=== PATIENT | male | born 1985 | race Caucasian/White ===

== ENCOUNTER 2020-12-14 18:51 | Emergency (ER) | payer BC, SELFPAY ==
[2020-12-14 19:10] VITALS: BP 153/94; PULSE 84; RESP 16; TEMP 37.2; O2SAT 99; BMI 26.9
--- NOTE | 2020-12-14 19:23 | CT_ITS ---
PROCEDURE: CT ABDOMEN PELVIS WO CON CLINICAL INDICATION: Left flank pain COMPARISON: No exams were available for comparison TECHNIQUE: Axial images obtained with sagittal and coronal reformats. All CT scans at the facility use one or more dose reduction, viz: automated exposure control, ma/kV adjustment per patient size (including targeted exams where dose is matched to indication, i.e. head), or iterative reconstruction technique. FINDINGS: LOWER THORAX: No acute finding ABDOMEN & PELVIS: The liver, spleen, adrenal glands, pancreas, have an unremarkable appearance. There is a 5 mm calculus in the mid polar region of the right kidney. There is mild dilatation of the left renal collecting system and left ureter the secondary to a 2 mm calculus in the distal aspect of the left ureter just proximal to the ureterovesical junction. No evidence of appendicitis, intestinal obstruction, or free air. No acute bony anomaly. There are few scattered small nodes in the retroperitoneum and peritoneum. IMPRESSION: 1. 2 mm left distal ureteral calculus with mild left hydroureteronephrosis. 2. Right nephrolithiasis. Dictated by: Arnol Trevizo MD 12/15/2020 06:31 Arnol Trevizo MD in [place] 12/15/2020 06:31
[2020-12-14 19:29] LABS: Basophils # 0.1 K/mm3 (0-0.2); Basophils % 0.8 % (0.1-2.0); Eosinophils # 0.2 K/mm3 (0.0-0.4); Eosinophils % 2.1 % (0.1-12.0); Hematocrit 49.8 % (42.0-52.0); Hemoglobin 16.7 g/dL (14.1-18.0); Lymphocytes # 3.1 K/mm3 (0.7-4.5); Lymphocytes % 36.1 % (10-50); Mean Corpuscular HGB Conc 33.7 g/dL (31.8-35.4); Mean Corpuscular Hemoglobin 31.2 pg (27.0-31.2); Mean Corpuscular Volume 92.8 fl (80-94); Mean Platelet Volume 8.3 fl (7.4-10.4); Monocytes # 0.6 K/mm3 (0.1-1.0); Monocytes % 7.2 % (1.7-9.3); Neutrophils # 4.6 K/mm3 (1.8-7.8); Neutrophils % 53.9 % (37.0-80.0); Platelet Count 225 K/mm3 (142-424); Red Blood Count 5.36 M/mm3 (4.60-6.20); Red Cell Distribution Width 13.1 % (11.5-17.5); White Blood Count 8.5 K/mm3 (4.8-10.8)
[2020-12-14 19:29] LABS: Microscopic, Urine URINE MICROSCOPIC (MICROSCOPIC)
[2020-12-14 19:30] LABS: Chloride 103 mmol/L (98-107); Sodium 142 mmol/L (136-145)
[2020-12-14 19:30] LABS: Appearance,Urine SL CLOUDY (Clear); Bilirubin,Urine Negative (Negative); Blood, Urine 3+ (Negative); Color,Urine YELLOW (Yellow); Glucose,Urine (UA) Negative (Negative); Ketones,Urine Negative (Negative); Leukocyte Esterase,Urine Negative (Negative); Nitrate,Urine Negative (Negative); Protein,Urine Negative (Negative); Specific Gravity, Urine >= 1.030 (1.005-1.030); Urobilinogen,Urine 0.2 EU/dl (0.2)
[2020-12-14 19:31] LABS: Potassium 4.2 mmoL/L (3.5-5.1)
[2020-12-14 19:33] LABS: Alanine Aminotransferase 31 U/L (12-78); Alkaline Phosphatase 67 U/L (38-126); Anion Gap 12.2 mEq/L (5-15); Aspartate Amino Transferase 34 U/L (17-59); Bilirubin,Total 0.8 mg/dl (0.2-1.3); Blood Urea Nitrogen 19 mg/dl (9-20); Carbon Dioxide 31 mmol/L (22.0-30.0); Creatinine Clearance Estimated 86 mL/min (50-200); Estimated Glomerular Filt Rate 62 ml/min (>60); GFR (African American) 75 ML/MIN (>60)
[2020-12-14 19:34] LABS: Albumin Level 4.8 g/dl (3.5-5.0); Albumin/Globulin Ratio 1.5 (1.1-1.8); Calcium 9.9 mg/dl (8.4-10.2); Globulin 3.1 g/dL (1.3-3.2); Glucose 96 mg/dl (74-100); Total Protein,Serum 7.9 g/dl (6.3-8.2)
[2020-12-14 19:35] LABS: Ammonia < 9 umol/L (9-30)
[2020-12-14 19:39] LABS: Squamous Epithelial Cell,Urine Occasional #/hpf (0-5); WBC,Urine Occasional #/hpf (0-3)
[2020-12-14 19:51] LABS: C-Reactive Protein < 0.3 mg/L (0-4)
[2020-12-14 20:11] LABS: Erythrocyte Sedimentation Rate 4 mm/hr (0-15)
--- NOTE | 2020-12-14 20:27 | HMH.EDGENADL ---
ED Disposition Clinical Impression: Renal colic on left side Disposition: Home, Self-Care Condition on Discharge: Good Instructions: DI for Kidney Stones Additional Instructions: fluids and use meds and see urology for follow up Prescriptions: Tamsulosin HCl [Flomax 0.4mg capsule] 0.4 mg PO HS #10 cap Transmission Status: Pending to [facility] [id number] Ketorolac Tromethamine [Toradol 10mg tablet] 10 mg PO Q6H 3 Days #12 tab Transmission Status: Pending to [facility] [address] Referrals: Stephany Myles [Primary Care Provider] - Suhas Burgess MD [Staff Physician] - - Critical Care Critical Care Time: No Attestation: On 12/14/20, the high probability of a clinically significant, sudden or life threatening deterioration of the following system(s) required my full and direct attention, intervention and personal management. The time I documented below is in addition to time spent performing reported procedures but includes the following listed in this critical care notation. Medical Decision Making - Medical Records Medical records reviewed: Yes: I reviewed the patient's medical records. - Abdulkadir Inquiry Pt receiving controlled substance: No Vital Signs: 12/14/20 19:10 Temperature 98.9 F Temperature Source Oral Pulse Rate [Right] 84 Respiratory Rate 16 Blood Pressure [Right Arm] 153/94 H Blood Pressure Mean [Right Arm] 113 Blood Pressure Source [Right Arm] Automatic Cuff Blood Pressure Position [Right Arm] Sitting 02 Sat by Pulse Oximetry 99 Oxygen Delivery Method Room Air - Lab Data Lab results reviewed: Yes: I reviewed the patient's lab results. Lab Results 12/14/20 19:05: Urine Color Yellow, Urine Appearance Sl cloudy, Urine pH 6.0, Ur Specific [place] >= 1.030, Urine Protein Negative, Urine Glucose (UA) Negative, Urine Ketones Negative, Urine Blood 3+, Urine Nitrate Negative, Urine Bilirubin Negative, Urine Urobilinogen 0.2, Ur Leukocyte Esterase Negative, Urine RBC 10-20, Urine WBC Occasional, Ur Squamous Epith Cells Occasional, Hyaline Casts 3-5 12/14/20 19:15: WBC 8.5, RBC 5.36, Hgb 16.7, Hct 49.8, MCV 92.8, MCH 31.2, MCHC 33.7, RDW 13.1, Plt Count 225, MPV 8.3, Neut % (Auto) 53.9, Lymph % (Auto) 36.1, [place] % (Auto) 7.2, Eos % (Auto) 2.1, Baso % (Auto) 0.8, Neut # (Auto) 4.6, Lymph # (Auto) 3.1, [place] # (Auto) 0.6, Eos # (Auto) 0.2, Baso # (Auto) 0.1, ESR 4 12/14/20 19:15: Sodium 142, Potassium 4.2, Chloride 103, Carbon Dioxide 31 H, Anion Gap 12.2, BUN 19, Creatinine 1.30 H, Estimated Creat Clear 86, Estimated GFR 62, Est GFR ( Amer) 75, Glucose 96, Calcium 9.9, Total Bilirubin 0.8, AST 34, ALT 31, Alkaline Phosphatase 67, C-Reactive Protein < 0.3, Total Protein 7.9, Albumin 4.8, Globulin 3.1, Albumin/Globulin Ratio 1.5 12/14/20 19:15: Ammonia < 9 L Result diagrams: 12/14/20 19:15 12/14/20 19:15 Orders (Tests/Meds): ED MEDICATIONS Generic Name Dose Route Start Last Admin Trade Name Freq PRN Reason Stop Dose Admin Sodium Chloride 1,000 mls @ 999 mls/hr 12/14/20 19:30 12/14/20 19:35 Sod Chlor 0.9% 1000ml Bag IV 12/14/20 20:30 999 mls/hr .Q1H1M PHI Administration Discontinued Medications Generic Name Dose Route Start Last Admin Trade Name Freq PRN Reason Stop Dose Admin Ketorolac Tromethamine 30 mg 12/14/20 19:22 12/14/20 19:35 Ketorolac 30mg/Ml Vial IV 12/14/20 19:23 30 mg ONCE ONE Administration Ondansetron HCl 4 mg 12/14/20 19:22 12/14/20 19:35 Ondansetron 4mg/2ml Vial IV 12/14/20 19:23 4 mg ONCE ONE Administration ORDERS Category Date Time Status CT abdomen pelvis wo con Stat Cat Scan 12/14/20 19:23 Taken C-Reactive Protein Stat Lab 12/14/20 19:15 Results Comprehensive Metabolic Panel Stat Lab 12/14/20 19:15 Results Procalcitonin Stat Lab 12/14/20 19:15 Results - CT Data CT Scan: Abdomen, Pelvis Time Received: 20:[address] Reviewed: Yes: I have viewed the radiologist's interpretation Preliminary Find
[2020-12-14 20:37] VITALS: BP 155/96; PULSE 85; RESP 16; TEMP 36.8; O2SAT 98
[2020-12-14 20:49] LABS: Procalcitonin 0.036 ng/mL (0.0-2.0)
== END 2020-12-14 20:43 | disposition home or self-care (01) ==
PROVIDERS: Emergency Medicine; Emergency Provider Emergency Medicine; PCP Nurse Practitioner Family
DX: N23 Unspecified renal colic (principal)
CPT/HCPCS: 74176; 80053; 81001; 82140; 84145; 85025; 85651; 86140; 96365; 96375; 99283; J2405

== ENCOUNTER 2023-05-09 18:11 | Emergency (ER) | payer OTHER, SELFPAY ==
[2023-05-09 18:12] VITALS: BP 136/92; PULSE 79; RESP 16; TEMP 36.9; O2SAT 98; BMI 28.0
[2023-05-09 18:29] VITALS: BP 136/92; PULSE 79; O2SAT 98
--- NOTE | 2023-05-09 18:36 | CT_ITS ---
PROCEDURE INFORMATION: Exam: CT Abdomen And Pelvis Without Contrast Exam date and time: 05/09/2023 6:46 PM Age: 37 years old Clinical indication: Abdominal pain; Flank; Right; Additional info: R/O kidney stone TECHNIQUE: Imaging protocol: Computed tomography of the abdomen and pelvis without contrast. Radiation optimization: All CT scans at this facility use at least one of these dose optimization techniques: automated exposure control; mA and/or kV adjustment per patient size (includes targeted exams where dose is matched to clinical indication); or iterative reconstruction. REPORTING DATA: Count of CT and Cardiac NM exams in prior 12 months: This patient has received 0 known CTs and 0 known cardiac nuclear medicine studies in the 12 months prior to the current study. COMPARISON: CT ABDOMEN PELVIS WO CON 12/14/2020 7:40 PM FINDINGS: Lungs: No acute findings in the visualized lower lungs. No consolidation. Minimal subsegmental atelectasis or scarring in the left lingula. Liver: The liver is normal. Gallbladder and bile ducts: The gallbladder is unremarkable. No calcified stones or biliary dilatation. Pancreas: The pancreas is normal. Spleen: The spleen is normal. Mild splenomegaly 13.8 cm long axis. Series 1001, image 34. Adrenal glands: The adrenal glands are normal. Kidneys and ureters: There is [id number] right hydronephrosis and hydroureter. There is an obstructing calcified stone at the right ureterovesical junction. This stone measures approximately 5 x 4 x 3 mm diameter, with HU density of 432, and is visible on the baggage screener topogram. Slight right urothelial thickening, and right perinephric and periureteral soft tissue edema, which could be due to the obstruction versus superimposed infection. There is a tiny nonobstructing right upper pole renal stone series 1001, image 43, and several small faint densities in both kidneys which could be additional poorly calcified stones or hyperdense papillae., e.g. left kidney series 1001, image 43. No hydronephrosis, hydroureter, or obstructing calcified ureteral stone on the left. Stomach and bowel: The stomach is normal. There is no evidence of intestinal perforation or obstruction. Appendix: No findings of appendicitis. Intraperitoneal space: There is no significant free intraperitoneal fluid. There is no free intraperitoneal air. Vasculature: Unremarkable. No abdominal aortic aneurysm. Lymph nodes: No significantly enlarged lymph nodes by short axis criteria. Urinary bladder: The urinary bladder is nearly empty and contracted which likely accounts for slightly thickened appearance. 4 mm right UVJ stone again noted as detailed above. Reproductive: The prostate and seminal vesicles are normal. Bones/joints: There is no evidence of acute fracture. Soft tissues: There are no soft tissue masses or fluid collections. IMPRESSION: 1. A 5 x 4 x 3 mm calcified stone obstructs the right ureterovesical junction, with [id number] right hydronephrosis and hydroureter. Slight perinephric and periureteral edema may be due to the obstruction or superimposed UTI. 2. Additional nonobstructing renal calculi, as above. 3. Additional nonemergency and chronic findings as above. COMMENTS: Consistent with the [employer]'s Incidental Findings Committee white paper (J Am Dano Radiol 2018): Any incidental renal lesion less than 1 cm or classified as too small to characterize, or any incidental cystic renal lesion characterized as simple-appearing, is likely benign. No follow-up imaging is recommended for these lesions per consensus recommendations based on imag
[2023-05-09 18:43] LABS: Microscopic, Urine URINE MICROSCOPIC (MICROSCOPIC)
[2023-05-09 18:45] LABS: Appearance,Urine CLEAR (Clear); Bilirubin,Urine Negative (Negative); Blood, Urine 3+ (Negative); Color,Urine YELLOW (Yellow); Glucose,Urine (UA) Negative (Negative); Ketones,Urine Negative (Negative); Leukocyte Esterase,Urine Negative (Negative); Nitrate,Urine Negative (Negative); Protein,Urine 2+ (Negative)
[2023-05-09 18:48] LABS: Basophils % 0.4 % (0.1-2.0); Chloride 99 mmol/L (98-107); Eosinophils # 0.3 K/mm3 (0.0-0.4); Eosinophils % 2.8 % (0.1-12.0); Hematocrit 47.8 % (42.0-52.0); Hemoglobin 15.9 g/dL (14.1-18.0); Lymphocytes # 1.7 K/mm3 (0.7-4.5); Mean Corpuscular HGB Conc 33.3 g/dL (31.8-35.4); Mean Platelet Volume 8.5 fl (7.4-10.4); Monocytes # 0.6 K/mm3 (0.1-1.0); Monocytes % 7.3 % (1.7-9.3); Neutrophils # 6.2 K/mm3 (1.8-7.8); Neutrophils % 70.5 % (37.0-80.0); Platelet Count 192 K/mm3 (142-424); Red Blood Count 5.49 M/mm3 (4.60-6.20); Red Cell Distribution Width 12.6 % (11.5-17.5); Sodium 140 mmol/L (136-145); White Blood Count 8.8 K/mm3 (4.8-10.8)
[2023-05-09 18:51] LABS: Alanine Aminotransferase 32 U/L (12-78); Alkaline Phosphatase 82 U/L (38-126); Amylase 97 U/L (30-110); Aspartate Amino Transferase 48 U/L (17-59); Bilirubin,Total 1.1 mg/dl (0.2-1.3); Blood Urea Nitrogen 20 mg/dl (9-20); Calcium 9.1 mg/dl (8.4-10.2); Carbon Dioxide 31 mmol/L (22.0-30.0); Creatinine Clearance Estimated 92 mL/min (50-200); Estimated Glomerular Filt Rate 67 ml/min (>60); GFR (African American) 82 ML/MIN (>60); Glucose 96 mg/dl (74-100); Lipase 40 U/L (23-300)
[2023-05-09 18:52] LABS: Albumin Level 4.8 g/dl (3.5-5.0); Albumin/Globulin Ratio 1.6 (1.1-1.8); Total Protein,Serum 7.8 g/dl (6.3-8.2)
[2023-05-09 19:01] VITALS: BP 112/75; PULSE 75; O2SAT 97
[2023-05-09 19:15] LABS: RBC,Urine 20-50 #/hpf (0-3); WBC,Urine Occasional #/hpf (0-3)
[2023-05-09 19:30] VITALS: BP 129/84; PULSE 67; O2SAT 98
--- NOTE | 2023-05-09 19:41 | PC.NURSE ---
Called [facility] for possible transfer. Advised they would call back. Face sheet faxed.
--- NOTE | 2023-05-09 19:54 | PC.NURSE ---
pt updated on wait time and questions about visitors
--- NOTE | 2023-05-09 19:58 | PC.NURSE ---
[facility] access center report that [facility] has Urology services and will accept.
--- NOTE | 2023-05-09 19:58 | PC.NURSE ---
Russ from transfer center called back to advise that [facility] has no urology coverage. Advised [facility] did and they would call back once they checked bed status.
[2023-05-09 20:00] VITALS: BP 136/82; PULSE 86; O2SAT 99
--- NOTE | 2023-05-09 20:10 | HMH.EDGENADL ---
Discharge Plan Disposition Patient Disposition: Xfer Intermediate Care Fac Condition: Good Prescriptions Prescriptions: No Action tamsulosin 0.4 MG capsule 0.4 mg PO HS Qty: 10 0RF ketorolac 10 MG tablet 10 mg PO Q6H 3 Days Qty: 12 0RF Referrals Follow up/Referrals: Stephany Myles [Primary Care Provider] - See instructions Clinical Impressions Clinical Impression: Acquired ureterovesical junction (UVJ) obstruction, Right nephrolithiasis Stand Alone Forms Stand Alone Forms: Transfer Record - ED Discharge ED Provider: [facility] General Adult HPI General Chief complaint: PAIN Stated complaint: abd pain Time Seen by Provider: 05/09/23 18:20 Mode of Arrival: Ambulatory Source of Information: Patient Limitations: No Limitations Description of Symptoms (Recalled from ER Triage Doc. by RN): c/o lower back, bilateral groin and tip of his penis pain that started 5 days ago. Feels like he need to stay on the toilet and is unable to get only small amounts of urine out, states that the tip of his penis has started tingling more today. History of Present Illness HPI narrative: This is a 37-year-old male with history of kidney stones presenting with right flank pain. Patient states that started about 5 days ago. Associated with dysuria. Patient states that he is also been constipated. Feels similar to his previous kidney stones. Denies fevers, chills, nausea, vomiting, hematuria, vomiting. Flank pain is moderate in intensity, stabbing, radiates from right flank into right lower abdomen. Not made better with Tylenol or Motrin. Related Data Previous Rx's Medication Instructions Recorded ketorolac 10 mg tablet 10 mg PO Q6H 3 days #12 tabs 12/14/20 tamsulosin 0.4 mg capsule 0.4 mg PO HS #10 caps 12/14/20 Allergies Allergy/AdvReac Type Severity Reaction Status Date / Time No Known Allergies Allergy Verified 12/14/20 19:21 [facility] Disclaimer: The information contained in this section may have been updated after the patient was seen, as this information can be updated by other users. Social History Smoking Status: Current every day smoker tobacco type: cigarettes packs per day: 1 alcohol intake: never current occupational status: employed Travel in the last 8 weeks: None ROS Obtained: Yes All systems reviewed & no additional complaints except as documented Physical Exam General General appearance: alert and in no apparent distress Head Head exam: atraumatic, normocephalic and normal inspection Eye Eye exam: Present normal appearance, PERRL and EOMI ENT ENT exam: Present normal exam, normal oropharynx, mucous membranes moist, TM's normal bilaterally and normal external ear exam Neck Neck exam: Present normal inspection, full ROM and trachea midline; Absent meningismus or lymphadenopathy Chest Chest inspection: Present normal inspection and symmetric chest wall rise; Absent tenderness Respiratory Respiratory exam: Present normal lung sounds bilaterally; Absent respiratory distress Cardiovascular Cardiovascular exam: Present regular rate and normal rhythm; Absent JVD Abdominal Exam Abdominal exam: Present soft and normal bowel sounds; Absent distention, tenderness or guarding Extremities Exam Extremities exam: Present normal inspection, full ROM and normal capillary refill; Absent calf tenderness Back Exam Back exam: Present normal inspection; Absent tenderness Neurological Exam Neurological exam: Present alert and oriented X3 Psychiatric Psychiatric exam: Present normal affect and normal mood Skin Skin exam: Present warm, dry, intact and normal color Lymphatic Lymphatic Findings: no adenopathy Medical Decision Making Medical Records Medical records reviewed: Yes I reviewed the patient's medical records. Abdulkadir Inquiry Pt receiving controlled substance: No Abdulkadir was queried for this patient: No Vital Signs: 05/09/23 18:12 05/09/23 18:29 05/09/23 19:01 [place]
--- NOTE | 2023-05-09 20:18 | PC.NURSE ---
ROUNDED ON PT NEEDED NOTHING, GAVE PT A BLANKET
--- NOTE | 2023-05-09 20:29 | PC.NURSE ---
Waiting for Call back from [facility] at this time
[2023-05-09 20:48] VITALS: BP 136/87; PULSE 84; RESP 16; TEMP 36.8; O2SAT 99
== END 2023-05-09 20:49 ==
PROVIDERS: Emergency Provider Emergency Medicine; PCP Nurse Practitioner Family
DX: R10.31 Right lower quadrant pain (principal); N13.0 Hydronephrosis with ureteropelvic junction obstruction; N13.4 Hydroureter; N20.0 Calculus of kidney; F17.210 Nicotine dependence, cigarettes, uncomplicated
CPT/HCPCS: 74176; 80053; 81001; 82150; 83690; 85025; 96361; 96374; 96375; 99285; J2405

== ENCOUNTER 2024-10-24 18:35 | Emergency (ER) | payer OTHER, SELFPAY ==
[2024-10-24 18:37] VITALS: BP 134/88; PULSE 85; RESP 20; TEMP 36.8; O2SAT 97; BMI 26.6
[2024-10-24 19:00] VITALS: BP 142/99; PULSE 89; O2SAT 97
[2024-10-24] MEDS: ONDANSETRON 4MG/2ML VIAL 4 MG IV (19:02)
--- NOTE | 2024-10-24 19:06 | CT_ITS ---
PROCEDURE INFORMATION: Exam: CT Abdomen And Pelvis With Contrast Exam date and time: 10/24/2024 7:19 PM Age: 39 years old Clinical indication: Abdominal pain; Additional info: Abdominal pain, diarrhea, nausea vomiting TECHNIQUE: Imaging protocol: Computed tomography of the abdomen and pelvis with contrast. Radiation optimization: All CT scans at this facility use at least one of these dose optimization techniques: automated exposure control; mA and/or kV adjustment per patient size (includes targeted exams where dose is matched to clinical indication); or iterative reconstruction. Contrast material: ISOVUE; Contrast volume: 75 ml; Contrast route: IV; COMPARISON: CT ABDOMEN PELVIS WO CON 05/09/2023 6:46 PM FINDINGS: Lungs: Bilateral dependent pulmonary atelectasis is demonstrated within the lungs. Diaphragm: Small hiatal hernia is demonstrated within the lower mediastinum. Liver: Unremarkable. No mass. Gallbladder and biliary ducts: Unremarkable. No calcified stones. No ductal dilation. Pancreas: Unremarkable. Spleen: Unremarkable. No splenomegaly. Adrenal glands: Normal. No mass. Kidneys and ureters: Right nephrolithiasis is demonstrated. Calculus measurement: Upper pole 2 mm right renal calculus on coronal image 47. The visualized kidneys appear otherwise unremarkable. No visualized renal hydronephrosis. No visualized obstructing ureteral calculus. Stomach and bowel: Prominent fluid identified within the bowel, colon and rectum, compatible with diarrheal state. Findings are compatible with infectious or inflammatory gastroenteritis. No visualized evidence for bowel obstruction or ileus. Wall thickening and enhancement most prominent in the proximal to mid small bowel. The bowel appears otherwise unremarkable. Appendix: The visualized appendix appears unremarkable. Intraperitoneal space: No free air. No significant fluid collection. Vasculature: Unremarkable. No abdominal aortic aneurysm. Lymph nodes: No enlarged lymph nodes. Urinary bladder: Unremarkable as visualized. Reproductive: Unremarkable as visualized. Bones/joints: No acute bony abnormality. No significant degenerative changes. Soft tissues: Unremarkable. IMPRESSION: 1. Findings compatible with diarrheal state, infectious or inflammatory gastroenteritis. 2. Right nonobstructing nephrolithiasis. 3. Small sized hiatal hernia.
--- NOTE | 2024-10-24 19:08 | ED_ITS ---
Discharge Plan Disposition Patient Disposition: Home, Self-Care Condition: Good Prescriptions Prescriptions: New ondansetron 4 mg tablet,disintegrating 4 mg PO Q6H PRN (Reason: nausea and vomiting) Qty: 10 0RF No Action tamsulosin 0.4 MG capsule 0.4 mg PO HS Qty: 10 0RF ketorolac 10 MG tablet 10 mg PO Q6H 3 Days Qty: 12 0RF Referrals Follow up/Referrals: Stephany Myles [Primary Care Provider] - See instructions Activity Restrictions/Add. Instructions Additional Instructions/Restrictions: Follow-up with PCP, good fluid intake, take Zofran as prescribed return to the emergency department any worsening signs or symptoms. Monitoring for any worsening abdominal pain, blood in your stool. Symptoms should improve within 24 to 72 hours. Return to the emergency department if unable to tolerate oral intake. Clinical Impressions Clinical Impression: Gastroenteritis Instructions Patient Instructions: DI for Viral Gastroenteritis -- Adult, DI for Diarrhea and Traveler's Diarrhea -- Adult, DI for Nausea -- Adult Print Language Print Language: Japanese Discharge ED Provider: Pool Hawkins General Adult HPI <RINA Reyes - Last Filed: 10/24/24 20:39> General Chief complaint: Nausea/Vomiting/Diarrhea Stated complaint: Vomiting,hot & cold sweats,diarrhea Time Seen by Provider: 10/24/24 18:52 Mode of Arrival: Ambulatory Source of Information: Patient Limitations: No Limitations Description of Symptoms (Recalled from ER Triage Doc. by RN): pt is here for n/v/d that started today, kids have recently been sick History of Present Illness HPI narrative: 39-year-old male presents to the emergency department with some nausea vomiting and abdominal cramping with diarrhea that started yesterday, sick contacts are the kids in the household with similar symptoms, patient denies any real fever chills chest pain shortness of breath denies urinary type symptomatology, denies melena hematochezia or hematemesis. He has past medical history consistent with current Subutex use, he is a current everyday smoker denies any alcohol use, prior history of hepatitis C, denies any other drug use. Onset (ago): day(s) Related Data Previous Rx's ?Medication ?Instructions ?Recorded ketorolac 10 mg tablet 10 mg PO Q6H 3 days #12 tabs 12/14/20 tamsulosin 0.4 mg capsule 0.4 mg PO HS #10 caps 12/14/20 ondansetron 4 mg disintegrating 4 mg PO Q6H PRN nausea and 10/24/24 tablet vomiting #10 tabs Allergies Allergy/AdvReac Type Severity Reaction Status Date / Time No Known Allergies Allergy Verified 12/14/20 19:21 PFS <RINA Reyes - Last Filed: 10/24/24 20:39> [facility] Disclaimer: The information contained in this section may have been updated after the patient was seen, as this information can be updated by other users. Social History Smoking Status: Current every day smoker tobacco type: cigarettes packs per day: 1 alcohol intake: never current occupational status: employed Travel in the last 8 weeks: None Other Medical History Have you received the Flu Vaccine for this season: No Have you received the Pneumonia Vaccine: No <RINA Reyes - Last Filed: 10/24/24 20:39> ROS Obtained: Yes All systems reviewed & no additional complaints except as documented Physical Exam <RINA Reyes - Last Filed: 10/24/24 20:39> General General appearance: alert and in no apparent distress Head Head exam: atraumatic and normocephalic Eye Eye exam: Present PERRL and EOMI ENT ENT exam: Present mucous membranes moist Neck Neck exam: Present normal inspection Chest Chest inspection: Present normal inspection and symmetric chest wall rise Respiratory Respiratory exam: Present wheezes and other (Mild wheezing throughout bilateral lung cline.); Absent respiratory distress Cardiovascular Cardiovascular exam: Present regular rate and normal rhythm Abdominal Exam Abdominal exam: Present soft; Absent tenderness, guarding, rebound or rigidity Extremities Exam Extremities exam: Present normal inspection Neurological Exam Neurological exam: Present alert and oriented X3 Psychiatric Psychiatric exam: Present normal affect Skin Skin exam: Present warm and dry Medical Decision Making <RINA Reyes - Last Filed: 10/24/24 20:39> Medical Records Medical records reviewed: Yes I reviewed the patient's medical records. Screening: Per USPSTF and CDC recommendations, given the prevalence of disease in our region, it is our hospital?s policy to screen for HIV and viral Hepatitis for all patients aged 18 and over and those with ongoing risk factors. Abdulkadir Inquiry Pt receiving controlled substance: No Abdulkadir was queried for this patient: No Vital Signs: 10/24/24 18:37 10/24/24 19:00 10/24/24 20:41 Temperature 98.2 F 0 F L Temperature Source Oral Pulse Rate 89 71 Pulse Rate [Right Radial] 85 Respiratory Rate 20 20 Blood Pressure 142/99 H 137/84 Blood Pressure [Right Arm] 134/88 Blood Pressure Mean [Right Arm] 103 02 Sat by Pulse Oximetry 97 97 Oxygen Delivery Method Room Air Room Air Lab Data Lab Results 10/24/24 19:00: WBC 8.3, RBC 5.46, Hgb 16.3, Hct 47.1, MCV 86.3, MCH 29.9, MCHC 34.7, RDW 12.9, Plt Count 263, MPV 8.2, Neut % (Auto) 63.0, Lymph % (Auto) 25.3, [place] % (Auto) 7.6, Eos % (Auto) 3.0, Baso % (Auto) 1.2, Neut # (Auto) 5.2, Lymph # (Auto) 2.1, [place] # (Auto) 0.6, Eos # (Auto) 0.2, Baso # (Auto) 0.1, Sodium 142, Potassium 4.0, Chloride 104, Carbon Dioxide 31 H, Anion Gap 11.0, BUN 13, Creatinine 1.20, Estimated Creat Clear 91, Estimated GFR 67, Est GFR ( Amer) 81, Glucose 97, Calcium 9.5, Magnesium 2.1, Total Bilirubin 0.8, AST 48, ALT 28, Alkaline Phosphatase 69, Total Protein 8.0, Albumin 5.0, Globulin 3.0, Albumin/Globulin Ratio 1.7, Lipase 46 10/24/24 19:39: Urine Color Yellow, Urine Appearance Clear, Urine pH 8.0, Ur Specific [place] 1.015, Urine Protein Negative, Urine Glucose (UA) Negative, Urine Ketones Negative, Urine Blood Negative, Urine Nitrate Negative, Urine Bilirubin Negative, Urine Urobilinogen 1.0, Ur Leukocyte Esterase Negative, Urine RBC None, Urine WBC Occasional, Ur Squamous Epith Cells Occasional, Urine Bacteria 2+ 10/24/24 19:00 10/24/24 19:00 Orders (Tests/Meds): ED MEDICATIONS Discontinued Medications Generic Name Dose Route Start Last Admin Trade Name Freq PRN Reason Stop Dose Admin Iopamidol 75 ml 10/24/24 19:24 10/24/24 19:25 Iopamidol-370 (76%);100ml Bottle IV 10/24/24 19:25 75 ml ONCE ONE Administration Ondansetron HCl 4 mg 10/24/24 19:01 10/24/24 19:02 Ondansetron 4mg/2ml Vial IV 10/24/24 19:02 4 mg ONCE ONE Administration Sodium Chloride 10 ml 10/24/24 19:24 10/24/24 19:25 Sodium Chloride 0.9% 10ml Syr (Rad Only) IV 11/23/24 19:23 10 ml NEEDED PRN Administration Maintain IV Site ORDERS Category Date Time Status CT abdomen pelvis w con Stat Cat Scan 10/24/24 19:06 Completed Complete Blood Count Auto Diff Stat Lab 10/24/24 19:00 Completed Comprehensive Metabolic Panel Stat Lab 10/24/24 19:00 Completed Lipase Stat Lab 10/24/24 19:00 Completed Magnesium Stat Lab 10/24/24 19:00 Completed Urinalysis and Microscopic Stat Lab 10/24/24 19:39 Completed Urine Culture Stat Micro 10/24/24 19:39 Received Medical Decision Narrative: 39-year-old male presents to the emergency department for abdominal cramping nausea vomiting diarrhea started yesterday, differential diagnose include but limited to, colitis, mobile obstruction, cholelithiasis, cholecystitis, choledocholithiasis, viral gastroenteritis, pancreatitis. I discussed this patient's case with the attending physician Dr. Hawkins Obtain basic laboratory studies will obtain lipase CT ab pelvis with contrast, magnesium level, will give Zofran 4 mg IV for nausea, and obtain urinalysis. CBC unremarkable. CMP unremarkable, lipase within normal limits I reviewed the patient's CT abdomen pelvis with contrast along the corresponding radiologic report findings compatible with diarrheal state infectious or inflammatory gastroenteritis, right nonobstructing nephrolithiasis small size hiatal hernia. Urine is unremarkable. I discussed the results with the patient family bedside patient has viral gastroenteritis most consistent with other family recent household, shown on CT abdomen, laboratory studies are unremarkable. Patient will follow-up with primary care provider, good p.o. intake with fluids, I will prescribe patient p.o. Zofran for nausea as needed. Patient family voiced understanding of current treatment plan/discharge plan, strict return precaution given. <Pool Hawkins MD - Last Filed: 10/24/24 22:35> Vital Signs: 10/24/24 18:37 10/24/24 19:00 10/24/24 20:41 Temperature 98.2 F 0 F L Temperature Source Oral Pulse Rate 89 71 Pulse Rate [Right Radial] 85 Respiratory Rate 20 20 Blood Pressure 142/99 H 137/84 Blood Pressure [Right Arm] 134/88 Blood Pressure Mean [Right Arm] 103 02 Sat by Pulse Oximetry 97 97 Oxygen Delivery Method Room Air Room Air Lab Data Lab Results 10/24/24 19:00: WBC 8.3, RBC 5.46, Hgb 16.3, Hct 47.1, MCV 86.3, MCH 29.9, MCHC 34.7, RDW 12.9, Plt Count 263, MPV 8.2, Neut % (Auto) 63.0, Lymph % (Auto) 25.3, [place] % (Auto) 7.6, Eos % (Auto) 3.0, Baso % (Auto) 1.2, Neut # (Auto) 5.2, Lymph # (Auto) 2.1, [place] # (Auto) 0.6, Eos # (Auto) 0.2, Baso # (Auto) 0.1, Sodium 142, Potassium 4.0, Chloride 104, Carbon Dioxide 31 H, Anion Gap 11.0, BUN 13, Creatinine 1.20, Estimated Creat Clear 91, Estimated GFR 67, Est GFR ( Amer) 81, Glucose 97, Calcium 9.5, Magnesium 2.1, Total Bilirubin 0.8, AST 48, ALT 28, Alkaline Phosphatase 69, Total Protein 8.0, Albumin 5.0, Globulin 3.0, Albumin/Globulin Ratio 1.7, Lipase 46 10/24/24 19:39: Urine Color Yellow, Urine Appearance Clear, Urine pH 8.0, Ur Specific [place] 1.015, Urine Protein Negative, Urine Glucose (UA) Negative, Urine Ketones Negative, Urine Blood Negative, Urine Nitrate Negative, Urine Bilirubin Negative, Urine Urobilinogen 1.0, Ur Leukocyte Esterase Negative, Urine RBC None, Urine WBC Occasional, Ur Squamous Epith Cells Occasional, Urine Bacteria 2+ Orders (Tests/Meds): ED MEDICATIONS Discontinued Medications Generic Name Dose Route Start Last Admin Trade Name Freq PRN Reason Stop Dose Admin Iopamidol 75 ml 10/24/24 19:24 10/24/24 19:25 Iopamidol-370 (76%);100ml Bottle IV 10/24/24 19:25 75 ml ONCE ONE Administration Ondansetron HCl 4 mg 10/24/24 19:01 10/24/24 19:02 Ondansetron 4mg/2ml Vial IV 10/24/24 19:02 4 mg ONCE ONE Administration Sodium Chloride 10 ml 10/24/24 19:24 10/24/24 19:25 Sodium Chloride 0.9% 10ml Syr (Rad Only) IV 11/23/24 19:23 10 ml NEEDED PRN Administration Maintain IV Site ORDERS Category Date Time Status CT abdomen pelvis w con Stat Cat Scan 10/24/24 19:06 Completed Complete Blood Count Auto Diff Stat Lab 10/24/24 19:00 Completed Comprehensive Metabolic Panel Stat Lab 10/24/24 19:00 Completed Lipase Stat Lab 10/24/24 19:00 Completed Magnesium Stat Lab 10/24/24 19:00 Completed Urinalysis and Microscopic Stat Lab 10/24/24 19:39 Completed Urine Culture Stat Micro 10/24/24 19:39 Received Medical Decision Narrative: 39-year-old male presents to the emergency department for abdominal cramping nausea vomiting diarrhea started yesterday, differential diagnose include but limited to, colitis, mobile obstruction, cholelithiasis, cholecystitis, choledocholithiasis, viral gastroenteritis, pancreatitis. I discussed this patient's case with the attending physician Dr. Hawkins Obtain basic laboratory studies will obtain lipase CT ab pelvis with contrast, magnesium level, will give Zofran 4 mg IV for nausea, and obtain urinalysis. CBC unremarkable. CMP unremarkable, lipase within normal limits I reviewed the patient's CT abdomen pelvis with contrast along the corresponding radiologic report findings compatible with diarrheal state infectious or inflammatory gastroenteritis, right nonobstructing nephrolithiasis small size hiatal hernia. Urine is unremarkable. I discussed the results with the patient family bedside patient has viral gastroenteritis most consistent with other family recent household, shown on CT abdomen, laboratory studies are unremarkable. Patient will follow-up with primary care provider, good p.o. intake with fluids, I will prescribe patient p.o. Zofran for nausea as needed. Patient family voiced understanding of current treatment plan/discharge plan, strict return precaution given. I was consulted by the TITUS, and we discussed the complexity of the problems being addressed. I approved the treatment and management plan for this patient's care in the Emergency Department, thus performing a substantive portion of the medical decision making. Pool Hawkins MD Critical Care <RINA Reyes - Last Filed: 10/24/24 20:39> Critical Care Time Critical Care Time: No
[2024-10-24 19:15] LABS: Basophils # 0.1 K/mm3 (0-0.2); Basophils % 1.2 % (0.1-2.0); Eosinophils # 0.2 K/mm3 (0.0-0.4); Hematocrit 47.1 % (42.0-52.0); Hemoglobin 16.3 g/dL (14.1-18.0); Lymphocytes # 2.1 K/mm3 (0.7-4.5); Lymphocytes % 25.3 % (10-50); Mean Corpuscular HGB Conc 34.7 g/dL (31.8-35.4); Mean Corpuscular Hemoglobin 29.9 pg (27.0-31.2); Mean Corpuscular Volume 86.3 fl (80-94); Mean Platelet Volume 8.2 fl (7.4-10.4); Monocytes # 0.6 K/mm3 (0.1-1.0); Monocytes % 7.6 % (1.7-9.3); Neutrophils # 5.2 K/mm3 (1.8-7.8); Platelet Count 263 K/mm3 (142-424); Red Blood Count 5.46 M/mm3 (4.60-6.20); Red Cell Distribution Width 12.9 % (11.5-17.5); White Blood Count 8.3 K/mm3 (4.8-10.8)
[2024-10-24] MEDS: SODIUM CHLORIDE 0.9% 10ML SYR (RAD ONLY) 10 ML IV (19:25)
[2024-10-24] MEDS: IOPAMIDOL-370 (76%);100ML BOTTLE 75 ML IV (19:25)
[2024-10-24 19:31] LABS: Alanine Aminotransferase 28 U/L (12-78); Albumin/Globulin Ratio 1.7 (1.1-1.8); Alkaline Phosphatase 69 U/L (38-126); Aspartate Amino Transferase 48 U/L (17-59); Bilirubin,Total 0.8 mg/dl (0.2-1.3); Blood Urea Nitrogen 13 mg/dl (9-20); Calcium 9.5 mg/dl (8.4-10.2); Carbon Dioxide 31 mmol/L (22.0-30.0); Chloride 104 mmol/L (98-107); Creatinine Clearance Estimated 91 mL/min (50-200); Estimated Glomerular Filt Rate 67 ml/min (>60); GFR (African American) 81 ML/MIN (>60); Glucose 97 mg/dl (74-100); Lipase 46 U/L (23-300); Magnesium 2.1 mg/dl (1.6-2.3); Sodium 142 mmol/L (136-145)
[2024-10-24 19:44] LABS: Microscopic, Urine URINE MICROSCOPIC (MICROSCOPIC)
[2024-10-24 20:15] LABS: Appearance,Urine CLEAR (Clear); Bilirubin,Urine Negative (Negative); Blood, Urine Negative (Negative); Color,Urine YELLOW (Yellow); Glucose,Urine (UA) Negative (Negative); Ketones,Urine Negative (Negative); Leukocyte Esterase,Urine Negative (Negative); Nitrate,Urine Negative (Negative); Protein,Urine Negative (Negative); Specific Gravity, Urine 1.015 (1.005-1.030)
[2024-10-24 20:41] VITALS: BP 137/84; PULSE 71; RESP 20; TEMP -17.7; TEMP 0
[2024-10-24 21:00] LABS: Bacteria,Urine 2+ /lpf; Squamous Epithelial Cell,Urine Occasional #/hpf (0-5); WBC,Urine Occasional #/hpf (0-3)
--- OUTSIDE RECORDS SUMMARY | 2024-10-25 22:32 | XMS_ITS | Encounter Summary ---
Author Organization [place] [address] Care Team Providers Care Cath Laboratory Technician Name Role Phone Stephany Myles APRN Primary Care Provider [phone] Reason for Visit * Reason Comments Cough Congestion Encounter Details Date Type Department Care Team (Late st Contact Info) Description 09/29/2023 3:45 PM EST Office Visit [facility] [address] [place] [phone] Rochelle Eng MD Cough, unspecified type (Primary Dx) Social History Tobacco Use Types Packs/Day Years Used Date Smoking Tobacco: Every Day Cigarettes 1 24.9 Started: 11/16/1999 Smokeless Tobacco: Never Alcohol Use Standard Drinks/Week Comments No 0 (1 standard drink = 0.6 oz pur e alcohol) Overall Financial Resource Strain (CARDIA) Answe r Date Recorded Difficulty of Paying Living Expenses Not hard at all 05/31/2020 PHQ-2 Answer Date Recorded PHQ-2 Total Score 2 12/04/2020 Hunger Vital Sign Answer Date Recorded Worried About Running Out of Food in the Last Ye ar Never true 05/31/2020 Ran Out of Food in the Last Year Never true 05/31/2020 PRAPARE - Transportation Answer Date Re corded Lack of Transportation (Medical) No 05/31/2020 Lack of Transportation (Non-Medical) No 05/31/2020 Sexually Active Control Partners Comments Yes Female Sex and Gender Information Value Date Recorded Sex Assigned at Not on file Legal Sex Male 4:41 AM EDT Gender Identity Not on file Sexual Orientation Not on file 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 Answer Date of Assessment Author No 12/04/2020 9:01 AM Babita Thomas RMA * Is the person blind or does he/she have serious difficulty seeing even when wearing glasses? Answer Date of Assessment Author No 12/04/2020 9:01 AM Babita Thomas RMA * Does this person have serious difficulty walking or climbing stairs? Answer Date of Assessment Author No 12/04/2020 9:01 AM Babita Thomas RMA * Does this person have difficulty dressing or bathing? Answer Date of Assessment Author No 12/04/2020 9:01 AM Babita Thomas RMA * Because of a physical, mental or emotional condition, does this person have difficulty doing errands alone such as visiting a doctor's office or shopping? Answer Date of Assessment Author No 12/04/2020 9:01 AM Babita Thomas RMIman documented as of this encounter Mental Status * Because of a physical, mental or emotional condition, does this person have serious difficulty concentrating, remembering or making decisions? Answer Entry Date Author No 12/04/2020 9:01 AM Babita Thomas RMA documented in this encounter Progress Notes * Rochelle Eng MD - 09/29/2023 3:45 PM EST Vitals: 09/29/23 1557 BP: 134/82 Pulse: 82 Resp: 16 Temp: 97.3 ??F (36.3 ??C) TempSrc: Temporal SpO2: 98% Weight: 169 lb (76.7 kg) SUBJECTIVE: Chief Complaint Patient presents with ??? Cough ??? Congestion HPI: Patient presents with cough, sinus congestion and pressure for 4 days. Review of Systems Constitutional: Positive for chills and fatigue. Negative for fever. HENT: Positive for congestion, sinus pressure and sinus pain. Negative for voice change. Eyes: Negative for redness. Respiratory: Positive for cough. Cardiovascular: Negative for chest pain. Gastrointestinal: Negative for abdominal pain. Musculoskeletal: Negative for back pain. Skin: Negative for rash. Neurological: Negative for dizziness and headaches. OBJECTIVE: Physical Exam Vitals reviewed. HENT: Right Ear: Tympanic membrane normal. Left Ear: Tympanic membrane normal. Mouth/Throat: Mouth: Mucous membranes are moist. Pharynx: No posterior oropharyngeal erythema. Cardiovascular: Rate and Rhythm: Normal rate and regular rhythm. Pulmonary: Effort: Pulmonary effort is normal. Lymphadenopathy: Cervical: No cervical adenopathy. Assessment Diagnoses and all orders for this visit: Cough, unspecified type Comments: discusse sx tx with OTC products Orders: - POCT LILIAN SARS ANTIGEN - POCT LILIAN INFLUENZA A/B documented in this encounter Plan of Treatment Not on file documented as of this encounter Goals Goal Patient Goal Type Associated Problems Recent Progress Patient-Stated? Author Maintain a healthy diet, exercise regularly and maintain an ideal body weight General No Babita Bermudez RMA Stay Tobacco Free Lifestyle No Babita Bermudez RMA documented as of this encounter Procedures Procedure Name Priority Date/Time Associated Diagnosis Comments POCT LILIAN INFLUENZA A/B Routine 09/29/2023 5:17 PM EST Cough, unspecified type POCT LILIAN SARS ANTIGEN Routine 09/29/2023 4:02 PM EST Cough, unspecified type documented in this encounter Results * POCT LILIAN INFLUENZA A/B (09/29/2023 5:17 PM EST) Influenza A Antigen Negative Negative 09/29/2023 4:21 PM EST [facility] Influenza B Antigen Negative Negative 09/29/2023 4:21 PM EST [facility] Swab SPECIMEN FROM NASOPHARYNGEAL STRUCTURE / Unknown 09/29/2023 5:17 PM EST 09/29/2023 4:21 PM EST Rochelle Eng MD POINT OF CARE TEST ORDERABL ES Final Result [facility] [address] [facility] [place] [phone] * POCT LILIAN SARS ANTIGEN (09/29/2023 4:02 PM EST) SARS Antigen Negative Negative SEP OFFICE Lot Number SEP OFFICE Expiration Date SEP OFFICE SeriAl # SEP OFFICE Control Line Yes YES/NO SEP OFFICE 09/29/2023 4:02 PM EST Rochelle Eng MD POINT OF CARE TEST ORDERABL ES Final Result Performing Organization Address City/[facility] Co de Phone Number SEP OFFICE documented in this encounter Visit Diagnoses Diagnosis Cough, unspecified type- Primary documented in this encounter Discontinued Medications Medication Sig Discontinue Reason Start Date End Da te predniSONE (DELTASONE) 10 mg Oral TabletIndications:Poison juno dermatitis 3 times a day x 4 days, 2 times a day x 4 days, once a day x 4 days Cancelled by 06/29/2023 09/29/2023 nicotine (NICODERM CQ) 21 mg/24 hr TD Patch 24 hrIndications:Personal history of nicotine dependence Place 1 Patch onto the skin every 24 hours. Cancelled by 05/26/2023 09/29/2023 documented as of this encounter Additional Health Concerns Assessment Noted Time PHQ-9 Depression Total Score: 2 12/04/19 21 9:02 AM EST PHQ-2 Depression Total Score: 2 12/04/19 21 9:02 AM EST documented as of this encounter Care Teams Cath Laboratory Technician Relationship Specialty Start Date End Date Stephany Myles APRN [address] [place], [place] [id number] PCP - General Nurse Practitioner-Family 05/17/20 documented as of this encounter
--- OUTSIDE RECORDS SUMMARY | 2024-10-25 22:32 | XMS_ITS | Encounter Summary ---
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 No / Unsure 12/18/2022 10:21 AM EST documented as of this encounter Functional Status * Is the person deaf or does he/she have serious difficulty hearing? Answer Date of Assessment Author No 12/04/2020 9:01 AM JULIÁN Babita Bermudez RMIman * Is the person blind or does he/she have serious difficulty seeing even when wearing glasses? Answer Date of Assessment Author No 12/04/2020 9:01 AM Babita Thomas RMIman * Does this person have serious difficulty walking or climbing stairs? Answer Date of Assessment Author No 12/04/2020 9:01 AM Babita Thomas RMA * Does this person have difficulty dressing or bathing? Answer Date of Assessment Author No 12/04/2020 9:01 AM Babita Thomas RMIman * Because of a physical, mental or [...] 12/04/2020 9:01 AM Babita Thomas RMIman documented in this encounter Plan of Treatment Not on file documented as of this encounter Goals Goal Patient Goal Type Associated Problems Recent Progress Patient-Stated? Author Maintain a healthy diet, exercise regularly and maintain an ideal body weight General No Babita Bermudez RMA Stay Tobacco Free Lifestyle No Babita Bermudez RMA documented as of this encounter Visit Diagnoses Not on filedocumented in this encounter Additional Health Concerns Assessment Noted Time PHQ-9 Depression Total Score: 2 12/04/19 9:02 AM EST PHQ-2 Depression Total Score: 2 12/04/19 9:02 AM EST documented as of this encounter Care Teams Customer Quality Engineer Relationship Specialty Start Date End Date Stephany Myles [place] [address] [place] [phone] PCP - General Nurse Practitioner-Family 05/17/20 documented as of this encounter
--- OUTSIDE RECORDS SUMMARY | 2024-10-25 22:32 | XMS_ITS | Encounter Summary ---
Author Organization 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 Not on file Not on file documented as of this encounter Last Filed Vital Signs Vital Sign Reading Time Taken Comments Blood Pressure 110/82 10/16/2023 1:27 PM EST Pulse 76 10/16/2023 1:27 PM EST Temperature 38.9 ??C (102 ??F) 10/16/2023 1:27 PM EST Respiratory Rate 16 10/16/2023 1:27 PM EST Oxygen Saturation 98% 10/16/2023 1:27 PM EST Inhaled Oxygen Concentration - - Weight 76.7 kg (169 lb) 10/16/2023 1:27 PM EST Height - - Body Mass [...] 12/04/2020 9:01 AM Babita Thomas RMA documented as of this encounter Mental Status * Because of a physical, mental or emotional condition, does this person have serious difficulty concentrating, remembering or making decisions? Answer Entry Date Author No 12/04/2020 9:01 AM Babita Thomas RMA documented in this encounter Ordered Prescriptions Prescription Sig Dispense Quantity Refills Last Filled Start Date End Date levoFLOXacin (LEVAQUIN) 500 mg Oral TabletIndications: Cough, unspecified type Take 1 Tablet by mouth daily for 10 days. 10 Tablet 10/16/2023 10/26/2023 documented in this encounter Progress Notes * Rochelle Eng MD - 10/16/2023 1:15 PM EST Vitals: 10/16/23 1327 BP: 110/82 Pulse: 76 Resp: 16 Temp: (!) 102 ??F (38.9 ??C) TempSrc: Temporal SpO2: 98% Weight: 169 lb (76.7 kg) Body mass index is 25.7 kg/m??. SUBJECTIVE: Chief Complaint Patient presents with Cough Congestion Fatigue Fever HPI: Patient presents with productive cough with green mucus and head congestion for 2 weeks. Home test negative for Covid. Review of Systems Constitutional: Positive for fatigue and fever. HENT: Positive for congestion. Negative for voice change. Eyes: Negative for redness. Respiratory: Positive for cough. Cardiovascular: Negative for chest pain. Gastrointestinal: Negative for abdominal pain. Musculoskeletal: Negative for back pain. Skin: Negative for rash. Neurological: Positive for headaches. Negative for dizziness. OBJECTIVE: Physical Exam Vitals reviewed. Constitutional: Appearance: He is ill-appearing. HENT: Mouth/Throat: Mouth: Mucous membranes are moist. Pharynx: No posterior oropharyngeal erythema. Cardiovascular: Rate and Rhythm: Normal rate and regular rhythm. Pulmonary: Effort: Pulmonary effort is normal. Breath sounds: Rales present. Assessment Diagnoses and all orders for this visit: Cough, unspecified type - POCT LILIAN INFLUENZA A/B - POCT LILIAN SARS ANTIGEN - XR CHEST PA AND LATERAL; Future - levoFLOXacin (LEVAQUIN) 500 mg Oral Tablet; Take 1 Tablet by mouth daily for 10 days. Dispense: 10 Tablet; Refill: 0 CXR did show pneumonia-sending Levaquin. Instructed he needs another CXR in a month. Told to call then for the order. documented in this encounter Miscellaneous Notes * Addendum Note - Rochelle Eng MD - 10/16/2023 1:15 PM ESTAddended by: ROCHELLE COSTA on: 10/16/2023 03:08 PM Modules accepted: Orders, Level of Service documented in this encounter Plan of Treatment [...] Diagnosis Comments POCT LILIAN INFLUENZA A/B Routine 10/16/2023 3:02 PM EST Cough, unspecified type POCT LILIAN SARS ANTIGEN Routine 10/16/2023 1:48 PM EST Cough, unspecified type documented in this encounter Results * POCT LILIAN INFLUENZA A/B (10/16/2023 3:02 PM EST) Pathologist [facility] Influenza A Antigen Negative Negative 10/16/2023 2:07 PM EST [facility] Influenza B Antigen Negative Negative 10/16/2023 2:07 PM EST [facility] Swab SPECIMEN FROM NASOPHARYNGEAL STRUCTURE / Unknown 10/16/2023 3:02 PM EST 10/16/2023 2:07 PM EST us Rochelle Eng MD POINT OF CARE TEST ORDERABL ES Final Result [facility] [place] [id number] * XR CHEST PA AND LATERAL (10/16/2023 2:30 PM EST) Anatomical Region Laterality Modality Chest Radiographic Meghan ging 10/16/2023 2:30 PM EST Impressions 10/16/2023 2:54 PM EST Left mid and lower lung opacities, suggestive of pneumonia. Follow-up to resolution is advised. Narrative 10/16/2023 2:54 PM EST PA AND LATERAL CHEST X-RAY, ??10/16/2023 2:30 PM CLINICAL HISTORY: ??R05.9-Cough, [id number] COMPARISON: ??None. PROCEDURE COMMENTS: ??Frontal and lateral views of the chest. FINDINGS: There is a confluent opacity in the lingula and patchy opacities in the left lower lobe. The right lung is clear. No pneumothorax or pleural effusion is present. The heart is normal in size. Procedure Note Bucky Tubbs MD - 10/16/2023 PA AND LATERAL CHEST X-RAY, 10/16/2023 2:30 PM CLINICAL HISTORY: R05.9-Cough, [id number] COMPARISON: None. PROCEDURE COMMENTS: Frontal and lateral views of the chest. FINDINGS: There is a confluent opacity in the lingula and patchy opacities in theleft lower lobe. The right lung is clear. No pneumothorax or pleural effusionis present. The heart is normal in size. IMPRESSION: Left mid and lower lung opacities, suggestive of pneumonia. Follow-up to resolution is advised. Rochelle Eng MD [facility] [place] [place] [facility] Final Result * POCT LILIAN SARS ANTIGEN (10/16/2023 1:48 PM EST) SARS Antigen Negative Negative SEP OFFICE Lot Number SEP OFFICE Expiration Date SEP OFFICE SeriAl # SEP OFFICE Control Line Yes YES/NO SEP OFFICE 10/16/2023 1:48 PM EST us Rochelle Eng MD POINT OF CARE TEST ORDERABL ES Final Result [facility] documented in this encounter Visit Diagnoses Diagnosis Cough, unspecified type- Primary Cough, unspecified type documented in this encounter Additional Health Concerns Assessment Noted Time PHQ-9 Depression Total Score: 2 12/04/19 21 9:02 AM EST PHQ-2 Depression Total Score: 2 12/04/19 21 9:02 AM EST documented as of this encounter Care Teams Manager Progressive Care Relationship Specialty Start Date End Date Stephany Myles APRN [address] [place] [phone] PCP - General Nurse Practitioner-Family 05/17/20 documented as of this encounter
--- OUTSIDE RECORDS SUMMARY | 2024-10-25 22:32 | XMS_ITS | Encounter Summary ---
Author Organization [place] Address [facility] [place] [address] Care Team Providers Care Natural History Collections Curator Name Role Phone Stephany Myles APRN Primary Care Provider [phone] Encounter Details Date Type Department Care Team (Latest Contact Info) Description 05/03/2024 2:20 PM EDT - 05/03/2024 11:59 PM EDT Hospital Encounter [facility] [address] [place] [address] Opioid type dependence, continuous (HCC) (Primary Dx) Discharge Disposition: Home or Self Care Social History Tobacco Use Types Packs/Day Years Used Date Smoking Tobacco: Every Day Cigarettes 1 24.9 Started: 11/16/1999 Smokeless Tobacco: Never Alcohol Use Standard Drinks/Week Comments No 0 (1 standard drink = 0.6 oz pur e alcohol) Overall Financial Resource Strain (CARDIA) Answe r Date Recorded Difficulty of Paying Living Expenses Not hard at all 05/31/2020 PHQ-2 Answer Date Recorded PHQ-2 Total Score 0 01/14/2024 Hunger Vital Sign Answer Date Recorded Worried [...] 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 Answer Date of Assessment Author No 01/14/2024 9:22 AM Iman García MA * Is the person blind or does he/she have serious difficulty seeing even when wearing glasses? Answer Date of Assessment Author No 01/14/2024 9:22 AM Iman García MA * Does this person have serious difficulty walking or climbing stairs? Answer Date of Assessment Author No 01/14/2024 9:22 AM Iman García MA * Does this person have difficulty dressing or bathing? Answer Date of Assessment Author No 01/14/2024 9:22 AM Iman García MA * Because of a physical, mental or emotional condition, does this person have difficulty doing errands alone such as visiting a doctor's office or shopping? Answer Date of Assessment Author No 01/14/2024 9:22 AM Iman García MA documented as of this encounter Mental Status * Because of a physical, mental or emotional condition, does this person have serious difficulty concentrating, remembering or making decisions? Answer Entry Date Author No 01/14/2024 9:22 AM Iman García MA documented in this encounter Medications at Time of Discharge Buprenorphine (SUBUTEX) 8 mg SL tablet DISSOLVE 2 AND 1/2 TABLETS UNDER TONGUE ONE TIME A DAY. 10/24/2022 buPROPion (WELLBUTRIN XL) 150 mg Oral Tablet Sustained Release 24 hrIndications:Gen eralized anxiety disorder Take 1 Tablet by mouth every morning. 90 Tablet 3 01/14/2024 documented as of this encounter Discharge Disposition Disposition Code Departure Means Destination Home or Self Care documented in this encounter Plan of Treatment [...] Procedure Name Priority Date/Time Associated Diagnosis Comments HEPATIC FUNCTION PANEL Routine 05/03/2024 2:27 PM EDT Opioid type dependence, continuous (HCC) documented in this encounter Results * HEPATIC FUNCTION PANEL (05/03/2024 2:27 PM EDT) Total Protein 6.8 6.4 - 8.3 gm/dL 05/03/2024 7:54 PM EDT [facility] Albumin 4.6 3.5 - 5.2 gm/dL 05/03/2024 7:54 PM EDT [facility] Bili Direct <0.2 0.0 - 0.3 mg/dL 05/03/2024 7:54 PM EDT [facility] Bili Total 0.5 0.2 - 1.4 mg/dL 05/03/2024 7:54 PM EDT [facility] AST 23 <=40 U/L 05/03/2024 7:54 PM EDT [facility] ALT 16 <=41 U/L 05/03/2024 7:54 PM EDT [facility] Alk Phos 70 40 - 129 U/L 05/03/2024 7:54 PM EDT [facility] Blood VENOUS BLOOD / Unknown Venipuncture / Unknown 05/03/2024 2:27 PM EDT 05/03/2024 2:27 PM EDT [facility] Clarita Huber SECOND CHEF CHEMISTRY ORDERABLES Fin al Result [facility] [address] [facility] [address] [place] [address] documented in this encounter Visit Diagnoses Diagnosis Opioid type dependence, continuous (HCC)- Primary Opioid type dependence, continuous documented in this encounter Care Teams Natural History Collections Curator Relationship Specialty Start Date End Date Stephany Myles APRN [address] [place] [id number] PCP - General Nurse Practitioner-Family 05/17/20 documented as of this encounter
--- OUTSIDE RECORDS SUMMARY | 2024-10-25 22:32 | XMS_ITS | Encounter Summary ---
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 10/24/2022 ondansetron (ZOFRAN-ODT) 4 mg Oral Tablet, Rapid Dissolve Take 1 Tablet by mouth every 6 hours as needed for Nausea for up to 30 days. 10 Tablet 12/06/2022 01/05/2023 documented as of this encounter Discharge Disposition Disposition Code Departure Means Destination Home or Self Care documented in this encounter Plan of Treatment Not on file documented as of this encounter Goals Goal Patient Goal Type Associated Problems Recent Progress Patient-Stated? Author Maintain a healthy diet, exercise regularly and maintain an ideal body weight General No AidanWinniecarlie Aranda SAJAN Stay Tobacco Free Lifestyle No Aidan, Babita L, SAJAN documented as of this encounter Procedures Procedure Name Priority Date/Time Associated Diagnosis Comments HIV AG/AB Routine 12/18/2022 10:27 AM EST Opioid type dependence, episodic (HCC) HEPATITIS B CORE AB TOTAL Routine 12/18/2022 10:27 AM EST Opioid type dependence, episodic (HCC) HCV RNA QUANT PCR Routine 12/18/2022 10: 27 AM EST Opioid type dependence, episodic (HCC) Screening for lipid disorders SYPHILIS SCREEN WITH REFLEX RPR QUANT Routine 12/18/2022 10:27 AM EST Opioid type dependence, episodic (HCC) LIPID PANEL REFLEX Routine 12/18/2022 10 :27 AM EST Screening for lipid disorders HIGH RISK HCV ANTIBODY REFLEX Routine 12/18/2022 10:27 AM EST Opioid type dependence, episodic (HCC) Screening for lipid disorders HEPATITIS B SURFACE ANTIGEN Routine 12/18/2022 10:27 AM EST Opioid type dependence, episodic (HCC) documented in this encounter Results * HCV RNA QUANT PCR (12/18/2022 10:27 AM EST) HCV Quant (IU/mL) Not Detected IU/mL 12/22/2022 2:17 PM EST [facility] HCV Quant (log IU/mL) Not Detected log IU/mL 12/22/2022 2:17 PM EST [facility] HCV Quant Interp Not Detected Not Detected 12/22/2022 2:17 PM EST [facility] Comment:A result of Not Det ected does not rule out the presence of inhibitors in the patient specimen or hepatitis C virus RNA concentrations below the level of detection of the test. Care should be taken when interpreting any single viral load determination. Blood VENOUS BLOOD / Unknown Venipuncture / Unknown 12/18/2022 10:27 AM EST 12/18/2022 10:29 AM EST Narrative [employer] [facility] - 12/22/2022 2:17 PM EST The quantification range of this assay is 15 to 100,000,000 IU/mL (1.18 log to 8.00 log IU/mL). Testing was performed using the jose HCV test ([employer] with the jose [id number] System. [employer] IMMUNOLOGY ORDERABLES Casie l Result Performing Organization Address [facility] de Phone Number [employer] [facility] [address] [place] [address] , [place] [address] * (ABNORMAL) HIGH RISK HCV ANTIBODY REFLEX (12/18/2022 10:27 AM EST) [facility] Hep C Ab Reactive(A) Non-Reacti ve 12/19/2022 9:15 PM EST [employer] Blood VENOUS BLOOD / Unknown Venipuncture / Unknown 12/18/2022 10:27 AM EST 12/18/2022 10:29 AM EST Narrative [employer] - 12/19/2022 9:15 PM EST Antibodies to HCV detected. HCV RNA QUANT will be performed. [employer] IMMUNOLOGY ORDERABLES Casie l Result Performing Organization Address [facility] Phone Number [employer] [address] [place] [address] , [place] [address] * (ABNORMAL) LIPID PANEL REFLEX (12/18/2022 10:27 AM EST) [facility] Cholesterol 100 <200 mg/dL 12/19/2022 8:04 PM EST [facility] [facility] Comment: < 200 ?Desirable 200 - 239 ? Borderline High >= 240 ?High Triglyceride 142 <150 mg/dL 12/19/2022 8:04 PM EST [facility] Comment: < 150 ? Normal 150 - 199 ?Borderline High 200 - 499 ?High ??>= 500 ? Very High HDL 33(L) >=40 mg/dL 12/19/2022 8:04 PM EST [facility] Comment: ??> 60 ?Optimal 40 - 60 ?Acceptable ?? < 40 ?Low LDL Calculated 42 <100 mg/dL 12/19/2022 8:04 PM EST [facility] Non-HDL-C Calculated 67 <=129 mg/dL 12/19/2022 8:04 PM EST [facility] Comment: <130 ?Desirable 130-159 Above Desirable 160-189 Borderline High 190-219 High >= 220 ??Very High Fasting Specimen? 023 8:04 PM EST [facility] Blood VENOUS BLOOD / Unknown Venipuncture / Unknown 12/18/2022 10:27 AM EST 12/18/2022 10:29 AM EST Yajaira Holloway APRN CHEMISTRY ORDERABLES Final Result Performing Organization Address [facility] Co de Phone Number [facility] [address] [facility] , [place] [address] * HEPATITIS B CORE AB TOTAL (12/18/2022 10:27 AM EST) Hep B Core Total Non-Reacti ve Non-Reacti ve 12/18/2022 4:43 PM EST [facility] Blood VENOUS BLOOD / Unknown Venipuncture / Unknown 12/18/2022 10:27 AM EST 12/18/2022 10:29 AM EST Kanu Greene IMMUNOLOGY ORDERABLES Final Result Performing Organization Address [facility] de Phone Number [facility], [facility] [address] [facility] , [place] [address] * SYPHILIS SCREEN WITH REFLEX RPR QUANT (12/18/2022 10:27 AM EST) Trep Ab Index 0.04 <=0.99 Index Value 12/18/2022 4:44 PM EST [facility] [facility] Comment: < 1.00 - Non-Reactive ?? >=1.00 - Reactive NOTE: ??All reactive results will be reflexed to Quantitative Non-Treponemal(RPR)test. ?? Blood VENOUS BLOOD / Unknown Venipuncture / Unknown 12/18/2022 10:27 AM EST 12/18/2022 10:29 AM EST Kanu Greene CHEMISTRY ORDERABLES Final R esult Performing Organization Address [facility] Co de Phone Number [facility] [facility] [address] [facility] , [place] [address] * HEPATITIS B SURFACE ANTIGEN (12/18/2022 10:27 AM EST) Hep Bs Ag Non-Reactiv e Non-Reacti ve 12/18/2022 4:44 PM EST [facility] Blood VENOUS BLOOD / Unknown Venipuncture / Unknown 12/18/2022 10:27 AM EST 12/18/2022 10:29 AM EST Kanu Greene CHEMISTRY ORDERABLES Final R esult Performing Organization Address [facility] Co de Phone Number [facility] [employer] [facility] [address] [facility] , [place] [address] * HIV AG/AB (12/18/2022 10:27 AM EST) HIV Ag/AB Non-Reactiv e Non-Reacti ve 12/18/2022 4:45 PM EST [employer] [facility] Blood VENOUS BLOOD / Unknown Venipuncture / Unknown 12/18/2022 10:27 AM EST 12/18/2022 10:29 AM EST Kanu Greene IMMUNOLOGY ORDERABLES Final Result [facility] [address] [facility] , [place] [address] documented in this encounter Visit Diagnoses Diagnosis Opioid type dependence, episodic (HCC)- Primary Opioid type dependence, episodic Screening for lipid disorders documented in this encounter Additional Health Concerns Assessment Noted Time PHQ-9 Depression Total Score: 2 12/04/19 21 9:02 AM EST PHQ-2 Depression Total Score: 2 12/04/19 21 9:02 AM EST documented as of this encounter Care Teams Production Operations Engineer Relationship Specialty Start Date End Date Stephany Myles APRN [address] [place] [phone] PCP - General Nurse Practitioner-Family 05/17/20 documented as of this encounter
--- OUTSIDE RECORDS SUMMARY | 2024-10-25 22:32 | XMS_ITS | Encounter Summary ---
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 Not on file Not [...] ideal body weight General No Babita Bermudez Rosi, RMA Stay Tobacco Free Lifestyle No Babita Bermudez RMIman documented as of this encounter Visit Diagnoses Not on filedocumented in this encounter Additional Health Concerns Assessment Noted Time PHQ-9 Depression Total Score: 2 12/04/19 21 9:02 AM EST PHQ-2 Depression Total Score: 2 12/04/19 21 9:02 AM EST documented as of this encounter Care Teams Herbicide Service Sales Representative Relationship Specialty Start Date End Date Stephany Myles APRN [address] [place] [place] [id number] PCP - General Nurse Practitioner-Family 05/17/20 documented as of this encounter
--- OUTSIDE RECORDS SUMMARY | 2024-10-25 22:32 | XMS_ITS | Encounter Summary ---
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 10/24/2022 levoFLOXacin (LEVAQUIN) 500 mg Oral TabletIndications :Cough, unspecified type Take 1 Tablet by mouth daily for 10 days. 10 Tablet 10/16/2023 3 documented as of this encounter Discharge Disposition Disposition Code Departure Means Destination Home or Self Care documented in this encounter Plan of Treatment Not on file documented as of this encounter Goals Goal Patient Goal Type Associated Problems Recent Progress Patient-Stated? Author Maintain a healthy diet, exercise regularly and maintain an ideal body weight General No Aidan, Babita L, RMA Stay Tobacco Free Lifestyle No Babita Bermudez RMA documented as of this encounter Procedures Procedure Name Priority Date/Time Associated Diagnosis Comments XR CHEST PA AND LATERAL STAT 10/16/2023 2:30 PM EST Cough, unspecified type documented in this encounter Results * XR CHEST PA AND LATERAL (10/16/2023 2:30 PM EST) Anatomical Region Laterality Modality Chest Radiographic Meghan ging 10/16/2023 2:30 PM EST Impressions 10/16/2023 2:54 PM EST Left mid and lower lung opacities, suggestive of pneumonia. Follow-up to resolution is advised. Narrative 10/16/2023 2:54 PM EST PA AND LATERAL CHEST X-RAY, ??10/16/2023 2:30 PM CLINICAL HISTORY: ??R05.9-Cough, [id number] COMPARISON: ??None. PROCEDURE COMMENTS: ??Frontal and lateral [...] X-RAY, 10/16/2023 2:30 PM CLINICAL HISTORY: R05.9-Cough, [id number] COMPARISON: None. PROCEDURE COMMENTS: Frontal and lateral views of the chest. FINDINGS: There is a confluent opacity in the lingula and patchy opacities in theleft lower lobe. The right lung is clear. No pneumothorax or pleural effusionis present. The heart is normal in size. IMPRESSION: Left mid and lower lung opacities, suggestive of pneumonia. Follow-up to resolution is advised. us Rochelle Eng MD [facility] Final Result documented in this encounter Visit Diagnoses Diagnosis Cough, unspecified type documented in this encounter Additional Health Concerns Assessment Noted Time PHQ-9 Depression Total Score: 2 12/04/19 21 9:02 AM EST PHQ-2 Depression Total Score: 2 12/04/19 21 9:02 AM EST documented as of this encounter Care Teams Teradata Solution Architect Relationship Specialty Start Date End Date Stephany Myles APRN [address] [place] [phone] PCP - General Nurse Practitioner-Family 05/17/20 documented as of this encounter
--- OUTSIDE RECORDS SUMMARY | 2024-10-25 22:32 | XMS_ITS | Encounter Summary ---
Author Organization [place] [address] Care Team Providers Care Network Admin Name Role Phone Stephany Myles APRN Primary Care Provider [phone] Reason for Visit * Reason Comments Insect Bite Left foot, top, swel ling, x 4 days Encounter Details Date Type Department Care Team (Late st Contact Info) Description 11/26/2022 8:45 AM EST Office Visit [facility] [address] [place] [id number] Robbie Llanos MD [address] [place] [address] Cellulitis of left foot (Primary Dx) Social History Tobacco Use Types Packs/Day Years Used Date Smoking Tobacco: Every Day Cigarettes 1 24.9 Started: 11/16/1999 Smokeless Tobacco: Never Tobacco Cessation:Ready to Q uit: No; Counseling Given: Yes Alcohol Use Standard Drinks/Week Comments No 0 [...] 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 Not on file Not on file documented as of this encounter Last Filed Vital Signs Vital Sign Reading Time Taken Comments Blood Pressure 136/80 11/26/2022 8:42 AM EST Pulse 77 11/26/2022 8:42 AM EST Temperature 37.3 ??C (99.2 ??F) 11/26/2022 8:42 AM ES T Respiratory Rate 18 11/26/2022 8:42 AM EST Oxygen Saturation 97% 11/26/2022 8:42 AM EST Inhaled Oxygen Concentration - - Weight 83 kg (183 lb) 11/26/2022 8:42 AM EST Height 167.6 cm (5' 6 ) 11/26/2022 8:42 AM EST Body Mass Index 29.54 11/26/2022 8:42 AM EST documented in this encounter Functional Status * [...] Entry Date Author No 12/04/2020 9:01 AM EST Babita Bermudez RMA documented in this encounter Ordered Prescriptions Prescription Sig Dispense Quantity Refills Last Filled Start Date End Date sulfamethoxazole-t rimethoprim (BACTRIM DS) 800-160 mg Oral TabletIndications: Cellulitis of left foot Take 1 Tablet by mouth every 12 hours for 5 days. 10 Tablet 11/26/2022 12/01/2022 documented in this encounter Progress Notes * Robbie Llanos MD - 11/26/2022 8:45 AM EST Vitals: 11/26/22 0842 BP: 136/80 BP Location: Left arm Patient Position: Sitting Pulse: 77 Resp: 18 Temp: 99.2 ??F (37.3 ??C) TempSrc: Temporal SpO2: 97% Weight: 183 lb (83 kg) Height: 5' 6 (1.676 m) SUBJECTIVE: Chief Complaint Patient presents with ??? Insect Bite Left foot, top, swelling, x 4 days HPI: Patient is here with C/O possible spider bite ?? X 4 days ?? Top of left foot ?? Red, swelling, painful ?? Has 3 spots that are showing signs of ulceration on the dorsum of his foot. 2 just proximal to the great toe and one proximal to the fifth toe. ?? Has had intermittent swelling and redness, typically after he finishes work. No fever or chills. ?? Has been applying topical Neosporin and trying to cover the area. Review of Systems Constitutional: Negative for appetite change, chills, fatigue and fever. Respiratory: Negative for shortness of breath. Cardiovascular: Negative for chest pain. Gastrointestinal: Negative for nausea and vomiting. Skin: Positive for color change. Neurological: Negative for light-headedness and headaches. All other systems reviewed and are negative. OBJECTIVE: Physical Exam Vitals and nursing note reviewed. Constitutional: General: He is not in acute distress. Appearance: He is well-developed. He is not diaphoretic. HENT: Head: Normocephalic and atraumatic. Right Ear: External ear normal. Left Ear: External ear normal. Mouth/Throat: Pharynx: No oropharyngeal exudate. Eyes: Conjunctiva/sclera: Conjunctivae normal. Pupils: Pupils are equal, round, and reactive to light. Neck: Thyroid: No thyromegaly. Cardiovascular: Rate and Rhythm: Normal rate and regular rhythm. Heart sounds: Normal heart sounds. No murmur heard. Pulmonary: Effort: Pulmonary effort is normal. No respiratory distress. Breath sounds: Normal breath sounds. Abdominal: General: Bowel sounds are normal. There is no distension. Palpations: Abdomen is soft. There is no mass. Tenderness: There is no abdominal tenderness. There is no guarding or rebound. Musculoskeletal: General: No tenderness. Normal range of motion. Cervical back: Normal range of motion and neck supple. Lymphadenopathy: Cervical: No cervical adenopathy. Skin: General: Skin is warm and dry. Findings: Lesion (3 scabbed lesions on the dorsum of the left foot. To proximal to the great toe, approximately 1 cm in size central crater/ulceration with a well demarcated right rib border. Similarlesion proximal to the fifth toe approximately 4 mm) present. No rash. Neurological: Mental Status: He is alert and oriented to person, place, and time. Cranial Nerves: No cranial nerve deficit. Motor: No abnormal muscle tone. Coordination: Coordination normal. Deep Tendon Reflexes: Reflexes are normal and symmetric. Psychiatric: Behavior: Behavior normal. Thought Content: Thought content normal. Judgment: Judgment normal. Assessment Diagnoses and all orders for this visit: Cellulitis of left foot - sulfamethoxazole-trimethoprim (BACTRIM DS) 800-160 mg Oral Tablet; Take 1 Tablet by mouth every 12 hours for 5 days. Dispense: 10 Tablet; Refill: 0 documented in this encounter Miscellaneous Notes * Patient Instructions - Batool Soriano CCMA - 11/26/2022 8:45 AM EST You may be contacted by mail or e-mail to participate in a patient satisfaction survey regarding your office visit today. We value your opinion and depend on your feedback to make improvements and provide you with the best possible experience while receiving high quality medical treatment. Your time in completing this survey is greatly appreciated. documented in this encounter Plan of Treatment Not on file documented as of this encounter Goals Goal Patient Goal Type Associated Problems Recent Progress Patient-Stated? Author Maintain a healthy diet, exercise regularly and maintain an ideal body weight General No Babita Bermudez RMA Stay Tobacco Free Lifestyle No Babita Bermudez RMA documented as of this encounter Visit Diagnoses Diagnosis Cellulitis of left foot- Primary Cellulitis and abscess of foot, except toes documented in this encounter Additional Health Concerns Assessment Noted Time PHQ-9 Depression Total Score: 2 12/04/19 21 9:02 AM EST PHQ-2 Depression Total Score: 2 12/04/19 21 9:02 AM EST documented as of this encounter Care Teams Network Admin Relationship Specialty Start Date End Date Stephany Myles APRN [address] [place] [address] PCP - General Nurse Practitioner-Family 05/17/20 documented as of this encounter
--- OUTSIDE RECORDS SUMMARY | 2024-10-25 22:32 | XMS_ITS | Encounter Summary ---
Author Organization [place] [address] Care Team Providers Care Mental Health Aides Teacher Name Role Phone Stephany Myles APRN Primary Care Provider [phone] Reason for Visit * Reason Comments Nephrolithiasis Pt stated that he pa ssed the stone and not having any issues right now, pt stated he wants to est care. Pt stated that he has had kidney stones 6 to 7 times in the pass 8 years. * Consultation (Routine) - Closed Specialty Diagnoses / Procedures Referred By Tameka t Referred To Contact Urology Diagnoses Nephrolithiasis Stephany Myles APRN [address] [place] [address] Phone: tel: fax: [facility] [address] [place] [address] Phone: tel: fax: Referral ID Status Reason Start Date Expiration Date Visits Re quested Visits Authorized [id number] Closed 05/26/2023 05/25/2024 99 99 Encounter Details Date Type Department Care Team (Late st Contact Info) Description 06/22/2023 2:40 PM EDT Office Visit [facility] [address] [place] [address] Iris Mercado PA-C Kidney stones (Primary Dx) Social History Tobacco Use Types Packs/Day Years Used Date Smoking Tobacco: Every Day Cigarettes 1 24.9 Started: 11/16/1999 Smokeless Tobacco: Never Tobacco Cessation:Ready to Q uit: Not Asked; Counseling Given: Not Answered Alcohol Use Standard Drinks/Week Comments No 0 [...] 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 file Not on file documented as of this encounter Last Filed Vital Signs Vital Sign Reading Time Taken Comments Blood Pressure 120/74 06/22/2023 1:48 PM EDT Pulse 83 06/22/2023 1:48 PM EDT Temperature 36.6 ??C (97.8 ??F) 06/22/2023 1:48 PM ED T Respiratory Rate - - Oxygen Saturation 97% 06/22/2023 1:48 PM EDT Inhaled Oxygen Concentration - - Weight 78.3 kg (172 lb 9.9 oz) 06/22/2023 1:48 P M EDT Height 172.7 cm (5' 8 ) 06/22/2023 1:48 PM EDT Body Mass Index 26.25 06/22/2023 1:48 PM EDT documented in this encounter Functional [...] documented in this encounter Progress Notes * Iris Mercado PA-C - 06/22/2023 2:40 PM EDT Images from the original note were not included. [facility] Subjective: Patient ID: Brandon Yo is a 37 y.o. male. Chief Complaint Patient presents with Nephrolithiasis Pt stated that he passed the stone and not having any issues right now, pt stated he wants to est care. Pt stated that he has had kidney stones 6 to 7 times in the pass 8 years. HPI: Brandon is a new patient here for nephrolithiasis. He was recently in [place] diagnosed with a kidney stone. He passed this. He caught it but left it at home. Imaging unable to be reviewed through care everywhere. Patient says he has passed about 6 stones in the past few years. He had a CT scan in 2018 that showed small bilateral nephrolithiasis. He is asymptomatic today. He has never had stone surgery, has always spontaneously passed them. Past Medical History: Diagnosis Date Hepatitis 12/2020 hx hep C-F1. completed 12 wk course of epclusa Dec 2020 with undetected VL 12 wks following completion of therapy Kidney stone 2019 Family History Problem Relation Age of Onset Heart Disease Mother Drug Abuse Mother Drug Abuse Father History reviewed. No pertinent surgical history. 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 went [place] drug court. No Known Allergies Current Outpatient Medications on File Prior to Visit Medication Sig Dispense Refill Buprenorphine (SUBUTEX) 8 mg SL tablet DISSOLVE 2 AND 1/2 TABLETS UNDER TONGUE ONE TIME A DAY. nicotine (NICODERM CQ) 21 mg/24 hr TD Patch [address] 1 Patch onto the skin every 24 hours. (Patient not taking: Reported on 06/22/2023) 72 Patch 1 No current facility-administered medications on file prior to visit. Objective: Vitals: 06/22/23 1348 BP: 120/74 BP Location: Right arm Patient Position: Sitting Pulse: 83 Temp: 97.8 ??F (36.6 ??C) SpO2: 97% Weight: 172 lb 9.9 oz (78.3 kg) Height: 5' 8 (1.727 m) Body mass index is 26.25 kg/m??. Physical Exam Constitutional: Appearance: He is well-developed. HENT: Head: Normocephalic and atraumatic. Eyes: Conjunctiva/sclera: Conjunctivae normal. Cardiovascular: Rate and Rhythm: Normal rate. Pulmonary: Effort: Pulmonary effort is normal. Abdominal: Palpations: Abdomen is soft. Tenderness: There is no abdominal tenderness. Musculoskeletal: General: Normal range of motion. Cervical back: Normal range of motion. Skin: General: Skin is warm and dry. Neurological: Mental Status: He is alert and oriented to person, place, and time. Results for orders placed or performed in visit on 06/22/23 [facility] URINALYSIS POC Result Value Ref Range UA Color POC Yellow Color UA Appear POC Clear Clear UA Gluc POC Negative Negative mg/dL UA Bili POC Negative Negative UA Ketones POC Negative Negative mg/dL UA SG POC 1.020 1.001 - 1.035 no units UA Blood POC Small (A) Negative UA pH POC 7.5 5.0 - 8.0 pH UA Protein POC 30 (A) Negative mg/dL UA Urobilinogen POC 0.2 0.2, 1.0 UA Nitrite POC Negative Negative UA Leuk Est POC Negative Negative Assessment and Plan: Diagnoses and all orders for this visit: Kidney stones - SE[facility] URINALYSIS POC - CALCULI (STONE) ANALYSIS - REF LAB; Future - XR ABDOMEN AP; Future Increase fluid (water is best) intake; ideally need to drink enough fluids to produce at least 2.5 liters of urine/day! Besides water, other ideal fluids are those with high citrate content such as fresh lemonade, orange juice or some of the lemon-inaja sodas. Decrease sodium (salt) in the diet. Limit animal proteins including cheese. Moderate calcium intake (1,000 - 1,200 mg/day).Avoid high dosesof vitamin C and D which are found in some [id number] supplements and drinks (i.e. Emergen-C). KUB for baseline. Follow up yearly or sooner for problems. Iris Mercado PA-C [facility] documented in this encounter Miscellaneous Notes * Patient Instructions - Iris Mercado PA-C - 06/22/2023 2:40 PM EDT Dietary Recommendations for Prevention of Kidney Stones: Increase fluid (water is best) intake; ideally need to drink enough fluids to produce at least 2.5 liters of urine/day! Besides water, other ideal fluids are those with high citrate content such as fresh lemonade, orange juice or some of the lemon-inaja sodas Limit carbonated drinks that contain phosphoric acid (i.e. dark hang) Decrease sodium (salt) in the diet; should be <100 meq/day or <2,300 mg/day Most sodium consumed in the diet is hidden in food that has previously been prepared/packaged Limit animal proteins including cheese [place] daily intake is less than 0.8-1.0 grams of protein per kg; i.e. average adult male is 75-80 kg therefore intake should be less than 75-80 g/day Increase fruits and veggies in the diet Some stone formers do need to limit the amount of oxalate in their diet which is high in foods suchas spinach, kale, rhubarb, chocolate, tea High fiber intake may also help prevent stones; another bonus of eating lots of fruits and vegetables! Moderate calcium intake (1,000 - 1,200 mg/day) Even in patients with calcium stones, a diet too low in calcium can actually increase the risk of stones Avoid high doses of vitamin C and D which are found in some [id number] supplements and drinks(i.e. Emergen-C) Weight loss - obesity increases the risk of forming stones documented in this encounter Plan of Treatment Scheduled Orders Name Type Priority Associated Diagnoses Orde r Schedule CALCULI (STONE) ANALYSIS - REF LAB Microbiology Routine Kidney stones 1 Occurrences starting 06/22/2023 until 06/22/2024 XR ABDOMEN AP Imaging Routine Kidney stones 1 Occurrences starting 06/22/2023 until 06/22/2024 documented as of this encounter Goals Goal Patient Goal Type Associated Problems Recent Progress Patient-Stated? Author Maintain a healthy diet, exercise regularly and maintain an ideal body weight General No Babita Bermudez RMA Stay Tobacco Free Lifestyle No Babita Bermudez RMA documented as of this encounter Procedures Procedure Name Priority Date/Time Associated Diagnosis Comments SEP URINALYSIS POC Routine 06/22/2023 1: 51 PM EDT Kidney stones documented in this encounter Results * (ABNORMAL) SE[facility] URINALYSIS POC (06/22/2023 1:51 PM EDT) UA Color POC Yellow Color 06/22/2023 1:54 PM EDT [facility] UA Appear POC Clear Clear 06/22/2023 1:54 PM EDT [facility] UA Gluc POC Negative Negative mg/dL 06/22/2023 1:54 PM EDT [facility] UA Bili POC Negative Negative 06/22/2023 1:54 PM EDT [facility] UA Ketones POC Negative Negative mg/dL 06/22/2023 1:54 PM EDT [facility] UA SG POC 1.020 1.001 - 1.035 no units 06/22/2023 1:54 PM EDT [facility] UA Blood POC Small(A) Negative 06/22/2023 1:54 PM EDT [facility] UA pH POC 7.5 5.0 - 8.0 pH 06/22/2023 1:54 PM EDT [facility] UA Protein POC 30(A) Negative mg/dL 06/22/2023 1:54 PM EDT [facility] UA Urobilinogen POC 0.2 0.2, 1.0 06/22/2023 1:54 PM EDT [facility] UA Nitrite POC Negative Negative 06/22/2023 1:54 PM EDT [facility] UA Leuk Est POC Negative Negative 1:54 PM EDT [facility] Urine URINE SPECIMEN COLLECTION / Unknown 06/22/2023 1:51 PM EDT 06/22/2023 1:54 PM EDT Iris Mercado PA-C POINT OF CARE TEST ORDERAB LES Final Result [facility] [address] [place] [address] documented in this encounter Visit Diagnoses Diagnosis Kidney stones- Primary Calculus of kidney documented in this encounter Additional Health Concerns Assessment Noted Time PHQ-9 Depression Total Score: 2 12/04/19 21 9:02 AM EST PHQ-2 Depression Total Score: 2 12/04/19 21 9:02 AM EST documented as of this encounter Care Teams Mental Health Aides Teacher Relationship Specialty Start Date End Date Stephany Myles APRN [address] [place] [id number] PCP - General Nurse Practitioner-Family 05/17/20 documented as of this encounter
--- OUTSIDE RECORDS SUMMARY | 2024-10-25 22:32 | XMS_ITS | Encounter Summary ---
Author Organization [facility] Address [facility] [address] Care Team Providers Care Master [employer] Name Role Phone Stephany Myles APRN Primary Care Provider [phone] Reason for Visit * Reason Comments Annual Exam Encounter Details Date Type Department Care Team (Late st Contact Info) Description 01/14/2024 9:15 AM EST Office Visit [facility] [address] [email or web address] [address] Robbie Llanos MD [address] [place] [address] Annual physical exam (Primary Dx); Screening for metabolic disorder; Screening for deficiency anemia; Screening for thyroid disorder; Screening for cholesterol level; Generalized anxiety disorder Social History Tobacco Use Types Packs/Day Years [...] 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 Not on file Not on file documented as of this encounter Last Filed Vital Signs Vital Sign Reading Time Taken Comments Blood Pressure 117/76 01/14/2024 9:23 AM EST Pulse 78 01/14/2024 9:23 AM EST Temperature 36.8 ??C (98.2 ??F) 01/14/2024 9:23 AM ES T Respiratory Rate - - Oxygen Saturation 99% 01/14/2024 9:23 AM EST Inhaled Oxygen Concentration - - Weight 81.6 kg (180 lb) 01/14/2024 9:23 AM EST Height 172.7 cm (5' 8 ) 01/14/2024 9:23 AM EST Body Mass Index 27.37 01/14/2024 9:23 AM EST documented in this encounter Functional [...] Entry Date Author No 01/14/2024 9:22 AM EST Iman Crump MA documented in this encounter Ordered Prescriptions Prescription Sig Dispense Quantity Refills Last Filled Start Date End Date buPROPion (WELLBUTRIN XL) 150 mg Oral Tablet Sustained Release 24 hrIndications:Gener alized anxiety disorder Take 1 Tablet by mouth every morning. 90 Tablet 3 01/14/2024 documented in this encounter Progress Notes * Robbie Llanos MD - 01/14/2024 9:15 AM EST Vitals: 01/14/24 0923 BP: 117/76 Pulse: 78 Temp: 98.2 ??F (36.8 ??C) SpO2: 99% Weight: 180 lb (81.6 kg) Height: 5' 8 (1.727 m) Body mass index is 27.37 kg/m??. SUBJECTIVE: Chief Complaint Patient presents with Annual Exam HPI: Well Adult: Subjective Mr. Yo is a 38 y.o. male here for an annual wellness visit. Pt is fasting for BW Diet: could be improved Exercise: none Activities of Daily Living: Functional Level: Self-care ADL Limitations: none Social Interaction Screen: Do you have concerns about issues that may impact social interaction such as developmental or behavioral/mental health conditions? no Health Maintenance Due Topic Date Due Annual Wellness Exam Never done Pneumococcal Vaccine 0-64 (1 of 2 - PCV) Never done Hepatitis B Vaccine (1 of 3 - 19+ 3-dose series) Never done Influenza Vaccine (1) 07/17/2023 COVID-19 Vaccine ( - season) Never done Health Maintenance Topic Date Due Annual Wellness Exam Never done Pneumococcal Vaccine 0-64 (1 of 2 - PCV) Never done Hepatitis B Vaccine (1 of 3 - 19+ 3-dose series) Never done Influenza Vaccine (1) 07/17/2023 COVID-19 Vaccine ( - season) Never done DTaP/TDaP/Td (3 - Td or Tdap) 08/27/2032 Immunization History Administered Date(s) Administered Influenza Seasonal Injectable PF 12/25/2015 Influenza Vaccine Quadrivalent PF 12/25/2015 Tdap 12/17/2016, 08/27/2022 Patient Active Problem List Diagnosis Hx of hepatitis C Generalized anxiety disorder 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 completed 12 wk course of epclusa Dec 2020 with undetected VL 12 wks following completion of therapy Kidney stone 2019 History reviewed. No pertinent surgical history. No Known Allergies Current Outpatient Medications on File Prior to Visit Medication Sig Dispense Refill Buprenorphine (SUBUTEX) 8 mg SL tablet DISSOLVE 2 AND 1/2 TABLETS UNDER TONGUE ONE TIME A DAY. No current facility-administered medications on file prior to visit. 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 went through drug court. Sexual activity: Yes Partners: Female Social Determinants of Health Financial Resource Strain: Low Risk (05/31/2020) Overall Financial Resource Strain (CARDIA) Difficulty of Paying Living Expenses: Not hard at all Food Insecurity: No Food Insecurity (05/31/2020) Hunger Vital Sign Worried About Running Out of Food in the Last Year: Never true Ran Out of Food in the Last Year: Never true Transportation Needs: No Transportation Needs (05/31/2020) PRAPARE - Transportation Lack of Transportation (Medical): No Lack of Transportation (Non-Medical): No Family History Problem Relation Age of Onset Heart Disease Mother Drug Abuse Mother Drug Abuse Father No results found. No results found for this visit on 01/14/24. Patient Care Team: Stephany Myles APRN as PCP - General (Nurse Practitioner-Family) Lab Results Component Value Date WBC 5.0 08/28/2020 HGB 15.7 08/28/2020 HCT 46.2 08/28/2020 PLT 189 08/28/2020 CHOLESTEROL 100 12/18/2022 TRIG 142 12/18/2022 HDL 33 (L) 12/18/2022 LDLCALC 42 12/18/2022 ALT 12 12/23/2021 AST 21 12/23/2021 NA 142 04/03/2021 K 4.5 04/03/2021 CL 104 04/03/2021 CREATININE 1.38 (H) 04/03/2021 BUN 19 04/03/2021 CO2 29 04/03/2021 INR 1.06 08/28/2020 GLU 92 04/03/2021 Additional issues addressed today: Review of Systems Constitutional: Negative for activity change, appetite change, chills, fatigue and fever. HENT: Negative for congestion, hearing loss and rhinorrhea. Eyes: Negative for visual disturbance. Respiratory: Negative for cough and shortness of breath. Cardiovascular: Negative for chest pain, palpitations and leg swelling. Gastrointestinal: Negative for abdominal pain, constipation, diarrhea, nausea and vomiting. Genitourinary: Negative for decreased urine volume and difficulty urinating. Musculoskeletal: Negative for arthralgias and myalgias. Skin: Negative for rash. Neurological: Negative for dizziness, weakness, light-headedness and headaches. Hematological: Negative for adenopathy. Does not bruise/bleed easily. Psychiatric/Behavioral: Negative for dysphoric mood. The patient is not nervous/anxious. OBJECTIVE: Physical Exam Vitals and nursing note reviewed. Constitutional: General: He is not in acute distress. Appearance: Normal appearance. HENT: Right Ear: Ear canal normal. There is no impacted cerumen. Left Ear: Ear canal normal. There is no impacted cerumen. Nose: Nose normal. No congestion. Mouth/Throat: Mouth: Mucous membranes are moist. Pharynx: Oropharynx is clear. No oropharyngeal exudate. Eyes: Extraocular Movements: Extraocular movements intact. Conjunctiva/sclera: Conjunctivae normal. Pupils: Pupils are equal, round, and reactive to light. Cardiovascular: Rate and Rhythm: Normal rate and regular rhythm. Pulses: Normal pulses. Heart sounds: Normal heart sounds. No murmur heard. Pulmonary: Effort: Pulmonary effort is normal. No respiratory distress. Breath sounds: Normal breath sounds. No wheezing. Abdominal: General: Bowel sounds are normal. There is no distension. Palpations: Abdomen is soft. Tenderness: There is no abdominal tenderness. There is no rebound. Musculoskeletal: General: No tenderness. Normal range of motion. Skin: General: Skin is warm and dry. Capillary Refill: Capillary refill takes less than 2 seconds. Findings: No rash. Neurological: Mental Status: He is alert and oriented to person, place, and time. Mental status is at baseline. Psychiatric: Mood and Affect: Mood normal. Judgment: Judgment normal. Assessment Diagnoses and all orders for this visit: Annual physical exam - HCV RNA QUANT PCR; Future Screening for metabolic disorder - COMPREHENSIVE METABOLIC PANEL; Future Screening for deficiency anemia - CBC WITH DIFF; Future Screening for thyroid disorder - TSH REFLEX; Future Screening for cholesterol level - LIPID PANEL REFLEX; Future Generalized anxiety disorder - buPROPion (WELLBUTRIN XL) 150 mg Oral Tablet Sustained Release 24 hr; Take 1 Tablet by mouth every morning. Dispense: 90 Tablet; Refill: 3 documented in this encounter Plan of Treatment [...] Procedure Name Priority Date/Time Associated Diagnosis Comments HCV RNA QUANT PCR Routine 01/14/2024 9:4 7 AM EST Annual physical exam LIPID PANEL REFLEX Routine 01/14/2024 9: 47 AM EST Screening for cholesterol level TSH REFLEX Routine 01/14/2024 9:47 AM EST Screening for thyroid disorder CBC WITH DIFF Routine 01/14/2024 9:47 AM EST Screening for deficiency anemia COMPREHENSIVE METABOLIC PANEL Routine 01/14/2024 9:47 AM EST Screening for metabolic disorder documented in this encounter Results * HCV RNA QUANT PCR (01/14/2024 9:47 AM EST) HCV Quant (IU/mL) Not Detected IU/mL 01/15/2024 1:15 PM EST [facility] HCV Quant (log IU/mL) Not Detected log IU/mL 01/15/2024 1:15 PM EST [facility] HCV Quant Interp Not Detected Not Detected 01/15/2024 1:15 PM EST [facility] Comment:A result of Not Det ected does not rule out the presence of inhibitors in the patient specimen or hepatitis C virus RNA concentrations below the level of detection of the test. Care should be taken when interpreting any single viral load determination. Blood VENOUS BLOOD / Unknown Venipuncture / Unknown 01/14/2024 9:47 AM EST 01/14/2024 9:47 AM EST Narrative [facility] - 01/15/2024 1:15 PM EST The quantification range of this assay is 15 to 100,000,000 IU/mL (1.18 log to 8.00 log IU/mL). Testing was performed using the jose HCV test ([employer] with the jose [id number] System. us Robbie Llanos MD IMMUNOLOGY ORDERABLES Final Result [facility] [address] [facility] , [place] [address] * (ABNORMAL) LIPID PANEL REFLEX (01/14/2024 9:47 AM EST) [facility] Cholesterol 115 <200 mg/dL 01/14/2024 4:31 PM EST [facility] Comment: < 200 ?Desirable 200 - 239 ? Borderline High >= 240 ?High Triglyceride 192(H) <150 mg/dL 01/14/2024 4:31 PM EST [facility] Comment: < 150 ? Normal 150 - 199 ?Borderline High 200 - 499 ?High ??>= 500 ? Very High HDL 33(L) >=40 mg/dL 01/14/2024 4:31 PM EST [facility] Comment: ??> 60 ?Optimal 40 - 60 ?Acceptable ?? < 40 ?Low LDL Calculated 50 <100 mg/dL 01/14/2024 4:31 PM EST [facility] Non-HDL-C Calculated 82 <=129 mg/dL 01/14/2024 4:31 PM EST [facility] Comment: <130 ?Desirable 130-159 Above Desirable 160-189 Borderline High 190-219 High >= 220 ??Very High Fasting Specimen? Yes None 024 4:31 PM EST [facility] Blood VENOUS BLOOD / Unknown Venipuncture / Unknown 01/14/2024 9:47 AM EST 01/14/2024 9:47 AM EST Robbie Llanos MD CHEMISTRY ORDERABLES Final R ult Performing Organization Address [facility] de Phone Number [facility] [place] [address] [facility] [address] [place] [address] * TSH REFLEX (01/14/2024 9:47 AM EST) TSH Reflex 2.740 0.270 - 4.200 mcIU/mL 01/14/2024 4:31 PM EST [facility] Blood VENOUS BLOOD / Unknown Venipuncture / Unknown 01/14/2024 9:47 AM EST 01/14/2024 9:47 AM EST Narrative [facility] - 01/14/2024 4:31 PM EST Ingestion of miguel angel doses of biotin (>5 mg/day) taken within 8 hours of drawing blood sample can interfere with this immunoassay test. us Robbie Llanos MD CHEMISTRY ORDERABLES Final R esult Performing Organization Address [facility] Co de Phone Number [facility] [employer] [address] , [place] [address] * CBC WITH DIFF (01/14/2024 9:47 AM EST) WBC 6.1 3.7 - 10.3 x10(3)/mcL 01/14/2024 3:25 PM EST [facility] RBC 5.36 4.60 - 6.10 x10(6)/mcL 01/14/2024 3:25 PM EST [facility] Hgb 15.8 13.7 - 17.5 g/dL 01/14/2024 3:25 PM EST [facility] Hct 47.2 40.0 - 51.0 % 01/14/2024 3:25 PM EST [facility] MCV 88.1 80.0 - 100.0 fL 01/14/2024 3:25 PM EST [facility] MCH 29.5 26.0 - 34.0 pg 01/14/2024 3:25 PM EST [facility] MCHC 33.5 30.7 - 35.5 g/dL 01/14/2024 3:25 PM EST [facility] RDW 12.4 <=14.9 % 01/14/2024 3:25 PM EST [facility] Platelet 212 155 - 369 x10(3)/mcL 01/14/2024 3:25 PM EST [facility] MPV 11.3 8.8 - 12.5 fL 01/14/2024 3:25 PM EST [facility] Neut Percent 52.1 % 01/14/2024 3:25 PM EST [facility] Comment:Neutrophils equals s egs plus bands Imm Gran% 0.3 % 01/14/2024 3:25 PM EST [facility] Comment:Automated count of m etamyelocytes, myelocytes and promyelocytes. Lymph Percent 34.2 % 01/14/2024 3:25 PM EST [facility] [place] Percent 9.5 % 01/14/2024 3:25 PM EST [facility] Eos Percent 3.1 % 01/14/2024 3:25 PM EST [facility] Baso Percent 0.8 % 01/14/2024 3:25 PM EST [facility] Neut # 3.2 1.6 - 6.1 x10(3)/mcL 01/14/2024 3:25 PM EST [facility] Comment:Neutrophils equals s egs plus bands IMMGRAN# 0.0 0.0 - 0.1 x10(3)/mcL 01/14/2024 3:25 PM EST [facility] Comment:Automated count of m etamyelocytes, myelocytes and promyelocytes. An absolute IG <0.1 is reported as 0.0. Lymph # 2.1 1.2 - 3.9 x10(3)/[facility] 01/14/2024 3:25 PM EST [facility] [place] # 0.6 0.3 - 0.9 x10(3)/[facility] 01/14/2024 3:25 PM EST [facility] Eos# 0.2 0.0 - 0.5 x10(3)/[facility] 01/14/2024 3:25 PM EST [facility] Baso # 0.1 0.0 - 0.1 x10(3)/[facility] 01/14/2024 3:25 PM EST [facility] Blood VENOUS BLOOD / Unknown Venipuncture / Unknown 01/14/2024 9:47 AM EST 01/14/2024 9:47 AM EST us Robbie Llanos MD HEMATOLOGY ORDERABLES Final Result [facility] [address] [facility] , [place] [address] * (ABNORMAL) COMPREHENSIVE METABOLIC PANEL (01/14/2024 9:47 AM EST) Sodium 138 136 - 145 mmol/L 01/14/2024 4:31 PM EST [facility] Potassium 4.5 3.5 - 5.0 mmol/L 01/14/2024 4:31 PM EST [facility] Chloride 101 98 - 107 mmol/L 01/14/2024 4:31 PM EST [facility] Total CO2 29 22 - 29 mmol/L 01/14/2024 4:31 PM EST [facility] Anion Gap 8 7 - 16 mmol/L 01/14/2024 4:31 PM EST [facility] Calcium 9.4 8.6 - 10.4 mg/dL 01/14/2024 4:31 PM EST [facility] Glucose Lvl 101(H) 70 - 99 mg/dL 01/14/2024 4:31 PM EST [facility] BUN 15 6 - 20 mg/dL 01/14/2024 4:31 PM EST [facility] Creatinine 1.08 0.67 - 1.30 mg/dL 01/14/2024 4:31 PM EST [facility] Albumin 4.6 3.5 - 5.2 gm/dL 01/14/2024 4:31 PM EST [facility] Total Protein 7.1 6.4 - 8.3 gm/dL 01/14/2024 4:31 PM EST [facility] Bili Total 0.5 0.2 - 1.4 mg/dL 01/14/2024 4:31 PM EST [facility] ALT 22 <=41 U/L 01/14/2024 4:31 PM EST [facility] AST 27 <=40 U/L 01/14/2024 4:31 PM EST [facility] Alk Phos 76 40 - 129 U/L 01/14/2024 4:31 PM EST [facility] eGFR (CKD-EPIcr 2020) 89 >=60 mL/min/1.7 3 m2 01/14/2024 4:31 PM EST [facility] Comment:Estimated GFR was ca lculated using the CKD-EPIcr (2020) equation refit without race. The equation is recommended by the National Kidney Foundation - [place] Society of Nephrology Task Force. Blood VENOUS BLOOD / Unknown Venipuncture / Unknown 01/14/2024 9:47 AM EST 01/14/2024 9:47 AM EST us Robbie Llanos MD CHEMISTRY ORDERABLES Final R esult [facility] [address] [facility] , [place] [address] [facility] [address] [place] [address] documented in this encounter Visit Diagnoses Diagnosis Annual physical exam- Primary Routine general medical examination at a health care facility Screening for metabolic disorder Screening for deficiency anemia Screening for other and unspecified deficiency anemia Screening for thyroid disorder Screening for cholesterol level Screening for lipoid disorders Generalized anxiety disorder documented in this encounter Care Teams Master [employer] Relationship Specialty Start Date End Date Stephany Myles APRN [address] [place] [id number] PCP - General Nurse Practitioner-Family 05/17/20 documented as of this encounter
--- OUTSIDE RECORDS SUMMARY | 2024-10-25 22:32 | XMS_ITS | Referral Summary ---
Author Organization [facility] Address [address] [place] [address] Phone Care Team Providers Care Stamping Bench Die Maker Name Role Phone Stephany Myles ANGEL Primary Care Provider [phone] Allergies No known active allergies Medications * This document contains information received from the source organization and may not represent a complete record from that organization. Buprenorphine (SUBUTEX) 8 mg SL tablet DISSOLVE 2 AND 1/2 TABLETS UNDER TONGUE ONE TIME A DAY. 10/24/2022 Active buPROPion (WELLBUTRIN XL) 150 mg Oral Tablet Sustained Release 24 hrIndications:G eneralized anxiety disorder Take 1 Tablet by mouth every morning. 90 Tablet 3 01/14/2024 Active Active Problems Problem Noted Date Diagnosed Date Renal colic on left side 09/29/2023 Generalized anxiety disorder 05/17/2020 History of intravenous drug use in remission 12/2019 Overview (05/17/2020): Clean 2015- heroin Hx of hepatitis C 05/13/2016 Overview (04/08/2021): F1. 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 Answer Date of Assessment Author No 01/14/2024 9:22 AM EST Iman Crump MA * Is the person blind or [...] No 01/14/2024 9:22 AM Iman García MA Mental Status * Because of a physical, mental or emotional condition, does this person have serious difficulty concentrating, remembering or making decisions? Answer Entry Date Author No 01/14/2024 9:22 AM Iman García MA Plan of Treatment Not on file Goals Goal Patient Goal Type Associated Problems Recent Progress Patient-Stated? Author Maintain a healthy diet, exercise regularly and maintain an ideal body weight General No Babita Bermudez RMA Stay Tobacco Free Lifestyle No Babita Bermudez RMA Insurance [facility] CHOICE PLUS [facility] CHOICE PLUS Care Teams Stamping Bench Die Maker Relationship Specialty Start Date End Date Stephany Myles APRN [address] [place], [place] [phone] PCP - General Nurse Practitioner-Family 05/17/20
--- OUTSIDE RECORDS SUMMARY | 2024-10-25 22:32 | XMS_ITS | Encounter Summary ---
Author Organization 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 advised to call md Thursday for notes documented in this encounter Plan of Treatment [...] documented as of this encounter Care Teams Lab Intern Relationship Specialty Start Date End Date Stephany Myles APRN [address] [place] [id number] PCP - General Nurse Practitioner-Family 05/17/20 documented as of this encounter
--- OUTSIDE RECORDS SUMMARY | 2024-10-25 22:32 | XMS_ITS | Clinical Summary ---
Author Organization [facility] Address [address] [place] [address] Phone Care Team Providers Care Racker Octave Board Name Role Phone Stephany Myles ANGEL Primary Care Provider [phone] [phone] Allergies No known active allergies Medications * [...] Influenza Vaccine Quadrivalent PF 12/25/2015 Tdap 08/27/2022,12/17/2016 Medical History Medical History Date Comments Kidney stone 2019 Hepatitis 12/2020 hx hep C-F1. 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 Author Maintain a healthy diet, exercise regularly and maintain an ideal body weight General No Babita Bermudez RMA Stay Tobacco Free Lifestyle No Babita Bermudez RMA Insurance [facility] CHOICE PLUS [facility] CHO[facility] PLUS Care Teams Racker Octave Board Relationship Specialty Start Date End Date Stephany Myles APRN [address] [place] [phone] PCP - General Nurse Practitioner-Family 05/17/20
--- OUTSIDE RECORDS SUMMARY | 2024-10-25 22:32 | XMS_ITS | Encounter Summary ---
Author Organization [place] [address] Care Team Providers Care Carpenter Assistant Name Role Phone Stephany Myles APRN Primary Care Provider [phone] Reason for Referral * Consultation (Routine) - Closed Specialty Diagnoses / Procedures Referred By Tameka carbajal Referred To Contact Addiction Medicine Diagnoses History of drug abuse in remission (HCC) Stephany Myles APRN [address] [place] [address] Phone: tel: fax: [facility] [address] [place] [address] Phone: tel: Referral ID Status Reason Start Date Expiration Date Visits Re quested Visits Authorized [id number] Closed 05/26/2023 05/25/2024 99 99 * Consultation (Routine) - Closed Specialty Diagnoses / Procedures Referred By Tameka carbajal Referred To Contact Urology Diagnoses Nephrolithiasis Stephany Myles APRN [address] [place] [address] Phone: tel: fax: [facility] [address] [place] [address] Phone: tel: fax: Referral ID Status Reason Start Date Expiration Date Visits Re quested Visits Authorized [id number] Closed 05/26/2023 05/25/2024 99 99 Reason for Visit * Reason Comments Other Referral Encounter Details Date Type Department Care Team (Late st Contact Info) Description 05/26/2023 1:30 PM EDT Office Visit [facility] [address] [employer] [place] [phone] Stephany Myles APRN [address] [place] [address] Nephrolithiasis (Primary Dx); History of drug abuse in remission (HCC); Personal history of nicotine dependence Social History Tobacco Use Types Packs/Day Years [...] 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 Not on file Not on file documented as of this encounter Last Filed Vital Signs Vital Sign Reading Time Taken Comments Blood Pressure 118/79 05/26/2023 1:31 PM EDT Pulse 78 05/26/2023 1:31 PM EDT Temperature 36.8 ??C (98.2 ??F) 05/26/2023 1:31 PM ED T Respiratory Rate - - Oxygen Saturation 98% 05/26/2023 1:31 PM EDT Inhaled Oxygen Concentration - - Weight 79.8 kg (176 lb) 05/26/2023 1:31 PM EDT Height 172.7 cm (5' 8 ) 05/26/2023 1:31 PM EDT Body Mass Index 26.76 05/26/2023 1:31 PM EDT documented in this encounter Functional [...] Refills Last Filled Start Date End Date nicotine (NICODERM CQ) 21 mg/24 hr TD Patch 24 hrIndications:Perso nal history of nicotine dependence Place 1 Patch onto the skin every 24 hours. 72 Patch 1 05/26/2023 09/29/2023 documented in this encounter Progress Notes * Stephany Myles APRN - 05/26/2023 1:30 PM EDT Vitals: 05/26/23 1331 BP: 118/79 Pulse: 78 Temp: 98.2 ??F (36.8 ??C) TempSrc: Temporal SpO2: 98% Weight: 176 lb (79.8 kg) Height: 5' 8 (1.727 m) SUBJECTIVE: Chief Complaint Patient presents with Other Referral HPI: Brandon Yo, 37 year old male is being seen today for ED follow up for Kidney Stone in April.Patient was discharged same day with plan of passing the stone at home, which he reports he did a few days later. He was prescribed Zofran, Cefadroxil, Tamsulosin, Toradol, and Percocet, however patient reports never receiving or taking Cefadroxil. Patient reports flank pain and all other symptoms resolved after passing the stone. Patient would like referral to Urology due to frequent Kidney Stones, reports 3 occurences in the past 2 years and 6 in the past 7 years. He was referred to Urology of at his ED visit but would like to a referral to a [facility] group to be closer to home. A dmits to very poor diet and very large caffeine intake Brandon is also eager to attempt to stop smoking. He has smoked roughly 2 packs per day since he was 14 years old and states he has never tried to quit. Patient is curious what options he may have to aid him in quitting smoking. Patient would like to explore options to get of the Buprenorphine. States he has been on Buprenorphine for almost 3 years and has never tried to wean dosage. He reports feeling tired and less motivated to do activities after taking it and would like to try to eventually get off it completely. Review of Systems Constitutional: Positive for fatigue. Negative for activity change, appetite change and fever. Reports occasional fatigue after taking Buprenorphine HENT: Negative. Eyes: Negative. Respiratory: Positive for cough. Negative for chest tightness, shortness of breath and wheezing. Reports occasional non-productive cough Cardiovascular: Negative for chest pain, palpitations and leg swelling. Gastrointestinal: Negative. Endocrine: Negative. Genitourinary: Negative for difficulty urinating, dysuria, flank pain, frequency and urgency. Reports Flank Pain and difficulty urinating resolved a couple days after passing kidney stone. Musculoskeletal: Negative. Skin: Negative. Allergic/Immunologic: Negative. Neurological: Negative. Hematological: Negative. Psychiatric/Behavioral: Negative. OBJECTIVE: Physical Exam Constitutional: General: He is not in acute distress. Appearance: Normal appearance. He is normal weight. HENT: Head: Normocephalic and atraumatic. Cardiovascular: Rate and Rhythm: Normal rate and regular rhythm. Pulses: Normal pulses. Heart sounds: Normal heart sounds. Pulmonary: Effort: Pulmonary effort is normal. Breath sounds: Wheezing present. Comments: Expiratory wheezing appreciated in RUL Abdominal: General: Abdomen is flat. Bowel sounds are normal. Palpations: Abdomen is soft. Musculoskeletal: General: Normal range of motion. Skin: General: Skin is warm and dry. Capillary Refill: Capillary refill takes less than 2 seconds. Coloration: Skin is not jaundiced. Findings: No lesion or rash. Neurological: General: No focal deficit present. Mental Status: He is alert and oriented to person, place, and time. Mental status is at baseline. Psychiatric: Comments: Slightly flat affect Assessment Diagnoses and all orders for this visit: Nephrolithiasis Comments: Nutritional aspects discussed Orders: - AMB REFERRAL TO UROLOGY History of drug abuse in remission (HCC) (Chronic) Comments: Patient to follow-up with his Subutex provider and recovery program for direction on weaning Orders: - AMB REFERRAL TO ADDICTION MEDICINE Personal history of nicotine dependence Comments: Follow-up in 2 to 4 weeks Orders: - nicotine (NICODERM CQ) 21 mg/24 hr TD Patch 24 hr; Place 1 Patch onto the skin every 24 hours. Dispense: 72 Patch; Refill: 1 documented in this encounter Miscellaneous Notes * Patient Instructions - Kellie Robbins MA - 05/26/2023 1:30 PM EDT You may be contacted by mail or e-mail to participate in a patient satisfaction survey regarding your office visit today. We value your opinion and depend on your feedback to make improvements and provide you with the best possible experience while receiving high quality medical treatment. Your time in completing this survey is greatly appreciated. documented in this encounter Plan of Treatment Scheduled Referrals Name Type Priority Associated Diagnoses Orde r Schedule AMB REFERRAL TO UROLOGY Outpatient Referral Routine Nephrolithiasis Ordered: 05/26/2023 AMB REFERRAL TO ADDICTION MEDICINE Outpatient Referral Routine History of drug abuse in remission (HCC) Ordered: 05/26/2023 documented as of this encounter Goals Goal Patient Goal Type Associated Problems Recent Progress Patient-Stated? Author Maintain a healthy diet, exercise regularly and maintain an ideal body weight General No Babita Bermudez RMA Stay Tobacco Free Lifestyle No Babita Bermudez RMA documented as of this encounter Visit Diagnoses Diagnosis Nephrolithiasis- Primary Calculus of kidney History of drug abuse in remission (HCC) Other, mixed, or unspecified nondependent drug abuse, in remission Personal history of nicotine dependence Personal history of tobacco use, presenting hazards to health documented in this encounter Additional Health Concerns Assessment Noted Time PHQ-9 Depression Total Score: 2 12/04/19 21 9:02 AM EST PHQ-2 Depression Total Score: 2 12/04/19 21 9:02 AM EST documented as of this encounter Care Teams Carpenter Assistant Relationship Specialty Start Date End Date Stephany Myles APRN [employer] [place] [id number] PCP - General Nurse Practitioner-Family 05/17/20 documented as of this encounter
--- OUTSIDE RECORDS SUMMARY | 2024-10-25 22:32 | XMS_ITS | Encounter Summary ---
Author Organization 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 Not on file Not on file documented as of this encounter Last Filed Vital Signs Vital Sign Reading Time Taken Comments Blood Pressure 121/79 06/29/2023 2:05 PM EDT Pulse 75 06/29/2023 2:05 PM EDT Temperature 36.8 ??C (98.2 ??F) 06/29/2023 2:05 PM ED T Respiratory Rate - - Oxygen Saturation 96% 06/29/2023 2:05 PM EDT Inhaled Oxygen Concentration - - Weight 78.5 kg (173 lb) 06/29/2023 2:05 PM EDT Height 172.7 cm (5' 8 ) 06/29/2023 2:05 PM EDT Body Mass Index 26.3 06/29/2023 2:05 PM EDT documented in this [...] Entry Date Author No 12/04/2020 9:01 AM JULIÁN Aidan , Babita L, RMA documented in this encounter Patient Instructions * Attachments The following attachments cannot be sent through Care Everywhere. * Poison Juno (Ethiopian) documented in this encounter Ordered Prescriptions Prescription Sig Dispense Quantity Refills Last Filled Start Date End Date predniSONE (DELTASONE) 10 mg Oral TabletIndications:P oison juno dermatitis 3 times a day x 4 days, 2 times a day x 4 days, once a day x 4 days 24 Tablet 06/29/2023 09/29/2023 documented in this encounter Progress Notes * Myles Stephany, ANGEL - 06/29/2023 2:00 PM EDT Vitals: 06/29/23 1405 BP: 121/79 Pulse: 75 Temp: 98.2 ??F (36.8 ??C) TempSrc: Temporal SpO2: 96% Weight: 173 lb (78.5 kg) Height: 5' 8 (1.727 m) SUBJECTIVE: Chief Complaint Patient presents with ??? Poison Juno HPI: Patient c/o possible poison juno on the arms and legs x4 days ago he was doing yard work and has been itching, has put calcimine lotion and itch relief cream. Has not taken any antihistamines foritching. Review of Systems Denies: fever, chills, nausea, emesis, diarrhea, chest pain, sob, dark or bloody stools, urinary symptoms, neuro symptoms. OBJECTIVE: Physical Exam Constitutional: Appearance: Normal appearance. HENT: Head: Normocephalic and atraumatic. Cardiovascular: Rate and Rhythm: Normal rate and regular rhythm. Pulses: Normal pulses. Heart sounds: Normal heart sounds. Pulmonary: Effort: Pulmonary effort is normal. Breath sounds: Normal breath sounds. Skin: General: Skin is warm and dry. Findings: Rash (erythematous vesicular rash on arms, hands, legs,) present. Neurological: Mental Status: He is alert and oriented to person, place, and time. Psychiatric: Mood and Affect: Mood normal. Assessment Diagnoses and all orders for this visit: Poison juno dermatitis - predniSONE (DELTASONE) 10 mg Oral Tablet; 3 times a day x 4 days, 2 times a day x 4 days, once a day x 4 days Dispense: 24 Tablet; Refill: 0 - methylPREDNISolone acetate (DEPO-Medrol) injection 80 mg documented in this encounter Miscellaneous Notes * Patient Instructions - Stephany Myles APRN - 06/29/2023 2:00 PM EDT You may be contacted by mail or e-mail to participate in a patient satisfaction survey regarding your office visit today. We value your opinion and depend on your feedback to make improvements and provide you with the best possible experience while receiving high quality medical treatment. Your time in completing this survey is greatly appreciated. Take Benadryl otc at night for itching. Claritin or salazar in the morning for itching documented in this encounter Plan of Treatment Not on file documented as of this encounter Goals Goal Patient Goal Type Associated Problems Recent Progress Patient-Stated? Author Maintain a healthy diet, exercise regularly and maintain an ideal body weight General No Babita Bermudez RMA Stay Tobacco Free Lifestyle No Babita Bermudez RMA documented as of this encounter Visit Diagnoses Diagnosis Poison juno dermatitis- Primary Contact dermatitis and other eczema due to plants (except food) documented in this encounter Administered Medications Inactive Administered Medications - up to 1 most recent administrations Medication Order MAR Action Action Date Dose Rate Site methylPREDNISolone acetate (DEPO-Medrol) injection 80 mg 80 mg, Intramuscular, ONCE, 1 dose, On 06/29/23 at 1430, Dx: 1. Poison juno dermatitisIndications:Po paris juno dermatitis Given 06/29/2023 2:38 PM EDT 80 mg Left upper gluteus documented in this encounter Additional Health Concerns Assessment Noted Time PHQ-9 Depression Total Score: 2 12/04/19 21 9:02 AM EST PHQ-2 Depression Total Score: 2 12/04/19 21 9:02 AM EST documented as of this encounter Care Teams Personal Counselor Relationship Specialty Start Date End Date Stephany Myles APRN [address] [place], [place] [phone] PCP - General Nurse Practitioner-Family 05/17/20 documented as of this encounter
--- OUTSIDE RECORDS SUMMARY | 2024-10-25 22:32 | XMS_ITS | Encounter Summary ---
Author Organization [place] [address] Care Team Providers Care Top Frame Fitter Name Role Phone Stephany Myles APRN Primary Care Provider [phone] Reason for Visit * Reason Comments Illness Began with N/V/D thi s morning. -F Encounter Details Date Type Department Care Team (Late st Contact Info) Description 12/06/2022 7:16 AM EST - 12/06/2022 8:27 AM EST Emergency . [facility] [address] 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 Not on file documented as of this encounter Last Filed Vital Signs Vital Sign Reading Time Taken Comments Blood Pressure 140/91 12/06/2022 7:05 AM EST Pulse 73 12/06/2022 7:05 AM EST Temperature 36.5 ??C (97.7 ??F) 12/06/2022 7:05 AM ES T Respiratory Rate 16 12/06/2022 7:05 AM EST Oxygen Saturation 100% 12/06/2022 7:05 AM EST Inhaled Oxygen Concentration - - Weight 80.7 kg (178 lb) 12/06/2022 7:05 AM EST Height 172.7 cm (5' 8 ) 12/06/2022 7:05 AM EST Body Mass Index 27.06 12/06/2022 7:05 AM EST documented in this encounter Functional [...] Babita Bermudez RMA documented in this encounter Discharge Instructions * Attachments The following attachments cannot be sent through Care Everywhere. * Viral Gastroenteritis in Adults (Albanian) documented in this encounter Medications at Time of Discharge Buprenorphine (SUBUTEX) 8 mg SL tablet DISSOLVE 2 AND 1/2 TABLETS UNDER TONGUE ONE TIME A DAY. 10/24/2022 ondansetron (ZOFRAN-ODT) 4 mg Oral Tablet, Rapid Dissolve Take 1 Tablet by mouth every 6 hours as needed for Nausea for up to 30 days. 10 Tablet 12/06/2022 01/05/2023 documented as of this encounter Ordered Prescriptions Prescription Sig Dispense Quantity Refills Last Filled Start Date End Date ondansetron (ZOFRAN-ODT) 4 mg Oral Tablet, Rapid Dissolve Take 1 Tablet by mouth every 6 hours as needed for Nausea for up to 30 days. 10 Tablet 12/06/2022 01/05/2023 documented in this encounter Discharge Disposition Disposition Code Departure Means Destination Comment s Home or Self Correction documented in this encounter ED Notes * Evelyn Marc MD - 12/06/2022 6:47 AM EST CHIEF COMPLAINT Chief Complaint Patient presents with ??? Illness Began with N/V/D this morning. -F HPI Brandon Yo is a 37 y.o. male who presents with a chief complaint of vomiting and diarrhea. Patient presents with his entire family including his significant other and 2 children with similar symptoms. One of the children started several days ago with GI symptoms. His significant other then began having symptoms yesterday. The patient symptoms began overnight while he was at work. He notes vomiting x4-5 and 1 loose stool. No fever. Continues to feel nauseous. Other family members with similar GI symptoms. Denies cough or congestion although one of the children has had a cough. No rash. Nohematemesis. No blood per rectum. No recent travel out of the country. REVIEW OF SYSTEMS See HPI for further details. Review of systems otherwise negative. PAST MEDICAL HISTORY Past Medical History: Diagnosis Date ??? Hepatitis 12/2020 hx hep C-F1. completed 12 wk course of epclusa Dec 2020 with undetected VL 12 wks following completion of therapy ??? Kidney stone 2019 FAMILY HISTORY Family History Problem Relation Age of Onset ??? Heart Disease Mother ??? Drug Abuse Mother ??? Drug Abuse Father SOCIAL HISTORY Social History Socioeconomic History ??? Marital status: Significant Other Spouse name: None ??? Number of children: 4 ??? Years of education: 10th grade ??? Highest education level: None Occupational History ??? 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 Smoking status: Every Day Packs/day: 1.00 Years: 20.00 Pack years: 20.00 Types: Cigarettes Start date: 11/16/1999 ??? Smokeless tobacco: Never Vaping Use ??? Vaping Use: Never used Substance and Sexual Activity ??? Alcohol use: No Alcohol/week: 0.0 oz ??? 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 went [place] drug court. ??? Sexual activity: Yes Partners: Female SURGICAL HISTORY No past surgical history on file. CURRENT MEDICATIONS No current facility-administered medications for this encounter. Current Outpatient Medications: ??? Buprenorphine (SUBUTEX) 8 mg SL tablet, DISSOLVE 2 AND 1/2 TABLETS UNDER TONGUE ONE TIME A DAY., Disp: , Rfl: ALLERGIES No Known Allergies PHYSICAL EXAM VITAL SIGNS: ED Triage Vitals [12/06/22 0705] Temp 97.7 ??F (36.5 ??C) Pulse 73 Resp 16 BP 140/91 SpO2 100 % Height 5' 8 (1.727 m) Weight 178 lb (80.7 kg) Constitutional: Nontoxic male patient, holding a emesis bag, pale HENT: Normocephalic, Atraumatic, Mucous membranes moist and pink Cardiovascular: Regular rate and rhythm, no murmurs, rubs or gallops Thorax & Lungs: Normal breath sounds bilaterally, equal air movment bilaterally Abdomen: Soft, bowel sounds present, nontender Skin: Warm, Dry, pale Back: No CVA tenderness, Extremities: Intact distal pulses, No edema, No tenderness Neurologic: Awake and alert, independently ambulatory, answers questions appropriately, follows commands LABS/RADIOLOGY/PROCEDURES Labs Reviewed [id number] A/B - Normal Narrative: This test is a real-time RT-PCR test that simultaneously detects and differentiates nucleic acids from SARS-CoV-2, influenza A and influenza B in individuals suspected of a respiratory viral infection. Not Detected results do not preclude COVID-19 or influenza virus infection or other respiratory viruses and should not be used as the sole basis for treatment or other patient management decisions. Test is performed on the [employer] ALPA platform under the FDA's Emergency Use Authorization (EUA). ALPA Fact Sheet for Providers and Patients: ALPA Fact Sheet for Providers: https://www.fda.gov/media/926649/download ALPA Fact Sheet for Patients: https://www.fda.gov/media/667412/download COURSE & MEDICAL DECISION MAKING Pertinent Labs & Imaging studies reviewed. (See chart for details) Nontoxic male patient that presents with nausea vomiting and diarrhea. No fever. Multiple family members with similar. History and exam findings which is just viral versus foodborne etiology. Patienthas a benign exam. Symptoms started within the last 12 hours. Plan is for discharged home. Symptomatic care. Warning signs discussed return precautions given. FINAL IMPRESSION 1. Nausea vomiting and diarrhea Discharged in stable condition This chart was completed using voice recognition technology and may contain unintended errors Evelyn aMrc MD 12/06/22825 documented in this encounter Plan of Treatment [...] Procedure Name Priority Date/Time Associated Diagnosis Comments [id number] A/B Routine 12/06/2022 7:4 2 AM EST documented in this encounter Results * [id number] A/B (12/06/2022 7:42 AM EST) CORONAVIRUS [id number] Not Detected Not Detected 12/06/2022 8:11 AM EST [facility] Influenza A DNA Not Detected Not Detected 12/06/2022 8:11 AM EST [facility] Influenza B DNA Not Detected Not Detected 12/06/2022 8:11 AM EST [facility] Swab BOTH ANTERIOR NARES / Unknown 12/06/2022 7:42 AM EST 12/06/2022 7:47 AM EST Narrative [facility] - 12/06/2022 8:11 AM EST This test is a real-time RT-PCR test that simultaneously detects and differentiates nucleic acids from SARS-CoV-2, influenza A and influenza B in individuals suspected of a respiratory viral infection. Not Detected results do not preclude COVID-19 or influenza virus infection or other respiratory viruses and should not be used as the sole basis for treatment or other patient management decisions. Test is performed on the [employer] ALPA platform under the FDA's Emergency Use Authorization (EUA). ALPA Fact Sheet for Providers and Patients: LAPA Fact Sheet for Providers: https://www.fda.gov/media/279408/download ALPA Fact Sheet for Patients: https://www.fda.gov/media/553430/download Evelyn Marc MD MICROBIOLOGY - GENERAL ORDERAB LES Final Result [facility] [address] [place] [address] documented in this encounter Visit Diagnoses Diagnosis Nausea vomiting and diarrhea- Primary Nausea with vomiting documented in this encounter Administered Medications Inactive Administered Medications - up to 1 most recent administrations Medication Order MAR Action Action Date Dose Rate Site ondansetron (ZOFRAN) injection 8 mg 8 mg, Intramuscular, ONCE, 1 dose, On 12/06/22 at 0730, Given 12/06/2022 7:43 AM EST 8 mg Right Deltoid documented in this encounter Active and Recently Administered Medications Times are shown in EST. Scheduled Medication Order 12/04/2022 12/05/2022 12/06/2022 ondansetron (ZOFRAN) injection 8 mg (COMPLETED) 8 mg, Intramuscular, ONCE, 1 dose, On 12/06/22 at 0730, 0743 (Given - Provid er: Tessy M Naheed, RN) documented in this encounter Additional Health Concerns Infection Onset Date Last Indicated Resolved Time R/O COVID-19 12/06/2022 12/06/2022 12/06/2022 8:11 AM EST Assessment Noted Time PHQ-9 Depression Total Score: 2 12/04/19 9:02 AM EST PHQ-2 Depression Total Score: 2 12/04/19 9:02 AM EST documented as of this encounter Care Teams Top Frame Fitter Relationship Specialty Start Date End Date Stephany Myles APRN [address] [place], [place] [phone] PCP - General Nurse Practitioner-Family 05/17/20 documented as of this encounter
--- OUTSIDE RECORDS SUMMARY | 2024-10-25 22:32 | XMS_ITS | Encounter Summary ---
Author Organization [facility] Address [facility] [place] [address] Care Team Providers Care Underwriting Service Representative Name Role Phone Stephany Myles APRN Primary Care Provider [phone] Reason for Visit * Reason Comments Sore Throat Encounter Details Date Type Department Care Team (Late st Contact Info) Description 11/05/2022 10:45 AM EST Office Visit [facility] [address] [place] [phone] AmieBasilio AUTOMATIC I THREADING MACHINE FEEDER [address] [employer] [place] [address] Screening for thyroid disorder (Primary Dx); Screening for lipid disorders; Exposure to strep throat; Strep throat Social History Tobacco Use Types Packs/Day Years [...] 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 on file Not on file documented as of this encounter Last Filed Vital Signs Vital Sign Reading Time Taken Comments Blood Pressure 119/73 11/05/2022 10:57 AM EST Pulse 88 11/05/2022 10:57 AM EST Temperature 36.8 ??C (98.2 ??F) 11/05/2022 10:[address] Respiratory Rate - - Oxygen Saturation 98% 11/05/2022 10:57 AM EST Inhaled Oxygen Concentration - - Weight 81.2 kg (179 lb) 11/05/2022 10:57 AM EST Height - - Body Mass Index 28.89 02/13/2022 8:33 PM EDT documented in this encounter Functional [...] Refills Last Filled Start Date End Date amoxicillin (AMOXIL) 500 mg Oral CapsuleIndications :Exposure to strep throat,Strep throat Take 1 Capsule by mouth 2 times daily for 10 days. 20 Capsule 11/05/2022 2 documented in this encounter Progress Notes * Basilio Holloway APRN - 11/05/2022 10:45 AM EST Vitals: 11/05/22 1057 BP: 119/73 Pulse: 88 Temp: 98.2 ??F (36.8 ??C) SpO2: 98% Weight: 179 lb (81.2 kg) SUBJECTIVE: Chief Complaint Patient presents with ??? Sore Throat HPI: Sore throat: Brandon Yo is a 37 y.o. male complaining of moderate sore throat for 3-4 days 5 year old son with strep Denies fever or chills Pain with swallowing Other sx's: no, no nasal congestion, swollen glands, fever or cough. Nausea or vomiting: no Improvement with otc medications: no, has not tried Recent exposure to someone with proven streptococcal pharyngitis: yes. Exposure to mono: no. On Subutex from Clinic in [facility] Review of Systems HENT: Positive for sore throat. Respiratory: Negative. Cardiovascular: Negative. Gastrointestinal: Negative. All other systems reviewed and are negative. OBJECTIVE: Physical Exam Constitutional: Appearance: Normal appearance. HENT: Head: Normocephalic and atraumatic. Right Ear: Tympanic membrane normal. Left Ear: Tympanic membrane normal. Mouth/Throat: Pharynx: Posterior oropharyngeal erythema present. Eyes: Conjunctiva/sclera: Conjunctivae normal. Pupils: Pupils are equal, round, and reactive to light. Cardiovascular: Rate and Rhythm: Normal rate and regular rhythm. Pulses: Normal pulses. Heart sounds: Normal heart sounds. Pulmonary: Effort: Pulmonary effort is normal. Breath sounds: Normal breath sounds. Abdominal: General: Bowel sounds are normal. Lymphadenopathy: Cervical: Cervical adenopathy present. Neurological: Mental Status: He is alert. Assessment Diagnoses and all orders for this visit: Screening for thyroid disorder - CBC WITH DIFF; Future - TSH REFLEX; Future Screening for lipid disorders - COMPREHENSIVE METABOLIC PANEL; Future - LIPID PANEL REFLEX; Future Exposure to strep throat - amoxicillin (AMOXIL) 500 mg Oral Capsule; Take 1 Capsule by mouth 2 times daily for 10 days. Dispense: 20 Capsule; Refill: 0 Strep throat - amoxicillin (AMOXIL) 500 mg Oral Capsule; Take 1 Capsule by mouth 2 times daily for 10 days. Dispense: 20 Capsule; Refill: 0 - POCT RAPID STREP A documented in this encounter Miscellaneous Notes * Addendum Note - Basilio Holloway APRN - 11/05/2022 10:45 AM ESTAddended by: BASILIO HOLLOWAY on: 11/05/2022 11:14 AM Modules accepted: Orders documented in this encounter Plan of Treatment Scheduled Orders Name Type Priority Associated Diagnoses Orde r Schedule CBC WITH DIFF Lab Routine Screening for thyroid disorder 1 Occurrences starting 11/05/2022 until 11/05/2023 COMPREHENSIVE METABOLIC PANEL Lab Routine Screening for lipid disorders 1 Occurrences starting 11/05/2022 until 11/05/2023 TSH REFLEX Lab Routine Screening for thyroid disorder 1 Occurrences starting 11/05/2022 until 11/05/2023 documented as of this encounter Goals Goal Patient Goal Type Associated Problems Recent Progress Patient-Stated? Author Maintain a healthy diet, exercise regularly and maintain an ideal body weight General No Babita Bermudez RMA Stay Tobacco Free Lifestyle No Babita Bermudez RMA documented as of this encounter Procedures Procedure Name Priority Date/Time Associated Diagnosis Comments POCT RAPID STREP A Routine 11/05/2022 11 :14 AM EST Strep throat documented in this encounter Results * (ABNORMAL) LIPID PANEL REFLEX (12/18/2022 10:27 AM EST) Pathologist [facility] [place] Cholesterol 100 <200 mg/dL 12/19/2022 8:04 PM EST [facility] Comment: < 200 ?Desirable 200 - 239 ? Borderline High >= 240 ?High Triglyceride 142 <150 mg/dL 12/19/2022 8:04 PM EST [facility] Comment: < 150 ? Normal 150 - 199 ?Borderline High 200 - 499 ?High ??>= 500 ? Very High HDL 33(L) >=40 mg/dL 12/19/2022 8:04 PM EST [facility] Comment: ??> 60 ?Optimal 40 - 60 ?Acceptable ?? < 40 ?Low LDL Calculated 42 <100 mg/dL 12/19/2022 8:04 PM EST [facility] Non-HDL-C Calculated 67 <=129 mg/dL 12/19/2022 8:04 PM EST [facility] Comment: <130 ?Desirable 130-159 Above Desirable 160-189 Borderline High 190-219 High >= 220 ??Very High Fasting Specimen? 023 8:04 PM EST [facility] Blood VENOUS BLOOD / Unknown Venipuncture / Unknown 12/18/2022 10:27 AM EST 12/18/2022 10:29 AM EST Basilio Gastright AUTOMATIC I THREADING MACHINE FEEDER CHEMISTRY ORDERABLES Final Result Performing Organization Address City/[facility]/ZIP Co de Phone Number [facility] [address] , [place] [address] * (ABNORMAL) POCT RAPID STREP A (11/05/2022 11:14 AM EST) Strep A Ag Positive( A) None Detected Pos/Neg SEP OFFICE Lot Number SEP OFFICE Expiration Date SEP OFFICE SeriAl # SEP OFFICE Control Line Yes YES/NO SEP OFFICE 11/05/2022 11:1 4 AM EST Basilio Gastright AUTOMATIC I THREADING MACHINE FEEDER POINT OF CARE TEST ORDERAB LES Final Result SEP OFFICE documented in this encounter Visit Diagnoses Diagnosis Screening for thyroid disorder- Primary Screening for lipid disorders Exposure to strep throat Contact with or exposure to other communicable diseases Strep throat Streptococcal sore throat documented in this encounter Discontinued Medications Medication Sig Discontinue Reason Start Date End Da te vilazodone 10 mg (7)- 20 mg (23) Oral Tablets, Dose PackIndications:General ized anxiety disorder Take 1 Tab by mouth daily. Take with food DELETE-Therapy completed 12/04/2020 11/05/2022 documented as of this encounter Historical Medications * This list may reflect changes made after this encounter. Buprenorphine (SUBUTEX) 8 mg SL tablet DISSOLVE 2 AND 1/2 TABLETS UNDER TONGUE ONE TIME A DAY. 10/24/2022 added in this encounter Additional Health Concerns Assessment Noted Time PHQ-9 Depression Total Score: 2 12/04/19 9:02 AM EST PHQ-2 Depression Total Score: 2 12/04/19 9:02 AM EST documented as of this encounter Care Teams Underwriting Service Representative Relationship Specialty Start Date End Date Stephany Myles APRN [address] [place], [place] [phone] PCP - General Nurse Practitioner-Family 05/17/20 documented as of this encounter
--- OUTSIDE RECORDS SUMMARY | 2024-10-25 22:33 | XMS_ITS | Encounter Summary ---
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 No / Unsure 12/04/2020 8:51 AM EST documented as of this encounter [...] documented as of this encounter Care Teams Rehab Rn Relationship Specialty Start Date End Date Stephany Myles [place] [address] [place] [address] PCP - General Nurse Practitioner-Family 05/17/20 documented as of this encounter
--- OUTSIDE RECORDS SUMMARY | 2024-10-25 22:33 | XMS_ITS | Encounter Summary ---
Author Organization [facility] [place] [address] Care Team Providers Care Piano Mover Name Role Phone Stephany Myles APRN Primary Care Provider [phone] Casi Cole MANAGER CODING Unavailable Unavail able Encounter Details Date Type Department Care Team (Latest Contact Info) Description 11/13/2020 Travel Social History Tobacco Use Types Packs/Day Years Used Date Smoking Tobacco: Every Day Cigarettes 1.5 24.9 Started: 11/16/1999 Smokeless Tobacco: Never Alcohol Use Standard Drinks/Week Comments No 0 (1 standard drink = 0.6 oz pur e alcohol) Overall Financial Resource Strain (CARDIA) Answe r Date Recorded Difficulty of Paying Living Expenses Not hard at all 05/31/2020 PHQ-2 Answer Date Recorded PHQ-2 Score 0 06/14/2020 Hunger Vital Sign Answer Date Recorded Worried [...] 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 No / Unsure 11/13/2020 11:34 AM EST documented as of this encounter Functional Status * Is the person deaf or does he/she have serious difficulty hearing? Answer Date of Assessment Author No 06/14/2020 10:19 AM Homer Sanders MA * Is the person blind or does he/she have serious difficulty seeing even when wearing glasses? Answer Date of Assessment Author No 06/14/2020 10:19 AM Homer Sanders MA * Does this person have serious difficulty walking or climbing stairs? Answer Date of Assessment Author No 06/14/2020 10:19 AM Homer Sanders MA * Does this person have difficulty dressing or bathing? Answer Date of Assessment Author No 06/14/2020 10:19 AM Homer Sanders MA * Because of a physical, mental or emotional condition, does this person have difficulty doing errands alone such as visiting a doctor's office or shopping? Answer Date of Assessment Author No 06/14/2020 10:19 AM Homer Sanders MA documented as of this encounter Mental Status * Because of a physical, mental or emotional condition, does this person have serious difficulty concentrating, remembering or making decisions? Answer Entry Date Author No 06/14/2020 10:19 AM Homer Sanders MA documented in this encounter Plan of Treatment [...] Diagnoses Not on filedocumented in this encounter Care Teams Piano Mover Relationship Specialty Start Date End Date Stephany Myles APRN [address] [place], [place] [phone] PCP - General Nurse Practitioner-Family 05/17/20 Casi Cole, MANAGER CODING Tank Car Loader 06/27/20 documented as of this encounter
--- OUTSIDE RECORDS SUMMARY | 2024-10-25 22:33 | XMS_ITS | Encounter Summary ---
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 No / Unsure 04/03/2021 1:00 PM EDT documented as of this encounter Functional Status [...] Babita Thomas RMA documented in this encounter Discharge Disposition Disposition [...] Name Priority Date/Time Associated Diagnosis Comments HCV QUANT NAAT Routine 04/03/2021 1:07 PM EDT Chronic hepatitis C without hepatic coma (HCC) COMPREHENSIVE METABOLIC PANEL Routine 04/03/2021 1:07 PM EDT Chronic hepatitis C without hepatic coma (HCC) documented in this encounter Results * (ABNORMAL) COMPREHENSIVE METABOLIC PANEL (04/03/2021 1:07 PM EDT) Sodium 142 136 - 145 mmol/L 04/03/2021 4:55 PM EDT [facility] Potassium 4.5 3.5 - 5.0 mmol/L 04/03/2021 4:55 PM EDT [facility] Chloride 104 98 - 107 mmol/L 04/03/2021 4:55 PM EDT [facility] Total CO2 29 22 - 29 mmol/L 04/03/2021 4:55 PM EDT [facility] Anion Gap 9 7 - 16 mmol/L 04/03/2021 4:55 PM EDT [facility] Calcium 9.6 8.6 - 10.4 mg/dL 04/03/2021 4:55 PM EDT [facility] Glucose Lvl 92 74 - 100 mg/dL 04/03/2021 4:55 PM EDT [facility] BUN 19 6 - 20 mg/dL 04/03/2021 4:55 PM EDT [facility] Creatinine 1.38(H) 0.67 - 1.30 mg/dL 04/03/2021 4:55 PM EDT [facility] Albumin 4.8 3.5 - 5.2 gm/dL 04/03/2021 4:55 PM EDT [facility] Total Protein 7.2 6.4 - 8.3 gm/dL 04/03/2021 4:55 PM EDT [facility] Bili Total 0.9 0.1 - 1.4 mg/dL 04/03/2021 4:55 PM EDT [facility] ALT 16 <=41 U/L 04/03/2021 4:55 PM EDT [facility] AST 23 <=40 U/L 04/03/2021 4:55 PM EDT [facility] Alk Phos 68 40 - 129 U/L 04/03/2021 4:55 PM EDT [facility] [facility] GFR Afr Am 75 >=60 mL/min/1.7 3 m2 04/03/2021 4:55 PM EDT [facility] GFR Non Afr Am 65 >=60 mL/min/1.7 3 m2 04/03/2021 4:55 PM EDT [facility] Comment: This estimated GFR was calculated using CKD-EPI equation which is modified based on ethnicity for Non Americans and Americans. Both results are reported since it is not always possible to determine the patient's ethnicity. This equation should only be used for individuals 18 and older. It has not been validated for use with the elderly (>70 years), women, or in some racial or ethnic subgroups, such as Hispanics. The equation will be less accurate in people with differences in nutritional status or muscle mass. Blood VENOUS BLOOD / Unknown Venipuncture / Unknown 04/03/2021 1:07 PM EDT 04/03/2021 1:07 PM EDT us Trini Jaramillo NURSING HOME PHYSICIAN CHEMISTRY ORDERABLES Final R esult [facility] [employer] [facility] [address] [place] [id number] [facility] [address] [place], [place] [id number] * HCV QUANT NAAT (04/03/2021 1:07 PM EDT) HCV Qnt by NAAT (IU/mL) Not Detected IU/mL 04/05/2021 10:13 PM EDT [facility] HCV Qnt by NAAT (log IU/mL) Not Detected log IU/mL 04/05/2021 10:13 PM EDT [facility] HCV Qnt by NAAT Interp Not Detected Not Detected 04/05/2021 10:13 PM EDT [facility] Comment: INTERPRETIVE INFORMATION: HCV by Quantitative NAAT Normal range for this assay is Not Detected . The quantitative range of this assay is 10 - 100,000,000 IU/mL (1.0 - 8.0 log IU/mL). Lower limit of quantitation (LLoQ): 10 IU/mL (1.0 log IU/mL) LLoQ values do not apply to diluted specimens. A result of Not Detected does not rule out the presence of inhibitors in the patient specimen or hepatitis C virus RNA concentrations below the level of detection of the test. Care should be taken when interpreting any single viral load determination. This test should not be used for blood donor screening, associated re-entry protocols, or for screening Human Cell, Tissues and Cellular Tissue-Based Products (HCT/P). Performed by [facility], [address] [place] [address] [email or web address], Nicole Sanchez MD, Lab. Director Blood VENOUS BLOOD / Unknown Venipuncture / Unknown 04/03/2021 1:07 PM EDT 04/03/2021 1:07 PM EDT us Trini Jaramillo APRN IMMUNOLOGY ORDERABLES Final Result [facility] [address] [place] [address] documented in this encounter Visit Diagnoses Diagnosis Chronic hepatitis C without hepatic coma (HCC) documented in this encounter Additional Health Concerns Assessment Noted Time PHQ-9 Depression Total Score: 2 12/04/19 21 9:02 AM EST PHQ-2 Depression Total Score: 2 12/04/19 21 9:02 AM EST documented as of this encounter Care Teams Repair Supervisor Relationship Specialty Start Date End Date Stephany Myles APRN [address] [place] [phone] PCP - General Nurse Practitioner-Family 05/17/20 documented as of this encounter
--- OUTSIDE RECORDS SUMMARY | 2024-10-25 22:33 | XMS_ITS | Encounter Summary ---
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 No / Unsure 02/13/2022 8:31 PM EDT documented as of this encounter Functional Status * Is the person deaf or does he/she have serious difficulty hearing? Answer Date of Assessment Author No 12/04/2020 9:01 AM JULIÁN Aidan Babita L, SAJAN * Is the person blind or does he/she have serious difficulty seeing even when wearing glasses? Answer Date of Assessment Author No 12/04/2020 9:01 AM JULIÁN Babita Bermudez RMA * Does this person have serious difficulty walking or climbing stairs? Answer Date of Assessment Author No 12/04/2020 9:01 AM JULIÁN Babita Bermudez RMA * Does this person have difficulty dressing or bathing? Answer Date of Assessment Author No 12/04/2020 9:01 AM JULIÁN Babita Bermudez RMA * Because of a physical, mental or emotional condition, does this person have difficulty doing errands alone such as visiting a doctor's office or shopping? Answer Date of Assessment Author No 12/04/2020 9:01 AM JULIÁN Babita Bermudez RMIman documented as of this encounter Mental Status * Because of a physical, mental or emotional condition, does this person have serious difficulty concentrating, remembering or making decisions? Answer Entry Date Author No 12/04/2020 9:01 AM Baibta Thomas RMIman documented in this encounter Plan of Treatment Not on file documented as of this encounter Goals Goal Patient Goal Type Associated Problems Recent Progress Patient-Stated? Author Maintain a healthy diet, exercise regularly and maintain an ideal body weight General Babita Carvalho RMA Stay Tobacco Free Lifestyle No Babita Bermudez RMA documented as of this encounter Visit Diagnoses Not on filedocumented in this encounter Additional Health Concerns Assessment Noted Time PHQ-9 Depression Total Score: 2 12/04/19 9:02 AM EST PHQ-2 Depression Total Score: 2 12/04/19 9:02 AM EST documented as of this encounter Care Teams Water Rights Specialist Relationship Specialty Start Date End Date Stephany Myles [place] [place] [phone] PCP - General Nurse Practitioner-Family 05/17/20 documented as of this encounter
--- OUTSIDE RECORDS SUMMARY | 2024-10-25 22:33 | XMS_ITS | Encounter Summary ---
Author Organization [place] [address] Care Team Providers Care Residential Finish Carpenter Name Role Phone Stephany Myles APRN Primary Care Provider [phone] Casi Cole MIDDLE SCHOOL MUSIC TEACHER Unavailable Unavail able Reason for Visit * Reason Comments Pre-Visit Encounter [facility] Encounter Details Date Type Department Care Team (Latest Contact Info) Description 09/04/2020 Specialty Pharmacy [facility] [address] [place] [address] Jocelyn Stewart, [facility] Pre-Visit Encounter ([facility]) Social History Tobacco Use Types Packs/Day Years [...] 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 No / Unsure 09/05/2020 9:46 AM EDT documented as of this encounter Functional Status * Is the person deaf or does he/she have serious difficulty hearing? Answer Date of Assessment Author No 06/14/2020 10:19 AM EDT Homer Caldwell MA * Is the person blind or does he/she have serious difficulty seeing even when wearing glasses? Answer Date of Assessment Author No 06/14/2020 10:19 AM EDT Homer Caldwell MA * Does this person have serious difficulty walking or climbing stairs? Answer Date of Assessment Author No 06/14/2020 10:19 AM EDT Homer Caldwell MA * Does this person have difficulty dressing or bathing? Answer Date of Assessment Author No 06/14/2020 10:19 AM EDT Homer Caldwell MA * Because of a physical, mental or emotional condition, does this person have difficulty doing errands alone such as visiting a doctor's office or shopping? Answer Date of Assessment Author No 06/14/2020 10:19 AM EDT Homer Caldwell MA documented as of this encounter Mental Status * Because of a physical, mental or emotional condition, does this person have serious difficulty concentrating, remembering or making decisions? Answer Entry Date Author No 06/14/2020 10:19 AM Homer Sanders MA documented in this encounter Progress Notes * GILBERTO CHÁVEZ - 09/04/2020 2:34 PM EDT Encounter opened for patient prep. documented in this encounter Plan of Treatment Not on file documented as of this encounter Goals Goal Patient Goal Type Associated Problems Recent Progress Patient-Stated? Author Maintain a healthy diet, exercise regularly and maintain an ideal body weight General No Babita Bermudez RMA Stay Tobacco Free Lifestyle No Aidan, Babita L, RMA documented as of this encounter Visit Diagnoses Not on filedocumented in this encounter Care Teams Residential Finish Carpenter Relationship Specialty Start Date End Date Stephany Myles APRN [address] [place], [place] [phone] PCP - General Nurse Practitioner-Family 05/17/20 Casi Cole, GRACE Yarn Skeins Examiner 06/27/20 documented as of this encounter
--- OUTSIDE RECORDS SUMMARY | 2024-10-25 22:33 | XMS_ITS | Encounter Summary ---
Author Organization 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 Answer Date of Assessment Author No 12/04/2020 9:01 AM EST Babita Bermudez, RMA * Does this person have serious difficulty walking or climbing stairs? Answer Date of Assessment Author No 12/04/2020 9:01 AM EST Babita Bermudez L, RMA * Does this person have difficulty dressing or bathing? Answer Date of Assessment Author No 12/04/2020 9:01 AM EST Babita Bermudez L, RMA * Because of a physical, mental or emotional condition, does this person have difficulty doing errands alone such as visiting a doctor's office or shopping? Answer Date of Assessment Author No 12/04/2020 9:01 AM EST Winnie Bermudeze Rosi, RMA documented as of this encounter Mental Status * Because of a physical, mental or emotional condition, does this person have serious difficulty concentrating, remembering or making decisions? Answer Entry Date Author No 12/04/2020 9:01 AM EST Babita Bermudez, RMA documented in this encounter Progress Notes * Celso Dias BA, COS - 12/04/2020 9:54 AM EST Referral received from: Stephany Myles ARNP Referral note: Counseling Assigned to: ??? Disposal Plant Operator Team documented in this encounter Plan of Treatment [...] documented as of this encounter Care Teams Wash Rack Operator Relationship Specialty Start Date End Date Stephany Myles APRN [address] [place] [id number] PCP - General Nurse Practitioner-Family 05/17/20 documented as of this encounter
--- OUTSIDE RECORDS SUMMARY | 2024-10-25 22:33 | XMS_ITS | Encounter Summary ---
Author Organization [facility] [place] [address] Care Team Providers Care Jewish History Professor Name Role Phone Stephany Myles APRN Primary Care Provider [phone] [phone] Casi Cole APPLICATION SYSTEMS ENGINEER Unavailable Unavail able Encounter Details Date Type Department Care Team (Late st Contact Info) Description 10/02/2020 Orders Only [facility] [address] 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 Answer Date of Assessment Author No 06/14/2020 10:19 AM GILT Homer Caldwell MA * Does this person have serious difficulty walking or climbing stairs? Answer Date of Assessment Author No 06/14/2020 10:19 AM EDHomer Raymond MA * Does this person have difficulty [...] as of this encounter Visit Diagnoses Diagnosis Generalized anxiety disorder- Primary documented in this encounter Care Teams Jewish History Professor Relationship Specialty Start Date End Date Stephany Myles [place] [place] [phone] PCP - General Nurse Practitioner-Family 05/17/20 Casi Cole, APPLICATION SYSTEMS ENGINEER Programmer Engineering [employer] 06/27/20 documented as of this encounter
--- OUTSIDE RECORDS SUMMARY | 2024-10-25 22:33 | XMS_ITS | Encounter Summary ---
Author Organization 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 Please call to arrange 12-week follow-up approximately 03/27/2021. ??Thanks! documented in this encounter Plan of Treatment [...] on filedocumented in this encounter Care Teams Cutting Inspector Relationship Specialty Start Date End Date Stephany Myles APRN [address] [place] [address] PCP - General Nurse Practitioner-Family 05/17/20 documented as of this encounter
--- OUTSIDE RECORDS SUMMARY | 2024-10-25 22:33 | XMS_ITS | Encounter Summary ---
Author Organization 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 Answer Date of Assessment Author No 12/04/2020 9:01 AM Babita Thomas RMIman * Is the person blind or does he/she have serious difficulty seeing even when wearing glasses? Answer Date of Assessment Author No 12/04/2020 9:01 AM Babiat Thomas RMA * Does this person have [...] documented in this encounter Progress Notes * Ida Norwood RPH - 01/24/2021 9:15 AM EST Hepatitis [facility] Medication Management [facility] Patient has completed HCV therapy. Referral has been closed and patient has been disenrolled from specialty pharmacy. Thank you! Ida Norwood, PharmD, BCACP documented in this encounter Plan of Treatment [...] documented as of this encounter Care Teams Formation Fracturing Operator Relationship Specialty Start Date End Date Stephany Myles APRN [address] [place] [address] PCP - General Nurse Practitioner-Family 05/17/20 documented as of this encounter
--- OUTSIDE RECORDS SUMMARY | 2024-10-25 22:33 | XMS_ITS | Encounter Summary ---
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 No / Unsure 04/01/2021 12:35 PM EDT documented as of this encounter [...] documented as of this encounter Care Teams Band Saw Runner Relationship Specialty Start Date End Date tSephany Myles [place] [place] [address] PCP - General Nurse Practitioner-Family 05/17/20 documented as of this encounter
--- OUTSIDE RECORDS SUMMARY | 2024-10-25 22:33 | XMS_ITS | Encounter Summary ---
Author Organization [facility] [place] [address] Care Team Providers Care Director Network Development Name Role Phone Stephany Myles ANGEL Primary Care Provider [phone] [phone] Reason for Visit * Reason Comments Hepatitis C Encounter Details Date Type Department Care Team (Late st Contact Info) Description 04/08/2021 2:30 PM EDT Office Visit SEP G[facility] [address] [facility] [address] [place] [address] CouchTrini APRN 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 No / Unsure 04/08/2021 1:34 PM EDT documented as of this encounter Last Filed Vital Signs Vital Sign Reading Time Taken Comments Blood Pressure 120/72 04/08/2021 1:45 PM EDT Pulse - - Temperature 36.3 ??C (97.3 ??F) 04/08/2021 1:45 PM ED T Respiratory Rate - - Oxygen Saturation - - Inhaled Oxygen Concentration - - Weight 78.6 kg (173 lb 3.2 oz) 04/08/2021 1:45 P M EDT Height 167.6 cm (5' 6 ) 04/08/2021 1:45 PM EDT Body Mass Index 27.96 04/08/2021 1:45 PM EDT documented in this encounter Functional [...] documented in this encounter Progress Notes * Trini Jaramillo, GUEST EXPERIENCE MANAGER - 04/08/2021 2:30 PM EDT [facility] Gastroenterology Office Visit CHIEF COMPLAINT: Chief Complaint Patient presents with ??? Hepatitis C SUBJECTIVE: Brandon Yo is a 35 y.o. male who comes in today for hep C follow-up. Patient with a history of hepatitis C, initially seen in the office July,, presents the office today for follow-up. He had a fibrosis score of F1. Right upper quadrant ultrasound negative. His LFTs have normalized. He completed a 12-week course of Epclusa approximately 12/28/2020. He had some fatigue while on therapy with some improvement since completion of therapy. Denies any missed doses. He does have hx kidney stones and reports he has passed one since completing Epclusa. ROS: Constitutional: Negative for fever, chills, diaphoresis and weight loss. HENT: Negative for hearing loss. Eyes: Negative for visual disturbance. Respiratory: Negative for shortness of breath. Cardiovascular: Negative for chest pain and leg swelling. Genitourinary: Negative for urgency, frequency and hematuria. Musculoskeletal: Negative for joint swelling and arthralgias. Skin: Negative for rash. Neurological: Negative for dizziness, seizures and headaches. Hematological: Does not bruise/bleed easily. All other review of systems negative, except for those noted. MEDICATIONS: Current Outpatient Medications Medication Sig Dispense Refill ??? vilazodone 10 mg (7)- 20 mg (23) Oral Tablets, Dose Pack Take 1 Tab by mouth daily. Take with food (Patient not taking: Reported on 04/08/2021) 30 Tab 0 No current facility-administered medications for this visit. ALLERGIES: No Known Allergies PHYSICAL EXAMINATION: BP 120/72 Temp 97.3 ??F (36.3 ??C) Ht 5' 6 (1.676 m) Wt 173 lb 3.2 oz (78.6 kg) BMI 27.96 kg/m? General: alert, well developed, well nourished, in no acute distress ?? HEENT: Not pale, anicteric, normal, mucous membranes moist ?? Neck: supple and no LAD ?? Lungs: Good air movement clear to auscultation bilaterally ?? Cardiac: RRR. S1 S2 normal. ?? Abdomen: Normal bowel sounds. Soft, nontender, nondistended. No guarding. No ascites. ?? Ext: No cyanosis, clubbing or edema ?? Neurological: No focal deficits. No asterixis ?? Skin No rashes. No spider angiomata, palmar erythema. positive tattoes LABORATORY: creatinine slowly increasing past 3 years, most recent 1.38 with normal LFTs and undetected VL Lab Results Component Value Date WBC 5.0 08/28/2020 HGB 15.7 08/28/2020 HCT 46.2 08/28/2020 MCV 90.5 08/28/2020 PLT 189 08/28/2020 Lab Results Component Value Date ALT 16 04/03/2021 AST 23 04/03/2021 ALKPHOS 68 04/03/2021 BILIDIR 0.4 (H) 08/28/2020 PROT 7.2 04/03/2021 INR 1.06 08/28/2020 LIPASE 34 02/22/2018 Lab Results Component Value Date CREATININE 1.38 (H) 04/03/2021 BUN 19 04/03/2021 NA 142 04/03/2021 K 4.5 04/03/2021 CL 104 04/03/2021 CO2 29 04/03/2021 Lab Results Component Value Date INR 1.06 08/28/2020 INR 0.99 07/26/2020 INR 0.94 02/22/2018 IMAGING: No results found for this or any previous visit. No results found for this or any previous visit. PROBLEM LIST Patient Active Problem List Diagnosis ??? Hx of hepatitis C ??? Generalized anxiety disorder ??? History of intravenous drug use in remission ??? History of drug abuse in remission (HCC) VISIT ORDERS Orders Placed This Encounter Procedures ??? Basic Metabolic Panel Standing Status: Future Standing Expiration Date: 04/08/2022 DISCHARGE MEDS Outpatient Encounter Medications as of 04/08/2021 Medication Sig Dispense Refill ??? vilazodone 10 mg (7)- 20 mg (23) Oral Tablets, Dose Pack Take 1 Tab by mouth daily. Take with food (Patient not taking: Reported on 04/08/2021) 30 Tab 0 No facility-administered encounter medications on file as of 04/08/2021. ASSESSMENT Brandon was seen today for hepatitis c. Diagnoses and all orders for this visit: Hx of hepatitis C Elevated serum creatinine - BASIC METABOLIC PANEL; Future Assessment: 1. History of hepatitis C with fibrosis score F1-completed a 12-week course of Epclusa approximately 12/28/2020. His LFTs have normalized and his VL remains undetected 12 wks following completion of therapy 2. Elevated creatinine PLAN 1. Continue to minimize risk exposure to hepatitis C 2. We discussed treatment for hepatitis C does not provide immunity to hepatitis C. 3. Recommend repeating BMP in about 4 weeks but also recommend he schedule f/u with PCP regarding renal function-note sent to his PCP. All of the above discussed in detail. 4. Follow-up as needed Return if symptoms worsen or fail to improve. 1. The patient indicates understanding of these issues and agrees with the plan. 2. I reviewed the patient's medical information and medical history. 3. I have reviewed the past medical, family, and social history sections including the medications and allergies listed in the above medical record. 4. Recommend yearly exam with PCP Electronically signed by: Trini Jaramillo APRN, 04/08/2021 2:41 PM documented in this encounter Miscellaneous Notes * Patient Instructions - Margarita Espinal MA - 04/08/2021 2:30 PM EDT You may be contacted by [...] Type Priority Associated Diagnoses Orde r Schedule BASIC METABOLIC PANEL Lab Routine Elevated serum creatinine Expected: 05/09/2021, Expires: 04/08/2022 documented as of this encounter Goals Goal Patient Goal Type Associated Problems Recent Progress Patient-Stated? Author Maintain a healthy diet, exercise regularly and maintain an ideal body weight General No Babita Bermudez RMA Stay Tobacco Free Lifestyle No Babita Bermudez RMA documented as of this encounter Visit Diagnoses Diagnosis Hx of hepatitis C- Primary Personal history of other infectious and parasitic disease Elevated serum creatinine Other nonspecific findings on examination of blood documented in this encounter Additional Health Concerns Assessment Noted Time PHQ-9 Depression Total Score: 2 12/04/19 21 9:02 AM EST PHQ-2 Depression Total Score: 2 12/04/19 21 9:02 AM EST documented as of this encounter Care Teams Director Network Development Relationship Specialty Start Date End Date Stephany Myles APRN [address] [place] [address] PCP - General Nurse Practitioner-Family 05/17/20 documented as of this encounter
--- OUTSIDE RECORDS SUMMARY | 2024-10-25 22:33 | XMS_ITS | Encounter Summary ---
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
--- OUTSIDE RECORDS SUMMARY | 2024-10-25 22:33 | XMS_ITS | Encounter Summary ---
Author Organization 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 documented in this encounter Plan of Treatment Not on file documented as of this encounter Goals Goal Patient Goal Type Associated Problems Recent Progress Patient-Stated? Author Maintain a healthy diet, exercise regularly and maintain an ideal body weight General No Babita Bermudez, SAJAN Stay Tobacco Free Lifestyle No Babita Bermudez RosiSAJAN documented as of this encounter Visit Diagnoses Not on filedocumented in this encounter Additional Health Concerns Assessment Noted Time PHQ-9 Depression Total Score: 2 12/04/19 21 9:02 AM EST PHQ-2 Depression Total Score: 2 12/04/19 21 9:02 AM EST documented as of this encounter Care Teams Inside Contractor Sales Relationship Specialty Start Date End Date Stephany Myles APRN [address] [place] [address] PCP - General Nurse Practitioner-Family 05/17/20 documented as of this encounter
--- OUTSIDE RECORDS SUMMARY | 2024-10-25 22:33 | XMS_ITS | Encounter Summary ---
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
--- OUTSIDE RECORDS SUMMARY | 2024-10-25 22:33 | XMS_ITS | Encounter Summary ---
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 28 Tab 2 09/24/2020 12/17/2020 documented as of this encounter Discharge Disposition [...] Associated Diagnosis Comments HCV QUANT NAAT Routine 11/13/2020 11:43 AM EST Chronic hepatitis C without hepatic coma (HCC) COMPREHENSIVE METABOLIC PANEL Routine 11/13/2020 11:43 AM EST Chronic hepatitis C without hepatic coma (HCC) documented in this encounter Results * (ABNORMAL) COMPREHENSIVE METABOLIC PANEL (11/13/2020 11:43 AM EST) Sodium 142 136 - 145 mmol/L 11/13/2020 9:06 PM EST [facility] Potassium 3.9 3.5 - 5.0 mmol/L 11/13/2020 9:06 PM EST [facility] Chloride 101 98 - 107 mmol/L 11/13/2020 9:06 PM EST [facility] Total CO2 28 22 - 29 mmol/L 11/13/2020 9:06 PM EST [facility] Anion Gap 13 7 - 16 mmol/L 11/13/2020 9:06 PM EST [facility] Calcium 9.7 8.6 - 10.4 mg/dL 11/13/2020 9:06 PM EST [facility] Glucose Lvl 104(H) 74 - 100 mg/dL 11/13/2020 9:06 PM EST [facility] BUN 18 6 - 20 mg/dL 11/13/2020 9:06 PM EST [facility] Creatinine 1.27 0.67 - 1.30 mg/dL 11/13/2020 9:06 PM EST [facility] Albumin 5.0 3.5 - 5.2 gm/dL 11/13/2020 9:06 PM EST [facility] Total Protein 7.5 6.4 - 8.3 gm/dL 11/13/2020 9:06 PM EST [facility] Bili Total 1.2 0.1 - 1.4 mg/dL 11/13/2020 9:06 PM EST [facility] ALT 23 <=41 U/L 11/13/2020 9:06 PM EST [facility] AST 23 <=40 U/L 11/13/2020 9:06 PM EST [facility] Alk Phos 59 40 - 129 U/L 11/13/2020 9:[address] [facility] GFR Afr Am 83 >=60 mL/min/1.7 3 m2 11/13/2020 9:06 PM EST [facility] GFR Non Afr Am 72 >=60 mL/min/1.7 3 m2 11/13/2020 9:06 PM EST [facility] Comment: This estimated GFR was calculated [...] VENOUS BLOOD / Unknown Venipuncture / Unknown 11/13/2020 11:43 AM EST 11/13/2020 11:43 AM EST us Trini Jaramillo SALES TRADER CHEMISTRY ORDERABLES Final R esult [facility] [address], [address] [place] [id number] [facility] [address] [place], [place] [id number] * HCV QUANT NAAT (11/13/2020 11:43 AM EST) HCV Qnt by NAAT (IU/mL) Not Detected IU/mL 11/15/2020 6:28 PM EST [facility] HCV Qnt by NAAT (log IU/mL) Not Detected log IU/mL 11/15/2020 6:28 PM EST [facility] HCV Qnt by NAAT Interp Not Detected Not Detected 11/15/2020 6:28 PM EST [facility] Comment: INTERPRETIVE INFORMATION: HCV by [...] and Cellular Tissue-Based Products (HCT/P). Performed by [facility], [address] [place] [address] [email or web address], Nicole Sanchez MD, Lab. Director Blood VENOUS BLOOD / Unknown Venipuncture / Unknown 11/13/2020 11:43 AM EST 11/13/2020 11:43 AM EST us Trini Jaramillo APRN IMMUNOLOGY ORDERABLES Final Result [facility] [address] [place] [address] documented in this encounter Visit Diagnoses Diagnosis Chronic hepatitis C without hepatic coma (HCC) documented in this encounter Care Teams Machine Heel Seat Laster Relationship Specialty Start Date End Date Stephany Myles APRN [address] [place] [id number] PCP - General Nurse Practitioner-Family 05/17/20 Casi Cole LCSW Sole Leveler 06/27/20 documented as of this encounter
--- OUTSIDE RECORDS SUMMARY | 2024-10-25 22:33 | XMS_ITS | Encounter Summary ---
Author Organization 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 Prescription requires prior authorization. Prior auth will be submitted via [facility] Follow up 09/10 * Gavino Segovia CPhT - 09/07/2020 3:59 PM EDT [facility] Per CMM, patients insurance requires a call to Aptible at to initiate prior auth Per [employer] can not find active coverage for the patient so prior auth is not able to be submitted. Called Prescription benefits number on the back of the card, BS Pankaj @ to verify coverage. No coverage found. Spoke with patient. He will call and investigate why his coverage is coming back terminated. Patient was advised to get Bin, PCN, group and ID number if patient has active coverage. Follow up 09/12 * Liza Christie CPhT - 09/07/2020 3:59 PM EDT [facility] Received phone call from patient confirming his benefits are active. Confirmed bin is [id number] and his ID is [id number]. Put his information in CMM. Per insurance [facility]: [phone]), PA needs to be submitted via their online portal ([email or web address]). PA submitted online, clinical notes faxed. Once approved, the patient will need to fill at a contracted specialty pharmacy ([facility]). * Liza Christie CPhT - 09/07/2020 3:59 PM EDT [facility] Checked status on PA since portal showed cancelled. PA was received twice so one was cancelled. PerBS [place], it is currently under review. Please allow 5 business days for a determination * Liza Christie CPhT - 09/07/2020 3:59 PM EDT [facility] Received fax from [facility] MS that further clarification was needed. Faxed that information back. Will check for determination on 09/21. * Liza Christie CPhT - 09/07/2020 3:59 PM EDT [facility] Per [facility] RINA JEFFERSON for Epclusa is approved from 09/19/2020 to 01/17/2021 (PA Ref #[id number]). Patient must fill at a preferred specialty pharmacy. Will transfer to [facility]. Called patient, left voicemail to call [phone]. * Cornelio Muller [facility] - 09/07/2020 3:59 PM EDT Please reorder script to [facility]. * Ida Norwood RPH - 09/07/2020 3:59 PM EDT [facility] Sent order for Epclusa to [facility] within initial visit encounter from 09/05/20. Sent electronically, receipt confirmed. Thank you! Ida Norwood, PharmD, BCACP * Gavino Segovia CPhT - 09/07/2020 3:59 PM EDT Hepatitis C Medication Management Calling patient to follow up on Rx sent to [facility]. No answer, left voicemail to call [phone]. * Lisa Wong CPhT - 09/07/2020 3:59 PM EDT Hepatitis C Medication Management Calling patient to follow up on prescription from [facility]. Spoke with patient. He did speak to [facility] and they are supposed to call him back later this week toset up delivery. Will f/u 10/04 * Bhavana Gross CPhT - 09/07/2020 3:59 PM EDT [facility] called to verify if med should be mailed to provider's office or pt's home. Verified to send to his home, they are overnight shipping for delivery on 10/03. * Celena Riojas RPH - 09/07/2020 3:59 PM EDT Hepatitis C Medication Management Calling patient to schedule 4 week follow up appointment. Patient started sofosbuvir/velpatasvir (Epclusa) on 10/05/2020. 4 week follow up appointment scheduled for 11/02/2020 @ 10:30am. Will route to clinical pharmacists to enter follow up labs. Spoke with patient. * Florin Malave RPH - 09/07/2020 3:59 PM EDT [facility] Entered in in HCV viral load and CMP for 4-week follow-up labs. Florin Malave PharmD * Tasha Mae RPH - 09/07/2020 3:59 PM EDT Hepatitis C Medication Management Patient missed apt on 11/02 for hep c f/u. Called pt to reschedule him for 11/15. He said he will get lab work today * Tasha Mae RPH - 09/07/2020 3:59 PM EDT Hepatitis C Medication Management Called pt and rescheduled f/u to 11/21 at 9 am documented in this encounter Miscellaneous Notes * Addendum Note - Florin Malave RPH - 09/07/2020 3:59 PM EDTAddended by: FLORIN MALAVE on: 10/10/2020 10:50 AM Modules accepted: Orders documented in this encounter Plan of Treatment Not on file documented as of this encounter Goals Goal Patient Goal Type Associated Problems Recent Progress Patient-Stated? Author Maintain a healthy diet, exercise regularly and maintain an ideal body weight General No Babita Bermudez RMA Stay Tobacco Free Lifestyle No Babita Bermudez RMA documented as of this encounter Results * (ABNORMAL) COMPREHENSIVE METABOLIC [...] - 1.30 mg/dL 11/13/2020 9:06 PM EST [facility], [facility] Albumin 5.0 3.5 - 5.2 gm/dL 11/13/2020 9:06 PM EST [facility] Total Protein 7.5 6.4 - 8.3 gm/dL 11/13/2020 9:06 PM EST [facility] Bili Total 1.2 0.1 - 1.4 mg/dL 11/13/2020 9:06 PM EST [facility] ALT 23 <=41 U/L 11/13/2020 9:06 PM EST [facility] AST 23 <=40 U/L 11/13/2020 9:06 PM EST [facility] Alk Phos 59 40 - 129 U/L 11/13/2020 9:06 PM EST [facility], [facility] GFR Afr Am 83 >=60 mL/min/1.7 3 m2 11/13/2020 9:06 PM EST [facility] GFR Non Afr Am 72 >=60 mL/min/1.7 3 m2 11/13/2020 9:06 PM EST [facility] Comment: This estimated GFR was calculated using [...] 11/13/2020 11:43 AM EST us Trini Jaramillo [employer] PART[employer] COUNTER PERSON CHEMISTRY ORDERABLES Final R esult [facility], [facility] [address] [facility], [address] [place] [address] [facility] [address] [place], [place] [id number] * HCV QUANT NAAT (11/13/2020 11:43 AM EST) HCV Qnt by NAAT (IU/mL) Not Detected IU/mL 11/15/2020 6:28 PM EST [facility] HCV Qnt by NAAT (log IU/mL) Not Detected log IU/mL 11/15/2020 6:28 PM EST [email or web address] HCV Qnt by NAAT Interp Not Detected Not Detected 11/15/2020 6:28 PM EST [facility] Comment: INTERPRETIVE INFORMATION: HCV by [...] and Cellular Tissue-Based Products (HCT/P). Performed by [facility], [address] [place], [place] [id number] [email or web address], Nicole Sanchez MD, Lab. Director Blood VENOUS BLOOD / Unknown Venipuncture / Unknown 11/13/2020 11:43 AM EST 11/13/2020 11:43 AM EST us Trini Jaramillo [employer] COUNTER PERSON IMMUNOLOGY ORDERABLES Final Result [facility] [address] [place], [place] [id number] documented in this encounter Visit Diagnoses Diagnosis Chronic hepatitis C without hepatic coma (HCC)- Primary documented in this encounter Care Teams Neonatologist Relationship Specialty Start Date End Date Stephany Myles APRN [address] [place], [place] [id number] PCP - General Nurse Practitioner-Family 05/17/20 Casi Cole, TOBACCO DRUMMER Cabinet Installer 06/27/20 documented as of this encounter
--- OUTSIDE RECORDS SUMMARY | 2024-10-25 22:33 | XMS_ITS | Encounter Summary ---
Author Organization [facility] [place] [address] Care Team Providers Care Yard Goods Salesperson Name Role Phone Stephany Myles APRN Primary Care Provider [phone] Reason for Visit * Reason Comments Hand Injury Dicing tomatoes, cut thumb x30 mins ago Encounter Details Date Type Department Care Team (Late st Contact Info) Description 02/13/2022 8:42 PM EDT - 02/13/2022 9:[address] [facility] Emergency [address] 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 No / Unsure 02/13/2022 8:31 PM EDT documented as of this encounter Last Filed Vital Signs Vital Sign Reading Time Taken Comments Blood Pressure 127/73 02/13/2022 8:33 PM EDT Pulse 78 02/13/2022 8:33 PM EDT Temperature 36.7 ??C (98.1 ??F) 02/13/2022 8:42 PM ED T Respiratory Rate 16 02/13/2022 8:33 PM EDT Oxygen Saturation 96% 02/13/2022 8:33 PM EDT Inhaled Oxygen Concentration - - Weight 72.6 kg (160 lb) 02/13/2022 8:33 PM EDT Height 167.6 cm (5' 6 ) 02/13/2022 8:33 PM EDT Body Mass Index 25.82 02/13/2022 8:33 PM EDT documented in this [...] Thomas RMA documented in this encounter Discharge Instructions * Discharge Instructions* Teena Tanner PA-C - 02/13/2022 9:23 PM EDT Keep wound clean. Do not soak. Follow-up with primary care provider in 7 to 10 days for suture removal and recheck. Return to emergency department for any concerning symptoms. documented in this encounter Discharge Disposition Disposition Code Departure Means Destination Home or Self Jail documented in this encounter ED Notes * Teena Tanner PA-C - 02/13/2022 8:29 PM EDT CHIEF COMPLAINT Chief Complaint Patient presents with ??? Hand Injury Dicing tomatoes, cut thumb x30 mins ago HPI Patient is seen for Dr. Rhoades. Brandon Yo is a 36 y.o. male. Presents emergency department today for evaluation. Dicing tomatoes 30 minutes prior to arrival. [id number]. Sustained laceration to left distal thumb. No numbness or tingling. Minimal pain. Bleeding controlled. Tetanus up-to-date. No further pertinent medical or surgical history. See below for complete medical and surgical history. REVIEW OF SYSTEMS See HPI for further details. Constitutional: Negative for activity change, chills, diaphoresis, fatigue, fever and unexpected weight change. HENT: Negative for congestion, dental problem, ear pain, facial swelling, nosebleeds, postnasal drip, rhinorrhea, sore throat, trouble swallowing and voice change. Eyes: Negative for photophobia, pain, discharge, redness, itching and visual disturbance. Respiratory: Negative for cough, chest tightness, shortness of breath, wheezing and stridor. Cardiovascular: Negative for chest pain, palpitations and leg swelling. Gastrointestinal: Negative for nausea , vomiting, and diarrhea. Negative for abdominal pain. Genitourinary: No urinary symptoms or pelvic discomfort. Musculoskeletal: See history of present illness. Skin: See history of present illness.. Neurological: Negative for dizziness, tremors, seizures, syncope, facial asymmetry, speech difficulty, weakness, light-headedness, numbness and headaches. Hematological: Negative for adenopathy. Does not bruise/bleed easily. Psychiatric/Behavioral: No confusion. All remaining systems reviewed and are negative. PAST MEDICAL HISTORY Past Medical History: [...] education level: None Occupational History ??? 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 Smoking status: Current Every Day Smoker Packs/day: 1.00 Years: 20.00 Pack years: 20.00 Types: Cigarettes Start date: 11/16/1999 ??? Smokeless tobacco: Never Used Vaping Use ??? Vaping Use: Never used Substance and Sexual Activity ??? Alcohol use: No Alcohol/week: 0.0 oz ??? 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 went [place] drug court. ??? Sexual activity: Yes Partners: Female SURGICAL HISTORY History reviewed. No pertinent surgical history. CURRENT MEDICATIONS No current facility-administered medications on file prior to encounter. Current Outpatient Medications on File Prior to Encounter Medication Sig Dispense Refill ??? vilazodone 10 mg (7)- 20 mg (23) Oral Tablets, Dose Pack Take 1 Tab by mouth daily. Take with food (Patient not taking: Reported on 04/08/2021) 30 Tab 0 ALLERGIES No Known Allergies PHYSICAL EXAM VITAL SIGNS: ED Triage Vitals Temp 02/13/222 98.1 ??F (36.7 ??C) Pulse 02/13/222032 78 Resp 02/13/222032 16 BP 02/13/222032 127/73 SpO2 02/13/222032 96 % Height 02/13/222032 5' 6 (1.676 m) Weight 02/13/222032 160 lb (72.6 kg) Constitutional: Oriented to person, place, and time. Appears well-developed and well-nourished. No distress. HENT: Head: Normocephalic and atraumatic. Right Ear: External ear normal. Left Ear: External ear normal. Nose: Nose normal. Mouth/Throat: Not applicable. Eyes: Conjunctivae and EOM are normal. Pupils are equal, round, and reactive to light. Right eye exhibits no discharge. Left eye exhibits no discharge. No scleral icterus. Neck: Normal range of motion. Neck supple. No JVD present. No tracheal deviation present. Cardiovascular: Normal rate, regular rhythm. Normal capillary refill to all extremities. Pulmonary/Chest: Effort normal. No stridor. No respiratory distress. Abdominal: Not applicable. Genitourinary: Not applicable. Musculoskeletal: There is a crescent-shaped laceration to the distal left thumb not involving the nail bed. Measures about 1.5 cm. Full range of motion of each isolated joint of the thumb and all digits. Lymphadenopathy: Not applicable. Neurological: Alert and oriented to person, place, and time. No cranial nerve deficit. Exhibits normal muscle tone. Coordination normal. Skin: See the musculoskeletal section. Psychiatric: Normal mood and affect. Behavior is normal. Judgment and thought content normal. Nursing note and vitals reviewed. LABS/RADIOLOGY No results found for this visit on 02/13/22. PROCEDURES Laceration Repair Procedure Note Indication: Laceration of left thumb Timeout performed per policy and procedure. Procedure: The patient was placed in the appropriate position and anesthesia around the laceration was obtained with a full digital block of the left thumb using 0.5% Bupivacaine without epinephrine.The area was then cleansed with Shur- Clens and draped in a sterile fashion. The laceration was closed with 5-0 Prolene using interrupted sutures. There were no additional lacerations requiring repair. The wound area was then dressed with an aluminum finger splint and dressing. Total repaired wound length: 2 cm. Other Items: Suture count: 6 The patient tolerated the procedure well. Complications: None. Wound care instructions provided. COURSE & MEDICAL DECISION MAKING Pertinent Labs & Imaging studies reviewed. (See chart for details) Patient presents with a laceration. This is repaired without difficulty. The patient tolerated the procedure well. There were no complications. Do not suspect any open fracture. Wound care instructions were provided. The patient remains neurovascularly intact. Tetanus status is up-to-date. Patient is instructed to followup with primary care. The patient remained stable in the department. Vital signs remained stable. All questions were answered and the patient agrees with the treatment plan. Criteria for returning to the Emergency Department was discussed and the patient verbalized an understanding. The patient is being discharged in stable condition. FINAL IMPRESSION 1. Laceration of left thumb without foreign body without damage to nail, initial encounter Condition at Discharge/Transfer from Department: Stable This chart was completed using voice recognition technology and may contain unintended errors Teena Tanner PA-C 02/13/222123 Cosigned by Jonas Rhoades DO at 02/13/2022 10:03 PM EDT Associated attestation - Jonas Rhoades DO - 02/13/2022 10:03 PM EDT This chart was completed using voice recognition technology and may contain unintended errors documented in this encounter Plan of Treatment Not on file documented as of this encounter Goals Goal Patient Goal Type Associated Problems Recent Progress Patient-Stated? Author Maintain a healthy diet, exercise regularly and maintain an ideal body weight General No Babita Bermudez RMA Stay Tobacco Free Lifestyle No Babita Bermudez RMA documented as of this encounter Visit Diagnoses Diagnosis Laceration of left thumb without foreign body without damage to nail, initial encounter- Primary documented in this encounter Administered Medications Inactive Administered Medications - up to 1 most recent administrations Medication Order MAR Action Action Date Dose Rate Site bupivacaine (MARCAINE) 0.5 % (5 mg/mL) injection 15 mg 15 mg (3 mL), Infiltration, ONCE, 1 dose, On Ginger 02/13/22 at 2044 Given by Other 02/13/2022 9:31 PM EDT 15 mg documented in this encounter Active and Recently Administered Medications Times are shown in EDT. Scheduled Medication Order 02/11/2022 02/12/2022 02/13/2022 bupivacaine (MARCAINE) 0.5 % (5 mg/mL) injection 15 mg (COMPLETED) 15 mg (3 mL), Infiltration, ONCE, 1 dose, On Ginger 02/13/22 at 2044 2130 (Given by Other - Provider: Donna Hamlin, ROSE MARY - Comment: teena nair) documented in this encounter Orders Nursing Count Last Ordered Date First Orde red Date CLEANSE WOUND 1 02/13/2022 ED DME FINGER SPLINT 1 02/13/2022 documented in this encounter Additional Health Concerns Assessment Noted Time PHQ-9 Depression Total Score: 2 12/04/19 21 9:02 AM EST PHQ-2 Depression Total Score: 2 12/04/19 21 9:02 AM EST documented as of this encounter Care Teams Yard Goods Salesperson Relationship Specialty Start Date End Date Stephany Myles APRN [address] [place] [id number] PCP - General Nurse Practitioner-Family 05/17/20 documented as of this encounter
--- OUTSIDE RECORDS SUMMARY | 2024-10-25 22:33 | XMS_ITS | Encounter Summary ---
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
--- OUTSIDE RECORDS SUMMARY | 2024-10-25 22:33 | XMS_ITS | Encounter Summary ---
Author Organization [place] [address] Care Team Providers Care Wood Engraver Name Role Phone Stephany Myles ANGEL Primary Care Provider [phone] Casi Cole SUPERVISOR BEET END Unavailable Unavail able Reason for Referral * Consultation (Routine) - Closed Specialty Diagnoses / Procedures Referred By Contact Referred To Contact Pharmacist - Pharmacotherapy Diagnoses Chronic hepatitis C without hepatic coma (HCC) Trini Jaramillo APRN Phone: tel: fax: Referral ID Status Reason Start Date Expiration Date V isits Requested Visits Authorized [id number] Closed Specialty Services Required 08/31/2020 08/31/2021 99 99 Question Answer Services Collaborative Care Management Disease Protocol Managment Reason Hep C Level of Medication Management All Levels Reason for Visit * Reason Onset Date Comments Orders 08/31/2020 referral Encounter Details Date Type Department Care Team (Late st Contact Info) Description 08/31/2020 Telephone SEP Gastro [facility] [address] [facility] [address] [place] [address] Trini Jaramillo APRN [address] [place] [address] Orders (referral) Social History Tobacco Use Types Packs/Day Years [...] 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 No / Unsure 08/28/2020 9:54 AM EDT documented as of this encounter [...] Entry Date Author No 06/14/2020 10:19 AM EDT Homer Caldwell MA documented in this encounter Miscellaneous Notes * Telephone Encounter - Margarita Espinal MA - 08/31/2020 10:48 AM EDT Pt aware of results, referral sent to pharm. * Telephone Encounter - Margarita Espinal MA - 08/31/2020 10:48 AM EDT ----- Message from Trini Jaramillo APRN sent at 08/31/2020 7:44 AM EDT ----- Please let patient know his LFTs remain mildly elevated. Fibrosis score F1 consistent with mild amount of scarring on the liver. Okay to refer to specialty pharmacy for hep C treatment and follow-up 3 months following completion of therapy to evaluate for sustained viral response. Thanks! documented in this encounter Plan of Treatment Scheduled Referrals Name Type Priority Associated Diagnoses Order Schedule AMB REFERRAL TO PHARMACY/MEDICATION MANAGEMENT Outpatient Referral Routine Chronic hepatitis C without hepatic coma (HCC) Ordered: 08/31/2020 documented as of this encounter Goals Goal Patient Goal Type Associated Problems Recent Progress Patient-Stated? Author Maintain a healthy diet, exercise regularly and maintain an ideal body weight General No Babita Bermudez RMA Stay Tobacco Free Lifestyle No Babita Bermudez RMA documented as of this encounter Visit Diagnoses Diagnosis Chronic hepatitis C without hepatic coma (HCC)- Primary documented in this encounter Care Teams Wood Engraver Relationship Specialty Start Date End Date Stephany Myles APRN [address] [place] [id number] PCP - General Nurse Practitioner-Family 05/17/20 Casi Cole LCSW Junior Project Coordinator 06/27/20 documented as of this encounter
--- OUTSIDE RECORDS SUMMARY | 2024-10-25 22:33 | XMS_ITS | Encounter Summary ---
Author Organization [place] Address [facility] [address] Care Team Providers Care Break Off Worker Name Role Phone Stephany Myles JOB SUPERINTENDENT Primary Care Provider [phone] [phone] Encounter Details Date Type Department Care Team (Latest Contact Info) Description 12/23/2021 9:20 AM EST - 12/23/2021 11:59 PM EST Hospital Encounter [facility] [address] 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 No / Unsure 12/23/2021 9:17 AM EST documented as of this encounter Functional Status * Is the person deaf or does he/she have serious difficulty hearing? Answer Date of Assessment Author No 12/04/2020 9:01 AM EST Babita Bermudez RMA * Is the person blind or does he/she have serious difficulty seeing even when wearing glasses? Answer Date of Assessment Author No 12/04/2020 9:01 AM EST Babita Bermudez RMA * Does this person have serious difficulty walking or climbing stairs? Answer Date of Assessment Author No 12/04/2020 9:01 AM EST Babita Bermudez RMA * Does this person have difficulty dressing or bathing? Answer Date of Assessment Author No 12/04/2020 9:01 AM EST Babita Bermudez RMA * Because of a physical, mental or emotional condition, does this person have difficulty doing errands alone such as visiting a doctor's office or shopping? Answer Date of Assessment Author No 12/04/2020 9:01 AM EST Babita Bermudez RMIman documented as of this encounter Mental Status * Because of a physical, mental or emotional condition, does this person have serious difficulty concentrating, remembering or making decisions? Answer Entry Date Author No 12/04/2020 9:01 AM EST Babita Bermudez RMIman documented in this encounter Discharge Disposition Disposition [...] Priority Date/Time Associated Diagnosis Comments HIV AG/AB Callback 12/23/2021 9:39 AM EST Opioid type dependence, continuous (HCC) SYPHILIS SCREEN WITH REFLEX RPR QUANT Callback 12/23/2021 9:39 AM EST Opioid type dependence, continuous (HCC) HEPATITIS C ANTIBODY IGM + IGG Callback 12/23/2021 9:39 AM EST Opioid type dependence, continuous (HCC) HEPATITIS B SURFACE ANTIGEN Callback 12/23/2021 9:39 AM EST Opioid type dependence, continuous (HCC) HEPATIC FUNCTION PANEL Callback 12/23/2021 9:39 AM EST Opioid type dependence, continuous (HCC) documented in this encounter Results * HEPATIC FUNCTION PANEL (12/23/2021 9:39 AM EST) Total Protein 7.0 6.4 - 8.3 gm/dL 12/23/2021 3:27 PM EST [facility] Albumin 4.8 3.5 - 5.2 gm/dL 12/23/2021 3:27 PM EST [facility] Bili Direct 0.2 0.0 - 0.3 mg/dL 12/23/2021 3:27 PM EST [facility] Bili Total 0.6 0.1 - 1.4 mg/dL 12/23/2021 3:27 PM EST [facility] AST 21 <=40 U/L 12/23/2021 3:27 PM EST [facility] ALT 12 <=41 U/L 12/23/2021 3:27 PM EST [facility] Alk Phos 70 40 - 129 U/L 12/23/2021 3:27 PM EST [facility] Blood VENOUS BLOOD / Unknown Venipuncture / Unknown 12/23/2021 9:39 AM EST 12/23/2021 9:49 AM EST [facility] Clarita Hubre NP CHEMISTRY ORDERABLES Fin al Result [facility] [address] [facility] , [place] [address] * SYPHILIS SCREEN WITH REFLEX RPR QUANT (12/23/2021 9:39 AM EST) Pathologist [facility] Trep Ab Index 0.04 <=0.99 Index Value 12/23/2021 3:58 PM EST [facility] [employer] Comment: < 1.00 - Non-Reactive ?? >=1.00 - Reactive NOTE: ??All reactive results will be reflexed to Quantitative Non-Treponemal(RPR)test. ?? Blood VENOUS BLOOD / Unknown Venipuncture / Unknown 12/23/2021 9:39 AM EST 12/23/2021 9:49 AM EST [facility] Clarita Huber NP CHEMISTRY ORDERABLES Fin al Result Performing Organization Address [facility] Co de Phone Number [facility] [employer] [address] , [place] [address] * (ABNORMAL) HEPATITIS C ANTIBODY IGM + IGG (12/23/2021 9:39 AM EST) Pathologist [facility] Hep C Ab Reactive(A ) Non-Reacti ve 12/23/2021 4:02 PM EST [employer] Comment:Reactive. Antibodies to HCV detected. >97% of specimens with high signal cutoff confirm as reactive. HCV QUANT W/RFLX TO GENOTYPE -REF LAB is suggested for newly diagnosed HCV. Blood VENOUS BLOOD / Unknown Venipuncture / Unknown 12/23/2021 9:39 AM EST 12/23/2021 9:49 AM EST [facility] Clairta Huber NP IMMUNOLOGY ORDERABLES Fi nal Result Performing Organization Address [facility]/ZIP Co de Phone Number [facility] [employer] [facility] [address] [facility] , [facility] [place] [address] * HEPATITIS B SURFACE ANTIGEN (12/23/2021 9:39 AM EST) Hep Bs Ag Non-Reactiv e Non-Reacti ve 12/23/2021 3:59 PM EST [facility] [employer] [facility] Blood VENOUS BLOOD / Unknown Venipuncture / Unknown 12/23/2021 9:39 AM EST 12/23/2021 9:49 AM EST [facility] Clarita Huber SPANISH TEACHER CHEMISTRY ORDERABLES Fin al Result Performing Organization Address [facility] Co de Phone Number [facility] [address] [place] [address] , [place] [address] * HIV AG/AB (12/23/2021 9:39 AM EST) HIV Ag/AB Non-Reactiv e Non-Reacti ve 12/23/2021 3:59 PM EST [facility] Blood VENOUS BLOOD / Unknown Venipuncture / Unknown 12/23/2021 9:39 AM EST 12/23/2021 9:49 AM EST [facility] Clarita Huber NP IMMUNOLOGY ORDERABLES Fi nal Result Performing Organization Address [facility] de Phone Number [employer] [facility] [address] [place] [address] , [place] [address] documented in this encounter Visit Diagnoses Diagnosis Opioid type dependence, continuous (HCC)- Primary Opioid type dependence, continuous documented in this encounter Additional Health Concerns Assessment Noted Time PHQ-9 Depression Total Score: 2 12/04/19 21 9:02 AM EST PHQ-2 Depression Total Score: 2 12/04/19 21 9:02 AM EST documented as of this encounter Care Teams Break Off Worker Relationship Specialty Start Date End Date Stephany Myles APRN [address] [place] [address] PCP - General Nurse Practitioner-Family 05/17/20 documented as of this encounter
--- OUTSIDE RECORDS SUMMARY | 2024-10-25 22:33 | XMS_ITS | Encounter Summary ---
Author Organization [place] Address [facility] [place] [address] Care Team Providers Care Tobacco Shaker Name Role Phone Stephany Myles APRN Primary Care Provider [phone] Casi Cole TRANSPLANT COORDINATOR Unavailable Unavail able Reason for Visit * Reason Onset Date Comments Medication Refill 09/27/2020 Encounter Details Date Type Department Care Team (Late st Contact Info) Description 09/27/2020 Refill [facility] [address] 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
--- OUTSIDE RECORDS SUMMARY | 2024-10-25 22:33 | XMS_ITS | Encounter Summary ---
Author Organization [place] [address] Care Team Providers Care Psychology Lecturer Name Role Phone Stephany Myles APRN Primary Care Provider [phone] [phone] Reason for Referral * Consultation (Routine) - Closed Specialty Diagnoses / Procedures Referred By Tameka carbajal Referred To Contact Psychologist-Cognitive & Behavioral Diagnoses Generalized anxiety disorder Stephany Myles APRN [address] [place] [address] Phone: tel: fax: Referral ID Status Reason Start Date Expiration Date V isits Requested Visits Authorized [id number] Closed Specialty Services Required 12/04/2020 12/04/2021 99 99 Question Answer Service Requested Counseling Reason for Visit * Reason Comments Annual Exam Anxiety Pt sts that he has n ot been taking wellbutrin, pt sts that he felt like it was not doing anything for him Encounter Details Date Type Department Care Team (Late st Contact Info) Description 12/04/2020 9:00 AM EST Office Visit [facility] [address] [place] [address] Stephany Myles APRN [address] [place] [address] Annual physical exam (Primary Dx); Generalized anxiety disorder Social History Tobacco Use [...] 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 No / Unsure 12/04/2020 8:51 AM EST documented as of this encounter Last Filed Vital Signs Vital Sign Reading Time Taken Comments Blood Pressure 124/70 12/04/2020 9:04 AM EST Pulse 74 12/04/2020 9:04 AM EST Temperature 36.4 ??C (97.6 ??F) 12/04/2020 9:04 AM ES T Respiratory Rate 18 12/04/2020 9:04 AM EST Oxygen Saturation 98% 12/04/2020 9:04 AM EST Inhaled Oxygen Concentration - - Weight 78 kg (172 lb) 12/04/2020 9:04 AM EST Height 167.6 cm (5' 6 ) 12/04/2020 9:04 AM EST Body Mass Index 27.76 12/04/2020 9:04 AM EST documented in this encounter Functional [...] Refills Last Filled Start Date End Date vilazodone 10 mg (7)- 20 mg (23) Oral Tablets, Dose PackIndications:Gen eralized anxiety disorder Take 1 Tab by mouth daily. Take with food 30 Tab 12/04/2020 11/05/2022 documented in this encounter Progress Notes * Stephany Myles ARNP - 12/04/2020 9:00 AM EST Assessment Diagnoses and all orders for this visit: Annual physical exam Comments: Patient doing well other than uncontrolled anxiety which was addressed today. Discussed importance of getting Hep A & B vaccine and testicular checks. Generalized anxiety disorder Comments: Patient had S/E Prozac & Celexa, Wellbutrin ineffective. Start taper of vilazondone and f/u in 3 wks. low side effect profile and quick acting viibryd Orders: - vilazodone 10 mg (7)- 20 mg (23) Oral Tablets, Dose Pack; Take 1 Tab by mouth daily. Take with food Dispense: 30 Tab; Refill: 0 - AMB REFERRAL TO SOCIAL WORK Patient will call customer service with [facility] site to research the cost for him to have a genetic DNA test for assit with medication selection if Viibryd not effective with multiple failures. Progress Note: Vitals: 12/04/20 0904 BP: 124/70 Pulse: 74 Resp: 18 Temp: 97.6 ??F (36.4 ??C) TempSrc: Temporal SpO2: 98% Weight: 172 lb (78 kg) Height: 5' 6 (1.676 m) SUBJECTIVE: Chief Complaint Patient presents with ??? Annual Exam ??? Anxiety Pt sts that he has not been taking wellbutrin, pt sts that he felt like it was not doing anything for him HPI: Well Adult: Subjective Mr. Yo is a 35 y.o. male here for an annual wellness visit. Diet: regular Exercise: Activity with work Activities of Daily Living: Functional Level: Self-care ADL Limitations: none Social Interaction Screen: Do you have concerns about issues that may impact social interaction such as developmental or behavioral/mental health conditions? Yes Health Maintenance Due Topic Date Due ??? Hepatitis A Vaccine (1 of 2 - Risk 2-dose series) 1984 ??? Annual Wellness Exam 1985 ??? Pneumococcal Vaccine 0-64 (1 of 1 - PPSV23) 1989 ??? Hepatitis B Vaccine (1 of 3 - Risk 3-dose series) 2002 ??? Influenza Vaccine (1) 07/17/2020 Health Maintenance Topic Date Due ??? Hepatitis A Vaccine (1 of 2 - Risk 2-dose series) 1984 ??? Annual Wellness Exam 1985 ??? Pneumococcal Vaccine 0-64 (1 of 1 - PPSV23) 1989 ??? Hepatitis B Vaccine (1 of 3 - Risk 3-dose series) 2002 ??? Influenza Vaccine (1) 07/17/2020 Immunization History Administered Date(s) Administered ??? Influenza Seasonal Injectable PF 12/25/2015 ??? Tdap 12/17/2016 Patient Active Problem List Diagnosis ??? Chronic hepatitis C without hepatic coma (HCC) ??? Generalized anxiety disorder ??? History of intravenous drug use in remission ??? History of drug abuse in remission (HCC) Past Medical History: Diagnosis Date ??? Hepatitis hep C No past surgical history on file. No Known Allergies Current Outpatient Medications on File Prior to Visit Medication Sig Dispense Refill ??? sofosbuvir-velpatasvir (EPCLUSA) 400-100 mg Oral Tablet Take 1 Tab by mouth daily for 84 days. 28 Tab 2 No current facility-administered medications on file prior to visit. Social History Socioeconomic History ??? Marital status: Significant Other Spouse name: None ??? Number of children: 4 ??? Years of education: 10th grade ??? Highest education level: None Occupational History ??? 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 Financial resource strain: Not hard at all ??? Food insecurity Worry: Never true Inability: Never true ??? Transportation needs Medical: No Non-medical: No Tobacco Use ??? Smoking status: Current Every Day Smoker Packs/day: 1.50 Years: 20.00 Pack years: 30.00 Types: Cigarettes Start date: 11/16/1999 ??? Smokeless tobacco: Never Used Substance and Sexual Activity ??? Alcohol use: No Alcohol/week: 0.0 oz ??? 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 went through drug court. ??? Sexual activity: Yes Partners: Female Family History Problem Relation Age of Onset ??? Heart Disease Mother ??? Drug Abuse Mother ??? Drug Abuse Father No exam data present No results found for this visit on 12/04/20. Patient Care Team: Stephany Myles ARNP as PCP - General (Nurse Practitioner-Family) Lab Results Component Value Date WBC 5.0 08/28/2020 HGB 15.7 08/28/2020 HCT 46.2 08/28/2020 PLT 189 08/28/2020 ALT 23 11/13/2020 AST 23 11/13/2020 NA 142 11/13/2020 K 3.9 11/13/2020 CL 101 11/13/2020 CREATININE 1.27 11/13/2020 BUN 18 11/13/2020 CO2 28 11/13/2020 INR 1.06 08/28/2020 GLU 104 (H) 11/13/2020 Additional issues addressed today: Anxiety. 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 He starts the day worrying about work and feels he has trouble leaving his problems at work when coming home. He states he is not as active in his home life as he had been in the past and it is causing issues with his relationship with his girlfriend. He has spoke with SW in the past and felt it did help some and is open to counseling. He has tried Prozac, Celexa which both had given him side effects,and the Wellbutrin he did not feel was effective. He had one phone conversation with our social media marketing specialist but has not been able to follow-up for coping techniques. Her current social media marketing specialist was off on maternity leave. Denies any thoughts of SI or HI. Hepatitis c. GI is following and patient is almost 6 weeks into taking his 12 course of Epclusa. Hehas lab work ordered and will follow up with GI after his course is completed. He is looking into getting his hepatitis A and B vaccinations Review of Systems Constitutional: Negative. HENT: Negative. Eyes: Negative. Respiratory: Negative for chest tightness and shortness of breath. Cardiovascular: Positive for palpitations. Negative for chest pain. At times when he gets upset at work Gastrointestinal: Negative. Endocrine: Negative. Genitourinary: Negative. Musculoskeletal: Negative. Skin: Negative. Neurological: Positive for headaches. Negative for dizziness. Psychiatric/Behavioral: Positive for agitation, behavioral problems and sleep disturbance. Negativefor suicidal ideas. The patient is nervous/anxious. OBJECTIVE: Physical Exam Constitutional: Appearance: Normal appearance. HENT: Head: Normocephalic. Nose: Nose normal. Mouth/Throat: Mouth: Mucous membranes are moist. Eyes: Conjunctiva/sclera: Conjunctivae normal. Neck: Musculoskeletal: Normal range of motion. Cardiovascular: Rate and Rhythm: Normal rate and regular rhythm. Heart sounds: No murmur. No friction rub. No gallop. Pulmonary: Effort: Pulmonary effort is normal. Breath sounds: Normal breath sounds. Neurological: Mental Status: He is alert and oriented to person, place, and time. Psychiatric: Comments: Patient quiet and expresses feelings of worry and anxiety. documented in this encounter Plan of Treatment Scheduled Referrals Name Type Priority Associated Diagnoses Orde r Schedule AMB REFERRAL TO SOCIAL WORK Outpatient Referral Routine Generalized anxiety disorder Ordered: 12/04/2020 documented as of this encounter Goals Goal Patient Goal Type Associated Problems Recent Progress Patient-Stated? Author Maintain a healthy diet, exercise regularly and maintain an ideal body weight General No AidanBabita esqueda RMIman Stay Tobacco Free Lifestyle No AidanBabita esqueda RMA documented as of this encounter Visit Diagnoses Diagnosis Annual physical exam- Primary Routine general medical examination at a health care facility Generalized anxiety disorder documented in this encounter Discontinued Medications Medication Sig Discontinue Reason Start Date End Da te buPROPion (WELLBUTRIN XL) 150 mg Oral Tablet Sustained Release 24 hrIndications:Generalized anxiety disorder Take 1 Tab by mouth every morning. Alternate therapy 08/01/2020 12/04/2020 documented as of this encounter Additional Health Concerns Assessment Noted Time PHQ-9 Depression Total Score: 2 12/04/19 21 9:02 AM EST PHQ-2 Depression Total Score: 2 12/04/19 21 9:02 AM EST documented as of this encounter Care Teams Psychology Lecturer Relationship Specialty Start Date End Date Stephany Myles APRN [address] [place] [address] PCP - General Nurse Practitioner-Family 05/17/20 documented as of this encounter
--- OUTSIDE RECORDS SUMMARY | 2024-10-25 22:33 | XMS_ITS | Encounter Summary ---
Author Organization [place] [address] Care Team Providers Care Underground Drill Operator Name Role Phone Stephany Myles APRN Primary Care Provider [phone] Casi Cole FILTERING MACHINE TENDER Unavailable Unavail able Reason for Visit * Reason Comments Pharmacy Hep C Management Encounter Details Date Type Department Care Team (Latest Contact Info) Description 09/04/2020 Specialty Pharmacy [facility] [address] [place] [address] Jocelyn Stewart, [facility] Pharmacy Hep C Management Social History Tobacco [...] 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 Calling patient to schedule appointment. 09/04/2020@1:31 PM: Patient scheduled for 09/05/2020 documented in this encounter Plan of Treatment [...] on filedocumented in this encounter Care Teams Underground Drill Operator Relationship Specialty Start Date End Date Stephany Myles APRN [address] [place], [place] [id number] PCP - General Nurse Practitioner-Family 05/17/20 Casi Cole LCSW Sales And Marketing Representative 06/27/20 documented as of this encounter
--- OUTSIDE RECORDS SUMMARY | 2024-10-25 22:33 | XMS_ITS | Encounter Summary ---
Author Organization [place] [address] Care Team Providers Care Cable Rigger Name Role Phone Stephany Myles APRN Primary Care Provider [phone] Reason for Visit * Reason Onset Date Comments CM- Telephonic Outreach 12/04/2020 Encounter Details Date Type Department Care Team (Late st Contact Info) Description 12/04/2020 Patient Outreach [facility] [address] 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 Answer Date of Assessment Author No 12/04/2020 9:01 AM EST Winnie Bermudeze L, RMA * Because of a physical, mental or emotional condition, does this person have difficulty doing errands alone such as visiting a doctor's office or shopping? Answer Date of Assessment Author No 12/04/2020 9:01 AM EST Babita Bermudez L, RMA documented as of this encounter Mental Status * Because of a physical, mental or emotional condition, does this person have serious difficulty concentrating, remembering or making decisions? Answer Entry Date Author No 12/04/2020 9:01 AM EST Winnie Bermudeze L, RMA documented in this encounter Progress Notes * Casi Cole CSW - 12/11/2020 9:15 AM EST REHABILITATION CENTER MANAGER called and spoke with pt this date to introduce counseling services and to schedule initial appt. Appt scheduled for 12/18/20 @ 9:00am. documented in this encounter Plan of Treatment [...] documented as of this encounter Care Teams Cable Rigger Relationship Specialty Start Date End Date Stephany Myles APRN [address] [place], [place] [address] PCP - General Nurse Practitioner-Family 05/17/20 documented as of this encounter
--- OUTSIDE RECORDS SUMMARY | 2024-10-25 22:33 | XMS_ITS | Encounter Summary ---
Author Organization [facility] [address] Care Team Providers Care Specialist Physicians Name Role Phone Stephany Myles APRN Primary Care Provider [phone] Reason for Visit * Reason Comments Pharmacy Hep C Management Pharmacy Reassessment Encounter Details Date Type Department Care Team (Latest Contact Info) Description 11/21/2020 8:45 AM EST - 11/21/2020 11:59 PM [facility] Hospital Encounter [facility] [address] [facility] [address] [place] [address] Tuan Malave RPH Chronic hepatitis C without hepatic coma (HCC) (Primary Dx) Discharge Disposition: Home or [...] 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 No / Unsure 11/21/2020 8:45 AM EST documented as of this encounter [...] or Self Care documented in this encounter Progress Notes * Tuan Malave RPH - 11/21/2020 9:00 AM EST Specialty Pharmacy - Hepatitis C Return Subjective Brandon Yo is a 35 y.o. male, who is here for his 4-week follow by with the hepatitis C pharmacist. he started sofosbuvir/velpatasvir (Epclusa) on 10/05/2020. Treatment duration: 12 weeks Current treatment week: 6 Medication Adherence What concerns does the patient have in regards to their medications: When starting on medication, started to feel fatigue and headache but has started to subside after a few weeks, now patient does not report any side effects. Patient reported X missed doses in the last month: 0 Any gaps in refill history greater than 2 weeks in the last 3 months: no Demonstrates understanding of importance of adherence: yes Reliability of informant: reliable Provider-estimated medication adherence level: 90-100% Reasons for non-adherence: no problems identified Other adherence tool: Takes it first thing in the morning Confirmed plan for next specialty medication refill: delivery by pharmacy Refills needed for supportive medications: not needed Adverse Effects *All other systems reviewed and are negative Objective Hepatitis C dorothy/subtype: 1 (unknown subtype) Fibrosis score: F1 F0 - no fibrosis F1 - portal fibrosis without septa F2 - portal fibrosis with few septa F3 - numerous septa without cirrhosis F4 - cirrhosis Source of fibrosis score: Liver Fibrosis Blood Test 08/28/2020 Lab Results Component Value Date HCVGENOTYPE 1a or 1b 07/26/2020 HCVQNTIU Not Detected 11/13/2020 HCVQNTLOGIU Not Detected 11/13/2020 HCVQNTINTERP Not Detected 11/13/2020 Lab Results Component Value Date ALT 23 11/13/2020 AST 23 11/13/2020 BUN 18 11/13/2020 CREATININE 1.27 11/13/2020 Current Outpatient Medications Medication ??? sofosbuvir-velpatasvir (EPCLUSA) 400-100 mg Oral Tablet ??? buPROPion (WELLBUTRIN XL) 150 mg Oral Tablet Sustained Release 24 hr No current facility-administered medications for this encounter. Assessment 1. Hepatitis C: Patient reports a few manageable side effects. Viral load is undetectable with hepatic /renal fxn WNL. Will plan to continue sofosbuvir/velpatasvir (Epclusa) for a total of 12 weeks. Drug Interactions Drug interactions evaluated: no Clinically relevant drug interactions identified: no Provided the patient with educational material regarding drug interactions: not applicable 2. Immunizations: Hep A, Hep B, and annual flu vaccinations needed, our clinic did not cover and patient has not gone to receive yet due to work schedule Plan: 1. Patient to complete hep c ART therapy ~12/28/20 2. Patient to obtain Hep A and Hep B vaccine at local pharmacy 3. Follow-up: 12 week(s) after completing therapy with GI provider, Trini Jaramillo Patient instructed to get the following labs: CMP and HCV viral load 12 weeks after completing therapy Tuan Malave RPH Specialty Pharmacist documented in this encounter Plan of Treatment Not on file documented as of this encounter Goals Goal Patient Goal Type Associated Problems Recent Progress Patient-Stated? Author Maintain a healthy diet, exercise regularly and maintain an ideal body weight General No Babita Bermudez RMA Stay Tobacco Free Lifestyle Babita Carvalho RMA documented as of this encounter Results [...] 04/03/2021 4:55 PM EDT [facility] Total Protein 7.2 6.4 - 8.3 gm/dL 04/03/2021 4:55 PM EDT [facility] Bili Total 0.9 0.1 - 1.4 mg/dL 04/03/2021 4:55 PM EDT [facility] ALT 16 <=41 U/L 04/03/2021 4:55 PM EDT [facility] AST 23 <=40 U/L 04/03/2021 4:55 PM EDT [facility] Alk Phos 68 40 - 129 U/L 04/03/2021 4:55 PM EDT [facility], [facility] GFR Afr Am 75 >=60 mL/min/1.7 3 m2 04/03/2021 4:55 PM EDT [facility] GFR Non Afr Am 65 >=60 mL/min/1.7 3 m2 04/03/2021 4:55 PM EDT [facility] Comment: This estimated GFR was [...] 1:07 PM EDT us Trini Jaramillo APRN CHEMISTRY ORDERABLES Final R esult [facility], [address] , [address] [place] [id number] [facility] [address] [place], [place] [id number] * HCV QUANT NAAT (04/03/2021 1:07 PM EDT) HCV Qnt by NAAT (IU/mL) Not Detected IU/mL 04/05/2021 10:13 PM EDT [facility] HCV Qnt by NAAT (log IU/mL) Not Detected log IU/mL 04/05/2021 10:13 PM EDT [facility] HCV Qnt by NAAT Interp Not Detected Not Detected 04/05/2021 10:13 PM EDT [facility] Comment: INTERPRETIVE INFORMATION: HCV by [...] and Cellular Tissue-Based Products (HCT/P). Performed by [facility], [address] [place] [address] [id number] [email or web address], Nicole Sanchez MD, Lab. Director Blood VENOUS BLOOD / Unknown Venipuncture / Unknown 04/03/2021 1:07 PM EDT 04/03/2021 1:07 PM EDT us Trini Jaramillo APRN IMMUNOLOGY ORDERABLES Final Result [email or web address] [address] [place], [place] [id number] documented in this encounter Visit Diagnoses Diagnosis Chronic hepatitis C without hepatic coma (HCC)- Primary Chronic hepatitis C without hepatic coma (HCC) documented in this encounter Care Teams Specialist Physicians Relationship Specialty Start Date End Date Stephany Myles APRN [address] [place] [address] PCP - General Nurse Practitioner-Family 05/17/20 documented as of this encounter
--- OUTSIDE RECORDS SUMMARY | 2024-10-25 22:33 | XMS_ITS | Encounter Summary ---
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
--- OUTSIDE RECORDS SUMMARY | 2024-10-25 22:33 | XMS_ITS | Encounter Summary ---
Author Organization [place] [address] Care Team Providers Care Corporate Planning Manager Name Role Phone Stephany Myles APRN Primary Care Provider [phone] Casi Cole WIRE TURNING MACHINE OPERATOR Unavailable Unavail able Reason for Visit * Reason Comments Pharmacy Hep C Management Pharmacy Initial Assessment Encounter Details Date Type Department Care Team (Latest Contact Info) Description 09/05/2020 9:46 AM EDT - 09/05/2020 11:59 PM EDT Hospital Encounter [facility] [address] [facility] [address] [place] [address] Jocelyn Stewart, [facility] Discharge Disposition: Home or Self Care Social [...] 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 28 Tab 2 09/24/2020 12/17/2020 sofosbuvir-velpatas vir (EPCLUSA) 400-100 mg Oral Tablet Take 1 Tab by mouth daily for 84 days. 28 Tab 2 09/05/2020 09/24/2020 documented in this encounter Discharge Disposition Disposition Code Departure Means Destination Home or Self Care documented in this encounter Progress Notes * GILBERTO CHÁVEZ - 09/05/2020 10:00 AM EDT Medication Management Clinic - Hepatitis C Initial Subjective Brandon Yo is a 35 y.o. male, who is being seen in the medication management clinic for evaluation of hepatitis C treatment plan. Referral placed by Trini Jaramillo. Patient reports being [id number] years ago. 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 Illicit drug and alcohol free for last 6 months: Yes Objective Hepatitis C dorothy/subtype: 1 (unknown subtype) 01/11/2016 09:41 02/22/2018 10:12 07/26/2020 11:48 HCV Genotype 1a or 1b 1a or 1b HCV Quantitative Interpretation Detected (A) Hep C Ab Positive (A) Reactive (A) Hepatitis C RNA 6.6 EER HCV RNA Quant RT-PCR See Note HCV IU 4,400,000 HCV RNA Interpretation Detected (A) HCV Qnt by NAAT (IU/mL) 31,042,860 HCV Qnt by NAAT (log IU/mL) 7.49 08/28/2020 10:15 Alanine Aminotransferase, Fibrometer 53 (H) [id number], Fibrometer 206 Aspartate Aminotransferase, Fibrometer 40 Cirrhometer Patient Score 0.01 EER Fibrometer Report See Note Fibrometer Interpretation See Report Fibrometer Patient Score 0.3 Fibrometer Platelet Count 189 Fibrometer Prothrombin Index 100 Fibrosis Metavir Classification F1[F1-F2] Gamma Glutamyl Transferase, Fibrometer 88 (H) Inflameter Metavir Classification A1/A2 Inflameter Patient Score 0.35 Urea Nitrogen, Fibrometer 18 08/28/2020 10:15 INR 1.06 Fibrosis score: F1 F0 - no fibrosis F1 - portal fibrosis without septa F2 - portal fibrosis with few septa F3 - numerous septa without cirrhosis F4 - cirrhosis Source of fibrosis score: Liver Fibrosis Blood Test 08/28/2020 08/28/2020 Ultrasound: Unremarkable right upper quadrant ultrasound. Cirrhosis: No Extrahepatic manifestations:none 08/28/2020 10:15 ALT 46 (H) AST 37 Bili Direct 0.4 (H) Bili Total 1.3 Albumin 4.6 Alk Phos 53 Total Protein 6.8 Lab Results Component Value Date BUN 19 02/22/2018 CREATININE 1.15 02/22/2018 05/21/2016 13:38 02/22/2018 10:12 07/26/2020 11:48 Hep A IgM Negative Non-Reactive Hep A Ab Negative 05/21/2016 13:38 02/22/2018 10:12 07/26/2020 11:48 Hep B Core IgM Negative Non-Reactive Hep Bs Ag Negative Negative Non-Reactive 07/26/2020 11:48 HIV Ag/AB Non-Reactive 08/28/2020 10:15 Alcohol Medical <10 08/28/2020 11:19 6 AM (Heroin) Absent Amphetamines Absent Barbiturates Absent Benzodiazepines Absent Buprenorphine Absent Cannabinoid Metabolite Absent Cocaine Metabolite Absent Fentanyl Lvl Absent Methadone and Metabolite Absent Opiate 300 Absent Oxycodone Lvl Absent Current Outpatient Medications Medication ??? buPROPion (WELLBUTRIN XL) 150 mg Oral Tablet Sustained Release 24 hr ??? hepatitis A virus vaccine (HAVRIX) 1,440 GORDON unit/mL IM Syringe ??? sofosbuvir-velpatasvir (EPCLUSA) 400-100 mg Oral Tablet No current facility-administered medications for this encounter. Assessment 1. Hepatitis C: Patient is treatment naive presenting with GT 1 and positive Hepatitis C PCR. Patient denies ETOH/drugs within last 6 months with a negative toxicology screening. Proposed treatment: Zepatier (50/100 mg) daily x 12 weeks Mavyret (300/120 mg) daily x 8 weeks Harvoni (90/400 mg) daily x 12 weeks Epclusa (400/100 mg) daily x 12 weeks Zepatier would require resistance testing which could delay treatment, would not recommend using. Due to FDA alert regarding protease inhibitors causing worseing liver damage, we prefer not to use Zepatier or Mavyret. If we have to use either treatment, we will get LFTs every 2 weeks. ?? Medications interactions requiring action: none ?? Patient preference: Epclusa ?? Preferred treatment per insurance: 2. Immunizations: Hep A, Hep B, Annual Flu vaccinations needed Plan: Treatment plan: Sofosbuvir 400 mg/velpatasvir 100 mg orally once daily for 12 weeks 1. Labs needed prior to submission: none 2. Immunizations: Patient's insurance did not recognize the clinic as in- network, referred patient to get appropriate vaccines (Hep A, Hep B, Annual Flu) at a covered pharmacy. 3. Action items requiring follow-up: ?? Initiate Prior Authorization 4. Follow-up: 4 week(s) after DAA treatment is initiated with labs at 4 weeks into treatment and 12weeks post treatment completion Patient is aware to call the pharmacy clinic when he receives his hepatitis C treatment medication. Patient Counseling Counseled the patient on the following: doses and administration discussed, safe handling, storage,and disposal discussed, possible adverse effects and management discussed, possible drug and prescription drug interactions discussed, possible drug and OTC drug and food interactions discussed, lab m onitoring and follow-up discussed, therapeutic rationale discussed, cost of medications and cost implications discussed, adherence and missed doses discussed, pharmacy contact information discussed GILBERTO CHÁVEZ PharmD Candidate 2020 After all this medication education was given to Brandon Yo, medication compliance was again reinforced. The patient understood the medication regimen and how to take them if he were to begin therapy. The patient will call if any issues arise during therapy before stopping the medication. Counseling was completed by asking the patient if they had any additional questions. The patient was provided/will be provided a Welcome Packet with information on pharmacy services, their rights and responsibilities, and the Notice of Privacy Practices. This information was reviewedwith the patient and he/she understands to contact the pharmacy with any questions or concerns theymay have after reviewing the material. Cosigned by Jocelyn Stewart RPH at 09/07/2020 1:39 PM EDT Associated attestation - Jocelyn Stewart RPH - 09/07/2020 1:39 PM EDT To my knowledge this information is accurate as of 09/07/2020 1:39 PM. Jocelyn Stewart RPH 09/07/2020 1:39 PM * Ida Norwood RPH - 09/05/2020 10:00 AM EDT Hepatitis C Medication Management Clinic Prescription for Epclusa sent to [facility] due to insurance lockout. Thank you! Ida Norwood, PharmD, BCACP documented in this encounter Miscellaneous Notes * Patient Instructions - GILBERTO CHÁVEZ - 09/05/2020 10:00 AM EDT Patient Education - Treatment with Epclusa (Sofosbuvir and Velpatasvir) What is Epclusa? ?? Epclusa is a combination of two medications sofosbuvir and velpatasvir ?? It works by blocking two different proteins that the hepatitis C virus needs to grow How is Epclusa given? ?? Epclusa is a pill taken by mouth once daily that contains 400 mg of sofosbuvir and 100 mg of velpatasvir ?? Epclusa can be taken with or without food but should be taken around the same time each day It is recommended to avoid acid reducing/heartburn medications during treatment if possible. Pleasediscuss with your family doctor prior to stopping. ?? Swallow pills whole; do not crush, break, cut, or dissolve ?? It is important not to miss a dose of this medicine. If you do miss a dose, do not take a doubledose (two doses together) to make up for a forgotten dose. Let your doctor know if you miss multiple doses in a row. What can I expect? ?? You and your partner need to use two forms of control (i.e. condom for men and control pills or diaphragm for women) ?? Please let us know about all the medicines you take, including any prescription and non-prescription drugs, vitamins, minerals, natural and herbal supplements or alternative medicines. ?? There is the potential that Epclusa could interact with one of your other medications. Current medications should be screened prior to starting therapy and all new medications should be reviewed while undergoing treatment. ?? Some of the common reported side effects include: ?? Fatigue- napping and physical activity can help fight fatigue ?? Naps: Limit to one hour. Avoid late afternoon naps. This helps avoid problems with nighttime sleeping ?? Physical activity: 30 minutes of moderate activity (e.g. walking) on most days is recommended for all people. ?? Headaches- May use [id number] pain relievers ?? Recommend avoiding use of NSAIDs (ibuprofen, naproxen) ?? Acetaminophen (Tylenol) can be used by most patients. Do not exceed 2,000 mg (2 grams) per day if you have cirrhosis. Storage ?? Room Temperature ?? Dry Environment ?? Keep out of reach of children For more information of treatment, diagnosis, and support for patients with Hepatitis C visit hepc.liverfoundation.org Patient Education - Treatment with Mavyret (glecaprevir and pibrentasvir) What is Mavyret? Mavyret is a combination of two medications glecaprevir and pibrentasvir ??? It works by blocking the virus from being able to replicate (grow) How is Mavyret given? Mavyret should be taken as 3 pills once daily with food ??? Swallow pills whole; do not crush, break, cut, or dissolve ?? It is important not to miss a dose of this medicine. If you do miss a dose, do not take a doubledose (two doses together) to make up for a forgotten dose. Let your doctor know if you miss multiple doses in a row. What can I expect? You and your partner need to use two forms of control (i.e. condom for men and control pills or diaphragm for women). control pills containing ethinyl estradiol should be stopped and not used while taking Mavyret. Talk to your doctor about using non-hormonal methods or progestin only contraception while on Mavyret. ??? Please let us know about all the medicines you take, including any prescription and non-prescription drugs, vitamins, minerals, natural and herbal supplements or alternative medicines. o There is the potential that Mavyret could interact with one of your other medications. Current medications should be screened prior to starting therapy and all new medications should be reviewed while undergoing treatment. ??? Some of the common reported side effects include: o Fatigue- napping and physical activity can help fight fatigue - Naps: Limit to one hour. Avoid late afternoon naps. This helps avoid problems with nighttime sleeping - Physical activity: 30 minutes of moderate activity (e.g. walking) on most days is recommended forall people. o Headaches- May use [id number] pain relievers - Recommend avoiding use of NSAIDs (ibuprofen, naproxen) - Acetaminophen (Tylenol) can be used by most patients. Do not exceed 2,000 mg (2 grams) per day. o Nausea - avoid taking with spicy or greasy foods Storage ??? DO NOT take the pills out of the original blister package and store in another container such as a pill box. ??? Keep out of reach of children For more information of treatment, diagnosis, and support for patients with Hepatitis C visit hepc.liverfoundation.org * Addendum Note - Ida Norwood RPH - 09/05/2020 10:00 AM EDTEncounter addended by: Ida Norwood RPH on: 09/24/2020 1:20 PM Actions taken: Pharmacy for encounter modified, Order list changed, Clinical Note Signed documented in this encounter Plan of Treatment [...] Diagnoses Not on filedocumented in this encounter Discontinued Medications Medication Sig Discontinue Reason Start Date End Da te sofosbuvir-velpatasvir (EPCLUSA) 400-100 mg Oral Tablet Take 1 Tab by mouth daily for 84 days. Reorder 09/05/2020 09/24/2020 documented as of this encounter Care Teams Corporate Planning Manager Relationship Specialty Start Date End Date Stephany Myles APRN [address] [id number] PCP - General Nurse Practitioner-Family 05/17/20 Casi Cole, WIRE TURNING MACHINE OPERATOR Bullet Slugs Inspector 06/27/20 documented as of this encounter
--- OUTSIDE RECORDS SUMMARY | 2024-10-25 22:33 | XMS_ITS | Encounter Summary ---
Author Organization 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
--- OUTSIDE RECORDS SUMMARY | 2024-10-25 22:33 | XMS_ITS | Encounter Summary ---
Author Organization [facility] [place] [address] Care Team Providers Care Police Shift Commander Name Role Phone Stephany Myles APRN Primary Care Provider [phone] Casi Cole SUPERVISOR COOK ROOM Unavailable Unavail able Encounter Details Date Type Department Care Team (Late st Contact Info) Description 10/02/2020 Orders Only [facility] [address] 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 Answer Entry Date Author No 06/14/2020 10:19 AM EDHomer Raymond MA documented in this encounter Progress Notes * Stephany Myles ARNP - 10/02/2020 1:19 PM EST Please call patient We got a refill request on Prozac I have on his chart that it was stopped in May and he was changed to Wellbutrin Please verify he is not taking this, It appears the Wellbutrin was stopped by a pharmacy employee from the speciality pharmacy * Babita Cuevas RMA - 10/02/2020 1:19 PM EST Mixed up on pt information is for Pt son that is by the same name . documented in this encounter Plan of Treatment [...] Primary documented in this encounter Care Teams Police Shift Commander Relationship Specialty Start Date End Date Stephany Myles APRN [address] [place] [id number] PCP - General Nurse Practitioner-Family 05/17/20 Casi Cole LCSW [employer] Commod[employer] Sales Deliverer 06/27/20 documented as of this encounter
--- OUTSIDE RECORDS SUMMARY | 2024-10-25 22:33 | XMS_ITS | Encounter Summary ---
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
--- OUTSIDE RECORDS SUMMARY | 2024-10-25 22:34 | XMS_ITS | Encounter Summary ---
Author Organization 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 Name Role Phone Unavailable Primary Care Provider Unavailabl e Reason for Visit * Reason Comments Flank Pain right lower denies i njury dark urine for 3 days but severe back pain last night Encounter Details Date Type Department Care Team (Latest Contact Info) Description 02/22/2018 9:43 AM EDT - 02/22/2018 12:39 PM EDT Emergency [facility] [address] [place] [id number] Denys Ordonez MD [address] [place] [id number] Ureterolithiasis (Primary Dx) Discharge Disposition: Home or Self Care Social History Tobacco Use Types Packs/Day Years Used Date Smoking Tobacco: Every Day Cigarettes Smokeless Tobacco: Never Alcohol Use Standard Drinks/Week Comments No 0 (1 standard drink = 0.6 oz pur e alcohol) Sex and Gender Information Value Date Recorded Sex Assigned at Not on file Legal Sex Male 4:41 AM EDT Gender Identity Not on file Sexual Orientation Not on file documented as of this encounter Last Filed Vital Signs Vital Sign Reading Time Taken Comments Blood Pressure 152/73 02/22/2018 9:44 AM EDT Pulse 75 02/22/2018 9:44 AM EDT Temperature 36.7 ??C (98 ??F) 02/22/2018 9:44 AM EDT Respiratory Rate 18 02/22/2018 9:44 AM EDT Oxygen Saturation 100% 02/22/2018 9:44 AM EDT Inhaled Oxygen Concentration - - Weight 74.8 kg (165 lb) 02/22/2018 9:44 AM EDT Height 170.2 cm (5' 7 ) 02/22/2018 9:44 AM EDT Body Mass Index 25.84 02/22/2018 9:44 AM EDT documented in this encounter Discharge Instructions * Discharge Instructions* Denys Ordonez MD - 02/22/2018 12:22 PM EDT Use Flomax as prescribed. Return for fever, vomiting, or pain that is not controlled with medication. Follow-up with urology as needed for any persistence or recurrence of symptoms. * Attachments The following attachments cannot be sent through Care Everywhere. * KIDNEY STONES (TELUGU) documented in this encounter Medications at Time of Discharge ketorolac (TORADOL) 10 mg Oral Tablet Take 1 Tab by mouth every 8 hours as needed for Pain for up to 5 days. 15 Tab 02/22/2018 02/27/2018 tamsulosin (FLOMAX) 0.4 mg Oral Capsule, Sust. Release 24 hr Take 1 Cap by mouth daily for 7 days. 7 Cap 02/22/2018 03/01/2018 documented as of this encounter Ordered Prescriptions Prescription Sig Dispense Quantity Refills Last Filled Start Date End Date tamsulosin (FLOMAX) 0.4 mg Oral Capsule, Sust. Release 24 hr Take 1 Cap by mouth daily for 7 days. 7 Cap 02/22/2018 03/01/2018 ketorolac (TORADOL) 10 mg Oral Tablet Take 1 Tab by mouth every 8 hours as needed for Pain for up to 5 days. 15 Tab 02/22/2018 02/27/2018 documented in this encounter Discharge Disposition Disposition Code Departure Means Destination Home or Self [facility] documented in this encounter ED Notes * Denys Ordonez MD - 02/22/2018 9:35 AM EDT CHIEF COMPLAINT Chief Complaint Patient presents with ??? Flank Pain right lower denies injury dark urine for 3 days but severe back pain last night HPI Brandon Yo is a 32 y.o. male who presents Stating that he woke up yesterday after her nap and was having pain in the right lower back as well as in the right upper abdomen. States had difficulty standing upright without pain. States the pain has now subsided. Denies any injury or trauma. Pain did seem to be related to movement or position change while ongoing. Patient states over the last few days, he's noticed that his urine is dark in color. Denies any discomfort with urination. Denies any fever or chills. Denies any nausea, vomiting. Patient does state that he's had diarrhea over the last 2- 3 weeks. States when he wakes up in the morning and has coffee, little have 1 or 2 loose watery stools. Denies any melena. Denies any steatorrhea symptoms. Denies any bloody diarrhea. Denies any known exposures. Patient denies alcohol use. States he has prior history of IV drug abuse. Was using heroin up to 3 years ago. States he's been sober for the last 3 years without any use. REVIEW OF SYSTEMS See HPI for further details. Review of systems otherwise negative. PAST MEDICAL HISTORY History reviewed. No pertinent past medical history. FAMILY HISTORY Family History Problem Relation Age of Onset ??? Family history unknown: Yes SOCIAL HISTORY Social History Social History ??? Marital status: Single Spouse name: N/A ??? Number of children: N/A ??? Years of education: N/A Social History Main Topics ??? Smoking status: Current Every Day Smoker Packs/day: 1.50 Types: Cigarettes ??? Smokeless tobacco: Never Used ??? Alcohol use No ??? Drug use: No ??? Sexual activity: Not Asked Other Topics Concern ??? None Social History Narrative ??? None SURGICAL HISTORY History reviewed. No pertinent surgical history. CURRENT MEDICATIONS No current facility-administered medications for this encounter. Current Outpatient Prescriptions: ??? Amoxicillin 500 mg Oral Tablet, Take 500 mg by mouth every 12 hours., Disp: , Rfl: ??? FLUoxetine (PROZAC) 10 mg Oral Capsule, Take by mouth daily. Indications: Anxiety with Depression, Disp: , Rfl: ALLERGIES No Known Allergies PHYSICAL EXAM VITAL SIGNS: BP 152/73 Pulse 75 Temp 98 ??F (36.7 ??C) Resp 18 Ht 5' 7 (1.702 m) Wt 165 lb (74.8 kg) SpO2 100% BMI 25.84 kg/m?? Constitutional: Well developed, Well nourished, No acute distress, Non-toxic appearance. HENT: Normocephalic, Atraumatic, Bilateral external ears normal, Oropharynx moist, No oral exudates, Nose normal. Eyes: PERRLA, EOMI, Conjunctiva normal, No discharge. No icterus. Neck: Normal range of motion, No tenderness, Supple, No stridor. Lymphatic: No lymphadenopathy noted. Cardiovascular: Normal heart rate, Normal rhythm, No murmurs, No rubs, No gallops. Thorax & Lungs: Normal breath sounds, No respiratory distress, No wheezing, No chest tenderness. Abdomen: Soft, normal bowel sounds, nontender, no masses Skin: Warm, Dry, No erythema, No rash. Back: No tenderness, No CVA tenderness. There is some mild increased tension in the right paraspinal musculature. No tenderness or discomfort in the back with palpation or with position change. Extremities: Intact distal pulses, No edema, No tenderness, No cyanosis, No clubbing. Neurologic: Alert & oriented x 3, Normal motor function, Normal sensory function, No focal deficits noted. RADIOLOGY/PROCEDURES Results for orders placed or performed during the hospital encounter of 02/22/18 CT ABDOMEN PELVIS WO ORAL OR IV CONTRAST Narrative CT ABDOMEN AND PELVIS WITHOUT IV OR ORAL CONTRAST, 02/22/2018 11:39 AM CLINICAL HISTORY: -flank pain and hematuria COMPARISON: None. PROCEDURE COMMENTS: Noncontrast multidetector CT examination of the abdomen and pelvis without IV or oral contrast per protocol. Multiplanar reconstructions. Automated exposure control for dose reduction was used. CTDIvol: 4.5 mGy. DLP: 204 mGy-cm. FINDINGS: Lower thorax: Lung bases unremarkable. Abdomen: Liver, spleen, pancreas, and adrenal glands are unremarkable. There are small nonobstructing stones, one in each kidney. There is mild right hydronephrosis and hydroureter, with dilatation of the right ureter down to a 2 mm diameter x 3.5 mm long stone in the distal right ureter, 1 cm above the urinary bladder. Left kidney and ureter nondilated. No bowel obstruction or inflammatory process. Unremarkable biliary system. Pelvis: No free fluid or adenopathy. No evidence of appendicitis. No acute spine fracture or malalignment. Impression 2 x 3.5 mm distal right ureteral stone, 1 cm above the urinary bladder, resulting in mild right hydronephrosis and hydroureter. Small nonobstructing stones are incidentally noted, one in each kidney. No acute abnormality of the unenhanced abdomen or pelvis. URINALYSIS Result Value Ref Range UA Color Red UA Appear Cloudy (A) Clear UA Glucose Negative Negative mg/dL UA Ketones Negative Negative mg/dL UA Blood Large (A) Negative UA pH 8.0 5.0 - 8.0 pH UA Protein 30 (A) Negative mg/dL UA Urobilinogen 0.2 <=1 E.U./dL UA Nitrite Negative Negative UA Leuk Est Negative Negative UA Spec Grav 1.025 1.001 - 1.035 no units UA RBC >100 (H) 0 - 3 /HPF UA Bacteria 1+ (A) Negative /HPF CBC WITH DIFF Result Value Ref Range WBC 5.9 4.0 - 11.0 x10(3)/mcL RBC 5.04 4.30 - 5.81 x10(6)/mcL Hgb 16.0 13.5 - 17.1 gm/dL Hct 45.7 38.9 - 51.6 % MCV 90.7 82.5 - 99.8 fL MCH 31.7 27.0 - 34.3 pg MCHC 35.0 32.1 - 35.3 gm/dL RDW 12.8 11.5 - 15.0 % Platelet 175 144 - 423 x10(3)/mcL MPV 9.2 6.8 - 10.8 fL Neut Percent 59.3 % Lymph Percent 30.1 % Arthur Percent 8.7 % Eos Percent 1.1 % Baso Percent 0.8 % Neut # 3.5 1.8 - 7.7 x10(3)/mcL Lymph # 1.8 0.6 - 4.8 x10(3)/mcL Arthur # 0.5 0.0 - 1.3 x10(3)/mcL Eos# 0.1 0.0 - 0.5 x10(3)/mcL Baso # 0.0 0.0 - 0.2 x10(3)/mcL BASIC METABOLIC PANEL Result Value Ref Range Sodium 139 136 - 145 mmol/L Potassium 4.3 3.5 - 5.0 mmol/L Chloride 101 98 - 107 mmol/L Total CO2 28 22 - 29 mmol/L Anion Gap 10 7 - 16 mmol/L Calcium 9.7 8.6 - 10.2 mg/dL Glucose Lvl 122 (H) 74 - 100 mg/dL BUN 19 6 - 20 mg/dL Creatinine 1.15 0.67 - 1.30 mg/dL GFR Afr Am 95 mL/min/1.73 m2 GFR Non Afr Am 83 mL/min/1.73 m2 HEPATIC FUNCTION PANEL Result Value Ref Range Total Protein 7.1 6.4 - 8.3 gm/dL Albumin 4.6 3.5 - 5.2 gm/dL Bili Direct 0.2 0.0 - 0.3 mg/dL Bili Total 1.1 0.1 - 1.4 mg/dL AST 33 <=40 IU/L ALT 38 <=41 IU/L Alk Phos 61 40 - 129 IU/L LIPASE LEVEL Result Value Ref Range Lipase Lvl 34 13 - 60 IU/L PT / INR Result Value Ref Range PT 10.9 9.8 - 12.6 second(s) INR 0.94 0.84 - 1.09 no units CREATINE KINASE Result Value Ref Range CK 167 39 - 308 IU/L COURSE & MEDICAL DECISION MAKING Pertinent Labs & Imaging studies reviewed. (See chart for details) Patient presents as per above. Currently asymptomatic. Does have gross hematuria. Urine actually had more T-colored appearance initially. With history of hepatitis C, abdominal labs initially ordered. These studies are unremarkable however. Patient without any abdominal pain, nausea or vomiting, fever currently. Has been having some waxing and waning hematuria symptoms last 3 days. We'll go ahead and obtain CTimaging to assess for stone. CT imaging does show evidence of ureterolithiasis. Patient currently asymptomatic. Started on Flomax. Given prior history of opiate abuse, patient requesting non-opiate medication. Given prescriptionfor ketorolac orally. Given precautions. FINAL IMPRESSION Hematuria Flank pain, resolved History of hepatitis C Ureterolithiasis This chart was completed using voice recognition technology and may contain unintended errors Denys Ordonez MD 02/22/18 1221 documented in this encounter Plan of Treatment Not on file documented as of this encounter Procedures Procedure Name Priority Date/Time Associated Diagnosis Comments CT ABDOMEN PELVIS WO ORAL OR IV CONTRAST STAT 02/22/2018 11:39 AM EDT ACUTE HEPATITIS PANEL STAT 02/22/2018 10:12 AM EDT PT / INR STAT 02/22/2018 10:12 AM EDT CBC WITH DIFF STAT 02/22/2018 10:12 AM EDT LIPASE LEVEL STAT 02/22/2018 10:12 AM EDT CREATINE KINASE STAT 02/22/2018 10:12 AM EDT HEPATIC FUNCTION PANEL STAT 02/22/2018 10:12 AM EDT BASIC METABOLIC PANEL STAT 02/22/2018 10:12 AM EDT EXTRA PEARCE URINE CX STAT 02/22/2018 9 :54 AM EDT URINALYSIS STAT 02/22/2018 9:54 AM EDT documented in this encounter Results * CT ABDOMEN PELVIS WO ORAL OR IV CONTRAST (02/22/2018 11:39 AM EDT) Anatomical Region Laterality Modality Abdomen, Pelvis Computed Tomogra phy 02/22/2018 11:3 9 AM EDT Impressions 02/22/2018 12:06 PM EDT 2 x 3.5 mm distal right ureteral stone, 1 cm above the urinary bladder, resulting in mild right hydronephrosis and hydroureter. Small nonobstructing stones are incidentally noted, one in each kidney. No acute abnormality of the unenhanced abdomen or pelvis. Narrative 02/22/2018 12:[address] ABDOMEN AND PELVIS WITHOUT IV OR ORAL CONTRAST, ??02/22/2018 11:39 AM CLINICAL HISTORY: ??-flank pain and hematuria COMPARISON: ??None. PROCEDURE COMMENTS: Noncontrast multidetector CT examination of the abdomen and pelvis without IV or oral contrast per protocol. Multiplanar reconstructions. Automated exposure control for dose reduction was used. CTDIvol: 4.5 mGy. DLP: 204 mGy-cm. FINDINGS: ?? Lower thorax: ??Lung bases unremarkable. Abdomen: ??Liver, spleen, pancreas, and adrenal glands are unremarkable. There are small nonobstructing stones, one in each kidney. There is mild right hydronephrosis and hydroureter, with dilatation of the right ureter down to a 2 mm diameter x 3.5 mm long stone in the distal right ureter, 1 cm above the urinary bladder. Left kidney and ureter nondilated. No bowel obstruction or inflammatory process. ??Unremarkable biliary system. Pelvis: ??No free fluid or adenopathy. ??No evidence of appendicitis. ??No acute spine fracture or malalignment. Procedure Note Gurpreet Washington MD - 02/22/2018 CT ABDOMEN AND PELVIS WITHOUT IV OR ORAL CONTRAST, 02/22/2018 11:39 AM CLINICAL HISTORY: -flank pain and hematuria COMPARISON: None. PROCEDURE COMMENTS: Noncontrast multidetector CT examination of theabdomen and pelvis without IV or oral contrast per protocol. Multiplanarreconstructions. Automated exposure control for dose reduction was used. CTDIvol: 4.5 mGy.DLP: 204 mGy-cm. FINDINGS: Lower thorax: Lung bases unremarkable. Abdomen: Liver, spleen, pancreas, and adrenal glands are unremarkable.There are small nonobstructing stones, one in each kidney. There is mild right hydronephrosis and hydroureter, with dilatation of the right ureter downto a 2 mm diameter x 3.5 mm long stone in the distal right ureter, 1 cm abovethe urinary bladder. Left kidney and ureter nondilated. No bowel obstructionor inflammatory process. Unremarkable biliary system. Pelvis: No free fluid or adenopathy. No evidence of appendicitis. Noacute spine fracture or malalignment. IMPRESSION: 2 x 3.5 mm distal right ureteral stone, 1 cm above the urinary bladder, resulting in mild right hydronephrosis and hydroureter. Small nonobstructing stones are incidentally noted, one in each kidney. No acute abnormality of the unenhanced abdomen or pelvis. us Denys Ordonez MD IMG CT ORDERABLES Final Res ult * CREATINE KINASE (02/22/2018 10:12 AM EDT) CK 167 39 - 308 IU/L 02/22/2018 10:46 AM EDT [facility] Blood VENOUS BLOOD / Unknown Venipuncture / Unknown 02/22/2018 10:12 AM EDT 02/22/2018 10:27 AM EDT us Denys Ordonez MD CHEMISTRY ORDERABLES Final Result Performing Organization Address City/[facility] de Phone Number [facility] [address] [place] [address] * (ABNORMAL) ACUTE HEPATITIS PANEL (02/22/2018 10:12 AM EDT) [facility] Hep Bs Ag Negative Negative 02/22/2018 3:53 PM EDT [facility] Hep B Core IgM Negative Negative 02/22/2018 3:53 PM EDT [facility] Hep A IgM Negative Negative 02/22/2018 3:53 PM EDT [facility] Hep C Ab Positive(A) Negative 02/22/2018 3:53 PM EDT [facility] Blood VENOUS BLOOD / Unknown Venipuncture / Unknown 02/22/2018 10:12 AM EDT 02/22/2018 11:14 AM EDT us Denys Ordonez MD CHEMISTRY ORDERABLES Final Result Performing Organization Address City/[facility] de Phone Number [facility] [address] [place] [address] * PT / INR (02/22/2018 10:12 AM EDT) [facility] PT 10.9 9.8 - 12.6 second(s) 02/22/2018 10:32 AM EDT [facility] INR 0.94 0.84 - 1.09 no units 02/22/2018 10:32 AM EDT [facility] Comment: Level of Therapy ? Indications ?Target INR Range Standard Dose Treatment and prophylaxis of venous ? 2.0 - 3.0 ? thrombosis, pulmonary embolism High Dose ? High risk patients with mechanical ? 2.5 - 3.5 ? heart valves Blood VENOUS BLOOD / Unknown Venipuncture / Unknown 02/22/2018 10:12 AM EDT 02/22/2018 10:27 AM EDT Denys Ordonez MD HEMATOLOGY ORDERABLES Final Result Performing Organization Address [facility] Co de Phone Number [facility] [address] [place] [address] * LIPASE LEVEL (02/22/2018 10:12 AM EDT) Lipase Lvl 34 13 - 60 IU/L 02/22/2018 10:46 AM EDT [facility] Blood VENOUS BLOOD / Unknown Venipuncture / Unknown 02/22/2018 10:12 AM EDT 02/22/2018 10:27 AM EDT Denys Ordonez MD CHEMISTRY ORDERABLES Final Result Performing Organization Address [facility] de Phone Number [facility] [address] [place] [address] * HEPATIC FUNCTION PANEL (02/22/2018 10:12 AM EDT) Total Protein 7.1 6.4 - 8.3 gm/dL 02/22/2018 10:46 AM EDT [facility] Albumin 4.6 3.5 - 5.2 gm/dL 02/22/2018 10:46 AM EDT [facility] Bili Direct 0.2 0.0 - 0.3 mg/dL 02/22/2018 10:46 AM EDT [facility] Bili Total 1.1 0.1 - 1.4 mg/dL 02/22/2018 10:46 AM EDT [facility] AST 33 <=40 IU/L 02/22/2018 10:46 AM EDT [facility] ALT 38 <=41 IU/L 02/22/2018 10:46 AM EDT [facility] Alk Phos 61 40 - 129 IU/L 02/22/2018 10:46 AM EDT [facility] Blood VENOUS BLOOD / Unknown Venipuncture / Unknown 02/22/2018 10:12 AM EDT 02/22/2018 10:27 AM EDT Denys Ordonez MD CHEMISTRY ORDERABLES Final Result [facility] [address] [place] [address] * (ABNORMAL) BASIC METABOLIC PANEL (02/22/2018 10:12 AM EDT) Sodium 139 136 - 145 mmol/L 02/22/2018 10:46 AM EDT [facility] Potassium 4.3 3.5 - 5.0 mmol/L 02/22/2018 10:46 AM EDT [facility] Chloride 101 98 - 107 mmol/L 02/22/2018 10:46 AM EDT [facility] Total CO2 28 22 - 29 mmol/L 02/22/2018 10:46 AM EDT [facility] Anion Gap 10 7 - 16 mmol/L 02/22/2018 10:46 AM EDT [facility] Calcium 9.7 8.6 - 10.2 mg/dL 02/22/2018 10:46 AM EDT [facility] Glucose Lvl 122(H) 74 - 100 mg/dL 02/22/2018 10:46 AM EDT [facility] BUN 19 6 - 20 mg/dL 02/22/2018 10:46 AM EDT [facility] Creatinine 1.15 0.67 - 1.30 mg/dL 02/22/2018 10:46 AM EDT [facility] GFR Afr Am 95 mL/min/1.7 3 m2 02/22/2018 10:46 AM EDT [facility] GFR Non Afr Am 83 mL/min/1.7 3 m2 02/22/2018 10:46 AM EDT [facility] Comment: GFR Afr Am and GFR Non Afr Am calculated using CKD-EPI equation. ?? GFR Category ?GFR(mL/min/1.73 m??) ? Kidney Function G1 ?>=90 ?Normal or high G2 ?60-89 ? Mildly decreased G3a ? 45-59 ? Mildly to moderately decreased G3b ? 30-44 ? Moderately to severely decreased G4 ?15-29 ? Severely decreased G5 ?<15 ? Kidney Failure Blood VENOUS BLOOD / Unknown Venipuncture / Unknown 02/22/2018 10:12 AM EDT 02/22/2018 10:27 AM EDT us Denys Ordonez MD CHEMISTRY ORDERABLES Final Result [facility] [address] [place] [id number] * CBC WITH DIFF (02/22/2018 10:12 AM EDT) WBC 5.9 4.0 - 11.0 x10(3)/mcL 02/22/2018 10:23 AM EDT [facility] RBC 5.04 4.30 - 5.81 x10(6)/mcL 02/22/2018 10:23 AM EDT [facility] Hgb 16.0 13.5 - 17.1 gm/dL 02/22/2018 10:23 AM EDT [facility] Hct 45.7 38.9 - 51.6 % 02/22/2018 10:23 AM EDT [facility] MCV 90.7 82.5 - 99.8 fL 02/22/2018 10:23 AM EDT [facility] MCH 31.7 27.0 - 34.3 pg 02/22/2018 10:23 AM EDT [facility] MCHC 35.0 32.1 - 35.3 gm/dL 02/22/2018 10:23 AM EDT [facility] RDW 12.8 11.5 - 15.0 % 02/22/2018 10:23 AM EDT [facility] Platelet 175 144 - 423 x10(3)/[facility] 02/22/2018 10:23 AM EDT [facility] MPV 9.2 6.8 - 10.8 fL 02/22/2018 10:23 AM EDT [facility] Neut Percent 59.3 % 02/22/2018 10:23 AM EDT [facility] Lymph Percent 30.1 % 02/22/2018 10:23 AM EDT [facility] Arthur Percent 8.7 % 02/22/2018 10:23 AM EDT [facility] Eos Percent 1.1 % 02/22/2018 10:23 AM EDT [facility] Baso Percent 0.8 % 02/22/2018 10:23 AM EDT [facility] Neut # 3.5 1.8 - 7.7 x10(3)/[facility] 02/22/2018 10:23 AM EDT [facility] Lymph # 1.8 0.6 - 4.8 x10(3)/[facility] 02/22/2018 10:23 AM EDT [facility] Arthur # 0.5 0.0 - 1.3 x10(3)/[facility] 02/22/2018 10:23 AM EDT [facility] Eos# 0.1 0.0 - 0.5 x10(3)/[facility] 02/22/2018 10:23 AM EDT [facility] Baso # 0.0 0.0 - 0.2 x10(3)/mcL 02/22/2018 10:23 AM EDT [facility] Blood VENOUS BLOOD / Unknown Venipuncture / Unknown 02/22/2018 10:12 AM EDT 02/22/2018 10:21 AM EDT us Denys Ordonez MD HEMATOLOGY ORDERABLES Final Result Performing Organization Address [facility] de Phone Number [facility] [address] [place] [address] * EXTRA PEARCE URINE CX (02/22/2018 9:54 AM EDT) Urine URINE SPECIMEN COLLECTION, CLEAN CATCH / Unknown 02/22/2018 9:54 AM EDT 02/22/2018 9:58 AM EDT us Denys Ordonez MD MICROBIOLOGY - GENERAL ORDE RABLES Final Result Performing Organization Address [facility] de Phone Number [facility] [address] [place] [address] * (ABNORMAL) URINALYSIS (02/22/2018 9:54 AM EDT) UA Color Red 02/22/2018 10:10 AM EDT [facility] UA Appear Cloudy(A) Clear 02/22/2018 10:10 AM EDT [facility] UA Glucose Negative Negative mg/dL 02/22/2018 10:10 AM EDT [facility] UA Ketones Negative Negative mg/dL 02/22/2018 10:10 AM EDT [facility] UA Blood Large(A) Negative 02/22/2018 10:10 AM EDT [facility] UA pH 8.0 5.0 - 8.0 pH 02/22/2018 10:10 AM EDT [facility] UA Protein 30(A) Negative mg/dL 02/22/2018 10:10 AM EDT [facility] UA Urobilinogen 0.2 <=1 E.U./dL 02/23/20 18 10:10 AM EDT [facility] UA Nitrite Negative Negative 02/22/2018 10:10 AM EDT [facility] UA Leuk Est Negative Negative 02/22/2018 10:10 AM EDT [facility] UA Spec Grav 1.025 1.001 - 1.035 no units 02/22/2018 10:10 AM EDT [facility] Comment: Reference range valid for random specimens only. UA RBC >100(H) 0 - 3 /HPF 02/22/2018 10:10 AM EDT [facility] UA Bacteria 1+(A) Negative /HPF 02/22/2018 10:10 AM EDT [facility] Urine URINE SPECIMEN COLLECTION, CLEAN CATCH / Unknown 02/22/2018 9:54 AM EDT 02/22/2018 9:58 AM EDT us Denys Ordonez MD URINE ORDERABLES Final Resu lt [facility] [address] [place] [address] documented in this encounter Visit Diagnoses Diagnosis Ureterolithiasis- Primary Calculus of ureter documented in this encounter
--- OUTSIDE RECORDS SUMMARY | 2024-10-25 22:34 | XMS_ITS | Encounter Summary ---
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 No / Unsure 07/26/2020 11:30 AM EDT documented as of this encounter [...] on filedocumented in this encounter Care Teams Technical Assistance Consultant Relationship Specialty Start Date End Date Stephany Myles APRN [address] [place], [place] [address] PCP - General Nurse Practitioner-Family 05/17/20 Casi Cole, MANAGER LEGAL Band Tier 06/27/20 documented as of this encounter
--- OUTSIDE RECORDS SUMMARY | 2024-10-25 22:34 | XMS_ITS | Encounter Summary ---
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 Not on file Not [...] Assessment Author No 06/14/2020 10:19 AM Homer Sanedrs MA * Does this person have difficulty [...] Homer Sanders MA documented in this encounter Discharge Disposition Disposition [...] Date/Time Associated Diagnosis Comments HIV AG/AB Routine 07/26/2020 11:48 AM EDT Chronic hepatitis C without hepatic coma (HCC) HCV QUANT NAAT Routine 07/26/2020 11:48 AM EDT Chronic hepatitis C without hepatic coma (HCC) CBC Routine 07/26/2020 11:48 AM EDT Chronic hepatitis C without hepatic coma (HCC) ACUTE HEPATITIS PANEL Routine 07/26/2020 11:48 AM EDT Chronic hepatitis C without hepatic coma (HCC) HCV GENOTYPE BY PCR AND SEQUENCING -REF LAB Routine 07/26/2020 11:48 AM EDT Chronic hepatitis C without hepatic coma (HCC) PT / INR Routine 07/26/2020 11:48 AM EDT Chronic hepatitis C without hepatic coma (HCC) HEPATIC FUNCTION PANEL Routine 07/26/2020 11:48 AM EDT Chronic hepatitis C without hepatic coma (HCC) documented in this encounter Results * CBC (07/26/2020 11:48 AM EDT) WBC 5.1 3.7 - 10.3 x10(3)/mcL 07/26/2020 3:13 PM EDT [facility] RBC 5.22 4.60 - 6.10 x10(6)/mcL 07/26/2020 3:13 PM EDT [facility] Hgb 16.5 13.7 - 17.5 g/dL 07/26/2020 3:13 PM EDT [facility] Hct 46.8 40.0 - 51.0 % 07/26/2020 3:13 PM EDT [facility] MCV 89.7 80.0 - 100.0 fL 07/26/2020 3:13 PM EDT [facility] MCH 31.6 26.0 - 34.0 pg 07/26/2020 3:13 PM EDT [facility] MCHC 35.3 30.7 - 35.5 g/dL 07/26/2020 3:13 PM EDT [facility] RDW 11.9 <=14.9 % 07/26/2020 3:13 PM EDT [facility] Platelet 205 155 - 369 x10(3)/mcL 07/26/2020 3:13 PM EDT [facility], [facility] MPV 11.5 8.8 - 12.5 fL 07/26/2020 3:13 PM EDT [facility], [facility] Blood VENOUS BLOOD / Unknown Venipuncture / Unknown 07/26/2020 11:48 AM EDT 07/26/2020 11:48 AM EDT Oc Zepeda MD HEMATOLOGY ORDERABLES Final Result Performing Organization Address [facility] Co de Phone Number [facility], [address] , [place] [address] * (ABNORMAL) ACUTE HEPATITIS PANEL (07/26/2020 11:48 AM EDT) Pathologist [facility] Hep Bs Ag Non-Reacti ve Non-Reacti ve 07/26/2020 6:42 PM EDT [facility], [facility] Hep B Core IgM Non-Reacti ve Non-Reacti ve 07/26/2020 6:42 PM EDT [facility], [facility] Hep A IgM Non-Reacti ve Non-Reacti ve 07/26/2020 6:42 PM EDT [facility], [facility] Hep C Ab Reactive(A ) Non-Reacti ve 07/26/2020 6:42 PM EDT [facility], [facility] Comment:Reactive. Antibodies to HCV detected. >97% of specimens with high signal cutoff confirm as reactive. HCV QUANT W/RFLX TO GENOTYPE -REF LAB is suggested for newly diagnosed HCV. Blood VENOUS BLOOD / Unknown Venipuncture / Unknown 07/26/2020 11:48 AM EDT 07/26/2020 11:48 AM EDT Oc Zepeda MD CHEMISTRY ORDERABLES Final Result Performing Organization Address [facility] Co de Phone Number [facility], [address] , [place] [address] * (ABNORMAL) HEPATIC FUNCTION PANEL (07/26/2020 11:48 AM EDT) Pathologist [facility] Total Protein 7.4 6.4 - 8.3 gm/dL 07/26/2020 3:54 PM EDT [facility], [facility] Albumin 4.9 3.5 - 5.2 gm/dL 07/26/2020 3:54 PM EDT [facility], [facility] Bili Direct 0.2 0.0 - 0.3 mg/dL 07/26/2020 3:54 PM EDT [facility], [facility] Bili Total 0.8 0.1 - 1.4 mg/dL 07/26/2020 3:54 PM EDT [facility] AST 29 <=40 U/L 07/26/2020 3:54 PM EDT [facility], [facility] ALT 42(H) <=41 U/L 07/26/2020 3:54 PM EDT [facility], [facility] Alk Phos 66 40 - 129 U/L 07/26/2020 3:54 PM EDT [facility], [facility] Blood VENOUS BLOOD / Unknown Venipuncture / Unknown 07/26/2020 11:48 AM EDT 07/26/2020 11:48 AM EDT Oc Zepeda MD CHEMISTRY ORDERABLES Final Result Performing Organization Address City/[facility]/ZIP Co de Phone Number [facility], [address] , [place] [address] * HIV AG/AB (07/26/2020 11:48 AM EDT) [facility] HIV Ag/AB Non-Reactiv e Non-Reacti ve 07/26/2020 6:04 PM EDT [facility], [facility] Blood VENOUS BLOOD / Unknown Venipuncture / Unknown 07/26/2020 11:48 AM EDT 07/26/2020 11:48 AM EDT Oc Zepeda MD IMMUNOLOGY ORDERABLES Final Result Performing Organization Address City/[facility]/ZIP Co de Phone Number [facility], [facility] [address] [facility] , [address] [place] [id number] * HCV GENOTYPE BY PCR AND SEQUENCING -REF LAB (07/26/2020 11:48 AM EDT) HCV Genotyping by PCR & Sequen 1a or 1b 07/30/2020 9:06 AM EDT [facility] Comment: Cannot be further subtyped into Type 1a or Type 1b due to high conservation of the 5' untranslated region of the HCV genome. In addition, Type 6 virus may be misclassified as Type 1 in some cases. The Hepatitis C Virus High-Resolution Genotype by Sequencing test ([employer] test code [id number]) provides a higher level of subtype resolution. INTERPRETIVE INFORMATION: ??Hepatitis C Genotyping Hepatitis C Viral RNA is tested using reverse automotive assembler polymerase chain reaction (RT-PCR) to amplify a specific portion of the 5' untranslated region (5' UTR) of the viral genome. The amplified nucleic acid is sequenced bi-directionally using dye-terminator chemistry ([employer]). Sequencing data is compared to a database of characterized sequences. Isolates of hepatitis C virus are grouped into six major genotypes (1-6). These genotypes are subtyped according to sequence characteristics. Due to high conservation of the 5' un-translated region of the HCV genome, this test has limitations in differentiating subtype 1a from 1b. Therefore, these subtypes will be reported as 1a or 1b. In rare instances, Type 6 virus may be misclassified as Type 1. Test developed and characteristics determined by [facility]. See Compliance Statement B: [employer]/CS Performed By: [facility] [address] [place] [id number] It Applications Manager: Nicole Sanchez MD Blood VENOUS BLOOD / Unknown Venipuncture / Unknown 07/26/2020 11:48 AM EDT 07/26/2020 11:48 AM EDT Oc Zepeda MD IMMUNOLOGY ORDERABLES Final Result [email or web address] [address] [place] [address] * (ABNORMAL) HCV QUANT NAAT (07/26/2020 11:48 AM EDT) HCV Qnt by NAAT (IU/mL) 31,042,86 0 07/27/2020 5:24 PM EDT [employer] HCV Qnt by NAAT (log IU/mL) 7.49 log IU/mL 07/27/2020 5:24 PM EDT [facility] HCV Qnt by NAAT Interp Detected( A) Not Detected 07/27/2020 5:24 PM EDT [facility] , [employer]. Comment: INTERPRETIVE INFORMATION: HCV by Quantitative NAAT [...] and Cellular Tissue-Based Products (HCT/P). Performed by [facility], [address] [place], [place] [id number] [email or web address], Nicole Sanchez MD, Lab. Director Blood VENOUS BLOOD / Unknown Venipuncture / Unknown 07/26/2020 11:48 AM EDT 07/26/2020 11:48 AM EDT Oc Zepeda MD IMMUNOLOGY ORDERABLES Final Result [email or web address] [address] [place] [address] * PT / INR (07/26/2020 11:48 AM EDT) PT 11.6 9.8 - 12.6 second(s) 07/26/2020 1:18 PM EDT [facility] INR 0.99 0.84 - 1.09 no units 07/26/2020 1:18 PM EDT [facility] Comment: Level of Therapy ? Indications ?Target INR Range Standard Dose Treatment and prophylaxis of venous ? 2.0 - 3.0 ? thrombosis, pulmonary embolism High Dose ? High risk patients with mechanical ? 2.5 - 3.5 ? heart valves Blood VENOUS BLOOD / Unknown Venipuncture / Unknown 07/26/2020 11:48 AM EDT 07/26/2020 11:48 AM EDT us Oc Zepeda MD HEMATOLOGY ORDERABLES Final Result Performing Organization Address City/State/[facility] Co de Phone Number [facility] [address] [place] [address] documented in this encounter Visit Diagnoses Diagnosis Chronic hepatitis C without hepatic coma (HCC) documented in this encounter Care Teams Review Engineer Relationship Specialty Start Date End Date Stephany Myles APRN [address] [place] [address] PCP - General Nurse Practitioner-Family 05/17/20 Casi Cole, SAND POLISHER Employment Supervisor 06/27/20 documented as of this encounter
--- OUTSIDE RECORDS SUMMARY | 2024-10-25 22:34 | XMS_ITS | Encounter Summary ---
Author Organization [facility] [place] [address] Care Team Providers Care Veneer Redrier Name Role Phone Stephany Myles APRN Primary Care Provider [phone] Encounter Details Date Type Department Care Team (Latest Contact Info) Description 05/17/2020 Travel Social History Tobacco Use Types Packs/Day Years Used Date Smoking Tobacco: Every Day Cigarettes 1.5 24.9 Started: 11/16/1999 Smokeless Tobacco: Never Alcohol Use Standard Drinks/Week Comments No 0 (1 standard drink = 0.6 oz pur e alcohol) Sexually Active Control Partners Comments Yes Female Sex and Gender Information Value Date Recorded Sex Assigned at Not on file Legal Sex Male 4:41 AM EDT Gender Identity Not on file Sexual Orientation Not on file COVID-19 Exposure Response Date Recorded In the last month, have you been in contact with someone who was confirmed or suspected to have Coronavirus / COVID-19? No / Unsure 05/17/2020 3:12 PM EDT documented as of this encounter Plan of Treatment Not on [...] on filedocumented in this encounter Care Teams Veneer Redrier Relationship Specialty Start Date End Date Stephany Myles [place] [place] [address] PCP - General Nurse Practitioner-Family 05/17/20 documented as of this encounter
--- OUTSIDE RECORDS SUMMARY | 2024-10-25 22:34 | XMS_ITS | Encounter Summary ---
Author Organization [place] [address] Care Team Providers Care Dag Coater Name Role Phone Sandra Alvarez Primary Care Provider [phone] Encounter Details Date Type Department Care Team (Latest Contact Info) Description 05/21/2016 1:30 PM EDT - 05/21/2016 11:59 PM EDT Hospital Encounter [facility] [address] [place] [address] Chronic hepatitis C without hepatic coma (HCC) [...] on file documented as of this encounter Discharge Disposition Disposition Code Departure Means Destination Home or Self Care documented in this encounter Plan of Treatment Scheduled Orders Name Type Priority Associated Diagnoses Orde r Schedule OP VENIPUNCTURE CHARGE Lab Timed Chronic hepatitis C without hepatic coma (HCC) One Time for 1 Occurrences starting 05/21/2016 until 05/21/2016 documented as of this encounter Procedures Procedure Name Priority Date/Time Associated Diagnosis Comments HIV AG/AB Routine 05/21/2016 1:38 PM EDT Chronic hepatitis C without hepatic coma (HCC) CBC Routine 05/21/2016 1:38 PM EDT Chronic hepatitis C without hepatic coma (HCC) HEPATITIS A VIRUS ANTIBODIES, TOTAL -REF LAB Routine 05/21/2016 1:38 PM EDT Chronic hepatitis C without hepatic coma (HCC) HEPATITIS B SURFACE ANTIGEN Routine 05/21/2016 1:38 PM EDT Chronic hepatitis C without hepatic coma (HCC) HEPATIC FUNCTION PANEL Routine 05/21/2016 1:38 PM EDT Chronic hepatitis C without hepatic coma (HCC) BASIC METABOLIC PANEL Routine 05/21/2016 1:38 PM EDT Chronic hepatitis C without hepatic coma (HCC) documented in this encounter Results * HEPATITIS A VIRUS ANTIBODIES, TOTAL -REF LAB (05/21/2016 1:38 PM EDT) Hep A Ab Negative Negative [facility] Blood specimen (specimen) UPPER LIMB STRUCTURE / Unknown 05/21/2016 1:38 PM EDT 05/21/2016 8:30 PM EDT us Oc Zepeda MD IMMUNOLOGY ORDERABLES Final Result [facility] [address] [place] [address] * HIV AG/AB (05/21/2016 1:38 PM EDT) HIV Ag/AB Non-Reacti ve [facility] Blood specimen (specimen) 05/21/2016 1:38 PM EDT 05/21/2016 5:27 PM EDT Oc Zepeda MD IMMUNOLOGY ORDERABLES Final Result [facility] [address] [place] [address] * HEPATITIS B SURFACE ANTIGEN (05/21/2016 1:38 PM EDT) Hep Bs Ag Negative Negative [facility] Blood specimen (specimen) UPPER LIMB STRUCTURE / Unknown 05/21/2016 1:38 PM EDT 05/21/2016 5:27 PM EDT Oc Zepeda MD CHEMISTRY ORDERABLES Final Result Performing Organization Address [facility] [place] [address] * (ABNORMAL) HEPATIC FUNCTION PANEL (05/21/2016 1:38 PM EDT) Pathologist [facility] Total Protein 7.3 6.4 - 8.3 gm/dL [facility] Albumin 4.6 3.5 - 5.2 gm/dL [facility] Bili Direct <0.2 0.0 - 0.3 mg/dL [facility] Bili Total 0.5 0.1 - 1.4 mg/dL [facility] AST 41(H) <=40 IU/L [facility] ALT 37 <=41 IU/L [facility] Alk Phos 64 40 - 129 IU/L [facility] Blood specimen (specimen) UPPER LIMB STRUCTURE / Unknown 05/21/2016 1:38 PM EDT 05/21/2016 5:27 PM EDT Oc Zepeda MD CHEMISTRY ORDERABLES Final Result Performing Organization Address [facility] [place] [address] * CBC (05/21/2016 1:38 PM EDT) WBC 6.9 4.0 - 11.0 x10(3)/mcL [facility] RBC 4.98 4.30 - 5.81 x10(6)/mcL [facility] Hgb 15.6 13.5 - 17.1 gm/dL [facility] Hct 46.1 38.9 - 51.6 % [facility] MCV 92.5 82.5 - 99.8 fL [facility] MCH 31.4 27.0 - 34.3 pg [facility] MCHC 33.9 32.1 - 35.3 gm/dL [facility] RDW 13.1 11.5 - 15.0 % [facility] Platelet 210 144 - 423 x10(3)/mcL [facility] MPV 9.2 6.8 - 10.8 fL [facility] Blood specimen (specimen) UPPER LIMB STRUCTURE / Unknown 05/21/2016 1:38 PM EDT 05/21/2016 5:26 PM EDT Oc Zepeda MD HEMATOLOGY ORDERABLES Final Result Performing Organization Address [facility] [place] [address] * BASIC METABOLIC PANEL (05/21/2016 1:38 PM EDT) Sodium 139 136 - 145 mmol/L [facility] Potassium 4.1 3.5 - 5.0 mmol/L [facility] Chloride 99 98 - 107 mmol/L [facility] Total CO2 25 22 - 29 mmol/L [facility] Anion Gap 15 7 - 16 mmol/L [facility] Calcium 9.6 8.6 - 10.2 mg/dL [facility] Glucose Lvl 81 74 - 100 mg/dL [facility] BUN 15 6 - 20 mg/dL [facility] Creatinine 1.28 0.67 - 1.30 mg/dL [facility] GFR Afr Am >60 [facility] GFR Non Afr Am >60 [facility] Blood specimen (specimen) UPPER LIMB STRUCTURE / Unknown 05/21/2016 1:38 PM EDT 05/21/2016 5:27 PM EDT Oc Zepeda MD CHEMISTRY ORDERABLES Edited Result - Final Performing Organization Address [facility]/ZIP Co de Phone Number [facility] [address] [place] [address] documented in this encounter Visit Diagnoses Diagnosis Chronic hepatitis C without hepatic coma (HCC) documented in this encounter Care Teams Dag Coater Relationship Specialty Start Date End Date Sandra Alvarez: [phone] [address] [place], [place] [address] PCP - General Clinic/Center - [facility] 03/07/16 02/21/18 documented as of this encounter
--- OUTSIDE RECORDS SUMMARY | 2024-10-25 22:34 | XMS_ITS | Encounter Summary ---
Author Organization [place] [address] Care Team Providers Care Mine Engineer Name Role Phone Stephany Myles ANGEL Primary Care Provider [phone] Casi Cole FRYLINE ATTENDANT Unavailable Unavail able Reason for Referral * Ultrasound (Routine) - Closed Specialty Diagnoses / Procedures Referred By Tameka t Referred To Contact Radiology Diagnoses Chronic hepatitis C without hepatic coma (HCC) Immunization deficiency Procedures US RIGHT UPPER QUADRANT Trini Jaramillo APRN Phone: tel: fax: Referral ID Status Reason Start Date Expiration Date Visits Re quested Visits Authorized [id number] Closed 08/15/2020 08/15/2021 1 1 Reason for Visit * Ultrasound (Routine) - Closed Specialty Diagnoses / Procedures Referred By Tameka carbajal Referred To Contact Radiology Diagnoses Chronic hepatitis C without hepatic coma (HCC) Immunization deficiency Procedures US RIGHT UPPER QUADRANT Trini Jaramillo APRN Phone: tel: fax: Referral ID Status Reason Start Date Expiration Date Visits Re quested Visits Authorized [id number] Closed 08/15/2020 08/15/2021 1 1 Encounter Details Date Type Department Care Team (Latest Contact Info) Description 08/28/2020 9:55 AM EDT - 08/28/2020 9:57 AM EDT Hospital Encounter [facility] [address] [place] [address] Trini Jaramillo APRN [address] [place] [address] Chronic hepatitis C without hepatic coma (HCC); Immunization deficiency Discharge Disposition: Home or Self Care Social [...] 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 ?? - - Narrative 08/28/2020 10:13 AM EDT US RIGHT UPPER QUADRANT, ??08/28/2020 10:10 AM CLINICAL HISTORY: ??B18.2-Chronic viral hepatitis C-ICD-10-CM Z28.3-Underimmunization [id number]. COMPARISON: ??Ultrasound 06/18/[address] 02/22/2018 PROCEDURE COMMENTS: Ultrasound examination of the right upper quadrant performed by the technologist. Sent to PACS along with tech notes for radiologist review. ? FINDINGS: ?? Gallbladder: Normal. Live's sign: ??Negative. Liver: Normal echogenicity. No mass. Common bile duct: Measures 4.1 mm. (Normal is 6mm or less. If there has been cholecystectomy, normal is 10mm or less.) Pancreas: ??Visualized portions are normal. Other: ??Right kidney non-hydronephrotic. Procedure Note Yazan Contreras MD - 08/28/2020 US RIGHT UPPER QUADRANT, 08/28/2020 10:10 AM CLINICAL HISTORY: B18.2-Chronic viral hepatitis C-ICD-10-CM Z28.3-Underimmunization [id number]. COMPARISON: Ultrasound 06/18/[address] 02/22/2018 PROCEDURE COMMENTS: Ultrasound examination of the right upper quadrantperformed by the technologist. Sent to PACS along with tech notes for radiologistreview. FINDINGS: Gallbladder: Normal. Live's sign: Negative. Liver: Normal echogenicity. No mass. Common bile duct: Measures 4.1 mm. (Normal is 6mm or less. If there hasbeen cholecystectomy, normal is 10mm or less.) Pancreas: Visualized portions are normal. Other: Right kidney non-hydronephrotic. IMPRESSION: Unremarkable right upper quadrant ultrasound. - - us Trini Jaramillo APRN IMG US ORDERABLES Final Resu lt documented in this encounter Visit Diagnoses Diagnosis Chronic hepatitis C without hepatic coma (HCC) Immunization deficiency Personal history of underimmunization status documented in this encounter Care Teams Mine Engineer Relationship Specialty Start Date End Date Stephany Mylse APRN [address] [place], [place] [id number] PCP - General Nurse Practitioner-Family 05/17/20 Casi Cole LCSW Supervisor [employer] 06/27/20 documented as of this encounter
--- OUTSIDE RECORDS SUMMARY | 2024-10-25 22:34 | XMS_ITS | Encounter Summary ---
Author [place] [address] Care Team Providers Care Board Writer Name Role Phone MariiaNadiya xiongue Primary Care Provider [phone] Reason for Referral * Ultrasound (Routine) - Closed Specialty Diagnoses / Procedures Referred By Contac t Referred To Contact Radiology Diagnoses Chronic hepatitis C without hepatic coma (HCC) Procedures US RIGHT UPPER QUADRANT Oc Zepeda MD Phone: tel: fax: [facility] [address] [place] [address] Phone: tel: Referral ID Status Reason Start Date Expiration Date Visits Re quested Visits Authorized [id number] Closed 05/13/2016 05/13/2017 1 1 Reason for Visit * Ultrasound (Routine) - Closed Specialty Diagnoses / Procedures Referred By Contac t Referred To Contact Radiology Diagnoses Chronic hepatitis C without hepatic coma (HCC) Procedures US RIGHT UPPER QUADRANT Oc Zepeda MD Phone: tel: fax: [facility] [address] [place] [address] Phone: tel: Referral ID Status Reason Start Date Expiration Date Visits Re quested Visits Authorized [id number] Closed 05/13/2016 05/13/2017 1 1 Encounter Details Date Type Department Care Team (Latest Contact Info) Description 06/18/2016 7:55 AM EDT - 06/18/2016 11:59 PM EDT Hospital Encounter [facility] [address] [place] [address] Oc Zepeda MD [address] [place] [address] Chronic hepatitis C without hepatic coma (HCC) [...] Diagnosis Comments US RIGHT UPPER QUADRANT Routine 06/18/2016 8:11 AM EDT Chronic hepatitis C without hepatic coma (HCC) documented in this encounter Results * US RIGHT UPPER QUADRANT (06/18/2016 8:11 AM EDT) Anatomical Region Laterality Modality Abdomen Ultrasound 06/18/2016 8:11 AM EDT Impressions 06/18/2016 8:15 AM EDT IMPRESSION: 1. Normal right upper quadrant ultrasound. Narrative 06/18/2016 8:15 AM EDT PROCEDURE: RIGHT UPPER QUADRANT ULTRASOUND, 06/18/2016 8:11 AM INDICATIONS: Hepatitis C. FINDINGS: Right upper quadrant ultrasound. No prior. The gallbladder is normal in appearance. There is no wall thickening, stones, or pericholecystic fluid. Negative sonographic Live's sign. The liver is normal in echogenicity and homogeneous in appearance. There is no intra or extrahepatic biliary dilatation. The common duct measures 4 mm. Views of the pancreas are unremarkable. The right kidney shows no hydronephrosis. Procedure Note Mario Ureña MD - 06/18/2016 PROCEDURE: RIGHT UPPER QUADRANT ULTRASOUND, 06/18/2016 8:11 AM INDICATIONS: Hepatitis C. FINDINGS: Right upper quadrant ultrasound. No prior. The gallbladder is normal in appearance. There is no wall thickening,stones, or pericholecystic fluid. Negative sonographic Live's sign. The liver is normal in echogenicity and homogeneous in appearance. Thereis no intra or extrahepatic biliary dilatation. The common duct measures 4 mm. Views of the pancreas are unremarkable. The right kidney shows no hydronephrosis. IMPRESSION: 1. Normal right upper quadrant ultrasound. us Oc Zepeda MD IMG US ORDERABLES Final Res ult documented in this encounter Visit Diagnoses Diagnosis Chronic hepatitis C without hepatic coma (HCC) documented in this encounter Care Teams Board Writer Relationship Specialty Start Date End Date Sandra Alvarez [address] [place] [address] PCP - General Clinic/Center - [facility] ([facility] 03/07/16 02/21/18 documented as of this encounter
--- OUTSIDE RECORDS SUMMARY | 2024-10-25 22:34 | XMS_ITS | Encounter Summary ---
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 No / Unsure 08/01/2020 8:50 AM EDT documented as of this encounter [...] on filedocumented in this encounter Care Teams Caramel Cutter Machine Relationship Specialty Start Date End Date Stephany Myles APRN [address], [place] [address] PCP - General Nurse Practitioner-Family 05/17/20 Casi Cole, ENGAGEMENT SPECIALIST [employer] 06/27/20 documented as of this encounter
--- OUTSIDE RECORDS SUMMARY | 2024-10-25 22:34 | XMS_ITS | Encounter Summary ---
Author Organization [place] [address] Care Team Providers Care Plaster Whittler Name Role Phone Stephany Myles APRN Primary Care Provider [phone] Casi Cole SENIOR CREDIT ANALYST Unavailable Unavail able Reason for Referral * Ultrasound (Routine) - Closed Specialty Diagnoses / Procedures Referred By Tameka carbajal Referred To Contact Radiology Diagnoses Chronic hepatitis C without hepatic coma (HCC) Immunization deficiency Procedures US RIGHT UPPER QUADRANT Trini Jaramillo APRN Phone: tel: fax: Referral ID Status Reason Start Date Expiration Date Visits Re quested Visits Authorized [id number] Closed 08/15/2020 08/15/2021 1 1 Reason for Visit * Reason Comments Hepatitis C * Consultation (Routine) - Closed Specialty Diagnoses / Procedures Referred By Tameka carbajal Referred To Contact Gastroenterology Diagnoses History of positive hepatitis C Stephany Myles APRN [address] [place] [address] Phone: tel: fax: [facility] [address] [address] Phone: tel: fax: Referral ID Status Reason Start Date Expiration Date V isits Requested Visits Authorized [id number] Closed Specialty Services Required 05/17/2020 05/17/2021 99 99 Encounter Details Date Type Department Care Team (Late st Contact Info) Description 08/15/2020 8:30 AM EDT Office Visit [facility] [address] [facility] [address] [place] [address] Trini Jaramillo APRN [address] [place] [address] Chronic hepatitis C without hepatic coma (HCC) (Primary Dx); Immunization deficiency Social History Tobacco Use Types Packs/Day Years [...] 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 No / Unsure 08/01/2020 8:50 AM EDT documented as of this encounter Last Filed Vital Signs Vital Sign Reading Time Taken Comments Blood Pressure 118/80 08/15/2020 8:25 AM EDT Pulse - - Temperature - - Respiratory Rate - - Oxygen Saturation - - Inhaled Oxygen Concentration - - Weight 72.8 kg (160 lb 9.6 oz) 08/15/2020 8:25 A M EDT Height 167.6 cm (5' 6 ) 08/15/2020 8:25 AM EDT Body Mass Index 25.92 08/15/2020 8:25 AM EDT documented in this encounter Functional Status [...] in this encounter Progress Notes * Trini Jaramillo APRN - 08/15/2020 8:30 AM EDT GASTROENTEROLOGY NEW PATIENT OFFICE CONSULTATION: CHIEF COMPLAINT Chief Complaint Patient presents with ??? Hepatitis C SUBJECTIVE Brandon Yo is a 35 y.o. male for whom a consultation is requested by Stephany Byrd ARNP for hepatitis C. Patient with a history of substance abuse, anxiety, chronic hepatitis C, last seen in the office inJune, 2016, presents to the office today for evaluation for hepatitis C treatment. He was lost to follow-up. He has a mild elevation in his ALT. He does not appear to be immune to hepatitis A or hepatitis B. He has genotype 1a with a viral load of 31,000,000 IU. Patient reports a history of IV druguse as well as snorting drugs and smoking drugs but has been clean for the last 6 years. He does have a tattoo that was placed at age 14. He denies any history of blood transfusions. Patient reports he was diagnosed with hepatitis C approximately 5 years ago. ROS Constitutional: Negative for fever, chills and unexpected weight change. HEENT: Negative for hearing loss, ear pain and trouble swallowing. Negative for visual disturbance. Respiratory: Negative for cough, chest tightness and shortness of breath. Cardiovascular: Negative for chest pain and leg swelling. Musculoskeletal: Negative for joint swelling and arthralgias. Skin: Negative for pallor. Neurological: Negative for dizziness, seizures and headaches. Hematological: Does not bruise/bleed easily. All other review of systems negative, except for those noted. MEDICATIONS: Reviewed Current Outpatient Medications Medication Sig Dispense Refill ??? buPROPion (WELLBUTRIN XL) 150 mg Oral Tablet Sustained Release 24 hr Take 1 Tab by mouth every morning. 30 Tab 5 No current facility-administered medications for this visit. ALLERGIES No Known Allergies Past Medical History Past Medical History: Diagnosis Date ??? Hepatitis hep C Family History: Negative for GI Family History Problem Relation Age of Onset ??? Heart Disease Mother ??? Drug Abuse Mother ??? Drug Abuse Father Social History: Smokes 1/2 packs/day, no alcohol Social History Socioeconomic History ??? Marital status: Significant Other Spouse name: Not on file ??? Number of children: 4 ??? Years of education: 10th grade ??? Highest education level: Not on file Occupational History ??? 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 Financial resource strain: Not [...] court. ??? Sexual activity: Yes Partners: Female Lifestyle ??? Physical activity Days per week: Not on file Minutes per session: Not on file ??? Stress: Not on file Relationships ??? Social connections Talks on phone: Not on file Gets together: Not on file Attends faith service: Not on file Active member of club or organization: Not on file Attends meetings of clubs or organizations: Not on file Relationship status: Not on file ??? Intimate partner violence Fear of current or ex partner: Not on file Emotionally abused: Not on file Physically abused: Not on file Forced sexual activity: Not on file Other Topics Concern ??? Not on file Social History Narrative ??? Not on file PHYSICAL EXAM: BP 118/80 Ht 5' 6 (1.676 m) Wt 160 lb 9.6 oz (72.8 kg) BMI 25.92 kg/m?? Nursing note and vitals reviewed. Constitutional: the patient is oriented. HEENT: Normocephalic and atraumatic. Pupils are equal, round, and reactive to light. Neck supple. Cardiovascular: Normal rate, regular rhythm and normal heart sounds. Pulmonary/Chest: Breath sounds normal. Abdominal: Positive bowel sounds. Soft, nontender, nondistended. Musculoskeletal: the patient exhibits no edema. Neurological: the patient is alert and oriented. Skin: Skin is warm and dry. Psychiatric: the patient has a normal mood and affect. RESULTS Ref. Range 07/26/2020 11:48 Hep A IgM Latest Ref Range: Non-Reactive Non-Reactive Hep B Core IgM Latest Ref Range: Non-Reactive Non-Reactive Hep Bs Ag Latest Ref Range: Non-Reactive Non-Reactive HCV Genotype Unknown 1a or 1b HCV Quantitative Interpretation Latest Ref Range: Not Detected Detected (A) Hep C Ab Latest Ref Range: Non-Reactive Reactive (A) HCV Qnt by NAAT (IU/mL) Unknown 31,042,860 HCV Qnt by NAAT (log IU/mL) Latest Units: log IU/mL 7.49 HIV Ag/AB Latest Ref Range: Non-Reactive Non-Reactive Lab Results Component Value Date WBC 5.1 07/26/2020 HGB 16.5 07/26/2020 HCT 46.8 07/26/2020 MCV 89.7 07/26/2020 PLT 205 07/26/2020 Lab Results Component Value Date ALT 42 (H) 07/26/2020 AST 29 07/26/2020 ALKPHOS 66 07/26/2020 Lab Results Component Value Date LIPASE 34 02/22/2018 Lab Results Component Value Date NA 139 02/22/2018 K 4.3 02/22/2018 CL 101 02/22/2018 CO2 28 02/22/2018 BUN 19 02/22/2018 PROBLEM LIST Patient Active Problem List Diagnosis ??? Chronic hepatitis C without hepatic coma (HCC) ??? Generalized anxiety disorder ??? History of intravenous drug use in remission ??? History of drug abuse in remission (HCC) FINAL DIAGNOSIS 1. Chronic hepatitis C without hepatic coma (HCC) LIVER FIBROSIS, CHRONIC VIRAL HEPATITIS PANEL - REF LAB CBC PT / INR DRUGS OF ABUSE WITH REFLEX TO CONFIRMATION, URINE ALCOHOL MEDICAL HEPATIC FUNCTION PANEL US RIGHT UPPER QUADRANT 2. Immunization deficiency US RIGHT UPPER QUADRANT VISIT ORDERS Orders Placed This Encounter Procedures ??? Ultrasound right upper quadrant Standing Status: Future Standing Expiration Date: 08/15/2021 ??? Liver Fibrosis, Chronic Viral Hepatitis (FibroMeter VIRUS) Standing Status: Future Standing Expiration Date: 08/15/2021 ??? CBC Standing Status: Future Standing Expiration Date: 08/15/2021 ??? PT/INR Standing Status: Future Standing Expiration Date: 08/15/2021 ??? DRUGS OF ABUSE WITH REFLEX TO CONFIRMATI Standing Status: Future Standing Expiration Date: 08/15/2021 ??? Alcohol Medical Standing Status: Future Standing Expiration Date: 08/15/2021 ??? Hepatic Function Panel Standing Status: Future Standing Expiration Date: 08/15/2021 ASSESSMENT: Brandon was seen today for hepatitis c. Diagnoses and all orders for this visit: Chronic hepatitis C without hepatic coma (HCC) - LIVER FIBROSIS, CHRONIC VIRAL HEPATITIS PANEL - REF LAB; Future - CBC; Future - PT / INR; Future - DRUGS OF ABUSE WITH REFLEX TO CONFIRMATION, URINE; Future - ALCOHOL MEDICAL; Future - HEPATIC FUNCTION PANEL; Future - US RIGHT UPPER QUADRANT; Future Immunization deficiency - US RIGHT UPPER QUADRANT; Future Assessment: 1. Chronic hepatitis C-genotype 1a or 1B with a viral load 31,000,000 IU, treatment na??ve 2. Immunization deficiency-he does not appear to be immune to hepatitis A or hepatitis B Plan: 1. Recommend immunization for hepatitis A and hepatitis B. we can do this once he is referred to specialty pharmacy. 2. Recommend avoidance of sharing razors, toothbrushes, tweezers, clippers. 3. We will get labs, right upper quadrant ultrasound and FibroSure. If appropriate for treatment will refer to specialty pharmacy for hep C treatment with follow-up 3 months following completion of therapy to evaluate for sustained viral response. 4. We discussed treatment for hepatitis C does not provide immunity to hepatitis C. Return for followup 12 weeks after completing hep C treatment. 1. The patient indicates understanding of these issues and agrees with the plan. 2. I reviewed the patient's medical information and medical history. 3. I have reviewed the past medical, family, and social history sections including the medications and allergies listed in the above medical record. 4. Recommend yearly physical exam with PCP. This note was generated using Voice Recognition technology. It has been reviewed by the undersigned, however, may still contain unintended errors. Electronically signed by: Trini Jaramillo APRN, 08/15/2020 8:54 AM CC: Stephany Myles ARNP documented in this encounter Miscellaneous Notes * Patient Instructions - Trini Jaramillo APRN - 08/15/2020 8:30 AM EDT You may be contacted by mail or e-mail to participate in a patient satisfaction survey regarding your office visit today. We value your opinion and depend on your feedback to make improvements and provide you with the best possible experience while receiving high quality medical treatment. Your time in completing this survey is greatly appreciated. TRODUCTION -- The term hepatitis is used to describe a common form of liver injury. Hepatitis simply means inflammation of the liver (the suffix itis means inflammation, and hepa means liver). Hepatitis has a number of causes, including alcohol abuse, large doses of certain medicines, poisonous mushrooms, and viruses. Hepatitis C is caused by a virus that is spread from one person to another in blood and body fluids, such as by sharing IV drug needles, or works , or during and delivery. Chronic hepatitis C is the most common chronic liver disease and causes 8000 to 13,000 deaths each year among peoplewho have developed advanced cirrhosis and complications related to cirrhosis. The majority of livertransplants performed in the [place] are done for people with chronic hepatitis C. This article discusses the symptoms, causes, and long-term management of hepatitis C virus (HCV). Articles about hepatitis A and B are available separately. (See Patient information: Hepatitis A (Beyond the Basics) and Patient information: Hepatitis B (Beyond the Basics) .) HEPATITIS C SYMPTOMS -- When you are first exposed to the hepatitis C virus and become infected, you have acute hepatitis C . Most people have no symptoms of infection during this time. In 70 to 80 percent of people, the infection becomes chronic. The word chronic implies that the infection will be prolonged, or even lifelong, unless you get treatment that cures the infection. Many people with chronic hepatitis C have no symptoms, even if there is serious liver damage. Of those who do develop symptoms, the most common symptom is fatigue; other less common symptoms include nausea, lack of appetite, muscle or joint aches, weakness, and weight loss. HOW DID I BECOME INFECTED WITH HEPATITIS C? -- The hepatitis C virus is spread by contact with blood. Blood and blood products -- Hepatitis C was commonly spread by contaminated blood transfusions until the early , when a blood test was developed to screen blood donors for hepatitis C. As a result, the current risk of becoming infected with hepatitis C from a blood transfusion is quite small, estimated at 1 in 1.9 million. (See Patient information: Blood donation and transfusion (Beyond theBasics) .) Sex -- The hepatitis C virus can be spread through sex, although the risk is much smaller than withother types of viruses. The risk of transmission between stable monogamous sexual partners (ie, between sexual partners who have no other sexual contacts) is estimated to be approximately 1 in 1000 per year. Because of this small risk, most experts do not feel that use of condoms is necessary to prevent transmission of hepatitis C in monogamous couples. However, if you do NOT have a stable monogamous sexual partner, you SHOULD use condoms. This is to protect you from new infections (such as HIV or other sexually transmitted diseases), as well as to protect your partner from acquiring hepatitis C. The risk of transmitting the virus is higher in people who are infected with both hepatitis C and HIV. Condoms are recommended during sex for all people who have HIV. Other transmission -- There is no evidence that kissing; hugging; sneezing; coughing; casual contact; sharing food, water, eating utensils, or drinking glasses; or having other contact without blood exposure can spread the hepatitis C virus. However, sharing toothbrushes, razors, and other objects that might be contaminated with blood is not recommended. This also applies to implements (such as straws) used to inhale cocaine and needles and syringes used to inject drugs. -- The risk of transmitting hepatitis C to your baby during probably depends onthe level of virus in your bloodstream. In general, the risk is about 5 to 6 percent (about 1 in 20) but is increased in people who are also infected with HIV, in whom the risk increases to 12 percent, or one in eight. Women with hepatitis C who are or thinking about getting should speak to their doctor about these risks. (See Vertical transmission of hepatitis C virus and in women with pre-existing chronic liver disease .) HEPATITIS C DIAGNOSIS Blood tests -- Hepatitis C is diagnosed with a blood test. In most cases, a screening blood test (hepatitis C virus antibody) is done because you have one or more risk factors for the infection, including the following: Recent exposure to blood infected with HCV (eg, an accidental needle stick) Being HIV positive Past or current sexual partner of a person with HCV Previous or current use of IV drugs Previous or current use of hemodialysis (a treatment for kidney failure) Recipient of donated blood or organs before May 1992 or blood clotting factors before 1986 Less commonly, a screening test will be done because you have symptoms of recent hepatitis infection, such as a lack of appetite, nausea, flu-like symptoms, yellow discoloration of the skin (jaundice), or pain under the ribs on the right side (where the liver is located) (figure 1). If the screening test is positive for hepatitis C, further testing is performed to confirm that thevirus is present. Results of these tests are used to guide treatment: Hepatitis C virus (HCV) RNA is a measure of the amount of virus circulating in the blood. HCV RNA is detectable in the blood within days to eight weeks following exposure. Hepatitis C genotype testing determines the specific type of HCV; most people in the [place] have type 1, but types 2 and 3 are also common. Type 4 is sometimes seen but is uncommon. Liver biopsy -- Liver biopsy is done as an outpatient procedure and involves taking a tiny sample of the liver tissue and looking at it under a microscope. This procedure is described in detail in a separate article. (See Patient information: Liver biopsy (Beyond the Basics) .) A liver biopsy is not required to diagnose hepatitis C. However, a liver biopsy is often performed if your doctor is planning to start hepatitis C treatment. Results of the biopsy can help to determine how much the disease has advanced and the long-term prognosis. HEPATITIS C COMPLICATIONS -- The hepatitis C virus causes damage to the liver, although the liver is able to repair itself to some degree. This damage occurs over many years. In some people, scar tissue (called fibrosis) accumulates in the liver and can eventually become extensive, leading to cirrhosis. People with cirrhosis have a severely scarred liver and are at increased risk for serious complications. (See Patient information: Cirrhosis (Beyond the Basics) .) One of the most feared complications of cirrhosis is the development of liver cancer (called hepatocellular carcinoma). About 2 percent of people with cirrhosis (1 in 50) develop hepatocellular carcinoma each year. Therefore, the majority of people with cirrhosis due to hepatitis C will not develop hepatocellular carcinoma. Risk factors for complications -- Researchers have studied large groups of people with hepatitis C to find out what happens to them over time. Only about 20 percent (or one in five) will develop cirrhosis within 20 years of becoming infected with hepatitis C. Most others will have some inflammationin the liver but will not have significant scarring. Researchers have tried to identify factors that increase the risk of developing cirrhosis after infection with hepatitis C. The most important include: Drinking alcohol -- People with hepatitis C who drink alcohol are at a much greater risk for developing cirrhosis. The amount of alcohol that is safe to consume is not well established for people with hepatitis C. Even small amounts (social drinking) have been linked to an increased risk of cirrhosis in people with hepatitis C. Until more is known, we recommend completely avoiding alcohol. Marijuana use -- Using marijuana can lead to faster scarring of the liver in some people, and people with hepatitis C should not use marijuana. Obesity -- Obesity can lead to the deposition of fat in the liver (steatosis), which increases the risk of developing cirrhosis. Fat in the liver may also make some treatments for hepatitis C less effective. Amount of liver damage -- Increasing amounts of inflammation in the liver make it more likely that the liver will become scarred. There are many tools for determining how much damage hepatitis C has caused, including blood tests, an ultrasound of the liver, and liver biopsy. Liver biopsy is the gold standard test, although it is not recommended in everyone. (See 'Liver biopsy' above.) HEPATITIS C TREATMENT OPTIONS -- The goal of hepatitis C treatment is to prevent worsening of liverdisease and to get rid of the virus. (See Overview of the management of chronic hepatitis C virus infection .) Pegylated interferon (peginterferon) and ribavirin -- The most common treatment for hepatitis C is a combination of two medicines, pegylated interferon (also called peginterferon) and ribavirin. The ribavirin treatment is taken as a pill, and the pegylated interferon is taken as a weekly shot. The recommended duration of treatment with this combination is usually 24 weeks for genotypes 2 and 3. In the past, patients with genotype 1 were all treated for 48 weeks. However, treatment for patients with genotype 1 now includes an additional medication that improves cure rates, and the length of treatment depends upon whether a person has been treated in the past and upon changes in the level of the virus in the blood during treatment. (See 'Protease inhibitors' below.) During treatment, you will have tests to monitor the level of the virus in your blood (called the viral load). The goal of treatment is to completely get rid of the virus. Treatment may be stopped early if the virus does not respond or if you have intolerable treatment-related side effects. Side effects occur in almost 80 percent of patients who are given pegylated interferon and ribavirin. The most common side effects include flu-like symptoms, low levels of red and white blood cells, depression, and fatigue. Treatments to minimize these symptoms are available. Protease inhibitors -- Patients with genotype 1 are also treated with a protease inhibitor in addition to pegylated interferon and ribavirin. Protease inhibitors became available in March 2011, so patients treated before to this time did not receive them. Protease inhibitors do not work if taken by themselves because the virus quickly becomes resistant.By taking the protease inhibitors with peginterferon and ribavirin, resistance is much less likely.Protease inhibitors are pills and include boceprevir (brand name: VictrelisTM) and telaprevir (brand name: IncivekTM). These medications are used only for patients with genotype 1 and significantly increase cure rates in patients with genotype 1. Common side effects of protease inhibitors include low blood counts (anemia) and rashes. Should I be treated? -- The decision to have treatment for chronic hepatitis C infection is based upon a number of factors, some of which are discussed below. Treatment for hepatitis C is not recommended for everyone; you and your doctor should discuss the potential risks and benefits of treatment before you begin. Treatment with peginterferon is not recommended for people whose depression is not well controlled.People with uncontrolled depression are at risk for committing suicide during treatment. Interferoncan be used in people with well- controlled depression. Ribavirin should not be used by women who are , thinking about getting , or unable to use a reliable form of control, because it can cause severe defects. In addition, protease inhibitors (boceprevir and telaprevir) decrease how well control pills work, so women who are also taking a protease inhibitor need to use a second reliable form of control. Likewise, ribavirin should not be used by men whose partners are trying to become or men who are not using a reliable form of control. Ribavirin can damage the sperm of men who use the drug andcan lead to defects, even if the father is the only parent taking the drug. Also, women and men should continue to use a reliable form of control for six months after stopping ribavirin. People with underlying autoimmune disorders (eg, lupus, rheumatoid arthritis) might have an increased risk of treatment-related complications related to peginterferon. Certain groups of people develop liver scarring at a slow rate. In this group, it is reasonable to delay treatment until fibrosis progresses, liver function test results become abnormal, or clinical trials prove that earlier treatment is beneficial. This group includes people who: Have normal liver function test results (ALT) Were infected with hepatitis C before age 35 years Are female Do not drink alcohol Have no or minimal scarring on liver biopsy Cure -- The chance of being cured of hepatitis C depends in part on the type of hepatitis C virus (ie, the genotype). Overall, the chance is approximately 70 to 80 percent for people with genotype 1 who take all three drugs (peginterferon, ribavirin, and a protease inhibitor), and 80 percent or more with genotypes 2 and 3. The chance of cure is 50 to 70 percent for genotype 4. To determine if you are cured, you must wait six months after finishing treatment. Cure is defined as having no detectable levels of the virus for more than six months after stopping treatment. Follow-up studies of these people have shown no trace of the virus in the blood or liver for over 10 years. If hepatitis C does not respond or comes back -- There are several options for people whose viral levels do not drop or whose infection comes back after the first round of treatment. The best option depends upon what medicines you took before, how well you tolerated the previous treatment, your current liver function, and other factors. Options include watching and waiting, trying a different treatment regimen, or enrolling in a clinical trial. (See 'Clinical trials' below.) Discuss your options with a doctor who specializes in liver diseases (a configuration consultant) or infectious diseases. LONG-TERM MANAGEMENT OF HEPATITIS C Screening tests -- If you have hepatitis C and cirrhosis, you should have screening tests for livercancer. These tests usually include an ultrasound of the liver twice a year. Some doctors also check a blood test (to measure a protein called alpha fetoprotein level). In addition, a procedure called an upper endoscopy might be done to look for esophageal varices (enlarged veins in the esophagus). Varices develop in roughly 50 percent of people with cirrhosis. Upper endoscopy uses a thin, flexible fiberoptic instrument to inspect the esophagus (food pipe) and stomach. (See Patient information: Screening for esophageal varices (Beyond the Basics) .) Diet -- No specific diet improves signs or symptoms of hepatitis C. The best advice is to eat a normal, healthy, and balanced diet. It is reasonable to take a multivitamin without iron. It is safe todrink coffee; in fact, some studies suggest that coffee is good for the liver. Drinking alcohol is strongly discouraged to protect the liver from further damage. Vaccines Anyone who is infected with hepatitis C should be vaccinated against hepatitis A and B, unless he or she is already immune. A blood test can tell if you are immune. A vaccine that helps to prevent pneumonia is recommended. (See Patient information: Pneumonia prevention (Beyond the Basics) .) Influenza (flu) vaccination is recommended every year, usually in the fall. (See Patient information: Influenza prevention (Beyond the Basics) .) Routine vaccines are also recommended, including diphtheria and tetanus booster every 10 years. Read more about adult vaccines separately. (See Patient information: Adult vaccines (Beyond the Basics) and Immunizations for patients with chronic liver disease .) Exercise -- Exercise is good for overall health and is encouraged, but it has no effect on hepatitis C virus. Prescription and nonprescription medicines -- The liver breaks down many medicines, including prescription and nonprescription medicines, supplements, and herbs. Thus, it is always best to check withyour doctor or pharmacist before starting a new medicine. Most medicines are safe for people with hepatitis C, unless the liver is scarred. One important exception is acetaminophen (Tylenol??); the maximum recommended dose is 500 milligrams every six hours. Some medicines, such as cold medicines, may contain acetaminophen, so it is important to always check ingredient labels. You should completely avoid ibuprofen (sold as Advil??, Motrin??, and store brands), naproxen (soldas Aleve?? and store brands), and aspirin (sold as Bufferin??, Excedrin??, and store brands). Daily use of marijuana has been associated with worsening liver disease and is not recommended, particularly for people with hepatitis C. Herbal medicines -- Many herbal products claim to cure or improve hepatitis C; none of these claims has been proven true. In addition, some herbal medicines can seriously injure the liver. Support -- Sharing your concerns with others who have the same diagnosis can help you learn to livewith hepatitis C. The [employer] has helpful advice and a list of support groups (www.liverfoundation.org). If you have recently discovered that you or someone you care about has hepatitis C, there are many reasons to be optimistic: Hepatitis C progresses slowly, and many people who are infected will never get sick. You are not alone; about 2.7 million people in the [place] have hepatitis C. Treatment is available, and researchers are constantly working to develop new and better therapies. CLINICAL TRIALS -- Even though combination therapy with peginterferon plus ribavirin (and protease inhibitors in people with genotype 1) cures up to 80 percent of people with hepatitis C, some are not cured. Thus, new treatments for hepatitis C are actively being developed. A clinical trial is a carefully controlled way to study how well new treatments or new combinationsof known therapies work. Ask for more information about clinical trials or read about clinical trials at http://clinicaltrials.gov/. - Persons with HCV infection should be counseled to avoid sharing toothbrushes and dental or shaving equipment, and be cautioned to cover any bleeding wound to prevent the possibility of others coming into contact with their blood. - Persons should be counseled to stop using illicit drugs and enter substance abuse treatment. Those who continue to inject drugs should be counseled to avoid reusing or sharing syringes, needles, water, cotton, and other drug preparation equipment; use new sterile syringes and filters and disinfected cookers; clean the injection site with a new alcohol swab; and dispose of syringes and needles after one use in a safe, puncture-proof container. - Persons with HCV infection should be advised not to donate blood and to discuss HCV serostatus prior to donation of body organs, other tissue, or semen. - Persons with HIV infection and those with multiple sexual partners or sexually transmitted infections should be encouraged to use barrier precautions to prevent sexual transmission. Other persons with HCV infection should be counseled that the risk of sexual transmission is low and may not warrant barrier protection. - Household surfaces and implements contaminated with visible blood from an HCV- infected person should be cleaned using a dilution of 1 part household bleach to 9 parts water. Gloves should be worn when cleaning up blood spills. Please see www.hcvguidelines.org for more information regarding treatment options. You are not immune to Hepatitis A and B. I do recommend getting vaccinated for both of these viruses which can be done in your primary care physician's office. It is a series of 3 shots over 6 months. It is important to get immunized to protect yourself, especially since you have underlying liverdisease. If you were to get exposure to either of these viruses, it could push you over into liver f ailure We will get RUQ US, fibrosis score (looking for scarring) and other labs prior to hep C tx I'll see you 3 months after you complete therapy to make sure we've cleared the virus and repeat your liver enzymes documented in this encounter Plan of Treatment Not on file documented as of this encounter Goals Goal Patient Goal Type Associated Problems Recent Progress Patient-Stated? Author Maintain a healthy diet, exercise regularly and maintain an ideal body weight General Babita Carvalho RMA Stay Tobacco Free Lifestyle No Babita Bermudez RMA documented as of this encounter Results * DRUGS OF ABUSE WITH REFLEX TO CONFIRMATION, URINE (08/28/2020 11:19 AM EDT) 6 AM (Heroin) Absent Cutoff 10 ng/mL 08/28/2020 4:18 PM EDT [facility] Amphetamines Absent Cutoff 500 ng/mL 08/28/2020 4:18 PM EDT [facility] Barbiturates Absent Cutoff 200 ng/mL 08/28/2020 4:18 PM EDT [facility] Benzodiazepines Absent Cutoff 200 ng/mL 08/28/2020 4:18 PM EDT [facility] Buprenorphine Absent Cutoff 5 ng/mL 08/28/2020 4:18 PM EDT [facility] Cannabinoid Metabolite Absent Cutoff 50 ng/mL 08/28/2020 4:18 PM EDT [facility] Cocaine Metabolite Absent Cutoff 150 ng/mL 08/28/2020 4:18 PM EDT [facility] Fentanyl Absent Cutoff 2 ng/mL 08/28/2020 4:18 PM EDT [facility] Methadone and Metabolite Absent Cutoff 300 ng/mL 08/28/2020 4:18 PM EDT [facility], [facility] Opiate Absent Cutoff 300 ng/mL 08/28/2020 4:18 PM EDT [facility] Oxycodone Lvl Absent Cutoff 100 ng/mL 08/28/2020 4:18 PM EDT [facility] Creatinine Ur >25.0 mg/dL 08/28/2020 4:18 PM EDT [facility], [facility] Comment: Greater than 20: Consistent with valid sample Greater than 2 but less than 20: Possible dilution Less than 2: Questionable valid sample Urine URINE SPECIMEN COLLECTION / Unknown 08/28/2020 11:19 AM EDT 08/28/2020 11:19 AM EDT Narrative [facility] - 08/28/2020 4:18 PM EDT These drug classes have been qualitatively screened by immunoassay and are for medical purposes only. ??Results should not be used for non-medical purposes. Results reported as presumptive positive will be sent for confirmation. ?? Due to possible factors, such as, dilute/adulterated urine, concentration of drug/metabolite being below the cut-off, or antibody specificity of test reagent, a negative result does not rule out drug use. These results are only valid for urine specimens. Any contamination with vaginal pool/amniotic fluid could cause erroneous results. Trini Jaramillo ARCHITECTURAL INTERN URINE ORDERABLES Final Resul t Performing Organization Address City/[facility] [address]/ZIP Co de Phone Number [id number] [facility] , [place] [place] [address] * (ABNORMAL) HEPATIC FUNCTION PANEL (08/28/2020 10:15 AM EDT) Total Protein 6.8 6.4 - 8.3 gm/dL 08/28/2020 2:45 PM EDT [facility] Albumin 4.6 3.5 - 5.2 gm/dL 08/28/2020 2:45 PM EDT [facility] Bili Direct 0.4(H) 0.0 - 0.3 mg/dL 08/28/2020 2:45 PM EDT [facility] Bili Total 1.3 0.1 - 1.4 mg/dL 08/28/2020 2:45 PM EDT [facility] AST 37 <=40 U/L 08/28/2020 2:45 PM EDT [facility] ALT 46(H) <=41 U/L 08/28/2020 2:45 PM EDT [facility] Alk Phos 53 40 - 129 U/L 08/28/2020 2:45 PM EDT [facility] Blood VENOUS BLOOD / Unknown Venipuncture / Unknown 08/28/2020 10:15 AM EDT 08/28/2020 10:15 AM EDT Trini Jaramillo APRN CHEMISTRY ORDERABLES Final R esult Performing Organization Address City/[facility] [address]/ZIP Co de Phone Number [facility] [id number], [place] [address] * ALCOHOL MEDICAL (08/28/2020 10:15 AM EDT) Alcohol Medical <10 <=10 mg/dL 0 2:45 PM EDT [facility] Comment: 50-100 mg/dL - Flushing, slowing of reflexes, impaired visual acuity > 100 mg/dL - Depression of HEALTH ECONOMIST > 400 mg/dL - Fatalities reported Blood VENOUS BLOOD / Unknown Venipuncture / Unknown 08/28/2020 10:15 AM EDT 08/28/2020 10:15 AM EDT Trini Jaramillo APRN CHEMISTRY ORDERABLES Final R esult Performing Organization Address [facility] [address]/[facility] de Phone Number [facility] [address] [facility], [place] [address] * PT / INR (08/28/2020 10:15 AM EDT) PT 12.4 9.8 - 12.6 second(s) 08/28/2020 10:34 AM EDT [facility] INR 1.06 0.84 - 1.09 no units 08/28/2020 10:34 AM EDT [facility] Comment: Level of Therapy ? Indications ?Target INR Range Standard Dose Treatment and prophylaxis of venous ? 2.0 - 3.0 ? thrombosis, pulmonary embolism High Dose ? High risk patients with mechanical ? 2.5 - 3.5 ? heart valves Blood VENOUS BLOOD / Unknown Venipuncture / Unknown 08/28/2020 10:15 AM EDT 08/28/2020 10:15 AM EDT Trini Jaramillo APRN HEMATOLOGY ORDERABLES Final Result Performing Organization Address [facility] [address]/[facility] de Phone Number [facility] [address] [place] [address] * CBC (08/28/2020 10:15 AM EDT) WBC 5.0 3.7 - 10.3 x10(3)/mcL 08/28/2020 7:49 PM EDT [facility] RBC 5.11 4.60 - 6.10 x10(6)/mcL 08/28/2020 7:49 PM EDT [facility] Hgb 15.7 13.7 - 17.5 g/dL 08/28/2020 7:49 PM EDT [facility] Hct 46.2 40.0 - 51.0 % 08/28/2020 7:49 PM EDT [facility] MCV 90.5 80.0 - 100.0 fL 08/28/2020 7:49 PM EDT [facility] MCH 30.8 26.0 - 34.0 pg 08/28/2020 7:49 PM EDT [facility] MCHC 34.1 30.7 - 35.5 g/dL 08/28/2020 7:49 PM EDT [facility] RDW 12.6 <=14.9 % 08/28/2020 7:49 PM EDT [facility] Platelet 189 155 - 369 x10(3)/mcL 08/28/2020 7:49 PM EDT [facility] MPV 9.5 8.8 - 12.5 fL 08/28/2020 7:49 PM EDT [facility] Blood VENOUS BLOOD / Unknown Venipuncture / Unknown 08/28/2020 10:15 AM EDT 08/28/2020 10:15 AM EDT us Trini Jaramillo ARCHITECTURAL INTERN HEMATOLOGY ORDERABLES Final Result [facility] [address] [facility] , [place] [address] * (ABNORMAL) LIVER FIBROSIS, CHRONIC VIRAL HEPATITIS PANEL - REF LAB (08/28/2020 10:15 AM EDT) [id number] in, Fibrometer 206 131 - 293 mg/dL 08/31/2020 3:34 AM EDT [facility] Alanine Aminotransferase, Fibrometer 53(H) 5 - 50 U/L 08/31/2020 3:34 AM EDT [facility] Aspartate Aminotransferase, Fibrometer 40 9 - 50 U/L 08/31/2020 3:34 AM EDT [facility] Gamma Glutamyl Transferase, Fibrometer 88(H) 7 - 51 U/L 08/31/2020 3:34 AM EDT [facility] Urea Nitrogen, Fibrometer 18 7 - 20 mg/dL 08/31/2020 3:34 AM EDT [facility] Fibrometer Platelet Count 189 k/uL 08/31/2020 3:34 AM EDT [facility] Fibrometer Prothrombin Index 100 90 - 120 % 08/31/2020 3:34 AM EDT [facility] Fibrometer Patient Score 0.3 08/31/2020 3:34 AM EDT [facility] Cirrhometer Patient Score 0.01 08/31/2020 3:34 AM EDT [facility] Fibrosis Metavir Classification F1[F1-F2] 08/31/2020 3:34 AM EDT [facility] Comment: INTERPRETIVE INFORMATION: Fibrosis Metavir Classification FibroMeter (fibrosis score) comments F0/F1 ?Equal probability between F0 and F1 F1[F1-F2] ??Predominance of F1, but F2 is possible F2[F1-F2] ??Predominance of F2, but F1 is possible F2[F1-F3] ??Predominance of F2, but F1 and F3 are possible F2/F3 ?Equal probability between F2 and F3 F3[F2-F4] ??Predominance of F3, but F2 and F4 are possible F3[F3-F4] ??Predominance of F3, but F4 is possible F4[F3-F4] ??Predominance of F4, but F3 is possible Inflameter Patient Score 0.35 08/31/2020 3:34 AM [facility] Inflameter Metavir Classification A1/A2 08/31/2020 3:34 AM [facility] Comment: INTERPRETIVE INFORMATION: InflaMeter Metavir Classification InflaMeter (activity score) comments A0/A1 ? Equal probability between A0 and A1 A1/A2 ? Equal probability between A1 and A2 A2/A3 ? Equal probability between A2 and A3 EER Fibrometer Report See Note 08/31/2020 3:34 AM [facility] Comment: Access [facility] Enhanced Report using either link below: -Direct access: [email or web address] -Enter Username, Password: [email or web address] Username: [email or web address] Password: [email or web address] Fibrometer Interpretation See Report 08/31/2020 3:34 AM EDT [facility] Comment: [16] [17]INTERPRETIVE INFORMATION: Fibrometer Interpretation Calculations for the final report are based on accurate data for age, gender, and platelet count. If any of this information needs to be corrected, please contact [facility] [employer] to request a recalculation. Client Services may be contacted at . The [employer] FibroMeter profile serves as a surrogate marker of liver fibrosis, cirrhosis, and necro-inflammatory activity. A proprietary algorithm calculates and compares results from 7 blood markers along with age and gender to provide a patient score (from 0 to 1) and a correlated fibrosis stage (Metavir F0-F4) and activity grade (Metavir A0-A3). The fibrosis/cirrhosis score is further evaluated by a rules-based system to detect anomalous profile results which may modify the fibrosis/cirrhosis score as needed. Results should be interpreted in conjunction with the patient's clinical history; particularly when the rules-based system has modified the scores. Legend: -Metavir is a histological scoring system for determining the extent of liver fibrosis and inflammation. STAGE OF FIBROSIS (F scale) F0 = no fibrosis F1 = portal fibrosis without septa F2 = portal fibrosis with few septa F3 = numerous septa without cirrhosis F4 = cirrhosis GRADE OF NECRO-INFLAMMATORY ACTIVITY (A scale) A0 = no activity A1 = mild activity A2 = moderate activity A3 = severe activity -Platelet count result provided by client. -The Prothrombin Index test expresses the Prothrombin Time (PT) as a percentage of normal, and is used to standardize PT results across different instrument/reagent combinations. Test developed and characteristics determined by [facility]. See Compliance Statement B: [employer]/CS Performed By: [facility] [address] [place] [address] [employer] Worker [employer]: Nicole Sanchez MD Blood VENOUS BLOOD / Unknown Venipuncture / Unknown 08/28/2020 10:15 AM EDT 08/28/2020 10:15 AM EDT us Trini Jaramillo APRN CHEMISTRY ORDERABLES Final R esult [facility] [address] [place] [address] * US RIGHT UPPER QUADRANT (08/28/2020 10:10 AM EDT) Anatomical Region Laterality Modality Abdomen Ultrasound 08/28/2020 10:1 0 AM EDT Impressions 08/28/2020 10:13 AM EDT Unremarkable right upper quadrant ultrasound. ?? - - Narrative 08/28/2020 10:13 AM EDT US RIGHT UPPER QUADRANT, ??08/28/2020 10:10 AM CLINICAL HISTORY: ??B18.2-Chronic viral hepatitis C-ICD-10-CM Z28.3-Underimmunization [id number]. COMPARISON: ??Ultrasound 06/18/[address] 02/22/2018 PROCEDURE [...] CLINICAL HISTORY: B18.2-Chronic viral hepatitis C-ICD-10-CM Z28.3-Underimmunization [id number]. COMPARISON: Ultrasound 06/18/[address] 02/22/2018 PROCEDURE [...] hepatitis C without hepatic coma (HCC)- Primary Immunization deficiency Personal history of underimmunization status Chronic hepatitis C without hepatic coma (HCC) Immunization deficiency Personal history of underimmunization status documented in this encounter Care Teams Plaster Whittler Relationship Specialty Start Date End Date Stephany Myles APRN [address] [place], [place] [id number] PCP - General Nurse Practitioner-Family 05/17/20 Casi Cole LCSW [employer] 06/27/20 documented as of this encounter
--- OUTSIDE RECORDS SUMMARY | 2024-10-25 22:34 | XMS_ITS | Encounter Summary ---
Author Organization [place] [address] Care Team Providers Care [employer] Education Teacher Name Role Phone Stephany Myles APRN Primary Care Provider [phone] [phone] Casi Cole HIGH SPEED WARPER TENDER Unavailable Unavail able Reason for Visit * Reason Comments Follow-up Anxiety pt sts that meds are helping sts that he has been taking 2 of the last dosage and just now picked up the new dose from the pharmacy Encounter Details Date Type Department Care Team (Late st Contact Info) Description 08/01/2020 9:00 AM EDT Office Visit [facility] [place] [facility] [address] 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 No / Unsure 08/01/2020 8:50 AM EDT documented as of this encounter Last Filed Vital Signs Vital Sign Reading Time Taken Comments Blood Pressure 118/64 08/01/2020 9:03 AM EDT Pulse 69 08/01/2020 9:03 AM EDT Temperature 36.4 ??C (97.6 ??F) 08/01/2020 9:03 AM ED T Respiratory Rate 18 08/01/2020 9:03 AM EDT Oxygen Saturation 98% 08/01/2020 9:03 AM EDT Inhaled Oxygen Concentration - - Weight 72.9 kg (160 lb 12.8 oz) 08/01/2020 9:03 AM EDT Height - - Body Mass Index 25.95 06/14/2020 10:20 AM EDT documented in this encounter Functional [...] Homer Sanders MA documented in this encounter Ordered Prescriptions Prescription Sig Dispense Quantity Refills Last Filled Start Date End Date buPROPion (WELLBUTRIN XL) 150 mg Oral Tablet Sustained Release 24 hrIndications:Gener alized anxiety disorder Take 1 Tab by mouth every morning. 30 Tab 5 08/01/2020 12/04/2020 documented in this encounter Progress Notes * Stephany Myles ARNP - 08/01/2020 9:00 AM EDT Assessment Diagnoses and all orders for this visit: Generalized anxiety disorder Comments: Stable, refills provided, follow-up 6 months or sooner if needed Orders: - buPROPion (WELLBUTRIN XL) 150 mg Oral Tablet Sustained Release 24 hr; Take 1 Tab by mouth every morning. Dispense: 30 Tab; Refill: 5 Chronic hepatitis C without hepatic coma (HCC) (Chronic) Comments: Hepatitis panel is positive for hep C type Ia or Ib 30,000 viral load Advised to call GI and phone number provided Progress Note: Vitals: 08/01/20 0903 BP: 118/64 Pulse: 69 Resp: 18 Temp: 97.6 ??F (36.4 ??C) TempSrc: Temporal SpO2: 98% Weight: 160 lb 12.8 oz (72.9 kg) SUBJECTIVE: Chief Complaint Patient presents with ??? Follow-up ??? Anxiety pt sts that meds are helping sts that he has been taking 2 of the last dosage and just now picked up the new dose from the pharmacy HPI: Patient here for follow-up to anxiety. States he is doing well on his current dose of Wellbutrin. He has an appointment scheduled for counseling for stress management techniques. He feels like work is going well and he is handling the stress better. He had recent lab work done that was ordered by GI for evaluation of chronic hep C. He states he remains drug-free since 2014. He has never gone through treatment for hep C. Review of Systems Respiratory: Negative for chest tightness and shortness of breath. Neurological: Negative for dizziness and headaches. Psychiatric/Behavioral: Negative for agitation. The patient is not nervous/anxious. OBJECTIVE: Physical Exam NAD PERRL, ANICTERIS EOMI CTA B RR no murmur No C/C/E ABDOMEN SOFT WITH POS BS, NONTENDER Non focal neuro exam GAIT STEADY, POSTURE ERECT documented in this encounter Miscellaneous Notes * Patient Instructions - Stephany Myles ARNP - 08/01/2020 9:00 AM EDT [phone]. Call GI to set up appt for evaluation of hepatitis C documented in this encounter Plan of Treatment Not on file documented as of this encounter Goals Goal Patient Goal Type Associated Problems Recent Progress Patient-Stated? Author Maintain a healthy diet, exercise regularly and maintain an ideal body weight General No Babita Bermudez RMA Stay Tobacco Free Lifestyle No Babita Bermudez RMA documented as of this encounter Visit Diagnoses Diagnosis Generalized anxiety disorder- Primary Chronic hepatitis C without hepatic coma (HCC) documented in this encounter Discontinued Medications Medication Sig Discontinue Reason Start Date End Da te buPROPion (WELLBUTRIN XL) 150 mg Oral Tablet Sustained Release 24 hrIndications:Generalized anxiety disorder Take 1 Tab by mouth every morning. Reorder 06/14/2020 08/01/2020 documented as of this encounter Care Teams [employer] Special Education Teacher Relationship Specialty Start Date End Date Stephany Myles APRN [employer] [address] [place], [place] [id number] PCP - General Nurse Practitioner-Family 05/17/20 Casi Cole, HIGH SPEED WARPER TENDER Cable Mechanic 06/27/20 documented as of this encounter
--- OUTSIDE RECORDS SUMMARY | 2024-10-25 22:34 | XMS_ITS | Encounter Summary ---
Author Organization [place] [address] Care Team Providers Care Architecture Analyst Name Role Phone Stephany Myles APRN Primary Care Provider [phone] Manasa Chapman ADMINISTRATIVE PROJECT COORDINATOR Unavailable Unava ilable Casi Cole LCSW Unavailable Unavail able Reason for Visit * Reason Comments SW- Initial Care Management - Face To Face Encounter Details Date Type Department Care Team (Late st Contact Info) Description 06/27/2020 9:00 AM EDT Office Visit [facility] [address] 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 No / Unsure 06/27/2020 10:00 AM EDT documented as of this encounter [...] Homer Caldwell MA documented in this encounter Progress Notes * Casi Cole CSW - 06/27/2020 9:00 AM EDT Progress Note Chief Complaint Patient presents with ??? SW- Initial ??? Care Management - Face To Face Begin Time: 9:00am End Time: 9:55am Time Spent: 55min History of Present Illness: Brandon Yo is a 34 y.o. yo male who presents In person today for follow up treatment of anxiety and stress systems. Review of Systems: Psychiatric ROS: Manic symptoms -no Depression symptoms-no Psychosis-no Anxiety-yes Problems with sleep-no Appetite changes- no Weight changes-no Problems with energy- yes Lack of interest/pleasure/anhedonia- no Mental Status Examination: Appearance:Neat Dress:Appropriate Psychomotor Activity:Normal Abnormal Involuntary Movement:Absent Attitude:Cooperative Responsiveness:Engaging Speech:Coherent Mood:Euthymic Affect:Appropriate Thought Process:Goal Directed, Logical and Organized Thought Content:No Disturbances Perception:No Disturbances Orientation:Person, Place and Time Memory:Intact Insight:Understands nature of condition Judgement:Appears appropriate in context Estimated Reliability:Reliable Progress Note: Purpose of the session was to introduce Pt to the integrative urgent care physician assistant program; the disclosures of confidentiality; build rapport; obtain basic information and purpose for Pt's desire for therapy. Pt expressed understanding and agreement of the disclosures stated. Discussed with patient thatthis public relations writer is a mandated machine shorthand reporter and disclosure of harm to self or others will be reported, as public relations writer's job is to make certain patient and others are safe. Patient expressed understanding and agreement of conversation. Pt arrived for initial counseling session for anxiety and stress. Pt lives at home with his girlfriend and 2 of his children. He was promoted to the of [employer] in January and feels that his work-life balance has suffered since. He is working 80+ hours a week and spends time at home doing work as well. He explained that he snaps at his girlfriend when he is at home because he wants to be left alone to have some time for himself. He states that he enjoys his job, but has put his job as a priority over his family. SOLE BLACKER introduced pt to the Rule of 5s and practiced examples to put things into perspective. SOLE BLACKER also encouraged pt to make a daily to-do list while at work so that he can prioritize themajor tasks over the small tasks. 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 COMPLIANCE: Medication compliance: yes Homeworks: yes Provisional Diagnosis:Defer to PCP Treatment Goals Discussed with your Provider: The Purpose of counseling and Goal for Brandon Yo will be to decrease symptoms of stress and anxiety and no longer interfere with his functionality and quality of living. This progress will be measured by a decreased score with the PHQ-9, GAD7, CSSRT, DART; quality of living scale(s) over a period of time. Next Appointment: 07/18/20 @ 2:00pm telephonically documented in this encounter Plan of Treatment Not on file documented as of this encounter Goals Goal Patient Goal Type Associated Problems Recent Progress Patient-Stated? Author Maintain a healthy diet, exercise regularly and maintain an ideal body weight General No Babita Bermudez RMIman Stay Tobacco Free Lifestyle No Babita Bermudez RMA documented as of this encounter Visit Diagnoses Diagnosis Generalized anxiety disorder- Primary Stress at work Adverse effects of work environment documented in this encounter Care Teams Architecture Analyst Relationship Specialty Start Date End Date Stephany Myles APRN [address] [place] [id number] PCP - General Nurse Practitioner-Family 05/17/20 Manasa Chapman MSW Director Vaccine 05/21/20 06/27/20 Casi Cole LCSW Director Vaccine 06/27/20 documented as of this encounter
--- OUTSIDE RECORDS SUMMARY | 2024-10-25 22:34 | XMS_ITS | Encounter Summary ---
Author Organization [place] [address] Care Team Providers Care Enterprise Systems Engineer Name Role Phone Stephany Myles APRN Primary Care Provider [phone] Manasa Chapman PRODUCTION MECHANIC Unavailable Unava ilable Reason for Visit * Reason Comments Follow-up 4 week f/u Encounter Details Date Type Department Care Team (Late st Contact Info) Description 06/14/2020 10:00 AM EDT Office Visit [facility] [address] [place] [address] Stephany Myles APRN [address] [place], [place] [id number] Generalized anxiety disorder (Primary Dx); Chronic hepatitis C without hepatic coma (HCC); History of intravenous drug use in remission Social History Tobacco Use Types Packs/Day Years [...] have Coronavirus / COVID-19? No / Unsure 06/14/2020 10:01 AM EDT documented as of this encounter Last Filed Vital Signs Vital Sign Reading Time Taken Comments Blood Pressure 132/84 06/14/2020 10:20 AM EDT Pulse 88 06/14/2020 10:20 AM EDT Temperature 36.4 ??C (97.6 ??F) 06/14/2020 10:20 AM E DT Respiratory Rate 18 06/14/2020 10:20 AM EDT Oxygen Saturation 98% 06/14/2020 10:20 AM EDT Inhaled Oxygen Concentration - - Weight 72.1 kg (159 lb) 06/14/2020 10:20 AM EDT Height 167.6 cm (5' 6 ) 06/14/2020 10:20 AM EDT Body Mass Index 25.66 06/14/2020 10:20 AM EDT documented in this [...] Tab by mouth every morning. 30 Tab 2 06/14/2020 08/01/2020 documented in this encounter Progress Notes * Stephany MylesELINA - 06/14/2020 10:00 AM EDT Assessment Diagnoses and all orders for this visit: Generalized anxiety disorder Comments: Appointment made for counseling session in a month and follow-up He will start Wellbutrin Chronic hepatitis C without hepatic coma (HCC) (Chronic) Comments: To consult with GI for evaluation of treatment necessary for hep C History of intravenous drug use in remission Comments: To consult with GI for evaluation of treatment necessary for hep C Overview: Clean 2014- heroin Other orders - buPROPion (WELLBUTRIN XL) 150 mg Oral Tablet Sustained Release 24 hr; Take 1 Tab by mouth every morning. Dispense: 30 Tab; Refill: 2 Progress Note: Vitals: 06/14/20 1020 BP: 132/84 Pulse: 88 Resp: 18 Temp: 97.6 ??F (36.4 ??C) TempSrc: Temporal SpO2: 98% Weight: 159 lb (72.1 kg) Height: 5' 6 (1.676 m) SUBJECTIVE: Chief Complaint Patient presents with ??? Follow-up 4 week f/u HPI: Patient here for one-month follow-up. He was established here a month ago. Main concern was anxiety. He has established with licensed clinical social worker for counseling and had his initial evaluation. He did miss today's appointment. Initially he was prescribed Celexa but stopped taking it after 4 days due to profound fatigue. A prescription of Wellbutrin was sent in for him but he did not get the message that it was available. Patient has a past history of hepatitis C from IV drug use which he has been clean for many years. He has not made a appointment yet to see gastroenterology for treatment evaluation Review of Systems Constitutional: Negative for fatigue and fever. HENT: Negative for congestion and sore throat. Respiratory: Negative for chest tightness and shortness of breath. Cardiovascular: Negative for chest pain and palpitations. Gastrointestinal: Negative for abdominal pain and nausea. Neurological: Negative for dizziness and headaches. OBJECTIVE: Physical Exam NAD PERRL, ANICTERIS EOMI CTA B RR no murmur No C/C/E ABDOMEN SOFT WITH POS BS, NONTENDER Non focal neuro exam GAIT STEADY, POSTURE ERECT documented in this encounter Miscellaneous Notes * Patient Instructions - Stephany Myles ARNP - 06/14/2020 10:00 AM EDT Call gastroenterology to set up appt for evaluation of hepatitis. 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 Reorder 06/05/2020 06/14/2020 documented as of this encounter Historical Medications * This list may reflect changes made after this encounter. FLUoxetine (PROZAC) 20 mg Oral Capsule FLUOXETINE HCL 20 MG CAPS 12/25/2015 0 added in this encounter Care Teams Enterprise Systems Engineer Relationship Specialty Start Date End Date Stephany Myles APRN [address] [place] [id number] PCP - General Nurse Practitioner-Family 05/17/20 Manasa Chapman MSW Plastics Plater 05/21/20 06/27/20 documented as of this encounter
--- OUTSIDE RECORDS SUMMARY | 2024-10-25 22:34 | XMS_ITS | Encounter Summary ---
Author Organization [facility] [place] [address] Care Team Providers Care Ship Erector Name Role Phone Stephany Myles ANGEL Primary Care Provider [phone] [phone] Manasa Chapman MECHANICAL FIELD ENGINEER Unavailable Unava ilable Encounter Details Date Type Department Care Team (Latest Contact Info) Description 06/14/2020 Travel Social History Tobacco Use Types Packs/Day [...] 06/14/2020 10:19 AM EDHomer Raymond MA * Is the person blind or [...] on filedocumented in this encounter Care Teams Ship Erector Relationship Specialty Start Date End Date Stephany Myles APRN [facility] [address] [place], [place] [id number] PCP - General Nurse Practitioner-Family 05/17/20 Manasa Chapman MSW Inspector Packager 05/21/20 06/27/20 documented as of this encounter
--- OUTSIDE RECORDS SUMMARY | 2024-10-25 22:34 | XMS_ITS | Encounter Summary ---
Author Organization [facility] 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
--- OUTSIDE RECORDS SUMMARY | 2024-10-25 22:34 | XMS_ITS | Encounter Summary ---
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
--- OUTSIDE RECORDS SUMMARY | 2024-10-25 22:34 | XMS_ITS | Encounter Summary ---
Author Organization [place] [address] Care Team Providers Care Purification Supervisor Name Role Phone Unavailable Primary Care Provider Unavailabl e Reason for Visit * Reason Comments Eye Problem thinks it is pinkeye , both eyes are red, started in left eye x 2 days Encounter Details Date Type Department Care Team (Latest Contact Info) Description 01/26/2020 12:15 PM EDT Office Visit [facility] [address] [place] [address] Minnie Jordan, NOVELTIES SALES REPRESENTATIVE [address], [place] [id number] Acute bacterial conjunctivitis of both eyes (Primary Dx) Social History Tobacco Use Types [...] Sign Reading Time Taken Comments Blood Pressure 116/74 01/26/2020 12:20 PM EDT Pulse 82 01/26/2020 12:20 PM EDT Temperature 36.6 ??C (97.9 ??F) 01/26/2020 1 2:20 PM EDT Respiratory Rate 16 01/26/2020 12:2 0 PM EDT Oxygen Saturation 97% 01/26/2020 12: 20 PM EDT Inhaled Oxygen Concentration - - Weight 71.6 kg (157 lb 12.8 oz) 020 12:20 PM EDT Height 167.6 cm (5' 6 ) 01/26/2020 12:2 0 PM EDT Body Mass Index 25.47 01/26/2020 12:20 PM EDT documented in this encounter Ordered Prescriptions Prescription Sig Dispense Quantity Refills Last Filled Start Date End Date tobramycin (TOBREX) 0.3 % Opht DropsIndications:Ac jason bacterial conjunctivitis of both eyes Place 1 Drop into both eyes every 4 hours for 10 days. Administer drops in both eyes. 1 Bottle 01/26/2020 0 documented in this encounter Progress Notes * Minnie Jordan APRN - 01/26/2020 12:15 PM EDT Urgent Care Encounter Brandon Yo 34 y.o. male is being seen today for Chief Complaint Patient presents with ??? Eye Problem thinks it is pinkeye, both eyes are red, started in left eye x 2 days HPI Patient presents with mild itching, redness, thick drainage, crusted shut eye in morning, x2days. Began 2 days ago with left eye, has since began in right eye today. Denies fb sensation or photophobia. Patient is non contact lens wearer. Has young children at home. Review of Systems Constitutional: Negative for activity change, appetite change, chills, fatigue and fever. HENT: Negative for congestion, ear discharge, ear pain, postnasal drip and sore throat. Eyes: Positive for discharge, redness and itching. Negative for photophobia, pain and visual disturbance. Skin: Negative for color change, pallor, rash and wound. Neurological: Negative for dizziness, weakness, light-headedness and headaches. Psychiatric/Behavioral: Negative for agitation, behavioral problems, confusion, decreased concentration and dysphoric mood. The patient is not nervous/anxious. Patient Active Problem List Diagnosis Date Noted ??? Chronic hepatitis C without hepatic coma (HCC) 05/13/2016 History reviewed. No pertinent past medical history. History reviewed. No pertinent surgical history. No outpatient medications have been marked as taking for the 01/26/20 encounter (Office Visit) with Minnie Jordan APRN. No Known Allergies Social History Tobacco Use ??? Smoking status: Current Every Day Smoker Packs/day: 1.50 Types: Cigarettes ??? Smokeless tobacco: Never Used Substance Use Topics ??? Alcohol use: No Alcohol/week: 0.0 oz Family History Family history unknown: Yes Vitals: 01/26/20 1220 BP: 116/74 BP Location: Left arm Patient Position: Sitting Pulse: 82 Resp: 16 Temp: 97.9 ??F (36.6 ??C) TempSrc: Tympanic SpO2: 97% Weight: 157 lb 12.8 oz (71.6 kg) Height: 5' 6 (1.676 m) Physical Exam Vitals signs and nursing note reviewed. Constitutional: General: He is not in acute distress. Appearance: Normal appearance. He is well-developed. He is not ill-appearing, toxic-appearing or diaphoretic. HENT: Head: Normocephalic and atraumatic. Eyes: General: Lids are normal. Vision grossly intact. Right eye: No foreign body. Left eye: No foreign body. Extraocular Movements: Extraocular movements intact. Conjunctiva/sclera: Right eye: Right conjunctiva is injected. Exudate present. No chemosis or hemorrhage. Left eye: Left conjunctiva is injected. Exudate present. No chemosis or hemorrhage. Neck: Musculoskeletal: Neck supple. Cardiovascular: Rate and Rhythm: Normal rate. Skin: General: Skin is warm. Neurological: Mental Status: He is alert and oriented to person, place, and time. Psychiatric: Mood and Affect: Mood normal. Behavior: Behavior normal. Thought Content: Thought content normal. Judgment: Judgment normal. No results found for this visit on 01/26/20. Assessment and Plan Brandon was seen today for eye problem. Diagnoses and all orders for this visit: Acute bacterial conjunctivitis of both eyes - tobramycin (TOBREX) 0.3 % Opht Drops; Place 1 Drop into both eyes every 4 hours for 10 days. Administer drops in both eyes. Instructed patient to begin medication as prescribed. If new symptoms develop seek medical care immediately. Discussed increasing fluids and rest. Patient agreeable to plan. 1. Patient has been instructed that if any acute problems worsen or fail to improve that they should contact their primary care physician or urgent care. If acutely worse or unable to reach your physician (and is an emergency) go to emergency room. 2. New medications, if ordered, have been reviewed and possible side effects discussed with patienttoday. 3. Patient expressed verbal understanding of above assessment and plan. Return if symptoms worsen or fail to improve. Education provided regarding the care plan and instructions listed on the After Visit Summary [AVS]for today's visit. Full understanding of the care plan and instructions given on the AVS for today's visit was verbalized. Minnie Jordan APRN documented in this encounter Miscellaneous Notes * Patient Instructions - Minnie Jordan APRN - 01/26/2020 12:15 PM EDT Images from the original note were not included. Patient Education Bacterial Conjunctivitis, Adult Bacterial conjunctivitis is an infection of your conjunctiva. This is the clear membrane that covers the white part of your eye and the inner part of your eyelid. This infection can make your eye: ?? Red or pink. ?? Itchy. This condition spreads easily from person to person (is contagious) and from one eye to the other eye. What are the causes? ?? This condition is caused by germs (bacteria). You may get the infection if you come into close contact with: ? A person who has the infection. ? Items that have germs on them (are contaminated), such as face towels, contact lens solution, or eye makeup. What increases the risk? You are more likely to get this condition if you: ?? Have contact with people who have the infection. ?? Wear contact lenses. ?? Have a sinus infection. ?? Have had a recent eye injury or surgery. ?? Have a weak body defense system (immune system). ?? Have dry eyes. What are the signs or symptoms? ?? Thick, yellowish discharge from the eye. ?? Tearing or watery eyes. ?? Itchy eyes. ?? Burning feeling in your eyes. ?? Eye redness. ?? Swollen eyelids. ?? Blurred vision. How is this treated? ?? Antibiotic eye drops or ointment. ?? Antibiotic medicine taken by mouth. This is used for infections that do not get better with drops or ointment or that last more than 10 days. ?? Cool, wet cloths placed on the eyes. ?? Artificial tears used 2-6 times a day. Follow these instructions at home: Medicines ?? Take or apply your antibiotic medicine as told by your doctor. Do not stop taking or applying the antibiotic even if you start to feel better. ?? Take or apply ufda-rsl-vrqfjow and prescription medicines only as told by your doctor. ?? Do not touch your eyelid with the eye-drop bottle or the ointment tube. Managing discomfort ?? Wipe any fluid from your eye with a warm, wet washcloth or a cotton ball. ?? Place a clean, cool, wet cloth on your eye. Do this for 10-20 minutes, 3-4 times per day. General instructions ?? Do not wear contacts until the infection is gone. Wear glasses until your doctor says it is okayto wear contacts again. ?? Do not wear eye makeup until the infection is gone. Throw away old eye makeup. ?? Change or wash your pillowcase every day. ?? Do not share towels or washcloths. ?? Wash your hands often with soap and water. Use paper towels to dry your hands. ?? Do not touch or rub your eyes. ?? Do not drive or use heavy machinery if your vision is blurred. Contact a doctor if: ?? You have a fever. ?? You do not get better after 10 days. Get help right away if: ?? You have a fever and your symptoms get worse all of a sudden. ?? You have very bad pain when you move your eye. ?? Your face: ? Hurts. ? Is red. ? Is swollen. ?? You have sudden loss of vision. Summary ?? Bacterial conjunctivitis is an infection of your conjunctiva. ?? This infection spreads easily from person to person. ?? Wash your hands often with soap and water. Use paper towels to dry your hands. ?? Take or apply your antibiotic medicine as told by your doctor. ?? Contact a doctor if you have a fever or you do not get better after 10 days. This information is not intended to replace advice given to you by your health care provider. Make sure you discuss any questions you have with your health care provider. Document Released: 08/11/2009 Document Revised: 06/08/2019 Document Reviewed: 06/08/2019 [employer] Patient Education ?? 2020 [employer] documented in this encounter Plan of Treatment Not on file documented as of this encounter Visit Diagnoses Diagnosis Acute bacterial conjunctivitis of both eyes- Primary documented in this encounter
--- OUTSIDE RECORDS SUMMARY | 2024-10-25 22:34 | XMS_ITS | Encounter Summary ---
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
--- OUTSIDE RECORDS SUMMARY | 2024-10-25 22:34 | XMS_ITS | Encounter Summary ---
Author Organization [place] [address] Care Team Providers Care Fisher Name Role Phone Stephany Myles APRN Primary Care Provider [phone] Manasa Chapman Unavailable Unava ilable Reason for Visit * Reason Comments CM- Telephonic Outreach Encounter Details Date Type Department Care Team (Late st Contact Info) Description 05/21/2020 Patient Outreach [facility] [address] App[place] [address] Manasa Chapman MSW CM- Telephonic Outreach Social History Tobacco Use [...] PM EDT documented as of this encounter Progress Notes * Manasa Chapman MSW - 05/21/2020 10:27 AM EDT TANK PROCESSOR called patient on this date to introduce counseling services and set up initial appt. TANK PROCESSOR scheduled initial appt for 05/28/20 @1:00pm documented in this encounter Plan of Treatment [...] on filedocumented in this encounter Care Teams Fisher Relationship Specialty Start Date End Date Stephany Myles APRN [address] [place] [address] PCP - General Nurse Practitioner-Family 05/17/20 Manasa Chapman MSW Rubber Goods Inspector Tester 05/21/20 06/27/20 documented as of this encounter
--- OUTSIDE RECORDS SUMMARY | 2024-10-25 22:34 | XMS_ITS | Encounter Summary ---
Author Organization [facility] [place] [address] Care Team Providers Care Behavior Clinician Name Role Phone Unavailable Primary Care Provider Unavailabl e Encounter Details Date Type Department Care Team (Latest Contact Info) Description 01/26/2020 Travel Social History Tobacco Use Types Packs/Day [...] on file documented as of this encounter Plan of Treatment Not on file documented as of this encounter Visit Diagnoses Not on filedocumented in this encounter
--- OUTSIDE RECORDS SUMMARY | 2024-10-25 22:34 | XMS_ITS | Encounter Summary ---
Author Organization [facility] Address [facility] [place] [address] Care Team Providers Care Relay Engineer Name Role Phone Stephany Myles APRN Primary Care Provider [phone] Casi Cole QUALITY ASSURANCE LEAD Unavailable Unavail able Reason for Visit * Reason Onset Date Comments Hepatitis C 07/04/2020 Encounter Details Date Type Department Care Team (Late st Contact Info) Description 07/04/2020 Telephone SEP [facility] [address] [address] Oc Zepeda MD [address] [place], [place] [id number] Hepatitis C Social History Tobacco Use Types Packs/Day Years [...] 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 * Telephone Encounter - Tamela Kong LPN - 07/04/2020 10:57 AM EDT Lab orders have been placed. Please ridge pt to inform thanks * Telephone Encounter - Shy Short - 07/04/2020 10:49 AM EDT [place] est 2016, prev seen for hep c but not treated at that time. He thinks he was told his levels were not enough out of range. He is calling back now to schedule for hep c eval. No recent labs done anywhere, not for a few yrs, he says. Can you place labs that are needed and route back to us? We'll call and let him know they're in. Thanks. documented in this encounter Plan of Treatment Not on file documented as of this encounter Goals Goal Patient Goal Type Associated Problems Recent Progress Patient-Stated? Author Maintain a healthy diet, exercise regularly and maintain an ideal body weight General No Babita Bermudez RMA Stay Tobacco Free Lifestyle No Babita Bermudez RMA documented as of this encounter Results * CBC (07/26/2020 11:48 [...] 07/26/2020 3:13 PM EDT [facility] RDW 11.9 <=14.9 % 07/26/2020 3:13 PM EDT [facility] Platelet 205 155 - 369 x10(3)/mcL 07/26/2020 3:13 PM EDT [facility] MPV 11.5 8.8 - 12.5 fL 07/26/2020 3:13 PM EDT [facility] Blood VENOUS BLOOD / Unknown Venipuncture / Unknown 07/26/2020 11:48 AM EDT 07/26/2020 11:48 AM EDT Oc Zepeda MD HEMATOLOGY ORDERABLES Final Result Performing Organization Address [facility] Co de Phone Number [facility], [address] , [place] [address] * (ABNORMAL) ACUTE HEPATITIS PANEL (07/26/2020 11:48 AM EDT) Hep Bs Ag Non-Reacti ve Non-Reacti ve 07/26/2020 6:42 PM EDT [facility] Hep B Core IgM Non-Reacti ve Non-Reacti ve 07/26/2020 6:42 PM EDT [facility] [employer], [facility] Hep A IgM Non-Reacti ve Non-Reacti ve 07/26/2020 6:42 PM EDT [facility] [employer], [facility] Hep C Ab Reactive(A ) Non-Reacti ve 07/26/2020 6:42 PM EDT [facility] [employer], [facility] Comment:Reactive. Antibodies to HCV detected. >97% of specimens with high signal cutoff confirm as reactive. HCV QUANT W/RFLX TO GENOTYPE -REF LAB is suggested for newly diagnosed HCV. Blood VENOUS BLOOD / Unknown Venipuncture / Unknown 07/26/2020 11:48 AM EDT 07/26/2020 11:48 AM EDT Oc Zepeda MD CHEMISTRY ORDERABLES Final Result Performing Organization Address [facility] Co de Phone Number [facility] [employer], [address] , [place] [address] * (ABNORMAL) HEPATIC FUNCTION PANEL (07/26/2020 11:48 AM EDT) [facility] Total Protein 7.4 6.4 - 8.3 gm/dL 07/26/2020 3:54 PM EDT [facility] Albumin 4.9 3.5 - 5.2 gm/dL 07/26/2020 3:54 PM EDT [facility] Bili Direct 0.2 0.0 - 0.3 mg/dL 07/26/2020 3:54 PM EDT [facility] Bili Total 0.8 0.1 - 1.4 mg/dL 07/26/2020 3:54 PM EDT [facility] AST 29 <=40 U/L 07/26/2020 3:54 PM EDT [facility] ALT 42(H) <=41 U/L 07/26/2020 3:54 PM EDT [facility] Alk Phos 66 40 - 129 U/L 07/26/2020 3:54 PM EDT [facility] Blood VENOUS BLOOD / Unknown Venipuncture / Unknown 07/26/2020 11:48 AM EDT 07/26/2020 11:48 AM EDT Oc Zepeda MD CHEMISTRY ORDERABLES Final Result Performing Organization Address [facility] Co de Phone Number [facility] [employer], [facility] [address] [facility] , [place] [address] * HIV AG/AB (07/26/2020 11:48 AM EDT) [facility] HIV Ag/AB Non-Reactiv e Non-Reacti ve 07/26/2020 6:04 PM EDT [facility] [employer] Blood VENOUS BLOOD / Unknown Venipuncture / Unknown 07/26/2020 11:48 AM EDT 07/26/2020 11:48 AM EDT cO Zepeda MD IMMUNOLOGY ORDERABLES Final Result Performing Organization Address [facility]/ZIP Co de Phone Number [facility] [employer], [facility] [address] , [address] [place] [id number] * HCV GENOTYPE BY PCR AND SEQUENCING -REF LAB (07/26/2020 11:48 AM EDT) HCV Genotyping by PCR & Sequen 1a or 1b 07/30/2020 9:06 AM EDT [employer] Comment: Cannot be further subtyped into Type 1a or Type 1b due to high conservation of the 5' untranslated region of the HCV genome. In addition, Type 6 virus may be misclassified as Type 1 in some cases. The Hepatitis C Virus High-Resolution Genotype by Sequencing test ([employer] test code [id number]) provides a higher level of subtype resolution. INTERPRETIVE INFORMATION: ??Hepatitis C Genotyping Hepatitis C Viral RNA is tested using reverse returned case inspector polymerase chain reaction (RT-PCR) to amplify a specific portion of the 5' untranslated region (5' UTR) of the viral genome. The amplified nucleic acid is sequenced bi-directionally using dye-terminator chemistry ([employer]). Sequencing data is compared to a database [...] 1. Test developed and characteristics determined by [facility] [facility]. See Compliance Statement B: [email or web address]/CS Performed By: [facility] [address] [place] [address] Wood Last Maker: Nicole Sanchez MD Blood VENOUS BLOOD / Unknown Venipuncture / Unknown 07/26/2020 11:48 AM EDT 07/26/2020 11:48 AM EDT us Oc Zepeda MD IMMUNOLOGY ORDERABLES Final Result [employer] [address] [place], [place] [id number] * (ABNORMAL) HCV QUANT NAAT (07/26/2020 11:48 AM EDT) Pathologist [facility] HCV Qnt by NAAT (IU/mL) 31,042,86 0 07/27/2020 5:24 PM EDT [employer] HCV Qnt by NAAT (log IU/mL) 7.49 log IU/mL 07/27/2020 5:24 PM EDT [employer] HCV Qnt by NAAT Interp Detected( A) Not Detected 07/27/2020 5:24 PM EDT [employer] Comment: INTERPRETIVE INFORMATION: HCV by [...] and Cellular Tissue-Based Products (HCT/P). Performed by [facility], [address] [place] [id number] [email or web address], Nicole Sanchez MD, Lab. Director Blood VENOUS BLOOD / Unknown Venipuncture / Unknown 07/26/2020 11:48 AM EDT 07/26/2020 11:48 AM EDT Oc Zepeda MD IMMUNOLOGY ORDERABLES Final Result [employer] [facility] [address] [place] [address] * PT / INR (07/26/2020 11:48 AM EDT) PT 11.6 9.8 - 12.6 second(s) 07/26/2020 1:18 PM EDT [facility] INR 0.99 0.84 - 1.09 no units 07/26/2020 1:18 PM EDT [facility] Comment: Level of Therapy ? [...] Oc Zepeda MD HEMATOLOGY ORDERABLES Final Result [facility] [address] [place] [address] documented in this encounter Visit Diagnoses Diagnosis Chronic hepatitis C without hepatic coma (HCC)- Primary documented in this encounter Orders Lab Orders Without Results Count Last Ordered D ate First Ordered Date HEPATITIS B SURFACE ANTIGEN 1 07/04/2020 documented in this encounter Care Teams Relay Engineer Relationship Specialty Start Date End Date Stephany Myles APRN [address] [place] [address] PCP - General Nurse Practitioner-Family 05/17/20 Casi Cole, QUALITY ASSURANCE LEAD Drying Room Operator 06/27/20 documented as of this encounter
--- OUTSIDE RECORDS SUMMARY | 2024-10-25 22:34 | XMS_ITS | Encounter Summary ---
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
--- OUTSIDE RECORDS SUMMARY | 2024-10-25 22:34 | XMS_ITS | Encounter Summary ---
Author Organization [place] [address] Care Team Providers Care Devops Developer Name Role Phone Stephany Myles ADVISOR [employer] FOUNDER Primary Care Provider [phone] Manasa Chapman Unavailable Unava ilable Reason for Visit * Reason Onset Date Comments CM- Telephonic Outreach 06/14/2020 CM- In office handoff 06/14/2020 Encounter Details Date Type Department Care Team (Late st Contact Info) Description 06/14/2020 Patient Outreach [facility] [address] [place] [address] Manasa Chapman, JOSEFINA CM- Telephonic Outreach; CM- In office handoff Social History Tobacco Use Types Packs/Day Years [...] documented in this encounter Progress Notes * Manasa Chapman MSW - 06/14/2020 11:48 AM EDT Patient missed his appt this morning at 9:30am. PICKLING TANK OPERATOR met with patient face to face and rescheduled it for 06/27/2020 @ 9:00am with Sharlene Cole. documented in this encounter Plan of Treatment [...] on filedocumented in this encounter Care Teams Devops Developer Relationship Specialty Start Date End Date Stephany Myles APRN [address] [place] [phone] PCP - General Nurse Practitioner-Family 05/17/20 Manasa Chapman MSW Diesel Technician 05/21/20 06/27/20 documented as of this encounter
--- OUTSIDE RECORDS SUMMARY | 2024-10-25 22:34 | XMS_ITS | Encounter Summary ---
Author Organization 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 [...] Procedure Name Priority Date/Time Associated Diagnosis Comments DRUGS OF ABUSE WITH REFLEX TO CONFIRMATION, URINE Routine 08/28/2020 11:19 AM EDT Chronic hepatitis C without hepatic coma (HCC) LIVER FIBROSIS, CHRONIC VIRAL HEPATITIS PANEL - REF LAB Routine 08/28/2020 10:15 AM EDT Chronic hepatitis C without hepatic coma (HCC) CBC Routine 08/28/2020 10:15 AM EDT Chronic hepatitis C without hepatic coma (HCC) PT / INR Routine 08/28/2020 10:15 AM EDT Chronic hepatitis C without hepatic coma (HCC) ALCOHOL MEDICAL Routine 08/28/2020 10:15 AM EDT Chronic hepatitis C without hepatic coma (HCC) HEPATIC FUNCTION PANEL Routine 08/28/2020 10:15 AM EDT Chronic hepatitis C without hepatic coma (HCC) documented in this encounter Results * DRUGS OF ABUSE WITH REFLEX TO CONFIRMATION, URINE (08/28/2020 11:19 AM EDT) 6 AM (Heroin) Absent Cutoff 10 ng/mL 08/28/2020 4:18 PM EDT [facility] Amphetamines Absent Cutoff 500 ng/mL 08/28/2020 4:18 PM EDT [facility] Barbiturates Absent Cutoff 200 ng/mL 08/28/2020 4:18 PM EDT [facility] Benzodiazepines Absent Cutoff 200 ng/mL 08/28/2020 4:18 PM EDT [facility] Buprenorphine Absent Cutoff 5 ng/mL 08/28/2020 4:18 PM EDT [facility] Cannabinoid Metabolite Absent Cutoff 50 ng/mL 08/28/2020 4:18 PM EDT [facility] Cocaine Metabolite Absent Cutoff 150 ng/mL 08/28/2020 4:18 PM EDT [facility] Fentanyl Absent Cutoff 2 ng/mL 08/28/2020 4:18 PM EDT [facility] Methadone and Metabolite Absent Cutoff 300 ng/mL 08/28/2020 4:18 PM EDT [facility] Opiate Absent Cutoff 300 ng/mL 08/28/2020 4:18 PM EDT [facility] Oxycodone Lvl Absent Cutoff 100 ng/mL 08/28/2020 4:18 PM EDT [facility] Creatinine Ur >25.0 mg/dL 08/28/2020 4:18 PM EDT [facility] Comment: Greater than 20: Consistent with valid sample Greater than 2 but less than 20: Possible dilution Less than 2: Questionable valid sample Urine URINE SPECIMEN COLLECTION / Unknown 08/28/2020 11:19 AM EDT 08/28/2020 11:19 AM EDT Narrative [facility] - 08/28/2020 4:18 PM EDT These drug [...] vaginal pool/amniotic fluid could cause erroneous results. us Trini Jaramillo APRN URINE ORDERABLES Final Resul t [facility] [address] [place] [address] * (ABNORMAL) HEPATIC FUNCTION PANEL (08/28/2020 10:15 AM EDT) Total Protein 6.8 6.4 - 8.3 gm/dL 08/28/2020 2:45 PM EDT [facility] Albumin 4.6 3.5 - 5.2 gm/dL 08/28/2020 2:45 PM EDT [facility] Bili Direct 0.4(H) 0.0 - 0.3 mg/dL 08/28/2020 2:45 PM EDT [facility] Bili Total 1.3 0.1 - 1.4 mg/dL 08/28/2020 2:45 PM EDT [facility] AST 37 <=40 U/L 08/28/2020 2:45 PM EDT [facility] ALT 46(H) <=41 U/L 08/28/2020 2:45 PM EDT [facility] Alk Phos 53 40 - 129 U/L 08/28/2020 2:45 PM EDT [facility] Blood VENOUS BLOOD / Unknown Venipuncture / Unknown 08/28/2020 10:15 AM EDT 08/28/2020 10:15 AM EDT Trinicarlie Jaramillo BUGGY LADLE TENDER CHEMISTRY ORDERABLES Final R esult Performing Organization Address City/[facility]/ZIP Co de Phone Number [facility] [employer] [facility] [address] , [place] [id number] * ALCOHOL MEDICAL (08/28/2020 10:15 AM EDT) Alcohol Medical <10 <=10 mg/dL 0 2:45 PM EDT [facility] [employer] [facility] Comment: 50-100 mg/dL - [place], slowing of reflexes, impaired visual acuity > 100 mg/dL - Depression of HORSE IDENTIFIER > 400 mg/dL - Fatalities reported Blood VENOUS BLOOD / Unknown Venipuncture / Unknown 08/28/2020 10:15 AM EDT 08/28/2020 10:15 AM EDT Trini Jaramillo BUGGY LADLE TENDER CHEMISTRY ORDERABLES Final R esult Performing Organization Address City/[facility]/ZIP Co de Phone Number [facility] [address] [facility] [address], [place] [address] * PT / INR (08/28/2020 10:15 AM EDT) PT 12.4 9.8 - 12.6 second(s) 08/28/2020 10:34 AM EDT [facility] INR 1.06 0.84 - 1.09 no units 08/28/2020 10:34 AM EDT [facility] Comment: Level of Therapy ? Indications ?Target INR Range Standard Dose Treatment and prophylaxis of venous ? 2.0 - 3.0 ? thrombosis, pulmonary embolism High Dose ? High risk patients with mechanical ? 2.5 - 3.5 ? heart valves Blood VENOUS BLOOD / Unknown Venipuncture / Unknown 08/28/2020 10:15 AM EDT 08/28/2020 10:15 AM EDT Trini Jaramillo BUGGY LADLE TENDER HEMATOLOGY ORDERABLES Final Result [facility] [address] [place] [address] * CBC (08/28/2020 10:15 AM EDT) [facility] WBC 5.0 3.7 - 10.3 x10(3)/mcL 08/28/2020 7:49 PM EDT [facility] RBC 5.11 4.60 - 6.10 x10(6)/mcL 08/28/2020 7:49 PM EDT [facility] Hgb 15.7 13.7 - 17.5 g/dL 08/28/2020 7:49 PM EDT [facility] Hct 46.2 40.0 - 51.0 % 08/28/2020 7:49 PM EDT [facility] MCV 90.5 80.0 - 100.0 fL 08/28/2020 7:49 PM EDT [facility] MCH 30.8 26.0 - 34.0 pg 08/28/2020 7:49 PM EDT [facility] MCHC 34.1 30.7 - 35.5 g/dL 08/28/2020 7:49 PM EDT [facility] RDW 12.6 <=14.9 % 08/28/2020 7:49 PM EDT [facility] Platelet 189 155 - 369 x10(3)/mcL 08/28/2020 7:49 PM EDT [facility] MPV 9.5 8.8 - 12.5 fL 08/28/2020 7:49 PM EDT [facility] Blood VENOUS BLOOD / Unknown Venipuncture / Unknown 08/28/2020 10:15 AM EDT 08/28/2020 10:15 AM EDT us Trini Jaramillo ANGEL HEMATOLOGY ORDERABLES Final Result [facility] [employer] [address] [facility] , [place] [address] * (ABNORMAL) LIVER FIBROSIS, CHRONIC VIRAL HEPATITIS PANEL - REF LAB (08/28/2020 10:15 AM EDT) [id number], Fibrometer 206 131 - 293 mg/dL 08/31/2020 3:34 AM EDT [facility] Alanine Aminotransferase, Fibrometer 53(H) [...] - 20 mg/dL 08/31/2020 3:34 AM EDT [facility] Fibrometer Platelet Count 189 k/uL 08/31/2020 3:34 AM EDT [facility] Fibrometer Prothrombin Index 100 90 - 120 % 08/31/2020 3:34 AM EDT [facility] Fibrometer Patient Score 0.3 08/31/2020 3:34 AM EDT [facility] Cirrhometer Patient Score 0.01 08/31/2020 3:34 AM EDT [facility] Fibrosis Metavir Classification F1[F1-F2] 08/31/2020 3:34 AM EDT [facility] Comment: INTERPRETIVE INFORMATION: Fibrosis Metavir Classification FibroMeter [...] Inflameter Patient Score 0.35 08/31/2020 3:34 AM EDT [facility] Inflameter Metavir Classification A1/A2 08/31/2020 3:34 AM EDT [facility] Comment: INTERPRETIVE INFORMATION: InflaMeter Metavir Classification InflaMeter (activity score) comments A0/A1 ? Equal probability between A0 and A1 A1/A2 ? Equal probability between A1 and A2 A2/A3 ? Equal probability between A2 and A3 EER Fibrometer Report See Note 08/31/2020 3:34 AM EDT [facility] Comment: Access [facility] Enhanced Report using either link below: -Direct access: [email or web address] -Enter Username, Password: [email or web address] Username: [email or web address] Password: [email or web address] Fibrometer Interpretation See Report 08/31/2020 3:34 AM HiddenbedT [facility] Comment: [16] [17]INTERPRETIVE INFORMATION: Fibrometer Interpretation Calculations for the final report are based on accurate data for age, gender, and platelet count. If any of this information needs to be corrected, please contact [facility] to request a recalculation. Client Services may be contacted at . The [employer] FibroMeter profile serves as a surrogate marker [...] combinations. Test developed and characteristics determined by [facility]. See Compliance Statement B: Anews/CS Performed By: [facility] [address] [place] [address] Cosmetologist: Nicole Sanchez MD Blood VENOUS BLOOD / Unknown Venipuncture / Unknown 08/28/2020 10:15 AM EDT 08/28/2020 10:15 AM EDT us Trini Jaramillo BUGGY LADLE TENDER CHEMISTRY ORDERABLES Final R esult [facility] [address] [place] [address] documented in this encounter Visit Diagnoses Diagnosis Chronic hepatitis C without hepatic coma (HCC) documented in this encounter Care Teams Applications Specialist Relationship Specialty Start Date End Date Stephany Mlyes APRN [address] [place], [place] [address] PCP - General Nurse Practitioner-Family 05/17/20 Casi Cole LCSW Pediatric Occupational Therapist 06/27/20 documented as of this encounter
--- OUTSIDE RECORDS SUMMARY | 2024-10-25 22:34 | XMS_ITS | Encounter Summary ---
Author Organization [place] [address] Care Team Providers Care Telephone Service Representative Name Role Phone Stephany Myles APRN Primary Care Provider [phone] Manasa Chapman LABOR CONTRACT ANALYST Unavailable Unava ilCasi Bridges TILE MECHANIC HELPER Unavailable Unavail able Reason for Visit * Reason Comments Follow-up Anxiety Pt sts that he is f/ u on wellbutrin and sts that he is doing ok with it so far, has only been on it for a week Encounter Details Date Type Department Care Team (Late st Contact Info) Description 06/27/2020 10:00 AM EDT Office Visit [facility] [place] [facility] [address] 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 No / Unsure 06/27/2020 10:00 AM EDT documented as of this encounter Last Filed Vital Signs Vital Sign Reading Time Taken Comments Blood Pressure 120/80 06/27/2020 10:11 AM EDT Pulse 74 06/27/2020 10:11 AM EDT Temperature 36.3 ??C (97.3 ??F) 06/27/2020 10:11 AM E DT Respiratory Rate 16 06/27/2020 10:11 AM EDT Oxygen Saturation 98% 06/27/2020 10:11 AM EDT Inhaled Oxygen Concentration - - Weight 71.7 kg (158 lb) 06/27/2020 10:11 AM EDT Height - - Body Mass Index 25.5 06/14/2020 10:20 AM EDT documented in this [...] documented in this encounter Progress Notes * MylesStephany ortegaELINA - 06/27/2020 10:00 AM EDT Vitals: 06/27/20 1011 BP: 120/80 Pulse: 74 Resp: 16 Temp: 97.3 ??F (36.3 ??C) TempSrc: Temporal SpO2: 98% Weight: 158 lb (71.7 kg) SUBJECTIVE: Chief Complaint Patient presents with ??? Follow-up ??? Anxiety Pt sts that he is f/u on wellbutrin and sts that he is doing ok with it so far, has only been on itfor a week HPI: Pt is a 34 y/o male presenting to clinic today for follow-up on anxiety. Pt states that he is taking Wellbutrin and he is doing okay on that. He says he has noticed an improvement in his mood but nothing outrageous. He has only been on it for a little over a week. He is unsure if it's not helping much yet d/t not being in his system long enough. He denies any concerning side effects d/t the medication. He started going to counseling and is helping him to learn coping skills and stress management. Review of Systems Constitutional: Negative for chills, fatigue and fever. HENT: Negative. Eyes: Negative. Respiratory: Negative for cough, chest tightness and shortness of breath. Cardiovascular: Negative for chest pain and palpitations. Gastrointestinal: Negative. Endocrine: Negative. Genitourinary: Negative. Musculoskeletal: Negative. Allergic/Immunologic: Negative. Neurological: Negative. Hematological: Negative. Psychiatric/Behavioral: The patient is nervous/anxious. OBJECTIVE: Physical Exam Constitutional: General: He is not in acute distress. Appearance: Normal appearance. HENT: Head: Normocephalic and atraumatic. Cardiovascular: Rate and Rhythm: Normal rate and regular rhythm. Pulses: Normal pulses. Heart sounds: Normal heart sounds. Pulmonary: Effort: Pulmonary effort is normal. Breath sounds: Normal breath sounds. Skin: General: Skin is warm. Neurological: General: No focal deficit present. Mental Status: He is alert and oriented to person, place, and time. Psychiatric: Mood and Affect: Mood normal. Speech: Speech normal. Behavior: Behavior normal. Behavior is cooperative. Thought Content: Thought content normal. Comments: Mildly anxious, stable. Assessment Diagnoses and all orders for this visit: Generalized anxiety disorder Comments: Continue taking Wellbutrin 150mg to see if continuation of improvement. Continue going to counseling. F/u 1 month or sooner if other issues arise. He will consider increasing dose in several days to two pills to equal 300 mg if not improved with coping skills and ongoing taking of the 150 mg. He will notify me on My Chart if needs new Rx of [id number] mg sent to pharmacy documented in this encounter Plan of Treatment [...] Primary documented in this encounter Care Teams Telephone Service Representative Relationship Specialty Start Date End Date Stephany Myles APRN [address] [place] [id number] PCP - General Nurse Practitioner-Family 05/17/20 Manasa Chapman MSW Irrigation Manager 05/21/20 06/27/20 Casi Cole LCSW Irrigation Manager 06/27/20 documented as of this encounter
--- OUTSIDE RECORDS SUMMARY | 2024-10-25 22:34 | XMS_ITS | Encounter Summary ---
Author Organization [place] [address] Care Team Providers Care Solutions Delivery Consultant Name Role Phone Brigid Kong MEDICAL ASSISTING INSTRUCTOR Primary Care Provider [phone] Manasa Chapman Unavailable Unava ilable Reason for Visit * Reason Comments SW- Initial SW- Telephonic Outreach Encounter Details Date Type Department Care Team (Late st Contact Info) Description 05/31/2020 3:00 PM EDT Office Visit [facility] [address] [place] [address] Manasa Chapman, JOSEFINA Generalized anxiety disorder (Primary Dx); Depression, unspecified depression type Social History Tobacco Use Types Packs/Day Years Used Date Smoking Tobacco: Every Day Cigarettes 1.5 24.9 Started: 11/16/1999 Smokeless Tobacco: Never Alcohol Use Standard Drinks/Week Comments No 0 (1 standard drink = 0.6 oz pur e alcohol) Overall Financial Resource Strain (CARDIA) Answe r Date Recorded Difficulty of Paying Living Expenses Not hard at all 05/31/2020 PHQ-2 Answer Date Recorded PHQ-2 Score 1 05/31/2020 Hunger Vital Sign Answer Date Recorded Worried [...] PM EDT documented as of this encounter Ordered Prescriptions Prescription Sig Dispense Quantity Refills Last Filled Start Date End Date buPROPion (WELLBUTRIN XL) 150 mg Oral Tablet Sustained Release 24 hr Take 1 Tab by mouth every morning. 30 Tab 2 06/05/2020 06/14/2020 documented in this encounter Progress Notes * Manasa Chapman, JOSEFINA - 05/31/2020 3:00 PM EDT Progress Note Chief Complaint Patient presents with ??? SW- Initial ??? SW- Telephonic Outreach Begin Time: 3:00pm End Time: 4:00pm Time Spent: 60 min (60 min counseling) History of Present Illness: Brandon Yo is a 34 y.o. yo male who comes into the office today for follow up treatment of anxiety systems. Review of Systems: Psychiatric ROS: Manic symptoms -no Depression symptoms-no Psychosis-no Anxiety-yes Problems with sleep-no Appetite changes- yes, not eating like he should, due to time constraints Weight changes-no Problems with energy- no Lack of interest/pleasure/anhedonia- no Mental Status Examination: Appearance:TARSHA Dress:TARSHA Psychomotor Activity:TARSHA Abnormal Involuntary Movement:TARSHA Attitude:Cooperative Responsiveness:Engaging Speech:Coherent Mood:Anxious Affect:Appropriate Thought Process:Goal Directed, Coherent and Logical Thought Content:No Disturbances Perception:No Disturbances Orientation:Person, Place and Time Memory:Intact Insight:Understands nature of condition Judgement:Good Estimated Reliability:Reliable Progress Note: Patient presented today for a counseling appointment through a video/telephonic visit. Patient has reviewed the terms and conditions of service as part of the registration for today's visit. I advised the patient that we are conducting his video/telephonic visit through our office in a private space on our secure network and this video/telephonic visit is being conducted in accordance with [facility] telehealth/video/telephonic visit regulations. Patient had no questions prior to initiationof the visit. Patient is a recovering heroin addict. He is almost 6 years sober. He feels like he has had a 20 year blackout. He has memory issues from his days of using. Everyday he's sweating and moving at 100 mph. He works at [employer] and recently got a promotion to be the [employer]. It has been stressful. He works a lot, 80 hours a week. 80% of his anxiety comes from work. He feels he's been more of an asshole at home because of the stress at work. Patient just recently bought a house. He has full custody of his 12 year old son and wasn't in his life previously. He has 4 kids total. 2 live with him. His girlfriend suggested counseling. He has does counseling in the past. He graduated drug court, treatment and was ordered to go to [facility] and get help in the past. He's been on a couple of different medications. He has been introduced to God and is going to congregation on Saturdays. He feels its comforting. His mom when he was 10 and his dad when he was 16. He used with his dad in the past. His dad introduced him to drugs. The doctor prescribed celexa for his anxiety. He took it for about 4 days.He was feeling more tired, agitated and irritated and he didn't like it so he quit taking it. About 2 weeks ago he was on the couch eating dinner and he felt like he had to belch. He had his head between his legs. His chest was hurting. He felt like he was blacking out. He didn't remember hishead falling between his legs. His 3 year old was telling him to wake up. He wasn't able to figure out what was going on even after talking to the doctor. 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 COMPLIANCE: Medication compliance: no, patient is going to see if he can try something other than celexa Homeworks: yes, self care Provisional Diagnosis: Defer to PCP Treatment Goals Discussed with your Provider: The Purpose of counseling and Goal for Brandon Yo will be to decrease symptoms of anxiety and nolonger interfere with his functionality and quality of living. This progress will be measured by a decreased score with the PHQ-9, GAD7, CSSRT, DART; quality of living scale(s) over a period of time. Next Appointment: 06/14/2020 @ 9:30am * Babita Cuevas RMA - 05/31/2020 3:00 PM EDT Called and left message on voice mail documented in this encounter Miscellaneous Notes * Addendum Note - Brigid Kong ARNP - 05/31/2020 3:00 PM EDTAddended by: BRIGID KONG on: 06/05/2020 01:30 PM Modules accepted: Orders documented in this encounter [...] Visit Diagnoses Diagnosis Generalized anxiety disorder- Primary Depression, unspecified depression type documented in this encounter Discontinued Medications Medication Sig Discontinue Reason Start Date End Da te citalopram (CELEXA) 20 mg Oral Tablet Take 1 Tab by mouth daily. Side effects 05/17/2020 06/05/2020 documented as of this encounter Additional Health Concerns Assessment Noted Time PHQ-9 Depression Total Score: 8 05/31/20 3:37 PM EDT PHQ-2 Depression Total Score: 1 05/31/20 3:37 PM EDT documented as of this encounter Care Teams Solutions Delivery Consultant Relationship Specialty Start Date End Date Brigid Kong APRN [address] [place] [phone] PCP - General Nurse Practitioner-Family 05/17/20 Manasa Chapman MSW Middleware Solutions Architect 05/21/20 06/27/20 documented as of this encounter
--- OUTSIDE RECORDS SUMMARY | 2024-10-25 22:34 | XMS_ITS | Encounter Summary ---
Author Organization [place] [address] Care Team Providers Care Equipment Engineering Technician Name Role Phone Stephany Myles APRN Primary Care Provider [phone] Reason for Referral * Consultation (Routine) - Closed Specialty Diagnoses / Procedures Referred By Tameka carbajal Referred To Contact Psychologist-Cognitive & Behavioral / Primary Care Diagnoses Generalized anxiety disorder Stephany Myles APRN [address] [place] [address] Phone: tel: fax: [facility] [employer] [address] [place] [address] Phone: tel: fax: Referral ID Status Reason Start Date Expiration Date V isits Requested Visits Authorized [id number] Closed Specialty Services Required 05/17/2020 05/17/2021 99 99 Question Answer Service Requested Counseling Comments Stress management * Consultation (Routine) - Closed Specialty Diagnoses / Procedures Referred By Tameka carbajal Referred To Contact Gastroenterology Diagnoses History of positive hepatitis C Stephany Myles APRN [address] [place] [address] Phone: tel: fax: [facility] [address] [address] Phone: tel: fax: Referral ID Status Reason Start Date Expiration Date V isits Requested Visits Authorized [id number] Closed Specialty Services Required 05/17/2020 05/17/2021 99 99 Question Answer Is this referral for colon cancer screening? No Provider Options First Available Comments History of hepatitis C Reason for Visit * Reason Comments Annual Exam not fasting Establish Care Anxiety pt sts that he has b een under a lot of stress lately . 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 [address] Stephany Myles APRN [address] [place] [address] Annual physical exam (Primary Dx); History of positive hepatitis C; Generalized anxiety disorder; History of intravenous drug use in remission [...] Sign Reading Time Taken Comments Blood Pressure 128/84 05/17/2020 3:56 PM EDT Pulse 83 05/17/2020 3:26 PM EDT Temperature 37.3 ??C (99.1 ??F) 05/17/2020 3:26 PM ED T Respiratory Rate 18 05/17/2020 3:26 PM EDT Oxygen Saturation 98% 05/17/2020 3:26 PM EDT Inhaled Oxygen Concentration - - Weight 72.4 kg (159 lb 9.6 oz) 05/17/2020 3:26 P M EDT Height 167.6 cm (5' 6 ) 05/17/2020 3:26 PM EDT Body Mass Index 25.76 05/17/2020 3:26 PM EDT documented in this encounter Ordered Prescriptions Prescription Sig Dispense Quantity Refills Last Filled Start Date End Date citalopram (CELEXA) 20 mg Oral Tablet Take 1 Tab by mouth daily. 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 Dispense: 30 Tab; Refill: 2 Progress Note: Vitals: 05/17/20 1526 05/17/20 1529 05/17/20 1556 BP: (!) 160/100 (!) 140/100 128/84 BP Location: Left arm Right arm Patient Position: Sitting Sitting Pulse: 83 Resp: 18 Temp: 99.1 ??F (37.3 ??C) TempSrc: Temporal SpO2: 98% Weight: 159 lb 9.6 oz (72.4 kg) Height: 5' 6 (1.676 m) SUBJECTIVE: Chief Complaint Patient presents with ??? Annual Exam not fasting ??? Establish Care ??? Anxiety pt sts that he has been under a lot of stress lately . 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 Yo is a 34 y.o. male here for an annual wellness visit. Here to get established with care.Recently acquired health insurance and is seeking medical care. Diet: Not very balanced. 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 Not eating properly Exercise: Not structured Activities of Daily Living: Functional Level: Self-care ADL Limitations: none Social Interaction Screen: Do you have concerns about issues that may impact social interaction such as developmental or behavioral/mental health conditions? yes, anxiety Patient has a past history of heroin IV drug use. He has been in remission since 2014. He is not currently attending any meetings or treatment. He is not worried about re-lapsing but does not like feeling stressed Health Maintenance Due Topic Date Due ??? Hepatitis A Vaccine (1 of 2 - Risk 2-dose series) 1984 ??? Annual Wellness Exam 1985 ??? Pneumococcal Vaccine 0-64 (1 of 1 - PPSV23) 1989 ??? Hepatitis B Vaccine (1 of 3 - Risk 3-dose series) 2002 Health Maintenance Topic Date Due ??? Hepatitis A Vaccine (1 of 2 - Risk 2-dose series) 1984 ??? Annual Wellness Exam 1985 ??? Pneumococcal Vaccine 0-64 (1 of 1 - PPSV23) 1989 ??? Hepatitis B Vaccine (1 of 3 - Risk 3-dose series) 2002 ??? Influenza Vaccine (1) 07/17/2020 Immunization History Administered Date(s) Administered ??? Tdap 12/17/2016 Patient Active Problem List Diagnosis ??? Chronic hepatitis C without hepatic coma (HCC) ??? Generalized anxiety disorder ??? History of intravenous drug use in remission Past Medical History: Diagnosis Date ??? Hepatitis hep C History reviewed. No pertinent surgical history. No Known Allergies No current outpatient medications on file prior to visit. No current facility-administered medications on file prior to visit. Social History Socioeconomic History ??? Marital status: Single Spouse name: None ??? Number of children: None ??? Years of education: None ??? Highest education level: None Tobacco Use ??? Smoking status: Current Every [...] No results found for this visit on 05/17/20. Patient Care Team: Stephany Myles ARNP as PCP - General (Nurse Practitioner-Family) Lab Results Component Value Date WBC 5.9 02/22/2018 HGB 16.0 02/22/2018 HCT 45.7 02/22/2018 PLT 175 02/22/2018 ALT 38 02/22/2018 AST 33 02/22/2018 NA 139 02/22/2018 K 4.3 02/22/2018 CL 101 02/22/2018 CREATININE 1.15 02/22/2018 BUN 19 02/22/2018 CO2 28 02/22/2018 INR 0.94 02/22/2018 GLU 122 (H) 02/22/2018 Additional issues addressed today: Yes, undera lot of stress. 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 Is agreeable to do counseling. He is also interested in medication management. He has taken meds in the past, Cannot recall details of which were helpful. Review of Systems Constitutional: Negative for fever. HENT: Negative. He has not had dental care for several years. He recently acquired dental insurance and plans to make that his next move also in taking care of his health. Respiratory: Positive for chest tightness. Negative for shortness of breath. Feels like it is related to stress. Cardiovascular: Positive for chest pain and palpitations. Gastrointestinal: Negative. Endocrine: Negative. Genitourinary: Negative. Musculoskeletal: Negative. Neurological: Negative for dizziness and headaches. OBJECTIVE: Physical Exam Constitutional: Well developed, well nourished, no distress. Head: Normocephalic and atraumatic. No sinus pressure Ears: Canals normal. TM's pearly puri with bright light reflex. Mouth: No oral lesions, no pharyngeal erythema. No tonsillar enlargement or exudate. Eyes: Conjunctiva normal. EOM intact, PERRLA. Neck: Supple, normal ROM, no thyroid enlargement, no adenopathy. Cardiovascular: Normal rate and rhythm. Normal S1 and S2. No murmurs, gallops or rub Pulmonary: Clear anterior and posterior. No wheezes, rales, or rhonchi. Abdomen: Soft, normal bowel sounds, non tender, no mass. Neurological: Alert and oriented. CN grossly intact. Skin: Warm and dry. Color natural. No rashes or lesions. Normal turgor and brisk cap refill. Psychological: Normal mood and affect with normal judgement. documented in this encounter Miscellaneous Notes * Patient Instructions - Stephany Myles ARNP - 05/17/2020 3:20 PM EDT Images from the original note were not included. Patient Education Generalized Anxiety Disorder, Adult Generalized anxiety disorder (JUMANA) is a mental health disorder. People with this condition constantly worry about everyday events. Unlike normal anxiety, worry related to JUMANA is not triggered by a specific event. These worries also do not fade or get better with time. JUMANA interferes with life functions, including relationships, work, and school. JUMANA can vary from mild to severe. People with severe JUMANA can have intense waves of anxiety with physical symptoms (panic attacks). What are the causes? The exact cause of JUMANA is not known. What increases the risk? This condition is more likely to develop in: ?? Women. ?? People who have a family history of anxiety disorders. ?? People who are very shy. ?? People who experience very stressful life events, such as the of a loved one. ?? People who have a very stressful family environment. What are the signs or symptoms? People with JUMANA often worry excessively about many things in their lives, such as their health and family. They may also be overly concerned about: ?? Doing well at work. ?? Being on time. ?? Natural disasters. ?? Friendships. Physical symptoms of JUMANA include: ?? Fatigue. ?? Muscle tension or having muscle twitches. ?? Trembling or feeling shaky. ?? Being easily startled. ?? Feeling like your heart is pounding or racing. ?? Feeling out of breath or like you cannot take a deep breath. ?? Having trouble falling asleep or staying asleep. ?? Sweating. ?? Nausea, diarrhea, or irritable bowel syndrome (IBS). ?? Headaches. ?? Trouble concentrating or remembering facts. ?? Restlessness. ?? Irritability. How is this diagnosed? Your health care provider can diagnose JUMANA based on your symptoms and medical history. You will also have a physical exam. The health care provider will ask specific questions about your symptoms, including how severe they are, when they started, and if they come and go. Your health care provider may ask you about your use of alcohol or drugs, including prescription medicines. Your health care provider may refer you to a mental health specialist for further evaluation. Your health care provider will do a thorough examination and may perform additional tests to rule out other possible causes of your symptoms. To be diagnosed with JUMANA, a person must have anxiety that: ?? Is out of his or her control. ?? Affects several different aspects of his or her life, such as work and relationships. ?? Causes distress that makes him or her unable to take part in normal activities. ?? Includes at least three physical symptoms of JUMANA, such as restlessness, fatigue, trouble concentrating, irritability, muscle tension, or sleep problems. Before your health care provider can confirm a diagnosis of JUMANA, these symptoms must be present more days than they are not, and they must last for six months or longer. How is this treated? The following therapies are usually used to treat JUMANA: ?? Medicine. Antidepressant medicine is usually prescribed for long-term daily control. Antianxietymedicines may be added in severe cases, especially when panic attacks occur. ?? Talk therapy (psychotherapy). Certain types of talk therapy can be helpful in treating JUMANA by providing support, education, and guidance. Options include: ? Cognitive behavioral therapy (CBT). People learn coping skills and techniques to ease their anxiety. They learn to identify unrealistic or negative thoughts and behaviors and to replace them with positive ones. ? Acceptance and commitment therapy (ACT). This treatment teaches people how to be mindful as a wayto cope with unwanted thoughts and feelings. ? Biofeedback. This process trains you to manage your body's response (physiological response) through breathing techniques and relaxation methods. You will work with a therapist while machines are used to monitor your physical symptoms. ?? Stress management techniques. These include yoga, meditation, and exercise. A mental health specialist can help determine which treatment is best for you. Some people see improvement with one type of therapy. However, other people require a combination of therapies. Follow these instructions at home: ?? Take uqot-yno-fflcurf and prescription medicines only as told by your health care provider. ?? Try to maintain a normal routine. ?? Try to anticipate stressful situations and allow extra time to manage them. ?? Practice any stress management or self-calming techniques as taught by your health care provider. ?? Do not punish yourself for setbacks or for not making progress. ?? Try to recognize your accomplishments, even if they are small. ?? Keep all follow-up visits as told by your health care provider. This is important. Contact a health care provider if: ?? Your symptoms do not get better. ?? Your symptoms get worse. ?? You have signs of depression, such as: ? A persistently sad, cranky, or irritable mood. ? Loss of enjoyment in activities that used to bring you padmaja. ? Change in weight or eating. ? Changes in sleeping habits. ? Avoiding friends or family members. ? Loss of energy for normal tasks. ? Feelings of guilt or worthlessness. Get help right away if: ?? You have serious thoughts about hurting yourself or others. If you ever feel like you may hurt yourself or others, or have thoughts about taking your own life,get help right away. You can go to your nearest emergency department or call: ?? Your local emergency services (911 in the [place] ?? A suicide crisis helpline, such as the National Suicide Prevention Lifeline at . This is open 24 hours a day. Summary ?? Generalized anxiety disorder (JUMANA) is a mental health disorder that involves worry that is not triggered by a specific event. ?? People with JUMANA often worry excessively about many things in their lives, such as their health and family. ?? JUMANA may cause physical symptoms such as restlessness, trouble concentrating, sleep problems, frequent sweating, nausea, diarrhea, headaches, and trembling or muscle twitching. ?? A mental health specialist can help determine which treatment is best for you. Some people see improvement with one type of therapy. However, other people require a combination of therapies. This information is not intended to replace advice given to you by your health care provider. Make sure you discuss any questions you have with your health care provider. Document Released: 02/27/2014 Document Revised: 11/22/2019 Document Reviewed: 09/22/2017 [employer] Patient Education ?? 2020 [employer]. Patient Education Health Maintenance, Male Adopting a healthy lifestyle and getting preventive care are important in promoting health and wellness. Ask your health care provider about: ?? The right schedule for you to have regular tests and exams. ?? Things you can do on your own to prevent diseases and keep yourself healthy. What should I know about diet, weight, and exercise? Eat a healthy diet ?? Eat a diet that includes plenty of vegetables, fruits, low-fat dairy products, and lean protein. ?? Do not eat a lot of foods that are high in solid fats, added sugars, or sodium. Maintain a healthy weight Body mass index (BMI) is a measurement that can be used to identify possible weight problems. It estimates body fat based on height and weight. Your health care provider can help determine your BMI and help you achieve or maintain a healthy weight. Get regular exercise Get regular exercise. This is one of the most important things you can do for your health. Most adults should: ?? Exercise for at least 150 minutes each week. The exercise should increase your heart rate and make you sweat (moderate-intensity exercise). ?? Do strengthening exercises at least twice a week. This is in addition to the moderate-intensity exercise. ?? Spend less time sitting. Even light physical activity can be beneficial. Watch cholesterol and blood lipids Have your blood tested for lipids and cholesterol at 20 years of age, then have this test every 5 years. You may need to have your cholesterol levels checked more often if: ?? Your lipid or cholesterol levels are high. ?? You are older than 40 years of age. ?? You are at high risk for heart disease. What should I know about cancer screening? Many types of cancers can be detected early and may often be prevented. Depending on your health history and family history, you may need to have cancer screening at various ages. This may include screening for: ?? Colorectal cancer. ?? Prostate cancer. ?? Skin cancer. ?? Lung cancer. What should I know about heart disease, diabetes, and high blood pressure? Blood pressure and heart disease ?? High blood pressure causes heart disease and increases the risk of stroke. This is more likely to develop in people who have high blood pressure readings, are of descent, or are overweight. ?? Talk with your health care provider about your target blood pressure readings. ?? Have your blood pressure checked: ? Every 3-5 years if you are 18-39 years of age. ? Every year if you are 40 years old or older. ?? If you are between the ages of 65 and 75 and are a current or former smoker, ask your health care provider if you should have a one-time screening for abdominal aortic aneurysm (AAA). Diabetes Have regular diabetes screenings. This checks your fasting blood sugar level. Have the screening done: ?? Once every three years after age 45 if you are at a normal weight and have a low risk for diabetes. ?? More often and at a younger age if you are overweight or have a high risk for diabetes. What should I know about preventing infection? Hepatitis B If you have a higher risk for hepatitis B, you should be screened for this virus. Talk with your health care provider to find out if you are at risk for hepatitis B infection. Hepatitis C Blood testing is recommended for: ?? Everyone born from 1945 through 1965. ?? Anyone with known risk factors for hepatitis C. Sexually transmitted infections (STIs) ?? You should be screened each year for STIs, including gonorrhea and chlamydia, if: ? You are sexually active and are younger than 24 years of age. ? You are older than 24 years of age and your health care provider tells you that you are at risk for this type of infection. ? Your sexual activity has changed since you were last screened, and you are at increased risk for chlamydia or gonorrhea. Ask your health care provider if you are at risk. ?? Ask your health care provider about whether you are at high risk for HIV. Your health care provider may recommend a prescription medicine to help prevent HIV infection. If you choose to take medicine to prevent HIV, you should first get tested for HIV. You should then be tested every 3 months for as long as you are taking the medicine. Follow these instructions at home: Lifestyle ?? Do not use any products that contain nicotine or tobacco, such as cigarettes, e-cigarettes, and chewing tobacco. If you need help quitting, ask your health care provider. ?? Do not use street drugs. ?? Do not share needles. ?? Ask your health care provider for help if you need support or information about quitting drugs. Alcohol use ?? Do not drink alcohol if your health care provider tells you not to drink. ?? If you drink alcohol: ? Limit how much you have to 0-2 drinks a day. ? Be aware of how much alcohol is in your drink. In the [place] one drink equals one 12 oz bottle of beer (355 mL), one 5 oz glass of wine (148 mL), or one 1?? oz glass of hard liquor (44 mL). General instructions ?? Schedule regular health, dental, and eye exams. ?? Stay current with your vaccines. ?? Tell your health care provider if: ? You often feel depressed. ? You have ever been abused or do not feel safe at home. Summary ?? Adopting a healthy lifestyle and getting preventive care are important in promoting health and wellness. ?? Follow your health care provider's instructions about healthy diet, exercising, and getting tested or screened for diseases. ?? Follow your health care provider's instructions on monitoring your cholesterol and blood pressure. This information is not intended to replace advice given to you by your health care provider. Make sure you discuss any questions you have with your health care provider. Document Released: 04/30/2009 Document Revised: 10/26/2019 Document Reviewed: 10/26/2019 [employer] Patient Education ?? 2020 [employer]. documented in this encounter Plan of Treatment Scheduled Referrals Name Type Priority Associated Diagnoses Order Schedule AMB REFERRAL TO GASTROENTEROLOGY Outpatient Referral Routine History of positive hepatitis C Ordered: 05/17/2020 AMB REFERRAL TO SOCIAL WORK Outpatient Referral Routine Generalized anxiety disorder Ordered: 05/17/2020 documented as of this encounter Goals Goal Patient Goal Type Associated Problems Recent Progress Patient-Stated? Author Maintain a healthy diet, exercise regularly and maintain an ideal body weight General No Babita Bermudez RMA Stay Tobacco Free Lifestyle No Babita Bermudez RMA documented as of this encounter Visit Diagnoses Diagnosis Annual physical exam- Primary Routine general medical examination at a health care facility History of positive hepatitis C Personal history of other infectious and parasitic disease Generalized anxiety disorder History of intravenous drug use in remission Other, mixed, or unspecified nondependent drug abuse, in remission documented in this encounter Discontinued Medications Medication Sig Discontinue Reason Start Date End Da te FLUoxetine (PROZAC) 10 mg Oral CapsuleIndications:an xiety with depression Take by mouth daily. Indications: Anxiety with Depression DELETE-Therapy completed 05/17/2020 Amoxicillin 500 mg Oral Tablet Take 500 mg by mouth every 12 hours. DELETE-Therapy completed 05/17/2020 documented as of this encounter Care Teams Equipment Engineering Technician Relationship Specialty Start Date End Date Stephany Myles APRN [address] [place] [address] PCP - General Nurse Practitioner-Family 05/17/20 documented as of this encounter
--- OUTSIDE RECORDS SUMMARY | 2024-10-25 22:34 | XMS_ITS | Encounter Summary ---
Author Organization [facility] [place] [address] Care Team Providers Care Coordinating Producer Name Role Phone Stephany Myles APRN Primary Care Provider [phone] Reason for Visit * Reason Onset Date Comments Referral 05/17/2020 Encounter Details Date Type Department Care Team (Late st Contact Info) Description 05/17/2020 Patient Outreach SE[facility] [address] [place] [address] Nery Connelly BA, COS Referral Social History Tobacco Use [...] as of this encounter Progress Notes * Nery Connelly BA, COS - 05/17/2020 4:01 PM EDT Referral received from: [facility]ELAZCO Referral note: Counseling Stress management Assigned to: Manasa Chapman ANNEALING TORCH OPERATOR documented in this encounter Plan of Treatment [...] on filedocumented in this encounter Care Teams Coordinating Producer Relationship Specialty Start Date End Date Stephany Myles APRN [address] [place] [address] PCP - General Nurse Practitioner-Family 05/17/20 documented as of this encounter
--- OUTSIDE RECORDS SUMMARY | 2024-10-25 22:35 | XMS_ITS | Clinical Summary ---
Author Organization [facility] Address [address] [id number] Care Team Providers Care Police Lieutenant Patrol Name Role Phone Stephany Myles ANGEL Primary Care Provider Allergies No known active allergies Social History Tobacco Use Types Packs/Day Years Used Date Smoking Tobacco: Every Day Cigarettes Smokeless Tobacco: Never Tobacco Cessation:Ready to Q uit: Not Asked; Counseling Given: Not Answered Alcohol Use Standard Drinks/Week Comments Never 0 (1 standard drink = 0.6 oz pur e alcohol) Sex and Gender Information Value Date Recorded Sex Assigned at Not on file Legal Sex Male 10:17 PM EDT Gender Identity Not on file Sexual Orientation Not on file Last Filed Vital Signs Vital Sign Reading Time Taken Comments Blood Pressure 126/75 05/09/2023 10:04 PM EDT Pulse 77 05/09/2023 10:04 PM EDT Temperature 36.8 ??C (98.3 ??F) 05/09/2023 10:04 PM E DT Respiratory Rate 18 05/09/2023 10:04 PM EDT Oxygen Saturation 97% 05/09/2023 10:04 PM EDT Inhaled Oxygen Concentration - - Weight 78.9 kg (174 lb) 05/09/2023 10:04 PM EDT Height 167.6 cm (5' 6 ) 05/09/2023 10:04 PM EDT Body Mass Index 28.08 05/09/2023 10:04 PM EDT Plan of Treatment Health Maintenance Due Date Last Done Comments Dental Oral Exam 1983 Dental Prophylaxis 1983 Dental X-Ray: Bitewings 1983 Dental X-Ray: Full Mouth 1983 [facility]-Depression Screening 1983 [facility]-Infant/Child/Adol SDOH Screenings 1983 [facility]-Obesity Intervention 1989 [facility]-Varicella Vaccines (1 of 2 - 13+ 2-dose series) 1996 [facility]- SDOH Screenings 2001 [facility]-Adult SDOH Screenings 2001 [facility]-Hepatitis B Vaccines (1 of 3 - 19+ 3-dose series) 2002 [id number] Vaccine (1 - season) 2024 [facility]-Influenza Vaccine (#1) 2024 12/25/2015 [facility]-DTaP,Tdap,and Td Vaccine s (3 - Td or Tdap) 08/27/2032 08/27/2022, 12/17/2016 [facility]-Zoster Vaccines (1 of 2) 2033 [facility]-RSV Vaccine: 60+ Years o r (1 - 1-dose 75+ series) 2058 [facility]-HIV Screening Completed 05/09/2023, 05/09/2023 [facility]-Hepatitis C Screening Completed 05/09/2023 [facility]-HIB Vaccines Aged Out No longer e ligible based on patient's age to complete this topic [facility]-HPV Vaccines Aged Out No longer e ligible based on patient's age to complete this topic [facility]-Hepatitis A Vaccines Aged Out No longer eligible based on patient's age to complete this topic [facility]-IPV Vaccines Aged Out No longer e ligible based on patient's age to complete this topic [facility]-Pneumococcal Vaccine: Pediatrics (0 to 5 Years) and At-Risk Patients (6 to 64 Years) Aged Out No longer eligible b ased on patient's age to complete this topic [facility]-Rotavirus Vaccines Aged Out No lo nger eligible based on patient's age to complete this topic Procedures Procedure Name Priority Date/Time Associated Diagnosis Comments HEPATITIS C ANTIBODY - ED W/REFLEX TO HCV QUANT PCR STAT 05/09/2023 10:31 PM EDT HIV 1/2 ANTIBODY/ANTIGEN SCREEN WITH REFLEX TO HIV I/II DIFFERENTIATION STAT 05/09/2023 10:31 PM EDT from Last 3 Months or Most Recently Relevant to Health Maintenance Results * HIV 1 & 2 Antibody/Antigen Screen (05/09/2023 10:31 PM EDT) Pathologist [facility] HIV 1 & 2 Antibody/Antigen Screen Non Reactive Non Reactive 05/09/2023 11:11 PM EDT [facility] Comment:Screening for HIV 1 & 2 antibodies, and P24 antigen is NONREACTIVE. No confirmatory testing is required. Blood Venous blood specimen / Unknown Venipuncture / Unknown 05/09/2023 10:31 PM EDT 05/09/2023 10:34 PM EDT Laura Isidro VP CLINICAL RESEARCH LAB BLOOD ORDERABLES Final Result [facility] [address] [place] [address] * (ABNORMAL) Hepatitis C Antibody - ED (05/09/2023 10:31 PM EDT) Pathologist [facility] Hepatitis C Antibody Positive(A ) Negative 05/09/2023 11:08 PM EDT [facility] Blood Venous blood specimen / Unknown Venipuncture / Unknown 05/09/2023 10:31 PM EDT 05/09/2023 10:34 PM EDT Laura Isidro VP CLINICAL RESEARCH LAB BLOOD ORDERABLES Final Result [facility] [address] [place] [address] from Last 3 Months or Most Recently Relevant to Health Maintenance Insurance Care Teams Police Lieutenant Patrol Relationship Specialty Start Date End Date Stephany Myles, VP CLINICAL RESEARCH [address] [place], [place] [address] PCP - General 05/09/23
--- OUTSIDE RECORDS SUMMARY | 2024-10-25 22:35 | XMS_ITS | Encounter Summary ---
Author Organization [place] [address] Care Team Providers Care Lift Manager Name Role Phone Unavailable Primary Care Provider Unavailabl e Encounter Details Date Type Department Care Team (Late st Contact Info) Description 05/13/2004 3:23 PM EDT - 05/13/2004 11:59 PM EDT Hospital Encounter [facility] COV Generic, Historical Provider Social History Tobacco Use Types Packs/Day Years Used Date Smoking Tobacco: Never Assessed Sex and Gender Information Value Date Recorded Sex Assigned at Not on file Legal Sex Male 4:41 AM EDT Gender Identity Not on file Sexual Orientation Not on file documented as of this encounter Plan of Treatment Not on file documented as of this encounter Visit Diagnoses Not on filedocumented in this encounter
--- OUTSIDE RECORDS SUMMARY | 2024-10-25 22:35 | XMS_ITS | Encounter Summary ---
Author Organization [place] [address] Care Team Providers Care Ballet Master/Mistress Name Role Phone Sandra Alvarez Primary Care Provider [phone] Reason for Visit * Reason Comments Dysuria pt states painful to urinate for 1 week, also c/o white discharge states at the end of urine stream has been having blood c/o of penis pain as well Encounter Details Date Type Department Care Team (Late st Contact Info) Description 03/07/2016 3:45 PM EDT - 03/07/2016 4:57 PM EDT Emergency [facility] [address] [place] [id number] Denys Abdul MD [address] [place] [phone] Dysuria (Primary Dx); Penile discharge Discharge Disposition: Home or Self Care Social History Tobacco Use Types Packs/Day Years Used Date Smoking Tobacco: Every Day Cigarettes Alcohol Use Standard Drinks/Week Comments No 0 (1 standard drink = 0.6 oz pur e alcohol) Sex and Gender Information Value Date Recorded Sex Assigned at Not on file Legal Sex Male 4:41 AM EDT Gender Identity Not on file Sexual Orientation Not on file documented as of this encounter Last Filed Vital Signs Vital Sign Reading Time Taken Comments Blood Pressure 129/69 03/07/2016 3:40 PM EDT Pulse 82 03/07/2016 3:40 PM EDT Temperature 36.7 ??C (98.1 ??F) 03/07/2016 3:40 PM ED T Respiratory Rate 17 03/07/2016 3:40 PM EDT Oxygen Saturation 100% 03/07/2016 3:40 PM EDT Inhaled Oxygen Concentration - - Weight 72.6 kg (160 lb) 03/07/2016 3:40 PM EDT Height 172.7 cm (5' 8 ) 03/07/2016 3:40 PM EDT Body Mass Index 24.33 03/07/2016 3:40 PM EDT documented in this encounter Discharge Instructions * Discharge Instructions* Janie Hickman APRN - 03/07/2016 4:40 PM EDT Return for any new symptoms or concerns. Use condoms to prevent any future STD infections. Both you and your partner(s) must be two weeks post treatment to prevent reinfection before having intercourse again. * Attachments The following attachments cannot be sent through Care Everywhere. * SAFE SEX (ALBANIAN) documented in this encounter Medications at Time of Discharge azithromycin (ZITHROMAX) 250 mg Oral Tablet Take 4 Tabs by mouth once for 1 dose. 4 Tab 0 03/07/2016 03/07/2016 documented as of this encounter Ordered Prescriptions Prescription Sig Dispense Quantity Refills Last Filled Start Date End Date azithromycin (ZITHROMAX) 250 mg Oral Tablet Take 4 Tabs by mouth once for 1 dose. 4 Tab 0 03/07/2016 03/07/2016 documented in this encounter Discharge Disposition Disposition Code Departure Means Destination Home or Self Halfway documented in this encounter ED Notes * Princess Moss RN - 03/07/2016 4:08 PM EDT Pt C/O diff urinating with penile discharge. Denies any other issues at this time. Call light in reach, will cont to monitor * Janie Hickman APRN - 03/07/2016 3:58 PM EDT CHIEF COMPLAINT Chief Complaint Patient presents with ??? Dysuria pt states painful to urinate for 1 week, also c/o white discharge states at the end of urine streamhas been having blood c/o of penis pain as well HPI Brandon Yo is a 30 y.o. male who presents to the Emergency Room with complaints of dysuria ??1 week. White penile discharge with also some blood noted over the past 3 days. He denies any testicular pain or swelling. He denies any abdominal pain pelvic pain or penile rashes or lesions. He did have unprotected intercourse prior to symptoms starting and is concerned about a possible STD. Symptomsare moderate. No alleviating factors. He denies any fever chills or myalgias. REVIEW OF SYSTEMS See HPI for further details. Review of systems otherwise negative. PAST MEDICAL HISTORY History reviewed. No pertinent past medical history. FAMILY HISTORY No family history on file. SOCIAL HISTORY History Social History ??? Marital Status: Single Spouse Name: N/A ??? Number of Children: N/A ??? Years of Education: N/A Social History Main Topics ??? Smoking status: Current Every Day Smoker -- 1.50 packs/day Types: Cigarettes ??? Smokeless tobacco: Not on file ??? Alcohol Use: No ??? Drug Use: No ??? Sexual Activity: Not on file Other Topics Concern ??? None Social History Narrative SURGICAL HISTORY History reviewed. No pertinent past surgical history. CURRENT MEDICATIONS Current Outpatient Rx Name Route Sig Dispense Refill ??? FLUoxetine (PROZAC) 10 mg Oral Capsule Oral Take by mouth daily. Indications: Anxiety with Depression ALLERGIES No Known Allergies PHYSICAL EXAM VITAL SIGNS: ED Triage Vitals Temp 03/07/16 1540 98.1 ??F (36.7 ??C) Pulse 03/07/16 1540 82 Resp 03/07/16 1540 17 BP 03/07/16 1540 129/69 mmHg SpO2 03/07/16 1540 100 % Height 03/07/16 1540 5' 8 (1.727 m) Weight 03/07/16 1540 160 lb (72.576 kg) Constitutional: Well developed, Well nourished, No acute distress, Non-toxic appearance. HENT: Normocephalic, Atraumatic, Bilateral external ears normal, Nose normal. Eyes: Pupils equal and round, Conjunctiva normal, No discharge. Neck: Normal range of motion, Supple, No stridor. Cardiovascular: Normal heart rate. Thorax & Lungs: No respiratory distress. Musculoskeletal: Ambulatory, gross range of motion normal. Skin: Warm and dry. Neurologic: Alert. No focal deficits. Genitalia: Patient is circumcised. Small amount of clearish white penile discharge. No penile rashes or lesions. No inguinal adenopathy. No testicular or scrotal swelling. No epididymal tenderness. Abdomen: Bowel sounds normal, Soft, No tenderness, No masses, No pulsatile masses. No rebound or organomegly. LABS/RADIOLOGY/PROCEDURES Results for orders placed or performed during the hospital encounter of 03/07/16 URINALYSIS Result Value Ref Range UA Color Yellow UA Appear Cloudy (A) Clear UA Glucose Negative Negative UA Ketones Negative Negative UA Blood Moderate (A) Negative UA pH 8.0 5.0 - 8.0 UA Protein Trace (A) Negative UA Urobilinogen 1.0 E.U./dL <=1 E.U./dL UA Nitrite Negative Negative UA Leuk Est Moderate (A) Negative UA Spec Grav 1.025 1.001 - 1.035 UA WBC TNTC (A) 0 - 4 /HPF UA RBC 3-5 (A) 0 - 3 /HPF UA Bacteria 2+ COURSE & MEDICAL DECISION MAKING Pertinent Labs & Imaging studies reviewed. (See chart for details) Filed Vitals: 03/07/16 1540 BP: 129/69 Pulse: 82 Temp: 98.1 ??F (36.7 ??C) TempSrc: Oral Resp: 17 Height: 5' 8 (1.727 m) Weight: 160 lb (72.576 kg) SpO2: 100% Brandon Yo presents to the ED with the above complaints. Patient presents with dysuria as well as penile discharge. He did have unprotected intercourse. GC chlamydia testing is pending. He was treated with Rocephin IM and a one-time dose of azithromycin for treatment of gonorrhea and chlamydia. He was instructed to follow-up with the health department or his primary care physician to obtain test results on Thursday. Counseled to use condoms to prevent any future STD infections. Return for any concerns. He was instructed that his partner or partners must be treated as well to prevent reinfection. Return to ER for new or worsening symptoms. Patient verbalizes understanding of plan of care And isagreeable with plan of care FINAL IMPRESSION 1. Dysuria 2. Penile discharge This chart was completed using voice recognition technology and may contain unintended errors Janie Hickman APRN 03/07/16 1639 Cosigned by Denys Abdul MD at 03/08/2016 9:24 PM EDT Associated attestation - Denys Abdul MD - 03/08/2016 9:24 PM EDT This chart was completed using voice recognition technology and may contain unintended errors documented in this encounter Plan of Treatment Not on file documented as of this encounter Procedures Procedure Name Priority Date/Time Associated Diagnosis Comments CHLAMYDIA/GC BY TMA STAT 03/07/2016 4 :21 PM EDT URINALYSIS STAT 03/07/2016 4:21 PM EDT documented in this encounter Results * (ABNORMAL) CHLAMYDIA/GC BY TMA (03/07/2016 4:21 PM EDT) Chlamydia trachomatis Negative [facility] Neisseria gonorrhoeae Positive(A) [facility] Comment: Testing methodology is social economist mediated amplification (TMA) using the Aptima Combo 2 assay from [employer]. A negative result does not completely rule out a Chlamydia trachomatis or Neisseria gonorrhoeae infection due to potential inhibitors or levels present below the limit of detection by this assay. ??Results are dependent on proper collection and transport of specimen. This test is indicated for medical purposes only and should not be used for legal or forensic purposes. The performance characteristics of this test were validated by [facility]. This assay is FDA cleared to test the following specimens: clinician-collected endocervical, vaginal and male urethral swab specimens, patient collected vaginal specimens within a clinic setting, Thin Prep Specimens in PreservCyt Solution, and first-stream, unpreserved male urine specimens. Testing on female urine is not FDA approved by this methodology, but has been developed and validated by the [facility] laboratory. ??Detailed methodology is available upon request. Urine specimen (specimen) URINE SPECIMEN COLLECTION, CLEAN CATCH / Unknown 03/07/2016 4:21 PM EDT 03/07/2016 6:48 PM EDT Denys Abdul MD MICROBIOLOGY - GENERAL ORDERA BLES Final Result Performing Organization Address [facility] Co de Phone Number [facility] [address] [place] [address] * (ABNORMAL) URINALYSIS (03/07/2016 4:21 PM EDT) UA Color Yellow [facility] UA Appear Cloudy(A) Clear [facility] UA Glucose Negative Negative [facility] UA Ketones Negative Negative [facility] UA Blood Moderate(A) Negative [facility] UA pH 8.0 5.0 - 8.0 [facility] Comment:Reference range phillip d for random specimens only. UA Protein Trace(A) Negative [facility] UA Urobilinogen 1.0 E.U./dL <=1 E.U./dL [facility] UA Nitrite Negative Negative [facility] UA Leuk Est Moderate(A) Negative [facility] UA Spec Grav 1.025 1.001 - 1.035 [facility] Comment:Reference range phillip d for random specimens only. UA WBC TNTC(A) 0 - 4 /HPF [facility] UA RBC 3-5(A) 0 - 3 /HPF [facility] UA Bacteria 2+ [facility] Urine specimen (specimen) URINE SPECIMEN COLLECTION, CLEAN CATCH / Unknown 03/07/2016 4:21 PM EDT 03/07/2016 4:21 PM EDT Denys Abdul MD URINE ORDERABLES Final Result Performing Organization Address City/[facility]/ZIP Co de Phone Number [facility] [address] [place] [phone] documented in this encounter Visit Diagnoses Diagnosis Dysuria- Primary Penile discharge Urethral discharge documented in this encounter Active and Recently Administered Medications Orders Medications Ordered That Pedrito ht Not Have Been Administered Count Last Ordered Date First Ordered Date cefTRIAXone (ROCEPHIN) 250 m g in lidocaine 10 mg/mL (1 %) 1 mL IM injection 1 03/07/2016 documented in this encounter Care Teams Ballet Master/Mistress Relationship Specialty Start Date End Date Sandra Alvarez [address] [place], [place] [address] PCP - General Clinic/Center - [facility] ([facility]) 03/07/16 02/21/18 documented as of this encounter
--- OUTSIDE RECORDS SUMMARY | 2024-10-25 22:35 | XMS_ITS | Encounter Summary ---
Author Organization [place] [address] Care Team Providers Care Oil Lease Buyer Name Role Phone Unavailable Primary Care Provider Unavailabl e Encounter Details Date Type Department Care Team (Late st Contact Info) Description 08/20/2001 6:39 PM EDT - 08/20/2001 7:20 PM EDT Hospital Encounter [facility] EPIC CON UNK [facility]OV Van Forte MD Social History Tobacco Use Types Packs/Day Years [...]
--- OUTSIDE RECORDS SUMMARY | 2024-10-25 22:35 | XMS_ITS | Encounter Summary ---
Author Organization [place] [address] Care Team Providers Care Grounds Manager Name Role Phone Unavailable Primary Care Provider Unavailabl e Encounter Details Date Type Department Care Team (Late st Contact Info) Description 02/23/2007 12:34 PM EDT - 02/23/2007 1:48 PM EDT Hospital Encounter [facility] EPIC CON UNK COV Avtar Rodney MD Social History Tobacco Use Types Packs/Day [...]
--- OUTSIDE RECORDS SUMMARY | 2024-10-25 22:35 | XMS_ITS | Encounter Summary ---
Author Organization [place] [address] Care Team Providers Care Software Engineering Analyst Name Role Phone Unavailable Primary Care Provider Unavailabl e Encounter Details Date Type Department Care Team (Latest Contact Info) Description 01/11/2016 9:20 AM EST - 01/11/2016 11:59 PM EST Hospital Encounter [facility] [address] [place] [address] Positive hepatitis C antibody test Discharge Disposition: Home or Self Care Social [...] r Schedule OP VENIPUNCTURE CHARGE Lab Timed Positive hepatitis C antibody test One Time for 1 Occurrences starting 01/11/2016 until 01/11/2016 documented as of this encounter Procedures Procedure Name Priority Date/Time Associated Diagnosis Comments HCV GENOTYPE BY PCR AND SEQUENCING -REF LAB Routine 01/11/2016 9:41 AM EST Positive hepatitis C antibody test HCV RNA QUANT, REAL-TIME PCR -REF LAB Routine 01/11/2016 9:41 AM EST Positive hepatitis C antibody test documented in this encounter Results * (ABNORMAL) HCV RNA QUANT, REAL-TIME PCR -REF LAB (01/11/2016 9:41 AM EST) Hepatitis C RNA 6.6 log IU [facility] Comment: INTERPRETIVE INFORMATION: Hepatitis C Virus by Quantitative PCR The quantitative range of this assay is 1.2 - 8.0 log IU/mL (15- 100,000,000 IU/mL). Limit of detection (LOD): 15 IU/mL (1.2 log IU/mL) LOD values do not apply to diluted specimens. An interpretation of Not Detected does not rule out the presence of PCR inhibitors in the patient specimen or hepatitis C virus RNA concentrations below the level of detection of the test. Care should be taken when interpreting any single viral load determination. This test should not be used for blood donor screening, associated re-entry protocols, or for screening Human Cell, Tissues and Cellular Tissue-Based Products (HCT/P). HCV IU 4,400,000 IU/mL [facility] HCV RNA Interpretation Detected( A) Not Detected [facility] EER HCV RNA Quant RT-PCR See Note [facility] Comment: To download an enhanced report for this test go to: [email or web address] [email or web address] [email or web address] Blood specimen (specimen) UPPER LIMB STRUCTURE / Unknown 01/11/2016 9:41 AM EST 01/11/2016 11:24 PM EST Oc Zepeda MD IMMUNOLOGY ORDERABLES Final Result [employer] [address] [place] [address] * HCV GENOTYPE BY PCR AND SEQUENCING -REF LAB (01/11/2016 9:41 AM EST) Pathologist [facility] HCV Genotyping by PCR & Sequencing 1a or 1b [facility] Comment: Cannot be further subtyped into Type 1a or Type 1b due to high conservation of the 5' untranslated region of the HCV genome. In addition, Type 6 virus may be misclassified as Type 1 in some cases. The Hepatitis C Virus High-Resolution Genotype by Sequencing test ([employer] test code 1899704) provides a higher level of subtype resolution. INTERPRETIVE INFORMATION: ??Hepatitis C Genotyping Hepatitis C Viral RNA is tested using reverse finisher polisher polymerase chain reaction (RT-PCR) to amplify a specific portion of the 5' untranslated region (5' UTR) of the viral genome. The amplified nucleic acid is sequenced bi-directionally using dye-terminator chemistry ([employer]). Sequencing data is compared to a database [...] 1. Test developed and characteristics determined by [employer]. See Compliance Statement B: [email or web address] Blood specimen (specimen) UPPER LIMB STRUCTURE / Unknown 01/11/2016 9:41 AM EST 01/11/2016 11:24 PM EST Oc Zepeda MD IMMUNOLOGY ORDERABLES Final Result [employer] [address], [place] [phone] documented in this encounter Visit Diagnoses Diagnosis Positive hepatitis C antibody test Other and unspecified nonspecific immunological findings documented in this encounter Orders Lab Orders Without Results Count Last Ordered D ate First Ordered Date HCV GENOTYPE BY PCR AND SEQU ENCING -REF LAB 1 01/11/2016 HCV RNA QUANT, REAL-TIME PCR -REF LAB 1 documented in this encounter
--- OUTSIDE RECORDS SUMMARY | 2024-10-25 22:35 | XMS_ITS | Encounter Summary ---
Author Organization [place] [address] Care Team Providers Care Account Support Rep Name Role Phone Unavailable Primary Care Provider Unavailabl e Encounter Details Date Type Department Care Team (Late st Contact Info) Description 02/03/2007 6:02 PM EDT - 02/03/2007 6:28 PM EDT Hospital Encounter [facility] EPIC CON UNK COV Suhas Talbert MD [address] [place] [phone] Social History Tobacco Use Types Packs/Day Years [...]
--- OUTSIDE RECORDS SUMMARY | 2024-10-25 22:35 | XMS_ITS | Encounter Summary ---
Author Organization [place] [address] Care Team Providers Care Community Midwife Name Role Phone Unavailable Primary Care Provider Unavailabl e Encounter Details Date Type Department Care Team (Late st Contact Info) Description 05/05/2002 10:52 PM EDT - 05/05/2002 11:50 PM EDT Hospital Encounter HST EPIC CON [...]
--- OUTSIDE RECORDS SUMMARY | 2024-10-25 22:35 | XMS_ITS | Encounter Summary ---
Author Organization [facility] Address [address] [place] [address] Care Team Providers Care Hydrotherapist Name Role Phone Stephany Myles PROGRAM DIRECTOR CABLE TELEVISION Primary Care Provider Encounter Details Date Type Department Care Team (Latest Contact Info) Description 05/09/2023 Travel Social History Tobacco Use Types Packs/Day Years Used Date Smoking Tobacco: Every Day Cigarettes Smokeless Tobacco: Never Alcohol Use Standard Drinks/Week Comments Never 0 [...] on filedocumented in this encounter Care Teams Hydrotherapist Relationship Specialty Start Date End Date Stephany Myles, PROGRAM DIRECTOR CABLE TELEVISION [address] [place] [phone] PCP - General 05/09/23 documented as of this encounter
--- OUTSIDE RECORDS SUMMARY | 2024-10-25 22:35 | XMS_ITS | Encounter Summary ---
Author Organization [place] [address] Care Team Providers Care Pilot Plant Supervisor Name Role Phone Unavailable Primary Care Provider Unavailabl e Encounter Details Date Type Department Care Team (Late st Contact Info) Description 08/23/2001 1:26 PM EDT - 08/23/2001 2:40 PM EDT Hospital Encounter [facility]ST EPIC CON UNK COV Black Roger MD Social History Tobacco Use Types Packs/Day [...]
--- OUTSIDE RECORDS SUMMARY | 2024-10-25 22:35 | XMS_ITS | Encounter Summary ---
Author Organization [place] [address] Care Team Providers Care Retanner Name Role Phone Unavailable Primary Care Provider Unavailabl e Encounter Details Date Type Department Care Team (Late st Contact Info) Description 02/10/2005 3:36 PM EST - 02/10/2005 4:24 PM EST Hospital Encounter [facility] Kenneth Akers MD [address] [place] [phone] Social History Tobacco Use Types Packs/Day [...]
--- OUTSIDE RECORDS SUMMARY | 2024-10-25 22:35 | XMS_ITS | Encounter Summary ---
Author Organization [place] [address] Care Team Providers Care Controller Repairer And Tester Name Role Phone Unavailable Primary Care Provider Unavailabl e Encounter Details Date Type Department Care Team (Late st Contact Info) Description 05/11/2004 4:07 PM EDT - 05/11/2004 5:05 PM EDT Hospital Encounter [facility] Denys Abdul MD [address] [place] [phone] Social History Tobacco Use Types Packs/Day [...]
--- OUTSIDE RECORDS SUMMARY | 2024-10-25 22:35 | XMS_ITS | Encounter Summary ---
Author Organization [facility] 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
--- OUTSIDE RECORDS SUMMARY | 2024-10-25 22:35 | XMS_ITS | Encounter Summary ---
Author Organization 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
--- OUTSIDE RECORDS SUMMARY | 2024-10-25 22:35 | XMS_ITS | Encounter Summary ---
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 Name Role Phone Stephany Myles APRN Primary Care Provider Reason for Referral * Consultation (Routine) - Authorized Specialty Diagnoses / Procedures Referred By Tameka carbajal Referred To Contact Urology Diagnoses Nephrolithiasis Laura Isidro APRN [address] [place] [address] Phone: tel: fax: [facility] [address], [address] [place] [address] Phone: tel: fax: Referral ID Status Reason Start Date Expiration Date Visits Requested Visits Authorized [id number] Authorized Specialty Services Required 05/09/2023 11/07/2024 1 1 Reason for Visit * Reason Comments Flank Pain Encounter Details Date Type Department Care Team (Late st Contact Info) Description 05/09/2023 10:06 PM EDT - 05/10/2023 12:34 AM EDT Emergency [facility] Emergency Department [address] [place] [address] Nephrolithiasis (Primary Dx) Discharge Disposition: Home or Self [...] Mass Index 28.08 05/09/2023 10:04 PM EDT documented in this encounter Discharge Instructions * Discharge Instructions* Laura Isidro APRN - 05/09/2023 11:06 PM EDT You were seen in the ED today and evaluated for right flank pain. At the outside hospital your found to have a kidney stone that was obstructing your right ureter however it appears to be at the verydistal ureter and is about to transition into your bladder. I have spoken with Urology who feels that your condition is appropriate for management at home. You received a single dose of IV antibiotics in the ED and I have sent a prescription of cefadroxil for you to take twice a day for the next 10days, please complete the entire course of antibiotics despite resolution of symptoms. Utilize the pain medications as prescribed and take the tamsulosin every 24 hours. Please strain all of your urinations and follow-up in the [facility] for ongoing management. Please return to the ED with any signs and symptoms of worsening condition. * Attachments The following attachments cannot be sent through Care Everywhere. * Kidney Stone with Pain ([place]) * Urine Strainer - ED () ([place]) documented in this encounter Medications at Time of Discharge cefadroxil (Duricef) 500 MG capsule Take 2 capsules (1,000 mg) by mouth 2 (two) times a day for 10 days. 40 capsule 05/10/2023 3 ketorolac (Toradol) 10 MG tablet Take 1 tablet (10 mg) by mouth every 6 (six) hours if needed for moderate pain for up to 5 days. 20 tablet 05/09/2023 3 ondansetron ODT (Zofran-ODT) 4 MG disintegrating tablet Take 1 tablet (4 mg) by mouth every 6 (six) hours if needed for nausea. 12 tablet 05/09/2023 3 oxyCODONE-acetaminop hen (Percocet) 5-325 MG tablet Take 1 tablet by mouth every 6 (six) hours if needed for severe pain (pian) for up to 3 days. 12 tablet 05/09/2023 3 tamsulosin (Flomax) 0.4 MG 24 hr capsule Take 1 capsule (0.4 mg) by mouth 1 (one) time each day for 14 days. 14 capsule 05/09/2023 3 documented as of this encounter Miscellaneous Notes * ED Provider Notes - Laura Isidro APRN - 05/09/2023 9:57 PM EDT Images from the original note were not included. HPI Chief Complaint Patient presents with Flank Pain Brandon Yo is a 37-year-old male with a PMH of recurrent nephrolithiasis, presents to the ED forevaluation of recurrent renal calculi. According to the patient he has been having 5 days of right posterior flank pain and urinary frequency feeling like he can not stay away from the toilet . Patient currently notes that his flank pain is at a 4/10 and dull in nature, he was having nausea prior to disposition from outside hospital however was given Zofran which resolved his nausea. Patient states the symptoms he is experiencing are similar to his previous kidney stones, according to the patient's spouse whom is at bedside the patient has been having increasing frequency of his kidney stones and does not have a urologist to follow-up with. Patient has never required stenting or lithotripsy due to his kidney stones however has been able to pass some successfully at home by utilizing Flomax. Patient denies any fevers, chills, nausea, vomiting, diarrhea, or constipation. History provided by: Patient and significant other bag patcher used: No No data recorded Patient History Past Medical History: Diagnosis Date Kidney calculus History reviewed. No pertinent surgical history. No family history on file. No pertinent family medical history Tobacco Use Smoking status: Every Day Types: Cigarettes Smokeless tobacco: Never Vaping Use Vaping Use: Never used Substance Use Topics Alcohol use: Never Drug use: Never Immunization History Immunization History: reviewed Allergies: No Known Allergies Review of Systems Review of Systems Constitutional: Negative for chills and fever. HENT: Negative for congestion, ear pain, sore throat, trouble swallowing and voice change. Eyes: Negative for photophobia, pain and visual disturbance. Respiratory: Negative for cough, chest tightness and shortness of breath. Cardiovascular: Negative for chest pain and palpitations. Gastrointestinal: Positive for nausea. Negative for abdominal pain, blood in stool, constipation, diarrhea and vomiting. Genitourinary: Positive for difficulty urinating, flank pain, frequency and urgency. Negative for decreased urine volume, dysuria, hematuria, penile discharge, penile pain, penile swelling and testicular pain. Musculoskeletal: Negative for arthralgias, back pain, neck pain and neck stiffness. Skin: Negative for color change and rash. Neurological: Negative for dizziness, seizures, syncope, weakness and headaches. Psychiatric/Behavioral: Negative for confusion. All other systems reviewed and are negative. Physical Exam ED Triage Vitals [05/09/23 2204] Temp Heart Rate Resp BP 36.8 ??C (98.3 ??F) 77 18 126/75 SpO2 Temp src Heart Rate Source Patient Position 97 % -- -- -- BP Location FiO2 (%) -- -- Physical Exam Vitals and nursing note reviewed. Constitutional: General: He is not in acute distress. Appearance: He is well-developed. HENT: Head: Normocephalic and atraumatic. Eyes: Conjunctiva/sclera: Conjunctivae normal. Cardiovascular: Rate and Rhythm: Normal rate and regular rhythm. Pulses: Normal pulses. Heart sounds: Normal heart sounds. No murmur heard. Pulmonary: Effort: Pulmonary effort is normal. No respiratory distress. Breath sounds: Normal breath sounds. Abdominal: General: Abdomen is flat. Bowel sounds are normal. Palpations: Abdomen is soft. Tenderness: There is no abdominal tenderness. There is right CVA tenderness. There is no left CVA tenderness, guarding or rebound. Musculoskeletal: General: No swelling. Normal range of motion. Cervical back: Normal range of motion and neck supple. Skin: General: Skin is warm and dry. Capillary Refill: Capillary refill takes less than 2 seconds. Neurological: General: No focal deficit present. Mental Status: He is alert and oriented to person, place, and time. Mental status is at baseline. Psychiatric: Mood and Affect: Mood normal. Labs Reviewed COMPREHENSIVE METABOLIC PANEL, PLASMA - Abnormal Result Value Glucose, Plasma 106 (*) BUN, Plasma 21 Creatinine, Plasma 1.12 BUN/Creatinine Ratio 19 Sodium, Plasma 137 Potassium, Plasma 4.4 Chloride, Plasma 104 CO2, Plasma 24 Anion Gap 9 Total Calcium, Plasma 8.8 (*) Total Protein 6.5 Albumin, Plasma 4.2 AST, Plasma 32 ALT, Plasma 15 Alkaline Phosphatase, Plasma 70 Total Bilirubin, Plasma 1.0 eGFRcr 85.7 CBC WITH AUTO DIFFERENTIAL - Abnormal WBC Count 8.15 RBC Count 4.72 HGB 14.3 HCT 40.6 Platelet Count 175 MCV 86 MCH 30.3 MCHC 35.2 RDW 11.9 MPV 10.2 nRBC 0.0 Differential Type Automated Neutrophils % 83.0 Lymphocytes % 10.0 Monocytes % 6.0 Eosinophils % 1.0 Basophils % 0.0 Immature Granulocytes % 0.0 Neutrophils Absolute 6.75 (*) Lymphocytes Absolute 0.80 (*) Monocytes Absolute 0.47 Eosinophils Absolute 0.07 Basophils Absolute 0.03 Immature Granulocytes Absolute 0.03 Narrative: Therapeutic decision making should be based on absolute values, rather than percentages. URINALYSIS WITH REFLEX MICROSCOPIC - Abnormal Color, Urine Dark Yellow Clarity, Urine Clear Spec Mccleary, Urine 1.029 pH, Urine 7.5 Protein, Urine 30 (*) Glucose, Urine Negative Ketones, Urine Trace (*) Blood, Urine Trace (*) Bilirubin, Urine Small (*) Urobilinogen, Urine 1.0 Leukocytes, Urine Small (*) Nitrite, Urine Negative RBC, Urine 16 - 30 (*) WBC, Urine 11 - 15 (*) Squamous Epithelial Cells 0 - 5 Hyaline Casts 0 - 8 Bacteria, Urine Present Mucus Present Narrative: Performed by manual method HEPATITIS C ANTIBODY - ED - Abnormal Hepatitis C Antibody Positive (*) URINALYSIS WITH REFLEX MICROSCOPIC - Abnormal Color, Urine Dark Yellow Clarity, Urine Clear Spec Mccleary, Urine 1.027 pH, Urine 7.0 Protein, Urine 30 (*) Glucose, Urine Negative Ketones, Urine Trace (*) Blood, Urine Trace (*) Bilirubin, Urine Negative Urobilinogen, Urine 1.0 Leukocytes, Urine Small (*) Nitrite, Urine Negative RBC, Urine 4 - 10 (*) WBC, Urine 6 - 10 (*) Squamous Epithelial Cells 0 - 5 Hyaline Casts 0 - 8 Bacteria, Urine Negative Mucus Present Narrative: Performed by manual method HIV 1/2 ANTIBODY/ANTIGEN SCREEN - Normal HIV 1 & 2 Antibody/Antigen Screen Non Reactive URINE CULTURE ED PROTOCOL HIV 1/2 ANTIBODY/ANTIGEN SCREEN Narrative: The following orders were created for panel order ED Protocol - HIV 1/2 Antibody/Antigen Screen. Procedure Abnormality Status --------- ------ HIV 1 & 2 Antibody/Antig...[[id number]] Normal Final result Please view results for these tests on the individual orders. URINALYSIS MICROSCOPIC FOR UA REFLEX URINALYSIS MICROSCOPIC FOR UA REFLEX HEPATITIS C VIRUS (HCV) QUANTITATIVE PCR - ED Medications sodium chloride 0.9 % infusion 1,000 mL (0 mL Intravenous Stopped 05/09/23 2333) oxyCODONE (Roxicodone) immediate release tablet 5 mg (5 mg Oral Given 05/09/23 2313) cefTRIAXone (Rocephin) 2 g in sodium chloride 0.9% 100 mL IVPB (Mini-Bag Plus) (2 g Intravenous NewBag 05/09/23 2352) ED Course & MDM ED Course as of 05/10/232 Sat May 09, [id number] With Urology, patient is appropriate for outpatient management with urology follow-up. Patientto be discharged with a urine strainer and to be placed on Flomax. [NT] 2303 Glucose(!): 106 [NT] 2303 Creatinine: 1.12 [NT] 2303 Sodium: 137 [NT] 2303 Potassium: 4.4 [NT] 2304 WBC: 8.15 [NT] 2304 Hemoglobin: 14.3 [NT] 2304 Platelet Count: 175 [NT] 2304 Nitrite, Urine: Negative [NT] 2307 Hepatitis C Antibody(!): Positive [NT] 2315 Bacteria, Urine: Present [NT] 2316 WBC, Urine(!): 11 - 15 [NT] ED Course User Index [NT] Laura Isidro APRN Clinical Impressions as of 05/10/23 0022 Nephrolithiasis Medical Decision Making MDM: Patient was seen in ED by aLura Isidro APRN and Dr. Turner. Brandon Yo presents to ED forevaluation of right flank pain. Differential diagnosis includes nephrolithiasis, obstructing nephrolithiasis, pyelonephritis, renal abscess. On arrival, patient is a well-appearing 37-year-old male whom is hemodynamically stable, afebrile, and in no acute distress. Physical exam revealed mild right CVA tenderness however no abdominal tenderness or rigidity concerning for peritonitis. Evaluation includes CBC with differential, CMP, urinalysis. Patient was symptomatically managed with 1L of normal saline and 5 mg of oral oxycodone with improvement in his discomfort. Labs reviewed and interpreted independently by myself or clinically significant for creatinine of 1.1, electrolytes within normal limits, and a WBC count of 8.1, stable hemoglobin and a urinalysis that demonstrates negative nitrites, trace ketones, trace blood, small leukocytes, and 11-15 WBC's. Patient was loaded with 2 g of intravenous ceftriaxone. Upon secondary evaluation, patient noted that his pain in his nausea were very well controlled, andinteractive discussion was had with Urology for evaluation and recommendations. Urology recommendeda repeat catheterized urine specimen which demonstrated 6-10 WBC's however is negative for bacteriaand nitrites. Urology believed that this patient was appropriate for outpatient management and was instructed to follow-up in the Urology clinic, to strain all of his urines, and to be discharged with Flomax to aid in ureteral dilatation and cefadroxil for possible infectious process. Patient was also discharged with Ondansetron, Toradol, and Percocet for symptomatic relief, dosing recommendati ons were provided to the patient. It was also discussed that the patient's hepatitis-C screening test was positive, patient noted that he had been previously treated for his hepatitis-C in the past. It was discussed that a confirmatory RNA test is pending at the time of disposition if that result po sitive he will be contacted by the appropriate parties. Urine culture is pending at the time of disposition. Plan of care was discussed with the patient who was agreeable. Patient was given a strainer prior to discharge. See formal discharge instructions below. Patient expressed understanding of office discharge instructions and was discharged in stable condition. Problems Addressed: Nephrolithiasis: acute illness or injury Amount and/or Complexity of Data Reviewed External Data Reviewed: labs, radiology and notes. Details: [facility] records from 05/09 was reviewed, patient presented for 5 days of right flank pain. CT abdomen and pelvis without IV contrast was obtained and patient was found to have an obstructive right 5 mm UVJ stone with mild perinephritic edema and stranding and moderate hydronephrosis. Patient's creatinine was within normal limits at 1.2 and urinalysis demonstrated no concerning signs for infection. Labs: ordered. Decision-making details documented in ED Course. ED Prescriptions Medication Sig Dispense Start Date End Date Auth. Provider oxyCODONE-acetaminophen (Percocet) 5-325 MG tablet Take 1 tablet by mouth every 6 (six) hours if needed for severe pain (pian) for up to 3 days. 12 tablet 05/09/2023 05/12/2023 Joe Turner MD ketorolac (Toradol) 10 MG tablet Take 1 tablet (10 mg) by mouth every 6 (six) hours if needed for moderate pain for up to 5 days. 20 tablet 05/09/2023 05/14/2023 Laura Isidro APRN tamsulosin (Flomax) 0.4 MG 24 hr capsule Take 1 capsule (0.4 mg) by mouth 1 (one) time each day for14 days. 14 capsule 05/09/2023 05/23/2023 Laura Isidro APRN ondansetron ODT (Zofran-ODT) 4 MG disintegrating tablet Take 1 tablet (4 mg) by mouth every 6 (six)hours if needed for nausea. 12 tablet 05/09/2023 06/08/2023 Laura Isidro APRN cefadroxil (Duricef) 500 MG capsule Take 2 capsules (1,000 mg) by mouth 2 (two) times a day for 10 days. 40 capsule 05/10/2023 05/20/2023 Laura Isidro APRN Sign Off Checklist Clinical Impression: Complete ED Disposition: Complete - Discharge Instructions You were seen in the ED today and evaluated for right flank pain. At the outside hospital your found to have a kidney stone that was obstructing your right ureter however it appears to be at the verydistal ureter and is about to transition into your bladder. I have spoken with Urology who feels that your condition is appropriate for management at home. You received a single dose of IV antibiotics in the ED and I have sent a prescription of cefadroxil for you to take twice a day for the next 10days, please complete the entire course of antibiotics despite resolution of symptoms. Utilize the pain medications as prescribed and take the tamsulosin every 24 hours. Please strain all of your urinations and follow-up in the Urology Clinic for ongoing management. Please return to the ED with any signs and symptoms of worsening condition. Discharge References/Attachments Kidney Stone with Pain ([place]) Urine Strainer - ED () ([place]) Disposition Discharge Follow-Ups: Follow up with [facility] (Urology) in 1 week (05/17/2023) Discharge Orders Discharge Ambulatory referral to Urology Authorized Laura Isidro APRN 05/10/23 0022 Cosigned by Joe Turner MD at 05/10/2023 4:42 PM EDT Associated attestation - Joe Turner MD - 05/10/2023 4:42 PM EDT The patient was seen only by Advanced Practice Provider ([facility]), and care was reviewed with me. * ED Triage Notes - Yajaira Hooper RN - 05/09/2023 9:57 PM EDT Pt presents from [facility] via POV due to 5mm obstructing kidney stone. documented in this encounter Plan of Treatment Scheduled Referrals Name Type Priority Associated Diagnoses Order Schedule Discharge Ambulatory referral to Urology Outpatient Referral Routine Nephrolithiasis Expected: 05/09/2023 (Approximate), Expires: 11/08/2024 documented as of this encounter Procedures Procedure Name Priority Date/Time Associated Diagnosis Comments URINALYSIS MICROSCOPIC FOR UA REFLEX STAT 05/09/2023 11:47 PM EDT URINALYSIS WITH REFLEX MICROSCOPIC STAT 05/09/2023 11:47 PM EDT URINE CULTURE STAT 05/09/2023 11:47 PM EDT URINALYSIS MICROSCOPIC FOR UA REFLEX STAT 05/09/2023 10:48 PM EDT URINALYSIS WITH REFLEX MICROSCOPIC STAT 05/09/2023 10:48 PM EDT ED PROTOCOL HIV 1/2 ANTIBODY/ANTIGEN SCREEN W/REFLEX TO HIV 1/2 ANTIBODY DIFFERENTIATION STAT 05/09/2023 10:31 PM EDT HEPATITIS C VIRUS (HCV) QUANTITATIVE PCR - ED STAT 05/09/2023 10:31 PM EDT HIV 1/2 ANTIBODY/ANTIGEN SCREEN WITH REFLEX TO HIV I/II DIFFERENTIATION STAT 05/09/2023 10:31 PM EDT HEPATITIS C ANTIBODY - ED W/REFLEX TO HCV QUANT PCR STAT 05/09/2023 10:31 PM EDT CBC WITH AUTO DIFFERENTIAL STAT 05/09/2023 10:31 PM EDT COMPREHENSIVE METABOLIC PANEL, PLASMA STAT 05/09/2023 10:31 PM EDT documented in this encounter Results * Urinalysis Microscopic Examination (05/09/2023 11:47 PM EDT) Urine Urine specimen obtained by clean catch procedure / Unknown Non-blood Collection / Unknown 05/09/2023 11:47 PM EDT 05/09/2023 11:53 PM EDT Laura Isidro TAKER OFF LAB URINE ORDERABLES Final Result Performing Organization Address City/[facility]/ZIP Co de Phone Number [facility] [address] [place] [address] * Urine culture - (cath) (05/09/2023 11:47 PM EDT) Culture No growth at day 2 05/12/2023 7:06 AM EDT [facility] Urine Urine specimen from urinary conduit / Unknown Non-blood Collection / Unknown 05/09/2023 11:47 PM EDT 05/09/2023 11:53 PM EDT Laura Isidro APRN LAB MICROBIOLOGY - GENERAL ORDERABLES Final Result Performing Organization Address City/[facility]/ZIP Co de Phone Number [facility] [address] [place] [address] * (ABNORMAL) Urinalysis with reflex microscopic (05/09/2023 11:47 PM EDT) Color, Urine Dark Yellow LAB URINALYSIS - AUTOMATED METHOD 05/10/2023 12:08 AM EDT [facility] Clarity, Urine Clear LAB URINALYSIS - AUTOMATED METHOD 05/10/2023 12:08 AM EDT [facility] Spec Mccleary, Urine 1.027 <=1.005 to >=1.030 LAB URINALYSIS - AUTOMATED METHOD 05/10/2023 12:08 AM EDT [facility] pH, Urine 7.0 4.5 to 8 LAB URINALYSIS - AUTOMATED METHOD 05/10/2023 12:08 AM EDT [facility] Protein, Urine 30(A) Negative mg/dL LAB URINALYSIS - AUTOMATED METHOD 05/10/2023 12:08 AM EDT [facility] Glucose, Urine Negative Negative mg/dL LAB URINALYSIS - AUTOMATED METHOD 05/10/2023 12:08 AM EDT [facility] Ketones, Urine Trace(A) Negative mg/dL LAB URINALYSIS - AUTOMATED METHOD 05/10/2023 12:08 AM EDT [facility] Blood, Urine Trace(A) Negative LAB URINALYSIS - AUTOMATED METHOD 05/10/2023 12:08 AM EDT [facility] Bilirubin, Urine Negative Negative LAB URINALYSIS - AUTOMATED METHOD 05/10/2023 12:08 AM EDT [facility] Urobilinogen, Urine 1.0 0.2 to 1.0 mg/dL LAB URINALYSIS - AUTOMATED METHOD 05/10/2023 12:08 AM EDT [facility] Leukocytes, Urine Small(A) Negative LAB URINALYSIS - AUTOMATED METHOD 05/10/2023 12:08 AM EDT [facility] Nitrite, Urine Negative Negative LAB URINALYSIS - AUTOMATED METHOD 05/10/2023 12:08 AM EDT [facility] RBC, Urine 4 - 10(A) 0 to 3 /HPF 05/10/2023 12:08 AM EDT [facility] Comment:This result was prev iously suppressed from the chart. WBC, Urine 6 - 10(A) 0 to 5 /HPF 05/10/2023 12:08 AM EDT [facility] Comment:This result was prev iously suppressed from the chart. Squamous Epithelial Cells 0 - 5 0 to 5 /HPF 05/10/2023 12:08 AM EDT [facility] Comment:This result was prev iously suppressed from the chart. Hyaline Casts 0 - 8 0 to 8 /LPF 05/10/2023 12:08 AM EDT [facility] Comment:This result was prev iously suppressed from the chart. Bacteria, Urine Negative Negative 05/10/2023 12:08 AM EDT [facility] Comment:This result was prev iously suppressed from the chart. Mucus Present 05/10/2023 12:08 AM EDT [facility] Comment:This result was prev iously suppressed from the chart. Urine Urine specimen obtained by clean catch procedure / Unknown Non-blood Collection / Unknown 05/09/2023 11:47 PM EDT 05/09/2023 11:53 PM EDT Narrative [facility] - 05/10/2023 12:08 AM EDT Performed by manual method us Laura Isidro APRN LAB URINE ORDERABLES Final Result [facility] [address] [place] [id number] * Urinalysis Microscopic Examination (05/09/2023 10:48 PM EDT) Urine Urine specimen obtained by clean catch procedure / Unknown Non-blood Collection / Unknown 05/09/2023 10:48 PM EDT 05/09/2023 10:53 PM EDT Laura Isidro APRN LAB URINE ORDERABLES Final Result [facility] [address] [place] [address] * (ABNORMAL) Urinalysis with reflex microscopic (05/09/2023 10:48 PM EDT) Color, Urine Dark Yellow LAB URINALYSIS - AUTOMATED METHOD 05/09/2023 11:11 PM EDT [facility] Clarity, Urine Clear LAB URINALYSIS - AUTOMATED METHOD 05/09/2023 11:11 PM EDT [facility] Spec Mccleary, Urine 1.029 <=1.005 to >=1.030 LAB URINALYSIS - AUTOMATED METHOD 05/09/2023 11:11 PM EDT [facility] pH, Urine 7.5 4.5 to 8 LAB URINALYSIS - AUTOMATED METHOD 05/09/2023 11:11 PM EDT [facility] Protein, Urine 30(A) Negative mg/dL LAB URINALYSIS - AUTOMATED METHOD 05/09/2023 11:11 PM EDT [facility] Glucose, Urine Negative Negative mg/dL LAB URINALYSIS - AUTOMATED METHOD 05/09/2023 11:11 PM EDT [facility] Ketones, Urine Trace(A) Negative mg/dL LAB URINALYSIS - AUTOMATED METHOD 05/09/2023 11:11 PM EDT [facility] Blood, Urine Trace(A) Negative LAB URINALYSIS - AUTOMATED METHOD 05/09/2023 11:11 PM EDT [facility] Bilirubin, Urine Small(A) Negative LAB URINALYSIS - AUTOMATED METHOD 05/09/2023 11:11 PM EDT [facility] Urobilinogen, Urine 1.0 0.2 to 1.0 mg/dL LAB URINALYSIS - AUTOMATED METHOD 05/09/2023 11:11 PM EDT [facility] Leukocytes, Urine Small(A) Negative LAB URINALYSIS - AUTOMATED METHOD 05/09/2023 11:11 PM EDT [facility] Nitrite, Urine Negative Negative LAB URINALYSIS - AUTOMATED METHOD 05/09/2023 11:11 PM EDT [facility] RBC, Urine 16 - 30(A) 0 to 3 /HPF 05/09/2023 11:11 PM EDT [facility] Comment:This result was prev iously suppressed from the chart. WBC, Urine 11 - 15(A) 0 to 5 /HPF 05/09/2023 11:11 PM EDT [facility] Comment:This result was prev iously suppressed from the chart. Squamous Epithelial Cells 0 - 5 0 to 5 /HPF 05/09/2023 11:11 PM EDT [facility] Comment:This result was prev iously suppressed from the chart. Hyaline Casts 0 - 8 0 to 8 /LPF 05/09/2023 11:11 PM EDT [facility] Comment:This result was prev iously suppressed from the chart. Bacteria, Urine Present Negative 05/09/2023 11:11 PM EDT [facility] Comment:This result was prev iously suppressed from the chart. Mucus Present 05/09/2023 11:11 PM EDT [facility] Comment:This result was prev iously suppressed from the chart. Urine Urine specimen obtained by clean catch procedure / Unknown Non-blood Collection / Unknown 05/09/2023 10:48 PM EDT 05/09/2023 10:53 PM EDT Narrative [facility] - 05/09/2023 11:11 PM EDT Performed by manual method Laura Isidro APRN LAB URINE ORDERABLES Final Result Performing Organization Address City/State/[facility] Co de Phone Number [facility] [address] [place] [phone] * Hepatitis C Virus (HCV) Quantitative PCR - ED (05/09/2023 10:31 PM EDT) Hepatitis C Virus (HCV) Quantitative Interpretation Not Detected Not Detected . 05/11/2023 1:26 PM EDT [facility] Hepatitis C Virus (HCV) Quantitative Viral Load Log Result <1.08 <1.08 log10 IU/mL 05/11/2023 1:26 PM EDT [facility] Hepatitis C Virus (HCV) Quantitative IU/mL Result <12 <12 IU/mL 05/11/2023 1:26 PM EDT [facility] Blood Venous blood specimen / Unknown Venipuncture / Unknown 05/09/2023 10:31 PM EDT 05/09/2023 10:34 PM EDT Narrative [facility]ALTH[facility]ARE [facility] - 05/11/2023 1:26 PM EDT The Vivint M2000 HCV test is a Real Time in vitro nucleic acid amplification test for the quantitation of Hepatitis C Viral (HCV) RNA in human serum in HCV-infected individuals. It is intended for use as an aid in the management of HCV-infected individuals undergoing anti-viral therapy. The dynamic range for this test is log10 = 1.08 to 8.00 and/or 12 to 100,000,000 IU/mL. The limit of detection (LOD) for this assay is 12 IU/mL and the limit of quantitation (LOQ) is 12 IU/mL. This assay is FDA approved for clinical use. Laura Elise Bloodhoundmaureen TAKER OFF LAB BLOOD ORDERABLES Final Result Performing Organization Address City/[facility] Co de Phone Number [facility] [address] [place] [address] * HIV 1 & 2 Antibody/Antigen Screen (05/09/2023 10:31 PM EDT) [facility] HIV 1 & 2 Antibody/Antigen Screen Non Reactive Non Reactive 05/09/2023 11:11 PM EDT [facility] Comment:Screening for HIV 1 & 2 antibodies, and P24 antigen is NONREACTIVE. No confirmatory testing is required. Blood Venous blood specimen / Unknown Venipuncture / Unknown 05/09/2023 10:31 PM EDT 05/09/2023 10:34 PM EDT [facility] LAB BLOOD ORDERABLES Final Result Performing Organization Address City/[facility] Co de Phone Number [facility] [address] [place] [address] * (ABNORMAL) Hepatitis C Antibody - ED (05/09/2023 10:31 PM EDT) [facility] Hepatitis C Antibody Positive(A ) Negative 05/09/2023 11:08 PM EDT [facility] Blood Venous blood specimen / Unknown Venipuncture / Unknown 05/09/2023 10:31 PM EDT 05/09/2023 10:34 PM EDT Laura Isidro APRN LAB BLOOD ORDERABLES Final Result [facility] [address] [place] [address] * (ABNORMAL) CBC w/diff (05/09/2023 10:31 PM EDT) WBC Count 8.15 3.70 - 10.30 10*3/uL LAB HEMATOLOGY METHOD 05/09/2023 10:37 PM EDT [facility] RBC Count 4.72 4.60 - 6.10 10*6/uL LAB HEMATOLOGY METHOD 05/09/2023 10:37 PM EDT [facility] HGB 14.3 13.7 - 17.5 g/dL LAB HEMATOLOGY METHOD 05/09/2023 10:37 PM EDT [facility] HCT 40.6 40.0 - 51.0 % LAB HEMATOLOGY METHOD 05/09/2023 10:37 PM EDT [facility] Platelet Count 175 155 - 369 10*3/uL LAB HEMATOLOGY METHOD 05/09/2023 10:37 PM EDT [facility] MCV 86 79 - 98 fL LAB HEMATOLOGY METHOD 05/09/2023 10:37 PM EDT [facility] MCH 30.3 26.0 - 32.0 pg LAB HEMATOLOGY METHOD 05/09/2023 10:37 PM EDT [facility] MCHC 35.2 30.7 - 35.5 g/dL LAB HEMATOLOGY METHOD 05/09/2023 10:37 PM EDT [facility] RDW 11.9 11.5 - 14.5 % LAB HEMATOLOGY METHOD 05/09/2023 10:37 PM EDT [facility] MPV 10.2 8.8 - 12.5 fL LAB HEMATOLOGY METHOD 05/09/2023 10:37 PM EDT [facility] nRBC 0.0 <=0.0 per 100 WBCs LAB HEMATOLOGY METHOD 05/09/2023 10:37 PM EDT [facility] Differential Type Automated LAB HEMATOLOGY METHOD 05/09/2023 10:37 PM EDT [facility] Neutrophils % 83.0 % LAB HEMATOLOGY METHOD 05/09/2023 10:37 PM EDT [facility] Lymphocytes % 10.0 % LAB HEMATOLOGY METHOD 05/09/2023 10:37 PM EDT [facility] Monocytes % 6.0 % LAB HEMATOLOGY METHOD 05/09/2023 10:37 PM EDT [facility] Eosinophils % 1.0 % LAB HEMATOLOGY METHOD 05/09/2023 10:37 PM EDT [facility] Basophils % 0.0 % LAB HEMATOLOGY METHOD 05/09/2023 10:37 PM EDT [facility] Immature Granulocytes % 0.0 % LAB HEMATOLOGY METHOD 05/09/2023 10:37 PM EDT [facility] Neutrophils Absolute 6.75(H) 1.60 - 6.10 10*3/uL LAB HEMATOLOGY METHOD 05/09/2023 10:37 PM EDT [facility] Lymphocytes Absolute 0.80(L) 1.20 - 3.90 10*3/uL LAB HEMATOLOGY METHOD 05/09/2023 10:37 PM EDT [facility] Monocytes Absolute 0.47 0.30 - 0.90 10*3/uL LAB HEMATOLOGY METHOD 05/09/2023 10:37 PM EDT [facility] Eosinophils Absolute 0.07 0.00 - 0.50 10*3/uL LAB HEMATOLOGY METHOD 05/09/2023 10:37 PM EDT [facility] Basophils Absolute 0.03 0.00 - 0.10 10*3/uL LAB HEMATOLOGY METHOD 05/09/2023 10:37 PM EDT [facility] Immature Granulocytes Absolute 0.03 0.00 - 0.06 10*3/uL LAB HEMATOLOGY METHOD 05/09/2023 10:37 PM EDT [facility] Blood Venous blood specimen / Unknown Venipuncture / Unknown 05/09/2023 10:31 PM EDT 05/09/2023 10:34 PM EDT Narrative [facility] - 05/09/2023 10:37 PM EDT Therapeutic decision making should be based on absolute values, rather than percentages. us Laura Isidro APRN LAB BLOOD ORDERABLES Final Result [facility] [address] [place] [address] * (ABNORMAL) CMP (05/09/2023 10:31 PM EDT) [facility] Glucose, Plasma 106(H) 74 - 99 mg/dL 05/09/2023 10:59 PM EDT [facility] BUN, Plasma 21 7 - 21 mg/dL 05/09/2023 10:59 PM EDT [facility] Creatinine, Plasma 1.12 0.80 - 1.30 mg/dL 05/09/2023 10:59 PM EDT [facility] BUN/Creatinine Ratio 19 05/09/2023 10:59 PM EDT [facility] Sodium, Plasma 137 136 - 145 mmol/L 05/09/2023 10:59 PM EDT [facility] Potassium, Plasma 4.4 3.7 - 4.8 mmol/L 05/09/2023 10:59 PM EDT [facility] Chloride, Plasma 104 97 - 107 mmol/L 05/09/2023 10:59 PM EDT [facility] CO2, Plasma 24 22 - 29 mmol/L 05/09/2023 10:59 PM EDT [facility] Anion Gap 9 6 - 16 mmol/L 05/09/2023 10:59 PM EDT [facility] Total Calcium, Plasma 8.8(L) 8.9 - 10.2 mg/dL 05/09/2023 10:59 PM EDT [facility] Total Protein 6.5 6.3 - 7.9 g/dL 05/09/2023 10:59 PM EDT [facility] Albumin, Plasma 4.2 3.5 - 5.2 g/dL 05/09/2023 10:59 PM EDT [facility] AST, Plasma 32 12 - 40 U/L 05/09/2023 10:59 PM EDT [facility] ALT, Plasma 15 11 - 41 U/L 05/09/2023 10:59 PM EDT [facility] Alkaline Phosphatase, Plasma 70 40 - 115 U/L 05/09/2023 10:59 PM EDT [facility] Total Bilirubin, Plasma 1.0 0.2 - 1.1 mg/dL 05/09/2023 10:59 PM EDT [facility] eGFRcr 85.7 mL/min/1.7 3m*2 05/09/2023 10:59 PM EDT [facility] Comment: Reported eGFRcr in mL/min/1.73m2 is based the CKD-EPI 2021 equation that does not use a race coefficient. Effective 06/11/22 our laboratory changed the eGFR calculation to the CKD-EPI 202 equation from the previously reported eGFR, based on the MDRD equation. ??For comparisons between the two equations, please see laboratory website: ??[email or web address] Blood Venous blood specimen / Unknown Venipuncture / Unknown 05/09/2023 10:31 PM EDT 05/09/2023 10:34 PM EDT us Lauraflorence Enamoradomaureen ORTIZ LAB BLOOD ORDERABLES Final Result [facility] [address] [place] [address] documented in this encounter Visit Diagnoses Diagnosis Nephrolithiasis- Primary Calculus of kidney documented in this encounter Administered Medications Inactive Administered Medications - up to 3 most recent administrations Medication Order MAR Action Action Date Dose Rate Site cefTRIAXone (Rocephin) 2 g in sodium chloride 0.9% 100 mL IVPB (Mini-Bag Plus) 2 g, Intravenous, Once, 1 dose, On 05/09/23 at 2325, STAT New Bag 05/09/2023 11:52 PM EDT 2 g 220 mL/hr oxyCODONE (Roxicodone) immediate release tablet 5 mg 5 mg, Oral, Once, 1 dose, On 05/09/23 at 2305, STAT Given 05/09/2023 11:13 PM EDT 5 mg sodium chloride 0.9 % infusion 1,000 mL 1,000 mL, Intravenous, Once, 1 dose, On 05/09/23 at 2220, STAT New Bag 05/09/2023 10:32 PM EDT 1,000 mL documented in this encounter Active and Recently Administered Medications Times are shown in EDT. Scheduled Medication Order 05/08/2023 05/09/2023 05/10/2023 cefTRIAXone (Rocephin) 2 g in sodium chloride 0.9% 100 mL IVPB (Mini-Bag Plus) (COMPLETED) 2 g, Intravenous, Once, 1 dose, On 05/09/23 at 2325, STAT 2352 (New Bag - Provider: Cruz Ignacio RN) 0026 (Stopped - Provider: Cruz Ignacio RN) oxyCODONE (Roxicodone) immediate release tablet 5 mg (COMPLETED) 5 mg, Oral, Once, 1 dose, On 05/09/23 at 2305, STAT 2313 (Given - Provider: Cruz Ignacio RN) sodium chloride 0.9 % infusion 1,000 mL (COMPLETED) 1,000 mL, Intravenous, Once, 1 dose, On 05/09/23 at 2220, STAT 2232 (New Bag - Provider: Cruz Ignacio RN)2333 (Stopped - Provider: Cruz Ignacio RN) documented in this encounter Care Teams 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
--- OUTSIDE RECORDS SUMMARY | 2024-10-25 22:35 | XMS_ITS | Encounter Summary ---
Author Organization [place] [address] Care Team Providers Care Building Certifier Name Role Phone Unavailable Primary Care Provider Unavailabl e Reason for Visit * Reason Comments Wrist Pain left wrist pain from injury years ago sts been working a lot and its been swelling. CPTA: none- pt sts came in to ED because his boss sent him Encounter Details Date Type Department Care Team (Late st Contact Info) Description 01/23/2016 2:59 PM EST - 01/23/2016 4:32 PM EST Emergency [facility] [address] [place] [address] Tammie Wright MD [address] [place] [phone] Left wrist pain (Primary Dx) Discharge Disposition: Home or Self Care Social History Tobacco Use Types Packs/Day Years Used Date Smoking Tobacco: Every Day Cigarettes Sex and Gender Information Value Date Recorded Sex Assigned at Not on file Legal Sex Male 4:41 AM EDT Gender Identity Not on file Sexual Orientation Not on file documented as of this encounter Last Filed Vital Signs Vital Sign Reading Time Taken Comments Blood Pressure 136/79 01/23/2016 3:00 PM EST Pulse 82 01/23/2016 3:00 PM EST Temperature 36.8 ??C (98.2 ??F) 01/23/2016 3:00 PM ES T Respiratory Rate 18 01/23/2016 3:00 PM EST Oxygen Saturation 100% 01/23/2016 3:00 PM EST Inhaled Oxygen Concentration - - Weight 72.6 kg (160 lb) 01/23/2016 3:00 PM EST Height 172.7 cm (5' 8 ) 01/23/2016 3:00 PM EST Body Mass Index 24.33 01/23/2016 3:00 PM EST documented in this encounter Discharge Instructions * Discharge Instructions* Karyna Hoff APRN - 01/23/2016 4:21 PM EST Wear Velcro wrist splint as needed for comfort and support. Ibuprofen as needed for pain relief. Follow-up with orthopedic if no symptomatic improvement for further evaluation and treatment. Return to the emergency department for any new or worsening symptoms * Attachments The following attachments cannot be sent through Care Everywhere. * WRIST PAIN (BULGARIAN) * CARPAL TUNNEL SYNDROME (BULGARIAN) documented in this encounter Discharge Disposition Disposition Code Departure Means Destination Home or Self Detention documented in this encounter ED Notes * Karyna Hoff APRN - 01/23/2016 3:25 PM EST CHIEF COMPLAINT Chief Complaint Patient presents with ??? Wrist Pain left wrist pain from injury years ago sts been working a lot and its been swelling. CPTA: none-pt sts came in to ED because his boss sent him HPI Brandon Yo is a 30 y.o. male who presents to the emergency department with complaint of left wrist pain. Patient did have a wrist injury as a teenager. He states he has had intermittent episodes of left wrist pain. Feels it is sometimes swollen. He states he does repetitive motion of his hand and wrist at work. States he was lifting weights several days ago, unsure if he injured his wrist. Patient states a sharp intermittent pain to the wrist. Worse with certain movements. Denies radiation of the pain. Denies alleviating factors to the pain. Did not take any medication for pain for arrival. Patient has not noted any erythema to the wrist. Denies fever. Denies any other joint pain. At times will have tingling sensation to his hand and fingers, which improves with rest. REVIEW OF SYSTEMS See HPI for further details. Review of systems otherwise negative. PAST MEDICAL HISTORY History reviewed. No pertinent past medical history. FAMILY HISTORY No family history on file. SOCIAL HISTORY History Social History ??? Marital Status: Single Spouse Name: N/A Number of Children: N/A ??? Years of Education: N/A Social History Main Topics ??? Smoking status: Current Every Day Smoker -- 0.50 packs/day Types: Cigarettes ??? Smokeless tobacco: None ??? Alcohol Use: None ??? Drug Use: None ??? Sexual Activity: None Other Topics Concern ??? None Social History Narrative ??? None SURGICAL HISTORY History reviewed. No pertinent past surgical history. CURRENT MEDICATIONS Current Outpatient Rx Name Route Sig Dispense Refill ??? FLUoxetine (PROZAC) 10 mg Oral Capsule Oral Take by mouth daily. Indications: Anxiety with Depression ALLERGIES No Known Allergies PHYSICAL EXAM VITAL SIGNS: ED Triage Vitals Temp 01/23/16 1500 98.2 ??F (36.8 ??C) Pulse 01/23/16 1500 82 Resp 01/23/16 1500 18 BP 01/23/16 1500 136/79 mmHg SpO2 01/23/16 1500 100 % Height 01/23/16 1500 5' 8 (1.727 m) Weight 01/23/16 1500 160 lb (72.576 kg) Constitutional: Well developed, Well nourished, No acute distress, Non-toxic appearance. Cardiovascular: Normal heart rate, Normal rhythm, No murmurs, No rubs, No gallops. Thorax & Lungs: Normal breath sounds, No respiratory distress, No wheezing, No chest tenderness. Abdomen: Bowel sounds normal, Soft, No tenderness, No masses, No pulsatile masses. Skin: Warm, Dry, No erythema, No rash. Extremities: Intact distal pulses, No cyanosis. Musculoskeletal: Positive Phalen sign, negative Tinel. Patient is tender along the dorsal surface of the wrist, increased over the ulnar styloid. There is no swelling or obvious step off noted. No erythema, ecchymosis, or abrasion. Full range of motion noted to the right wrist and right elbow. No tenderness noted over the dorsal surface of the hand or over the remainder of the extremity. Neurovascular examination intact. Full sensation to the extremity. Brisk capillary refill to the fingers. Negative Armaan. Neurologic: Alert & oriented x 3, Normal motor function, Normal sensory function, No focal deficits noted. LAB/RADIOLOGY/PROCEDURES Results for orders placed or performed during the hospital encounter of 01/23/16 XR WRIST LEFT PA LATERAL AND OBLIQUE Narrative XR WRIST LEFT PA LATERAL AND OBLIQUE 01/23/2016 3:32 PM HISTORY: -WRIST PAIN. COMPARE: None. There is a smoothly marginated ossicle with sclerotic margins separate from the ulnar styloid process, compatible either with an accessory ossicle or remote avulsion fracture. No acute appearing fracture, dislocation, or other significant bony abnormality is identified. Impression IMPRESSION: No acute bony abnormality identified. COURSE & MEDICAL DECISION MAKING Pertinent Labs & Imaging studies reviewed. (See chart for details) Patient presents to the emergency Department with the above complaint. Physical examination findings are noted above. X-ray with no acute fracture. I suspect he could have carpal tunnel. Patient placed in a Velcro wrist splint. Given referral to orthopedic. Advised to take ibuprofen as needed for pain relief. Patient verbalized understanding of the discharge instructions and plan of care FINAL IMPRESSION 1. Left wrist pain Condition at discharge stable This chart was completed using voice recognition technology and may contain unintended errors Karyna Hoff APRN 01/23/16 1620 Cosigned by Tammie Wright MD at 01/25/2016 12:29 AM EST documented in this encounter Plan of Treatment Not on file documented as of this encounter Procedures Procedure Name Priority Date/Time Associated Diagnosis Comments XR WRIST LEFT PA LATERAL AND OBLIQUE ISMA 01/23/2016 3:32 PM EST documented in this encounter Results * XR WRIST LEFT PA LATERAL AND OBLIQUE (01/23/2016 3:32 PM EST) Anatomical Region Laterality Modality Wrist Radiographic Meghan ging 01/23/2016 3:32 PM EST Impressions 01/23/2016 3:42 PM EST IMPRESSION: No acute bony abnormality identified. Narrative 01/23/2016 3:42 PM EST XR WRIST LEFT PA LATERAL AND OBLIQUE ?? 01/23/2016 3:32 PM HISTORY: ??-WRIST PAIN. ?? COMPARE: None. There is a smoothly marginated ossicle with sclerotic margins separate from the ulnar styloid process, compatible either with an accessory ossicle or remote avulsion fracture. No acute appearing fracture, dislocation, or other significant bony abnormality is identified. Procedure Note Gurpreet [place] MD - 01/23/2016 XR WRIST LEFT PA LATERAL AND OBLIQUE 01/23/2016 3:32 PM HISTORY: -WRIST PAIN. COMPARE: None. There is a smoothly marginated ossicle with sclerotic margins separatefrom the ulnar styloid process, compatible either with an accessory ossicle orremote avulsion fracture. No acute appearing fracture, dislocation, or other significant bony abnormality is identified. IMPRESSION: No acute bony abnormality identified. us Tammie Wright MD IMG DIAGNOSTIC IMAGING ORDER ALBA Final Result documented in this encounter Visit Diagnoses Diagnosis Left wrist pain- Primary Pain in joint, forearm documented in this encounter Administered Medications Inactive Administered Medications - up to 1 most recent administrations Medication Order MAR Action Action Date Dose Rate Site ibuprofen (ADVIL;MOTRIN) tablet 600 mg 600 mg, Oral, ONCE, 1 dose, On Thu01/23/16 at 1530 Given 01/23/2016 3:35 PM EST 600 mg documented in this encounter Historical Medications * This list may reflect changes made after this encounter. FLUoxetine (PROZAC) 10 mg Oral CapsuleIndicatio ns:anxiety with depression Take by mouth daily. Indications: Anxiety with Depression 0 added in this encounter Active and Recently Administered Medications Times are shown in EST. Scheduled Medication Order 01/21/2016 01/22/2016 01/23/2016 ibuprofen (ADVIL;MOTRIN) tablet 600 mg (COMPLETED) 600 mg, Oral, ONCE, 1 dose, On Thu01/23/16 at 1530 1535 (Given - Provid er: Carolina Fried RN) documented in this encounter
--- OUTSIDE RECORDS SUMMARY | 2024-10-25 22:35 | XMS_ITS | Encounter Summary ---
Author Organization [place] [address] Care Team Providers Care Document Preparer Microfilming Name Role Phone Unavailable Primary Care Provider Unavailabl e Reason for Visit * Reason Onset Date Comments Hepatitis C 12/25/2015 Encounter Details Date Type Department Care Team (Late st Contact Info) Description 12/25/2015 Telephone [facility]P [facility] [address] [phone] Oc Zepeda MD [address] [place] [address] Hepatitis C Social History Tobacco Use Types Packs/Day Years Used Date Smoking Tobacco: Never Assessed Sex and Gender Information Value Date Recorded Sex Assigned at Not on file Legal Sex Male 4:41 AM EDT Gender Identity Not on file Sexual Orientation Not on file documented as of this encounter Miscellaneous Notes * Telephone Encounter - Tracie Esqueda RN - 12/25/2015 4:32 PM EST Labs ordered. Once complete he can set up appt. Pt aware. * Telephone Encounter - Shy Short - 12/25/2015 4:24 PM EST Pt called. New ref per hp bv, hep c. No recs here. Needs labs? documented in this encounter Plan of Treatment Scheduled Orders Name Type Priority Associated Diagnoses Orde r Schedule HCV GENOTYPE BY PCR AND SEQUENCING -REF LAB Lab Routine Positive hepatitis C antibody test 1 Occurrences starting 12/25/2015 until 12/25/2016 HCV RNA QUANT, REAL-TIME PCR -REF LAB Lab Routine Positive hepatitis C antibody test 1 Occurrences starting 12/25/2015 until 12/25/2016 documented as of this encounter Results * HCV GENOTYPE BY PCR AND SEQUENCING -REF LAB (01/11/2016 9:41 AM EST) HCV Genotyping by PCR & Sequencing 1a or 1b [facility] Comment: Cannot be further subtyped into Type 1a or Type 1b due to high conservation of the 5' untranslated region of the HCV genome. In addition, Type 6 virus may be misclassified as Type 1 in some cases. The Hepatitis C Virus High-Resolution Genotype by Sequencing test ([employer] test code [id number]) provides a higher level of subtype resolution. INTERPRETIVE INFORMATION: ??Hepatitis C Genotyping Hepatitis C Viral RNA is tested using reverse compliance tester polymerase chain reaction (RT-PCR) to amplify a specific portion of the 5' untranslated region (5' UTR) of the viral genome. The amplified nucleic acid is sequenced bi-directionally using dye-terminator chemistry ([employer]). Sequencing data is compared to a database [...] 1. Test developed and characteristics determined by [employer]. See Compliance Statement B: [email or web address] Blood specimen (specimen) UPPER LIMB STRUCTURE / Unknown 01/11/2016 9:41 AM EST 01/11/2016 11:24 PM EST us Oc Zepeda MD IMMUNOLOGY ORDERABLES Final Result [facility] [address] [place], [place] [id number] * (ABNORMAL) HCV RNA QUANT, REAL-TIME PCR -REF LAB (01/11/2016 9:41 AM EST) Hepatitis C RNA 6.6 log IU [facility] Comment: INTERPRETIVE INFORMATION: Hepatitis C Virus by [...] Tissue-Based Products (HCT/P). HCV IU 4,400,000 IU/mL [facility] HCV RNA Interpretation Detected( A) Not Detected [facility] EER HCV RNA Quant RT-PCR See Note [facility] Comment: To download an enhanced report for this test go to: [email or web address] [email or web address] [email or web address] Blood specimen (specimen) UPPER LIMB STRUCTURE / Unknown 01/11/2016 9:41 AM EST 01/11/2016 11:24 PM EST Oc Zepeda MD IMMUNOLOGY ORDERABLES Final Result [facility] [address] [place] [address] documented in this encounter Visit Diagnoses Diagnosis Positive hepatitis C antibody test- Primary Other and unspecified nonspecific immunological findings documented in this encounter
--- OUTSIDE RECORDS SUMMARY | 2024-10-25 22:35 | XMS_ITS | Encounter Summary ---
Author Organization [place] [address] Care Team Providers Care New Accounts Banking Representative Name Role Phone MariiaSandra xiong Primary Care Provider [phone] Reason for Referral * Ultrasound (Routine) - Closed Specialty Diagnoses / Procedures Referred By Contac t Referred To Contact Radiology Diagnoses Chronic hepatitis C without hepatic coma (HCC) Procedures US RIGHT UPPER QUADRANT Oc Zepeda MD Phone: tel: fax: [facility] [address] [place] [address] Phone: tel: Referral ID Status Reason Start Date Expiration Date Visits Re quested Visits Authorized [id number] Closed 05/13/2016 05/13/2017 1 1 * GI Procedure (Routine) - Closed Specialty Diagnoses / Procedures Referred By Contac t Referred To Contact Diagnoses Chronic hepatitis C without hepatic coma (HCC) Procedures AMB FIBROSCAN COMM ORDER Oc Zepeda MD Phone: tel: fax: Referral ID Status Reason Start Date Expiration Date Visits Re quested Visits Authorized [id number] Closed 05/13/2016 05/13/2017 1 1 Reason for Visit * Reason Comments Hepatitis C * Consultation (Routine) - Closed Specialty Diagnoses / Procedures Referred By Contact Referred To Contact Internal Medicine-Gastroenterology / Gastroenterology Diagnoses Hepatitis C New ref per hp bv, hep c. No recs here declined sooner dt wants am. labs done. ew loc. Procedures OFFICE VISIT Oc Zepeda MD [address] [place] [address] Phone: tel:[phone] fax:[phone] Referral ID Status Reason Start Date Expiration Date Visits Re quested Visits Authorized [id number] Closed 03/03/2016 03/03/2017 1 1 Encounter Details Date Type Department Care Team (Late st Contact Info) Description 05/13/2016 1:15 PM EDT Office Visit [facility] [place] [phone] Oc Zepeda MD [address] [place] [address] Chronic hepatitis C without hepatic coma (HCC) [...] Sign Reading Time Taken Comments Blood Pressure 118/76 05/13/2016 1:10 PM EDT Pulse - - Temperature - - Respiratory Rate - - Oxygen Saturation - - Inhaled Oxygen Concentration - - Weight 70.1 kg (154 lb 9.6 oz) 05/13/2016 1:10 P M EDT Height 172.7 cm (5' 8 ) 05/13/2016 1:10 PM EDT Body Mass Index 23.51 05/13/2016 1:10 PM EDT documented in this encounter H&P Notes * Oc Zepeda MD - 05/13/2016 1:[address] [facility] Gastroenterology Consult Note Primary Care Physician: Sandra Alvarez Reason for referral: Chief Complaint Patient presents with ??? Hepatitis C History of Presenting Illness Brandon Yo is a(n) 30 y.o. White or [1] male asked to see us in consultation by Sandra Alvarez for evaluation of chronic Hep C. He was diagnosed with this infection in 2010. He contracted it due to history of IV drug use. 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 He is currentlyundergoing rehabilitation with [facility] and is on probation too. He denies alcohol use, sharing razor blades, or prior HCV therapy. He denies any GI symptoms. Prior Endoscopies: nil Review of Systems: Constitutional: Fever -, sweats +, chills -, weight loss + HEENT: Headaches -, visual problems -, hearing problems - Neuro: Dizziness -, seizures -, neuropathy -, Stroke -, TIA - Respiratory: Shortness of breath +, chest pain -, cough - Cardiovascular: Palpitation -, PND -, orthopnea -, Ankle/leg swelling - Gastrointestinal: as in the HPI Genitourinary: Dysuria -, urinary frequency -, urinary urgency -, hematuria - Musculoskeletal: Arthralgia -, myalgia - Endocrine: Diabetes -, thyroid problems - Integumentary: Easy bruising -, skin problems - Hematology / Lymphatics: Hx of anemia -, Lymphadenopathy - PMSH: History reviewed. No pertinent past medical history. History reviewed. No pertinent past surgical history. Medications Current Outpatient Prescriptions Medication Sig Dispense Refill ??? Amoxicillin 500 mg Oral Tablet Take 500 mg by mouth every 12 hours. ??? FLUoxetine (PROZAC) 10 mg Oral Capsule Take by mouth daily. Indications: Anxiety with Depression No current facility-administered medications for this visit. Allergy: No Known Allergies FMH: Family History Problem Relation Age of Onset ??? Family history unknown: Yes Social History: History Social History ??? Marital Status: Single Spouse Name: N/A ??? Number of Children: N/A ??? Years of Education: N/A Occupational History ??? Not on file. Social History Main Topics ??? Smoking status: Current Every Day Smoker -- 1.50 packs/day Types: Cigarettes ??? Smokeless tobacco: Never Used ??? Alcohol Use: No ??? Drug Use: No ??? Sexual Activity: Not on file Other Topics Concern ??? Not on file Social History Narrative Physical Examination BP 118/76 mmHg Ht 5' 8 (1.727 m) Wt 154 lb 9.6 oz (70.126 kg) BMI 23.51 kg/m2 ?? General: alert, well developed, well nourished, in no acute distress ?? HEENT: Not pale, anicteric, normal, mucous membranes moist ?? Neck: Supple, no thyromegaly ?? Lungs: Good air movts, clear to auscultation bilaterally ?? Cardiac: RRR. S1 S2 normal. ?? Abdomen: soft, nontender, BS +, no masses or ascites ?? : No CVA tenderness, kidneys not ballotable ?? Ext: No cyanosis, clubbing or edema ?? Neurological: No cranial nerve deficits. No asterixis ?? Skin: Normal warmth, color. No rash or ecchymoses. Multiple tattoos on extremities + ?? Lymph: No cervical or supraclavicular lymphadenopathy ?? Psych: Normal mood and affect Assessment Brandon was seen today for hepatitis c. Diagnoses and all orders for this visit: Chronic hepatitis C without hepatic coma (HCC) Genotype 1, VL 4,4 million - Hepatitis A Virus Antibodies, Total-Ref lab; Future - Fibroscan Communication Order - Ultrasound right upper quadrant; Future - Basic Metabolic Panel; Future - CBC; Future - Hepatic Function Panel; Future - Hepatitis B Surface Antigen; Future - HIV Ag/AB; Future Return in about 3 months (around 08/13/2016). This note was generated using voice recognition technology. It has been reviewed by the undersigned, however, may still contain unintended errors. [facility] Brandon Yo in consultation Oc Zepeda MD Hand Ii Thermal Cutter [facility] [phone] documented in this encounter Miscellaneous Notes * Patient Instructions - Batool Reyes LPN - 05/13/2016 1:13 PM EDT You may be contacted by [...] on file documented as of this encounter Results * US RIGHT UPPER [...] MD IMG US ORDERABLES Final Res ult * HIV AG/AB (05/21/2016 1:38 PM EDT) HIV Ag/AB Non-Reacti ve [facility] Blood specimen (specimen) 05/21/2016 1:38 PM EDT 05/21/2016 5:27 PM EDT us Oc Zepeda MD IMMUNOLOGY ORDERABLES Final Result Performing Organization Address City/[facility]/ZIP Co de Phone Number [facility] [address] [place] [address] * HEPATITIS B SURFACE ANTIGEN (05/21/2016 1:38 PM EDT) Pathologist [facility] Hep Bs Ag Negative Negative [facility] Blood specimen (specimen) UPPER LIMB STRUCTURE / Unknown 05/21/2016 1:38 PM EDT 05/21/2016 5:27 PM EDT Oc Zepeda MD CHEMISTRY ORDERABLES Final Result Performing Organization Address [facility] de Phone Number [facility] [address] [place] [address] * (ABNORMAL) HEPATIC FUNCTION PANEL (05/21/2016 1:38 PM EDT) [facility] Total Protein 7.3 6.4 - 8.3 gm/dL [facility] Albumin 4.6 3.5 - 5.2 gm/dL [facility] Bili Direct <0.2 0.0 - 0.3 mg/dL [facility] Bili Total 0.5 0.1 - 1.4 mg/dL [facility] AST 41(H) <=40 IU/L [facility] ALT 37 <=41 IU/L [facility] Alk Phos 64 40 - 129 IU/L [facility] Blood specimen (specimen) UPPER LIMB STRUCTURE / Unknown 05/21/2016 1:38 PM EDT 05/21/2016 5:27 PM EDT us Oc Zepeda MD CHEMISTRY ORDERABLES Final Result Performing Organization Address [facility] Co de Phone Number [facility] [address] [place] [address] * CBC (05/21/2016 1:38 PM EDT) Pathologist [facility] WBC 6.9 4.0 - 11.0 x10(3)/mcL [facility] RBC 4.98 4.30 - 5.81 x10(6)/mcL [facility] Hgb 15.6 13.5 - 17.1 gm/dL [facility] Hct 46.1 38.9 - 51.6 % [facility] MCV 92.5 82.5 - 99.[address] [facility] MCH 31.4 27.0 - 34.[address] [facility] MCHC 33.9 32.1 - 35.3 gm/dL [facility] RDW 13.1 11.5 - 15.0 % [facility] Platelet 210 144 - 423 x10(3)/mcL [facility] MPV 9.2 6.8 - 10.[address] [facility] Blood specimen (specimen) UPPER LIMB STRUCTURE / Unknown 05/21/2016 1:38 PM EDT 05/21/2016 5:26 PM EDT us Oc Zepeda MD HEMATOLOGY ORDERABLES Final Result Performing Organization Address City/State/[facility] Co de Phone Number [facility] [address] [place] [address] * BASIC METABOLIC PANEL (05/21/2016 1:38 PM EDT) Pathologist [facility] Sodium 139 136 - 145 mmol/L [facility] Potassium 4.1 3.5 - 5.0 mmol/L [facility] Chloride 99 98 - 107 mmol/L [facility] Total CO2 25 22 - 29 mmol/L [facility] Anion Gap 15 7 - 16 mmol/L [facility] Calcium 9.6 8.6 - 10.2 mg/dL [facility] Glucose Lvl 81 74 - 100 mg/dL [facility] BUN 15 6 - 20 mg/dL [facility] Creatinine 1.28 0.67 - 1.30 mg/dL [facility] GFR Afr Am >60 [facility] GFR Non Afr Am >60 [facility] Blood specimen (specimen) UPPER LIMB STRUCTURE / Unknown 05/21/2016 1:38 PM EDT 05/21/2016 5:27 PM EDT us Oc Zepeda MD CHEMISTRY ORDERABLES Edited Result - Final [facility] [address] [place] [address] * HEPATITIS A VIRUS ANTIBODIES, TOTAL -REF LAB (05/21/2016 1:38 PM EDT) Hep A Ab Negative Negative [facility] Blood specimen (specimen) UPPER LIMB STRUCTURE / Unknown 05/21/2016 1:38 PM EDT 05/21/2016 8:30 PM EDT us Oc Zepeda MD IMMUNOLOGY ORDERABLES Final Result Performing Organization Address City/[facility] Co de Phone Number [facility] [address] [place] [address] documented in this encounter Visit Diagnoses Diagnosis Chronic hepatitis C without hepatic coma (HCC) Chronic hepatitis C without hepatic coma (HCC) documented in this encounter Historical Medications * This list may reflect changes made after this encounter. Amoxicillin 500 mg Oral Tablet Take 500 mg by mouth every 12 hours. 05/17/2020 added in this encounter Orders Nursing Count Last Ordered Date First Orde red Date AMB FIBROSCAN COMM ORDER 1 05/13/2016 documented in this encounter Care Teams New Accounts Banking Representative Relationship Specialty Start Date End Date Sandra Alvarez [address] [place] [address] PCP - General Clinic/Center - [facility] ([facility]) 03/07/16 02/21/18 documented as of this encounter
--- OUTSIDE RECORDS SUMMARY | 2024-10-25 22:35 | XMS_ITS | Encounter Summary ---
Author Organization Healthcare Address [address] [place] [address] Care Team Providers Care Atomic Spectroscopist Name Role Phone Stephany Myles ANGEL Primary Care Provider Encounter Details Date Type Department Care Team (Latest Contact Info) Description 05/09/2023 - 05/09/2023 10:05 PM EDT Hospital Encounter [facility] [address] [place] [phone] Examination Discharge Disposition: Home or Self Care Social [...] on file documented as of this encounter Medications at Time of Discharge cefadroxil (Duricef) 500 MG capsule Take 2 capsules (1,000 mg) by mouth 2 (two) times a day for 10 days. 40 capsule 05/10/2023 05/20/2023 documented as of this encounter Plan of Treatment Not on file documented as of this encounter Procedures Procedure Name Priority Date/Time Associated Diagnosis Comments CT ABDOMEN PELVIS WO IV CONTRAST Routine 05/09/2023 12:00 AM EDT Examination documented in this encounter Results * CT Abdomen Pelvis wo IV Contrast (05/09/2023 12:00 AM EDT) Narrative IMAGING - 05/10/2023 6:53 AM EDT This study was performed at an outside facility and has been loaded into the PACS system for reference only. ??This order has been auto-finalized and does not contain a result. us Imaging Upload Radiant IMG CT PROCEDURES Final R esult IMAGING documented in this encounter Visit Diagnoses Diagnosis Examination Unspecified examination documented in this encounter Care Teams Atomic Spectroscopist Relationship Specialty Start Date End Date Stephany Myles, CUT OUT WORKER [address] [place], [place] [address] PCP - General 05/09/23 documented as of this encounter
--- OUTSIDE RECORDS SUMMARY | 2024-10-25 22:35 | XMS_ITS | Encounter Summary ---
Author Organization [place] [address] Care Team Providers Care Curer Acid Drum Name Role Phone Unavailable Primary Care Provider Unavailabl e Encounter Details Date Type Department Care Team (Late st Contact Info) Description 01/05/2008 2:52 PM EST - 01/05/2008 4:16 PM EST Hospital Encounter HST EPIC CON UNK Kanu Stahl MD [address] [place] [phone] Social History Tobacco Use Types Packs/Day [...]
--- OUTSIDE RECORDS SUMMARY | 2024-10-25 22:35 | XMS_ITS | Encounter Summary ---
Author Organization [facility] [place] [place] [address] Care Team Providers Care Sleep Technologist Name Role Phone Unavailable Primary Care Provider Unavailabl e Encounter Details Date Type Department Care Team (Late st Contact Info) Description 04/05/2004 3:45 PM EDT - 04/05/2004 5:00 PM EDT Hospital Encounter HST E/D BLUE EDMaggie Jackson MD [address] [place] [address] [place] [address] Social History Tobacco Use Types [...]
--- OUTSIDE RECORDS SUMMARY | 2024-10-25 22:35 | XMS_ITS | Encounter Summary ---
Author Organization [place] [address] Care Team Providers Care Secretarial Teacher Name Role Phone Unavailable Primary Care Provider Unavailabl e Encounter Details Date Type Department Care Team (Late st Contact Info) Description 12/30/2007 6:32 PM EST - 12/30/2007 7:07 PM EST Hospital Encounter HST EPIC CON UNK Oracio Dawson MD Social History Tobacco Use Types Packs/Day [...]
== END 2024-10-24 20:43 | disposition home or self-care (01) ==
PROVIDERS: Physician Assistant; Emergency Provider Emergency Medicine; PCP Nurse Practitioner Family
DX: K52.9 Noninfective gastroenteritis and colitis, unspecified (principal); R11.2 Nausea with vomiting, unspecified; R10.9 Unspecified abdominal pain; R61 Generalized hyperhidrosis; Z20.828 Contact with and (suspected) exposure to other viral communicable diseases
CPT/HCPCS: 74177; 80053; 81001; 83690; 83735; 85025; 87086; 96374; 99285; J2405; Q9967